=== PATIENT | male | born 1990 | race Caucasian/White ===

== ENCOUNTER 2016-10-16 19:17 | Emergency (ER) | payer OTHER ==
[2016-10-16 19:24] VITALS: BP 133/98; PULSE 104; RESP 18; TEMP 99.5
--- NOTE | 2016-10-16 20:21 | ED ---
General Adult HPI - General Chief complaint: Extremity Injury, Lower Stated complaint: Leg Pain Time Seen by Provider: 10/16/16 19:42 Source: patient, RN notes reviewed Mode of arrival: wheelchair Limitations: no limitations - History of Present Illness Initial comments: This is a 26-year-old male who presents with right leg swelling 1 day. Patient states he gave plasma 2 days ago and after this has noticed some swelling to the right lower extremity. Patient states the swelling was worse yesterday and has improved some today. Patient states he also dropped a curtain memo onto his right ankle today. Patient also rolled his right ankle today as well. Patient states he "dislocated" his right ankle. Patient states he has had a scab to the medial aspect of the right ankle that he admits to picking at. Patient states he has noticed a bruise and more swelling to this area today as well. Patient states the right lower extremity feels tingly but he denies any numbness or weakness. Patient states his past medical history significant for hypertension. Patient has been able to ambulate but this is painful. Patient denies any recent fever, chills, shortness breath, chest pain, abdominal pain, nausea/vomiting/diarrhea, back pain, hematuria, headache, or visual changes, or any other complaints. - Related Data Home Medications Medication Instructions Recorded Confirmed No Known Home Medications [No 10/16/16 10/16/16 Known Home Medications] Allergies Allergy/AdvReac Type Severity Reaction Status Date / Time No Known Allergies Allergy Verified 10/16/16 20:04 Review of Systems ROS Statement: Those systems with pertinent positive or pertinent negative responses have been documented in the HPI. ROS Other: All systems not noted in ROS Statement are negative. Past Medical History Past Medical History: Hypertension History of Any Multi-Drug Resistant Organisms: None Reported Past Surgical History: Orthopedic Surgery Additional Past Surgical History / Comment(s): Lasik surgery; Left ankle surgery Past Psychological History: No Psychological Hx Reported Smoking Status: Current every day smoker Past Alcohol Use History: None Reported Past Drug Use History: None Reported General Exam - General Exam Comments Initial Comments: General: The patient is awake and alert, in no distress, and does not appear acutely ill. Neck: The neck is supple, there is no tenderness or JVD. Cardiovascular: There is a regular rate and rhythm. No murmur, rub or gallop is appreciated. Respiratory: Lungs are clear to auscultation, respirations are non-labored, breath sounds are equal. No wheezes, stridor, rales, or rhonchi. Musculoskeletal: There is tenderness to palpation over the lateral and medial malleoli of the right ankle. There is also tenderness to palpation over the lateral aspect of the right foot. There is nonpitting edema to the right lower extremity extending midcalf. No calf tenderness. There is mild erythema to the lateral aspect of the right ankle, no ecchymosis. Limited range of motion of the right lower extremity due to pain and swelling., Strength 5/5, Sensation intact. Posterior tibial and dorsalis pedis pulses present via doptone. Capillary refill is normal at less than 2 seconds. Left lower extremity is without swelling, erythema, calf tenderness or warmth. Neurological: A&O x 3. CN II-XII intact, There are no obvious motor or sensory deficits. Coordination appears grossly intact. Speech is normal. Skin: There is mild erythema to the lateral aspect of the right ankle but no ecchymosis. There is an approximately 1 cm eschar to the medial malleolus of the right ankle. Skin is warm and dry and no rashes are noted. Psychiatric: Normal mood and affect. Limitations: no limitations Course Vital Signs 10/16/16 19:21 Temperature 99.5 F Pulse Rate 104 H Respiratory 18 Rate Blood Pressure 133/98 O2 Sat by Pulse 98 Oximetry Medical Decision Making - Medical Decision Making This is a 26-year-old male with right lower extremity swelling that started yesterday. Patient has a history of rolling his ankle and dropping a curtain memo on it today. On physical exam there is tenderness to palpation over the lateral and medial malleoli of the right ankle. There is also tenderness to palpation over the lateral aspect of the right foot. There is nonpitting edema to the right lower extremity extending midcalf. No calf tenderness. There is mild erythema to the lateral aspect of the right ankle, no ecchymosis. Limited range of motion of the right lower extremity due to pain and swelling., Strength 5/5, Sensation intact. Posterior tibial and dorsalis pedis pulses present via doptone. Capillary refill is normal at less than 2 seconds. There is an approximately 1 cm eschar to the medial malleolus of the right lower extremity. Left lower extremity is without calf tenderness, swelling, warmth or erythema. Patient was given a dose of ibuprofen in the EC today for pain. X-rays of the right ankle and right foot were done and reviewed showing: X-ray of right foot: Negative for fracture or malalignment. X-ray of right ankle: Negative for fracture or malalignment. Reports read by Dr. Michelle Post. Doppler ultrasound of the right lower extremity was done and reviewed showing: Negative for DVT, right lower extremity. Report her by Dr. Carlos. Discussed results with patient. I gave patient a prescription for an air cast and crutches. Patient was given an Bill wrap in the EC today. Discussed rest, ice, elevate and use Bill bandage and Aircast for support. Discussed use of crutches for ambulation until pain improves. I discussed close follow-up with primary care physician and patient was given a referral for primary care physician today. I discussed return parameters. I discussed that this is most likely an ankle sprain and if it does not improve that he may need further evaluation from orthopedics but that he should follow-up with his primary care physician first. I discussed [id number] Tylenol and/or Motrin as needed for any pain. Patient was receptive to this plan patient will be discharged home. Patient's girlfriend was also present in the room during exam. I discussed this case with attending physician Dr. Rees who agrees the plan as stated above. Disposition Clinical Impression: Ankle sprain Disposition: HOME SELF-CARE Condition: Good Instructions: Ankle Sprain (ED) Additional Instructions: Please rest, ice, elevate, and use Bill wrap and Aircast for support. Please stay nonweightbearing to the right lower extremity and use crutches until pain improves. Please use [id number] Motrin and/or Tylenol for pain. Please follow-up with PCP in the next 1-2 days or please return to the EC for any worsening symptoms or for any further concerns. Referrals: Bal De La Garza MD [Primary Care Provider] - 1-2 days Time of Disposition: 22:11
--- NOTE | 2016-10-16 21:05 | XR ---
EXAMINATION TYPE: XR ankle complete RT DATE OF EXAM: 10/16/2016 8:33 PM COMPARISON: NONE HISTORY: Pain after trauma TECHNIQUE: 3 views FINDINGS: There is soft tissue swelling, particularly laterally. However, the mortise is intact and t he bones and joints are otherwise unremarkable. IMPRESSION: Negative for fracture or malalignment.
--- NOTE | 2016-10-16 21:06 | XR ---
EXAMINATION TYPE: XR foot complete RT DATE OF EXAM: 10/16/2016 8:33 PM COMPARISON: NONE HISTORY: Pain after injury TECHNIQUE: 3 views FINDINGS: The bones and joints and soft tissues are unremarkable IMPRESSION: Negative for fracture or malalignment
[2016-10-16] MEDS ORDERED: IBUPROFEN 400 MG TAB PO STA (21:40)
--- NOTE | 2016-10-16 21:58 | US ---
EXAMINATION TYPE: US VENOUS DOPPLER DUPLEX LE RIGHT DATE OF EXAM: 10/16/2016 9:26 PM COMPARISON: None CLINICAL HISTORY: 26 year male with foot injury today and swelling, no h/o dvt. SIDE PERFORMED: RIGHT VESSELS IMAGED: External Iliac Vein (EIV) Common Femoral Vein Deep Femoral Vein Greater Saphenous Vein * Femoral Vein Popliteal Vein Small Saphenous Vein * Proximal Calf Veins (* superficial vessels) IMPRESSION: NEGATIVE FOR DVT, RIGHT LOWER EXTREMITY.
== END 2016-10-16 22:21 | disposition home or self-care (01) ==
LOC: EC 19:17
DX: S93.401A Sprain of unspecified ligament of right ankle, initial encounter (principal); X50.1XXA Overexertion from prolonged static or awkward postures, initial encounter; W22.8XXA Striking against or struck by other objects, initial encounter; F17.200 Nicotine dependence, unspecified, uncomplicated
CPT/HCPCS: 99284

== ENCOUNTER 2017-10-25 22:39 | Emergency (ER) | payer OTHER ==
[2017-10-25 22:46] VITALS: PULSE 101; RESP 18; TEMP 98.8
--- NOTE | 2017-10-25 23:31 | ED ---
General Adult HPI - General Chief complaint: Dental/Oral Stated complaint: Dental Pain Time Seen by Provider: 10/25/17 23:08 Source: patient, RN notes reviewed Mode of arrival: ambulatory Limitations: no limitations - History of Present Illness Initial comments: Patient 27-year-old male who presents emergency room today with multiple bites. Patient admits to cough congestion over the last few months. He does admit that at times she seems some blood. Patient also admits that his main reason for coming here tonight was that he's having increased pain left lower side. He does admit to pain around tooth #17. He states it broke approximately one week ago he sees them as potatoes. He states that his mother advised him to try to follow down the tooth because it was rubbing into the inside of his tongue causing ulceration. He states that he used a "bic market president" to try to ship away at the tooth. Patient does admit that he's having increased pain to the gumline as well as some drainage and discharge from the area. Patient try to follow-up with a dentist as well but does not have an appointment 30 of October. Patient denies any other symptoms or complaints. Patient denies any recent fever, chills, shortness of breath, chest pain, back pain, abdominal pain , nausea or vomiting, numbness or tingling, dysuria or hematuria, constipation or diarrhea, headaches or visual changes, or any other complaints. - Related Data Previous Rx's Medication Instructions Recorded Atenolol [Tenormin] 25 mg PO DAILY #30 tab 10/26/17 Benzonatate [Tessalon Perles] 100 mg PO TID PRN #20 capsule 10/26/17 Ibuprofen [Motrin] 600 mg PO Q6HR PRN #30 day 10/26/17 Penicillin V Potassium [Pen Vee K] 500 mg PO QID #40 tablet 10/26/17 Allergies Allergy/AdvReac Type Severity Reaction Status Date / Time No Known Allergies Allergy Verified 10/25/17 23:01 Review of Systems ROS Statement: Those systems with pertinent positive or pertinent negative responses have been documented in the HPI. ROS Other: All systems not noted in ROS Statement are negative. Past Medical History Past Medical History: Hypertension History of Any Multi-Drug Resistant Organisms: None Reported Past Surgical History: Orthopedic Surgery Additional Past Surgical History / Comment(s): Lasik surgery; Left ankle surgery Past Psychological History: No Psychological Hx Reported Smoking Status: Current every day smoker Past Alcohol Use History: None Reported Past Drug Use History: Marijuana General Exam - General Exam Comments Initial Comments: General: The patient is awake and alert, in no distress, and does not appear acutely ill. Eye: Pupils are equal, round and reactive to light, extra-ocular movements are intact. No nystagmus. There is normal conjunctiva bilaterally. No signs of icterus. Ears, nose, mouth and throat: There are moist mucous membranes and no oral lesions. Patient does have fractured tooth of tooth #17. Also has poor dental hygiene with multiple breakdown of the enamel at the gumline of tooth #20,19 and 18. Patient does have tenderness locally to the gumline 17 over the tooth itself. There is some ulceration to the lateral aspect left side of the tongue. There is also some breakdown of the skin of the gumline on the left side in this area. Uvula midline. Patient tolerating secretions. Neck: The neck is supple, there is no tenderness or JVD. Cardiovascular: There is a regular rate and rhythm. No murmur, rub or gallop is appreciated. Respiratory: Lungs are clear to auscultation, respirations are non-labored, breath sounds are equal. No wheezes, stridor, rales, or rhonchi. Musculoskeletal: Normal ROM, no tenderness. Strength 5/5. Sensation intact. Pulses equal bilaterally 2+. Neurological: A&O x 3. CN II-XII intact, There are no obvious motor or sensory deficits. Coordination appears grossly intact. Speech is normal. Skin: Skin is warm and dry and no rashes or lesions are noted. Psychiatric: Cooperative, appropriate mood & affect, normal judgment. Limitations: no limitations Course Vital Signs 10/25/17 10/25/17 22:41 23:57 Temperature 98.8 F Pulse Rate 101 H Respiratory 18 Rate Blood Pressure 189/99 168/105 O2 Sat by Pulse 99 Oximetry Medical Decision Making - Medical Decision Making Patient reexamined at this time shows no signs of distress. His case was discussed in detail with attending physician Dr. Castaneda. Patient's chest x-rays negative for any acute abnormalities. He doesn't that he's had cough congestion over the last several months at times is seeing blood. He states that he coughs very hard at times. Patient also here for dental pain his main complaint. Will be started on antibiotics given Tylenol codeine starter pack tonight for his pain. Will be given cough medication for symptoms as well. Patient states he was supposed be on atenolol for his blood pressure presents to the family doctor recently. He is strongly symptoms advised that he be on his medications follow-up the family doctor along with dentist over the next 2 days. Advised to return for any other concerns. Disposition Clinical Impression: Pain, dental, HTN (hypertension), Cough Disposition: HOME SELF-CARE Condition: Good Instructions: Toothache (ED) Additional Instructions: Please use medication as discussed. Please follow-up with family doctor in the next 2 days of symptoms have not improved. Please return to emergency room if the symptoms increase or worsen or for any other concerns. Please follow-up with dentist and use antibiotic and pain medication as discussed. [facility] [address] [address] [phone]) (existing clients only) For new clients: [phone] [facility] Pay $50 for x-rays and the rest discovered [phone] Prescriptions: Atenolol [Tenormin] 25 mg PO DAILY #30 tab Benzonatate [Tessalon Perles] 100 mg PO TID PRN #20 capsule PRN Reason: Cough Ibuprofen [Motrin] 600 mg PO Q6HR PRN #30 day PRN Reason: Pain Penicillin V Potassium [Pen Vee K] 500 mg PO QID #40 tablet Referrals: Bee Haynes MD [Primary Care Provider] - 1-2 days Time of Disposition: 00:08
--- NOTE | 2017-10-25 23:37 | XR ---
EXAMINATION TYPE: XR chest 2V DATE OF EXAM: 10/25/2017 COMPARISON: 11/25/2015 HISTORY: Asthma. Cough. TECHNIQUE: Frontal and lateral views of the chest are obtained. FINDINGS: Heart and mediastinum are normal. Lungs are clear. Diaphragm is normal. Bony thorax appear s normal. IMPRESSION: Normal chest. No change.
[2017-10-25 23:58] VITALS: BP 168/105
[2017-10-26] MEDS ORDERED: PENICILLIN VK 500MG STARTER 4 TAB BTL PO STA (00:07)
[2017-10-26] MEDS ORDERED: ACET/COD 300 MG/30 MG STARTER PACK 6 TAB BTL PO STA (00:07)
== END 2017-10-26 00:19 | disposition home or self-care (01) ==
LOC: EC 22:39
DX: K08.89 Other specified disorders of teeth and supporting structures (principal); I10 Essential (primary) hypertension; R05 Cough; F17.200 Nicotine dependence, unspecified, uncomplicated
CPT/HCPCS: 71046; 99283

== ENCOUNTER 2018-07-31 22:20 | Observation (INO) | payer OTHER ==
[2018-07-31 22:40] LABS: Glucose,Whole Blood 408 mg/dL (75-99)
[2018-07-31] MEDS ORDERED: SODIUM CHLORIDE 0.9% 1,000 ML IV STA (23:00)
[2018-07-31] MEDS ORDERED: ONDANSETRON 4 MG/2 ML VIAL IVP STA (23:00)
--- NOTE | 2018-07-31 23:04 | ED ---
General Adult HPI - General Chief complaint: Nausea/Vomiting/Diarrhea Stated complaint: Lightheaded Time Seen by Provider: 07/31/18 22:25 Source: patient, RN notes reviewed Mode of arrival: ambulatory Limitations: no limitations - History of Present Illness Initial comments: This is a 28-year-old male presents emergency Department stating that he has been urinating quite a bit more lately. Patient states he had to give a urine today for drugs in the called him and told him that he should be checked out for diabetes. Patient denies any history of diabetes. Patient states she's also been very nauseated and vomiting on and off since . Patient states he has had some abdominal cramping but no specific abdominal pain. Patient denies any diarrhea. Patient denies any recent fever chills or cough. Patient denies any chest pain palpitations difficulty breathing shortness of breath. Patient denies lightheadedness dizziness or near syncopal episode. - Related Data Home Medications Medication Instructions Recorded Confirmed No Known Home Medications 07/31/18 07/31/18 Allergies Allergy/AdvReac Type Severity Reaction Status Date / Time No Known Allergies Allergy Verified 07/31/18 22:59 Review of Systems ROS Statement: Those systems with pertinent positive or pertinent negative responses have been documented in the HPI. ROS Other: All systems not noted in ROS Statement are negative. Past Medical History Past Medical History: Asthma, Hypertension History of Any Multi-Drug Resistant Organisms: None Reported Past Surgical History: Orthopedic Surgery Additional Past Surgical History / Comment(s): Lasik surgery; Left ankle surgery Past Psychological History: No Psychological Hx Reported Smoking Status: Current every day smoker Past Alcohol Use History: None Reported Past Drug Use History: None Reported General Exam - General Exam Comments Initial Comments: GENERAL: Patient is well-developed and well-nourished. Patient is nontoxic and well- hydrated and is in mild distress. ENT: Neck is soft and supple. No significant lymphadenopathy is noted. Oropharynx is clear. Moist mucous membranes. Neck has full range of motion without eliciting any pain. EYES: The sclera were anicteric and conjunctiva were pink and moist. Extraocular movements were intact and pupils were equal round and reactive to light. Eyelids were unremarkable. PULMONARY: Unlabored respirations. Good breath sounds bilaterally. No audible rales rhonchi or wheezing was noted. CARDIOVASCULAR: There is a regular rate and rhythm without any murmurs gallops or rubs. ABDOMEN: Soft and nontender with normal bowel sounds. No palpable organomegaly was noted. There is no palpable pulsatile mass. SKIN: Skin is clear with no lesions or rashes and otherwise unremarkable. NEUROLOGIC: Patient is alert and oriented x3. Cranial nerves II through XII are grossly intact. Motor and sensory are also intact. Normal speech, volume and content. Symmetrical smile. MUSCULOSKELETAL: Normal extremities with adequate strength and full range of motion. LYMPHATICS: No significant lymphadenopathy is noted PSYCHIATRIC: Normal psychiatric evaluation. Limitations: no limitations Course Vital Signs 07/31/18 07/31/18 07/31/18 22:23 23:21 23:56 Temperature 98.4 F Pulse Rate 104 H 93 88 Respiratory 20 20 18 Rate Blood Pressure 161/117 168/111 145/95 O2 Sat by Pulse 97 97 96 Oximetry 08/01/18 00:06 Temperature Pulse Rate 87 Respiratory 18 Rate Blood Pressure 151/91 O2 Sat by Pulse 96 Oximetry Medical Decision Making - Lab Data Result diagrams: 07/31/18 22:58 Lab Results 07/31/18 07/31/18 07/31/18 Range/Units 22:28 22:58 22:58 WBC 13.2 H (3.8-10.6) k/uL RBC 5.50 (4.30-5.90) m/uL Hgb 14.7 (13.0-17.5) gm/dL Hct 44.5 (39.0-53.0) % MCV 80.9 (80.0-100.0) fL MCH 26.8 (25.0-35.0) pg MCHC 33.1 (31.0-37.0) g/dL RDW 12.8 (11.5-15.5) % Plt Count 204 (150-450) k/uL Neutrophils % 69 % Lymphocytes % 22 % Monocytes % 5 % Eosinophils % 2 % Basophils % 0 % Neutrophils # 9.1 H (1.3-7.7) k/uL Lymphocytes # 2.9 (1.0-4.8) k/uL Monocytes # 0.6 (0-1.0) k/uL Eosinophils # 0.3 (0-0.7) k/uL Basophils # 0.0 (0-0.2) k/uL POC Glucose (mg/dL) 408 H (75-99) mg/dL POC Glu Marine Biologist ID Lizz Nichole Urine Color Urine Appearance (Clear) Urine pH (5.0-8.0) Ur Specific [place] (1.001-1.035) Urine Protein (Negative) Urine Glucose (UA) (Negative) Urine Ketones (Negative) Urine Blood (Negative) Urine Nitrite (Negative) Urine Bilirubin (Negative) Urine Urobilinogen (<2.0) mg/dL Ur Leukocyte Esterase (Negative) Acetone, Qual Negative (Negative) 07/31/18 Range/Units 22:58 WBC (3.8-10.6) k/uL RBC (4.30-5.90) m/uL Hgb (13.0-17.5) gm/dL Hct (39.0-53.0) % MCV (80.0-100.0) fL MCH (25.0-35.0) pg MCHC (31.0-37.0) g/dL RDW (11.5-15.5) % Plt Count (150-450) k/uL Neutrophils % % Lymphocytes % % Monocytes % % Eosinophils % % Basophils % % Neutrophils # (1.3-7.7) k/uL Lymphocytes # (1.0-4.8) k/uL Monocytes # (0-1.0) k/uL Eosinophils # (0-0.7) k/uL Basophils # (0-0.2) k/uL POC Glucose (mg/dL) (75-99) mg/dL POC Glu Marine Biologist ID Urine Color Light Yellow Urine Appearance Clear (Clear) Urine pH 5.0 (5.0-8.0) Ur Specific [place] 1.037 H (1.001-1.035) Urine Protein Trace H (Negative) Urine Glucose (UA) 4+ H (Negative) Urine Ketones Negative (Negative) Urine Blood Negative (Negative) Urine Nitrite Negative (Negative) Urine Bilirubin Negative (Negative) Urine Urobilinogen <2.0 (<2.0) mg/dL Ur Leukocyte Esterase Negative (Negative) Acetone, Qual (Negative) Disposition Clinical Impression: Diabetes mellitus, new onset Disposition: ADMITTED IP TO THIS [facility] Is patient prescribed a controlled substance at d/c from ED?: No Referrals: None,Stated [Primary Care Provider] - 1-2 days Time of Disposition: 00:33
[2018-07-31] MEDS ORDERED: hydrALAZINE HCL 20 MG/ML 1 ML VIAL IVP STA (23:44)
[2018-08-01 00:10] LABS: Basophils % (A) 0 %; Eosinophils # (A) 0.3 k/uL (0-0.7); Eosinophils % (A) 2 %; HCT 44.5 % (39.0-53.0); HGB 14.7 gm/dL (13.0-17.5); Lymphocytes # (A) 2.9 k/uL (1.0-4.8); Lymphocytes % (A) 22 %; MCH 26.8 pg (25.0-35.0); MCHC 33.1 g/dL (31.0-37.0); MCV 80.9 fL (80.0-100.0); Mean Platelet Volume 9.7; Monocytes # (A) 0.6 k/uL (0-1.0); Monocytes % (A) 5 %; Neutrophils # (A) 9.1 k/uL (1.3-7.7); Neutrophils % (A) 69 %; Platelet Count 204 k/uL (150-450); RDW 12.8 % (11.5-15.5); WBC 13.2 k/uL (3.8-10.6)
[2018-08-01 00:11] LABS: Appearance,Urine Clear (Clear); Bilirubin,Urine Negative (Negative); Blood,Urine Negative (Negative); Color,Urine Light Yellow; Glucose,Urine (UA) 4+ (Negative); Ketones,Urine Negative (Negative); Leukocyte Esterase,Urine Negative (Negative); Nitrite,Urine Negative (Negative); Protein,Urine Trace (Negative); Specific Gravity,Urine 1.037 (1.001-1.035); Urobilinogen,Urine <2.0 mg/dL (<2.0)
[2018-08-01 00:32] LABS: ALT 92 U/L (21-72); AST 49 U/L (17-59); Albumin 4.5 g/dL (3.5-5.0); Alkaline Phosphatase 213 U/L (38-126); Amylase 36 U/L (30-110); Anion Gap 13 mmol/L; Blood Urea Nitrogen 15 mg/dL (9-20); Calcium 9.6 mg/dL (8.4-10.2); Carbon Dioxide 28 mmol/L (22-30); Chloride 93 mmol/L (98-107); Glucose 465 mg/dL (74-99); Lipase 190 U/L (23-300); Potassium 4.6 mmol/L (3.5-5.1); Sodium 134 mmol/L (137-145); Total Bilirubin 0.4 mg/dL (0.2-1.3); Total Protein 8.1 g/dL (6.3-8.2)
[2018-08-01] MEDS ORDERED: SODIUM CHLORIDE 0.9% 1,000 ML IV ONE (00:33)
[2018-08-01] MEDS ORDERED: SODIUM CHLORIDE 0.9% 2,000 ML IV ONE (01:02)
[2018-08-01] MEDS ORDERED: INSULIN ASPART 100 UNIT/ML 1 ML 10 ML VIAL SQ ONE (01:02)
[2018-08-01 01:43] LABS: Glucose,Whole Blood 393 mg/dL (75-99)
[2018-08-01 04:19] LABS: Glucose,Whole Blood 382 mg/dL (75-99)
[2018-08-01 07:09] LABS: Glucose,Whole Blood 329 mg/dL (75-99)
[2018-08-01] MEDS: INSULIN ASPART 100 UNIT/ML 1 ML 10 ML VIAL SQ SCH ×5 (08:19→21:21)
[2018-08-01 11:25] LABS: Glucose,Whole Blood 364 mg/dL (75-99)
[2018-08-01 11:27] LABS: Hemoglobin A1C 11.5 % (4.0-6.0)
[2018-08-01 16:25] LABS: Glucose,Whole Blood 322 mg/dL (75-99)
[2018-08-01] MEDS: PANTOPRAZOLE 40 MG TABLET PO SCH (18:26)
[2018-08-01] MEDS: HEPARIN SODIUM,PORCINE 5,000 UNIT/ML 1 ML VIAL SQ SCH (18:26)
[2018-08-01] MEDS: SODIUM CHLORIDE 0.9% 1,000 ML IV SCH (18:27)
[2018-08-01 20:13] LABS: Glucose,Whole Blood 238 mg/dL (75-99)
[2018-08-01] MEDS ORDERED: INSULIN DETEMIR 100 UNIT/ML 10 ML VIAL SQ SCH (21:00)
[2018-08-01 21:50] LABS: Glucose,Whole Blood 286 mg/dL (75-99)
--- NOTE | 2018-08-02 00:17 | P.HPIM ---
History of Present Illness H&P Date: 08/01/18 Chief Complaint: Frequent urination Patient is a 28-year-old male with a known history of asthma and morbid obesity came to ER with complaints of excessive drinking of water and frequent urination. Patient states he had to give a urine today for drugs in the called him and told him that he should be checked out for diabetes. Patient denies any history of diabetes. Patient states she's also been very nauseated and vomiting on and off since . Patient states he has had some abdominal cramping but no specific abdominal pain. Patient denies any diarrhea. Patient denies any recent fever chills or cough. Patient denies any chest pain palpitations difficulty breathing shortness of breath. Patient denies lightheadedness dizziness or near syncopal episode. Denied any cough or sputum production. Patient denied any fever or chills. Patient says that he does have some right upper tooth pain and is supposed to follow with dental clinic. Blood sugar was 408 on admission His B A1c 11.4 Review of Systems Constitutional: Patient denies any fever or chills . No generalized weakness or weight loss. Abdomen: Patient denied nausea vomiting and diarrhea and abdominal pain. Cardiovascular: Patient denies any chest pain or short of breath no palpitations. Respiratory: patient denied any cough is from production. No shortness of breath Neurologic: Patient denied any numbness or tingling headache. Musculoskeletal: Patient denies any complaints of joint swelling or deformity. Skin: Negative Psychiatric: Negative Endocrine: No heat or cold intolerance. No recent weight gain. Genitourinary: No dysuria or hematuria. Frequent urination All other 14 point ROS negative except the above Past Medical History Past Medical History: Asthma, Hypertension History of Any Multi-Drug Resistant Organisms: None Reported Past Surgical History: Orthopedic Surgery Additional Past Surgical History / Comment(s): Lasik surgery; Left ankle surgery Past Anesthesia/Blood Transfusion Reactions: No Reported Reaction Past Psychological History: No Psychological Hx Reported Smoking Status: Current every day smoker Past Alcohol Use History: None Reported Past Drug Use History: None Reported Medications and Allergies Home Medications Medication Instructions Recorded Confirmed Type No Known Home Medications 07/31/18 07/31/18 History Allergies Allergy/AdvReac Type Severity Reaction Status Date / Time No Known Allergies Allergy Verified 07/31/18 22:59 Physical Exam Vitals: Vital Signs Temp Pulse Pulse Resp BP BP Pulse Ox 08/01/18 07:30 16 08/01/18 07:10 97.6 F 89 16 134/86 96 08/01/18 03:30 98.2 F 79 16 168/75 95 08/01/18 02:23 98.2 F 98 18 132/73 96 08/01/18 00:57 98.3 F 86 18 150/95 97 08/01/18 00:06 87 18 151/91 96 07/31/18 23:56 88 18 145/95 96 07/31/18 23:21 93 20 168/111 97 07/31/18 22:23 98.4 F 104 H 20 161/117 97 Intake and Output 07/31/18 08/01/18 08/01/18 22:59 06:59 14:59 Intake Total 472 Balance 472 Intake: Oral 472 Other: # Voids 1 Weight 179.623 kg PHYSICAL EXAMINATION: Patient is lying in the bed comfortably, no acute distress, awake alert and oriented. Morbidly obese. HEENT: Normocephalic. Neck is supple. Pupils reactive. Nostrils clear. Oral cavity is moist. Ears reveal no drainage. Neck reveals no JVD, carotid bruits, or thyromegaly. CHEST EXAMINATION: Trachea is central. Symmetrical expansion. Bibasilar diminished air entry. Lung gallegos clear to auscultation and percussion. CARDIAC: Normal S1, S2 with no gallops. No murmurs ABDOMEN: Soft. Bowel sounds normal. No organomegaly. No abdominal bruits. Extremities: reveal no edema. No clubbing or cyanosis Neurologically awake, alert, oriented x3 with well-coordinated movements. No focal deficits noted Skin: No rash or skin lesions. Psychiatric: Coperative. Nonsuicidal Musculoskeletal: No joint swelling or deformity. Normal range of motion. Results CBC & Chem 7: 07/31/18 22:58 07/31/18 22:58 Labs: Abnormal Lab Results - Last 24 Hours (Table) 07/31/18 07/31/18 07/31/18 Range/Units 22:28 22:58 22:58 WBC 13.2 H (3.8-10.6) k/uL Neutrophils # 9.1 H (1.3-7.7) k/uL Sodium 134 L (137-145) mmol/L Chloride 93 L (98-107) mmol/L Glucose 465 H (74-99) mg/dL POC Glucose (mg/dL) 408 H (75-99) mg/dL Hemoglobin A1c (4.0-6.0) % ALT 92 H (21-72) U/L Alkaline Phosphatase 213 H (38-126) U/L Ur Specific Jacob (1.001-1.035) Urine Protein (Negative) Urine Glucose (UA) (Negative) 07/31/18 07/31/18 08/01/18 Range/Units 22:58 22:58 01:30 WBC (3.8-10.6) k/uL Neutrophils # (1.3-7.7) k/uL Sodium (137-145) mmol/L Chloride (98-107) mmol/L Glucose (74-99) mg/dL POC Glucose (mg/dL) 393 H (75-99) mg/dL Hemoglobin A1c 11.5 H (4.0-6.0) % ALT (21-72) U/L Alkaline Phosphatase (38-126) U/L Ur Specific Jacob 1.037 H (1.001-1.035) Urine Protein Trace H (Negative) Urine Glucose (UA) 4+ H (Negative) 08/01/18 08/01/18 08/01/18 Range/Units 04:06 06:55 11:13 WBC (3.8-10.6) k/uL Neutrophils # (1.3-7.7) k/uL Sodium (137-145) mmol/L Chloride (98-107) mmol/L Glucose (74-99) mg/dL POC Glucose (mg/dL) 382 H 329 H 364 H (75-99) mg/dL Hemoglobin A1c (4.0-6.0) % ALT (21-72) U/L Alkaline Phosphatase (38-126) U/L Ur Specific Jacob (1.001-1.035) Urine Protein (Negative) Urine Glucose (UA) (Negative) Thrombosis Risk Factor Assmnt - DVT/VTE Prophylaxis DVT/VTE Prophylaxis: Pharmacologic Prophylaxis ordered - Choose All That Apply Any of the Below Risk Factors Present?: Yes Each Factor Represents 1 point: Obesity (BMI >25) Other Risk Factors: No Other congenital or acquired thrombophilia - If yes, enter type in comment: No Thrombosis Risk Factor Assessment Total Risk Factor Score: 1 Thrombosis Risk Factor Assessment Level: Low Risk Assessment and Plan Assessment: Hyperglycemia with new onset diabetes likely type II. Acetone is negative. No DKA. Possible right upper molar tooth infection Asthma stable Nicotine addiction Morbid obesity BMI 49.5 DVT prophylaxis Plan: Patient will be continued on IV fluids. Will start on Levemir 21 units daily at bedtime along with 7 units of NovoLog with meals 3 times a day before meals. Will start on antibiotics in the form of ceftriaxone. Continue the insulin sliding scale. Diabetic education. Recommended to follow with associate merchandise planner as an outpatient. Continue to adjust insulin dose and further recommendations based on the clinical course. Anticipate discharge tomorrow. Time with Patient: Greater than 30
[2018-08-02] MEDS: HEPARIN SODIUM,PORCINE 5,000 UNIT/ML 1 ML VIAL SQ SCH ×4 (00:24→23:25)
[2018-08-02] MEDS: NICOTINE 21MG/24HR PATCH TRANSDERM SCH ×2 (03:42→10:36)
[2018-08-02] MEDS: SODIUM CHLORIDE 0.9% 1,000 ML IV SCH ×3 (03:47→18:36)
[2018-08-02 07:05] LABS: Glucose,Whole Blood 342 mg/dL (75-99)
[2018-08-02 08:18] LABS: Basophils % (A) 0 %; Eosinophils # (A) 0.3 k/uL (0-0.7); Eosinophils % (A) 4 %; HCT 41.2 % (39.0-53.0); HGB 13.4 gm/dL (13.0-17.5); Lymphocytes # (A) 2.3 k/uL (1.0-4.8); Lymphocytes % (A) 25 %; MCH 26.7 pg (25.0-35.0); MCHC 32.7 g/dL (31.0-37.0); MCV 81.7 fL (80.0-100.0); Mean Platelet Volume 9.4; Monocytes # (A) 0.4 k/uL (0-1.0); Monocytes % (A) 5 %; Neutrophils # (A) 5.8 k/uL (1.3-7.7); Neutrophils % (A) 65 %; Platelet Count 174 k/uL (150-450); RBC 5.04 m/uL (4.30-5.90); RDW 13.2 % (11.5-15.5)
[2018-08-02] MEDS: PANTOPRAZOLE 40 MG TABLET PO SCH (08:20)
[2018-08-02] MEDS: INSULIN ASPART 100 UNIT/ML 1 ML 10 ML VIAL SQ SCH ×8 (08:20→21:43)
[2018-08-02 08:38] LABS: ALT 84 U/L (21-72); AST 58 U/L (17-59); Albumin 3.4 g/dL (3.5-5.0); Alkaline Phosphatase 156 U/L (38-126); Anion Gap 9 mmol/L; Blood Urea Nitrogen 12 mg/dL (9-20); Calcium 8.5 mg/dL (8.4-10.2); Carbon Dioxide 22 mmol/L (22-30); Chloride 104 mmol/L (98-107); Glucose 369 mg/dL (74-99); Potassium 4.6 mmol/L (3.5-5.1); Sodium 135 mmol/L (137-145); Total Bilirubin 0.2 mg/dL (0.2-1.3); Total Protein 6.5 g/dL (6.3-8.2)
[2018-08-02 11:42] LABS: Glucose,Whole Blood 447 mg/dL (75-99)
[2018-08-02 13:32] LABS: Glucose,Whole Blood 244 mg/dL (75-99)
[2018-08-02 14:26] VITALS: BMI 49.5
[2018-08-02 17:21] LABS: Glucose,Whole Blood 299 mg/dL (75-99)
[2018-08-02 20:03] LABS: Glucose,Whole Blood 312 mg/dL (75-99)
[2018-08-02] MEDS ORDERED: INSULIN DETEMIR 100 UNIT/ML 10 ML VIAL SQ SCH (21:00)
[2018-08-02] MEDS ORDERED: INSULIN DETEMIR 100 UNIT/ML 10 ML VIAL SQ ONE (22:15)
--- NOTE | 2018-08-02 22:27 | P.PN ---
Subjective Patient is a 28-year-old male with a known history of asthma and morbid obesity came to ER with complaints of excessive drinking of water and frequent urination. Patient states he had to give a urine today for drugs in the called him and told him that he should be checked out for diabetes. Patient denies any history of diabetes. Patient states she's also been very nauseated and vomiting on and off since . Patient states he has had some abdominal cramping but no specific abdominal pain. Patient denies any diarrhea. Patient denies any recent fever chills or cough. Patient denies any chest pain palpitations difficulty breathing shortness of breath. Patient denies lightheadedness dizziness or near syncopal episode. Denied any cough or sputum production. Patient denied any fever or chills. Patient says that he does have some right upper tooth pain and is supposed to follow with dental clinic. Blood sugar was 408 on admission His B A1c 11.4 08/02/18 pt stated for the last 5 days prior to admission he was drinking a lot of water and peeing a lot, and a frind advised him to come to hospital, pt is new diabetes. he was started on levimir 21 U which increased today to 35 U and novolog 7 U increased to 12 TIDAC as his sugar was still unctrolled today in the range of 244-447. pt riggs not have symptoms however he has several dental caries and his antibiotic is switched to Augmentin. pt is counseled to f/u with dentist as outpt and he agrees . risks and benefits and alternative are explained for him. elevated liver enz. we will trend his liver enz and if don't improve then recommend work up . vitals stable and pt is afebrile. c/w nicotine patch and pt is counseled to quit smoking and loose weight . outreach educator was in the room when i was stepping in. i provided education for the pt , including the needs to f/u with pcp soon and check his sugar 4 times a day and how to deal with the hypoglycemia, and the s/s of hypoglycemia. glucomoter is provided by the hospital as per DM educator as it is more free, with all its accessory. c/w iv fluid at 100 ml/hour he has [employer] insurance and as appointment was been tried to be made, it is found he is a pt of Dr. García however the pt did not know that , pt was informed. was paged and response is pendign. staff tried to make appointment with the permit specialist clinic as outpt however it was closed on Sunday today. Objective - Vital Signs Vital signs: Vital Signs Temp 98.4 F 08/02/18 19:48 Pulse 74 08/02/18 19:48 Resp 18 08/02/18 19:48 BP 154/94 08/02/18 19:48 Pulse Ox 97 08/02/18 19:48 Intake & Output 08/02/18 08/02/18 08/03/18 06:59 18:59 06:59 Intake Total 1600 2136 Balance 1600 2136 Weight 179.623 kg Intake: Intake, IV Titration 1600 700 Amount Sodium Chloride 0.9% 1, 1600 700 000 ml @ 100 mls/hr IV . Q10H [facility] Rx#:[id number] Oral 1436 - Exam PHYSICAL EXAMINATION: Patient is lying in the bed comfortably, no acute distress, awake alert and oriented. Morbidly obese. HEENT: Normocephalic. Neck is supple. Pupils reactive. Nostrils clear. Oral cavity is moist. Ears reveal no drainage. Neck reveals no JVD, carotid bruits, or thyromegaly. CHEST EXAMINATION: Trachea is central. Symmetrical expansion. Bibasilar diminished air entry. Lung gallegos clear to auscultation and percussion. CARDIAC: Normal S1, S2 with no gallops. No murmurs ABDOMEN: Soft. Bowel sounds normal. No organomegaly. No abdominal bruits. Extremities: reveal no edema. No clubbing or cyanosis Neurologically awake, alert, oriented x3 with well-coordinated movements. No focal deficits noted Skin: No rash or skin lesions. Psychiatric: Coperative. Nonsuicidal Musculoskeletal: No joint swelling or deformity. Normal range of motion. - Labs CBC & Chem 7: 08/02/18 07:48 08/02/18 07:48 Labs: Abnormal Lab Results - Last 24 Hours (Table) 08/02/18 08/02/18 08/02/18 Range/Units 06:53 07:48 11:31 Sodium 135 L (137-145) mmol/L Creatinine 0.57 L (0.66-1.25) mg/dL Glucose 369 H (74-99) mg/dL POC Glucose (mg/dL) 342 H 447 H (75-99) mg/dL ALT 84 H (21-72) U/L Alkaline Phosphatase 156 H (38-126) U/L Albumin 3.4 L (3.5-5.0) g/dL 08/02/18 08/02/18 08/02/18 Range/Units 13:20 17:09 19:51 Sodium (137-145) mmol/L Creatinine (0.66-1.25) mg/dL Glucose (74-99) mg/dL POC Glucose (mg/dL) 244 H 299 H 312 H (75-99) mg/dL ALT (21-72) U/L Alkaline Phosphatase (38-126) U/L Albumin (3.5-5.0) g/dL Assessment and Plan Plan: Hyperglycemia with new onset diabetes, unknown type . Acetone is negative. No DKA. Possible right upper molar tooth infection Asthma stable Nicotine addiction Morbid obesity BMI 49.5 DVT prophylaxis Plan: Patient will be continued on IV fluids. Will start on Levemir daily at bedtime along with NovoLog with meals 3 times a day before meals and titrate dose . Will start on antibiotics augmentin and dc ceftriaxone . Continue the insulin sliding scale. Diabetic education. Recommended to follow with permit specialist as an outpatient. Continue to adjust insulin dose and further recommendations based on the clinical course.
[2018-08-02] MEDS ORDERED: ACETAMINOPHEN TAB 325 MG TAB PO PRN (23:19)
[2018-08-02 23:47] LABS: Glucose,Whole Blood 279 mg/dL (75-99)
[2018-08-03 06:59] LABS: Glucose,Whole Blood 219 mg/dL (75-99)
[2018-08-03] MEDS: PANTOPRAZOLE 40 MG TABLET PO SCH (07:58)
[2018-08-03] MEDS: INSULIN ASPART 100 UNIT/ML 1 ML 10 ML VIAL SQ SCH ×7 (07:59→22:33)
[2018-08-03] MEDS: SODIUM CHLORIDE 0.9% 1,000 ML IV SCH ×2 (07:59→16:46)
[2018-08-03] MEDS: HEPARIN SODIUM,PORCINE 5,000 UNIT/ML 1 ML VIAL SQ SCH ×2 (08:00→16:15)
[2018-08-03 08:58] LABS: Glucose,Whole Blood 296 mg/dL (75-99)
[2018-08-03] MEDS: AMOXIC-POT CLAV 500-125 MG 1 EACH TAB PO SCH ×2 (09:44→22:28)
[2018-08-03] MEDS: NICOTINE 21MG/24HR PATCH TRANSDERM SCH (09:44)
[2018-08-03 12:01] LABS: Glucose,Whole Blood 210 mg/dL (75-99)
[2018-08-03] MEDS ORDERED: INSULIN DETEMIR 100 UNIT/ML 10 ML VIAL SQ ONE (12:09)
[2018-08-03 12:44] LABS: Albumin 3.6 g/dL (3.5-5.0); Bilirubin, Delta 0.2 mg/dL (0.0-0.2); Bilirubin,Unconjugated 0.1 mg/dL (0.0-1.1); Total Bilirubin 0.3 mg/dL (0.2-1.3); Total Protein 6.7 g/dL (6.3-8.2)
[2018-08-03 16:49] LABS: Glucose,Whole Blood 277 mg/dL (75-99)
--- NOTE | 2018-08-03 17:30 | P.PN ---
Subjective Patient is a 28-year-old male with a known history of asthma and morbid obesity came to ER with complaints of excessive drinking of water and frequent urination. Patient states he had to give a urine today for drugs in the called him and told him that he should be checked out for diabetes. Patient denies any history of diabetes. Patient states she's also been very nauseated and vomiting on and off since . Patient states he has had some abdominal cramping but no specific abdominal pain. Patient denies any diarrhea. Patient denies any recent fever chills or cough. Patient denies any chest pain palpitations difficulty breathing shortness of breath. Patient denies lightheadedness dizziness or near syncopal episode. Denied any cough or sputum production. Patient denied any fever or chills. Patient says that he does have some right upper tooth pain and is supposed to follow with dental clinic. Blood sugar was 408 on admission His B A1c 11.4 08/02/18 pt stated for the last 5 days prior to admission he was drinking a lot of water and peeing a lot, and a frind advised him to come to hospital, pt is new diabetes. he was started on levimir 21 U which increased today to 35 U and novolog 7 U increased to 12 TIDAC as his sugar was still unctrolled today in the range of 244-447. pt riggs not have symptoms however he has several dental caries and his antibiotic is switched to Augmentin. pt is counseled to f/u with dentist as outpt and he agrees . risks and benefits and alternative are explained for him. elevated liver enz. we will trend his liver enz and if don't improve then recommend work up . vitals stable and pt is afebrile. c/w nicotine patch and pt is counseled to quit smoking and loose weight . art educator was in the room when i was stepping in. i provided education for the pt , including the needs to f/u with pcp soon and check his sugar 4 times a day and how to deal with the hypoglycemia, and the s/s of hypoglycemia. glucomoter is provided by the hospital as per DM educator as it is more free, with all its accessory. c/w iv fluid at 100 ml/hour he has [employer] insurance and as appointment was been tried to be made, it is found he is a pt of Dr. García however the pt did not know that , pt was informed. was paged and response is pendign. staff tried to make appointment with the production mechanic [facility] clinic as outpt however it was closed on Sunday today. 08/03/[address] García in the morning and he accepted the patient, however later on he rejected the patient and transferred him back to our service. Patient is on both long-acting and short-acting insulin. He has a new onset diabetes. He is currently on Levemir 35 units at bedtime and 12 units of NovoLog with meals plus sliding scale. 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 However rest of hepatitis panel its ascending down to this and could not be done over the weekend. An appointment is made with Dr. Hu upon patient request on this coming in 2 days. And I updated him with this liver enzyme abnormalities his consent to check the rest of hepatitis panel plus other workup as indicated. However patient he didn't get approval for his insulin from his insurance company. Prescription is provided for Basaglar ( glargine ) insulin and Admelog ( lispro) insulin which are deformed staff been approved by his insurance however approve is hasn't back yet. manager business banking on the case Objective - Vital Signs Vital signs: Vital Signs Temp 97.6 F 08/03/18 15:00 Pulse 80 08/03/18 15:00 Resp 18 08/03/18 15:00 BP 165/103 08/03/18 15:00 Pulse Ox 100 08/03/18 15:00 Intake & Output 08/02/18 08/03/18 08/03/18 18:59 06:59 18:59 Intake Total 2136 1850 500 Balance 2136 1850 500 Weight 179.623 kg Intake: Intake, IV Titration 700 1600 Amount Sodium Chloride 0.9% 1, 700 1600 000 ml @ 100 mls/hr IV . Q10H [facility] Rx#:[id number] Oral 1436 250 500 Other: Voiding Method Toilet # Voids 2 - Exam PHYSICAL EXAMINATION: Patient is lying in the bed comfortably, no acute distress, awake alert and oriented. Morbidly obese. HEENT: Normocephalic. Neck is supple. Pupils reactive. Nostrils clear. Oral cavity is moist. Ears reveal no drainage. Neck reveals no JVD, carotid bruits, or thyromegaly. CHEST EXAMINATION: Trachea is central. Symmetrical expansion. Bibasilar diminished air entry. Lung gallegos clear to auscultation and percussion. CARDIAC: Normal S1, S2 with no gallops. No murmurs ABDOMEN: Soft. Bowel sounds normal. No organomegaly. No abdominal bruits. Extremities: reveal no edema. No clubbing or cyanosis Neurologically awake, alert, oriented x3 with well-coordinated movements. No focal deficits noted Skin: No rash or skin lesions. Psychiatric: Coperative. Nonsuicidal Musculoskeletal: No joint swelling or deformity. Normal range of motion. - Labs CBC & Chem 7: 08/02/18 07:48 08/02/18 07:48 Labs: Abnormal Lab Results - Last 24 Hours (Table) 08/02/18 08/02/18 08/02/18 Range/Units 17:09 19:51 23:35 POC Glucose (mg/dL) 299 H 312 H 279 H (75-99) mg/dL AST (17-59) U/L ALT (21-72) U/L 08/03/18 08/03/18 08/03/18 Range/Units 06:58 08:57 11:35 POC Glucose (mg/dL) 219 H 296 H (75-99) mg/dL AST 86 H (17-59) U/L ALT 103 H (21-72) U/L 08/03/18 08/03/18 Range/Units 11:59 16:47 POC Glucose (mg/dL) 210 H 277 H (75-99) mg/dL AST (17-59) U/L ALT (21-72) U/L Assessment and Plan Plan: Hyperglycemia with new onset diabetes, unknown type . Acetone is negative. No DKA. Elevated liver enzymes, with hepatitis A is negative Possible right upper molar tooth infection Asthma stable Nicotine addiction Morbid obesity BMI 49.5 DVT prophylaxis Plan: Patient will be continued on IV fluids. Will start on Levemir daily at bedtime along with NovoLog with meals 3 times a day before meals and titrate dose . Will start on antibiotics augmentin and dc ceftriaxone . Continue the insulin sliding scale. Diabetic education. Recommended to follow with production mechanic tin cans as an outpatient. Patient is pending approval for his insulin forms. An appointment is made for him with Dr. Hu in 2 days. He has been Dr. Hu before as a walk-in clinic and he has mother and low works and Dr. Martin office. He agreed to the appointments made for him. I spoke with Dr. Martin about his further workup for his liver enzymes and follow-up of his diabetes mellitus management. Continue to adjust insulin dose and further recommendations based on the clinical course.
[2018-08-03 20:38] LABS: Glucose,Whole Blood 236 mg/dL (75-99)
[2018-08-03] MEDS ORDERED: INSULIN DETEMIR 100 UNIT/ML 10 ML VIAL SQ SCH (21:00)
[2018-08-03 23:01] LABS: Glucose,Whole Blood 289 mg/dL (75-99)
[2018-08-04] MEDS ORDERED: hydrALAZINE HCL 20 MG/ML 1 ML VIAL IM STA (00:22)
[2018-08-04 00:56] VITALS: RESP 16
[2018-08-04] MEDS ORDERED: hydrALAZINE HCL 20 MG/ML 1 ML VIAL IVP STA (01:03)
[2018-08-04] MEDS: HEPARIN SODIUM,PORCINE 5,000 UNIT/ML 1 ML VIAL SQ SCH ×2 (01:25→07:34)
[2018-08-04] MEDS: SODIUM CHLORIDE 0.9% 1,000 ML IV SCH ×2 (03:43→13:24)
[2018-08-04 07:28] VITALS: BP 157/118; PULSE 79; TEMP 97.7
[2018-08-04 07:30] LABS: Glucose,Whole Blood 211 mg/dL (75-99)
[2018-08-04] MEDS: NICOTINE 21MG/24HR PATCH TRANSDERM SCH (08:17)
[2018-08-04] MEDS: AMOXIC-POT CLAV 500-125 MG 1 EACH TAB PO SCH (08:18)
[2018-08-04] MEDS: PANTOPRAZOLE 40 MG TABLET PO SCH (08:18)
[2018-08-04] MEDS: INSULIN ASPART 100 UNIT/ML 1 ML 10 ML VIAL SQ SCH ×4 (08:18→13:24)
[2018-08-04 11:37] LABS: Glucose,Whole Blood 215 mg/dL (75-99)
[2018-08-04] MEDS ORDERED: LISINOPRIL 5 MG TAB PO SCH (11:45)
--- NOTE | 2018-08-04 12:47 | P.DS ---
Providers Date of admission: 08/01/18 00:33 Attending physician: Darian Rodriguez MD Primary care physician: Stated None Hospital Course: 28-year-old male admitted for highly elevated blood sugars found to be diabetic new-onset diabetic with hemoglobin A1c of 11.4. Patient will be discharged today with 30 units of Lantus along with the metformin twice a day May need either glipizide is generally a which can be started as an outpatient. Patient has follow Dr. Martin tomorrow and the patient will follow with endocrinology as an outpatient patient also has dental caries patient is being discharged on Augmentin and patient will follow with the dentist as an outpatient. Patient's blood pressure is elevated probably essential hypertension will be started on lisinopril 5 mg. Patient last to check his blood pressure and blood sugars twice a day. She is morbidly obese data counseling and diuretic counseling was provided PHYSICAL EXAMINATION: GENERAL: The patient is alert and oriented x3, not in any acute distress. Morbidly obese HEENT: Pupils are round and equally reacting to light. EOMI. No scleral icterus. No conjunctival pallor. Normocephalic, atraumatic. No pharyngeal erythema. No thyromegaly. CARDIOVASCULAR: S1 and S2 present. No murmurs, rubs, or gallops. PULMONARY: Chest is clear to auscultation, no wheezing or crackles. ABDOMEN: Soft, nontender, nondistended, normoactive bowel sounds. No palpable organomegaly. MUSCULOSKELETAL: No joint swelling or deformity. EXTREMITIES: No cyanosis, clubbing, or pedal edema. NEUROLOGICAL: Gross neurological examination did not reveal any focal deficits. SKIN: No rashes. For the chronic medical problems and hospitalization course please refer to dictation from Dr. Rodriguez from yesterday Plan - Discharge Summary New Discharge Prescriptions: New Insulin Glargine [Lantus] 35 unit SQ DAILY #1 vial Lisinopril [Zestril] 5 mg PO DAILY #30 tab metFORMIN HCL [Glucophage] 1,000 mg PO BID #60 tab Discharge Medication List Insulin Glargine [Lantus] 35 unit SQ DAILY #1 vial 08/04/18 [Rx] Lisinopril [Zestril] 5 mg PO DAILY #30 tab 08/04/18 [Rx] metFORMIN HCL [Glucophage] 1,000 mg PO BID #60 tab 08/04/18 [Rx] Follow up Appointment(s)/Referral(s): Renee Martin MD [REFERRING] - 08/05/18 3:10 pm Francis Paulino MD [REFERRING] - 1 Week (endocrinologsit ) None,Stated [Primary Care Provider] - 1-2 days Activity/Diet/Wound Care/Special Instructions: Roast Master contacted [facility] at [phone]. The patient will receive an assignment of benefits letter in the mail in 2-4 business days. Please sign, date, and return. A nurse will call at that point and do an assessment. The patient will send the prescription to them at that point. CM to send pt with free meter and supplies for 10 days. Patient instructed to purchase meter at [facility] if he runs out before mail order meter comes.
== END 2018-08-04 14:56 | disposition home or self-care (01) ==
LOC: EC 22:20 → 4SSUR 08-01 00:33
PROVIDERS: ADMIT Internal Medicine; ATTEND Internal Medicine
DX: E11.65 Type 2 diabetes mellitus with hyperglycemia (principal); I10 Essential (primary) hypertension; K02.9 Dental caries, unspecified; R94.5 Abnormal results of liver function studies; J45.909 Unspecified asthma, uncomplicated; F17.200 Nicotine dependence, unspecified, uncomplicated; E66.01 Morbid (severe) obesity due to excess calories; Z68.42 Body mass index [BMI] 45.0-49.9, adult
CPT/HCPCS: 96361 ×5; 96365; 96366; 96372 ×2; 96376; 96375; 99284; 36415 ×2; 86709; 80053 ×2; 80076; 82150; 82009; 83690; 85025 ×2; 81003; 83036; G0378 ×4; S4990 ×3; J0360 ×2; J1644 ×2; J2405; J0696 ×2

== ENCOUNTER 2018-12-01 00:48 | Emergency (ER) | payer OTHER ==
[2018-12-01 00:54] VITALS: TEMP 98.5
[2018-12-01] MEDS ORDERED: SODIUM CHLORIDE 0.9% 1,000 ML IV STA (01:36)
--- NOTE | 2018-12-01 01:44 | ED ---
Weakness HPI - General Source: patient, RN/MD, RN notes reviewed, old records reviewed Mode of arrival: ambulatory Limitations: no limitations <Paige Larson - Last Filed: 12/01/18 04:01> <Maria Del Rosario Nicholas - Last Filed: 12/01/18 04:34> - General Chief complaint: Weakness Stated complaint: numbness Time Seen by Provider: 12/01/18 01:04 - History of Present Illness Initial comments: Patient is a 28-year-old male presents emergency department today with complaints of weakness over the left side his body and complains of left-sided facial numbness. He reports the symptoms started a 2 hours ago while he was at work. He reports that he walked outside and felt like he was unable to speak at that time. He states that the symptoms later diminished after a 5 minutes. He states that he has no chest pain shortness of breath. He does complain of a minor headache at this time. He reports that he continues to feel like the left side of his body is weaker than his right.Patient states that he is a type II diabetic management insulin, Patient has a history of hypertension and asthma. (Paige Larson) - Related Data Previous Rx's Medication Instructions Recorded Amoxic-Pot Clav 500-125 mg 1 each PO BID #14 tab 08/04/18 [Augmentin 500-125 mg] Insulin Glargine [Lantus] 35 unit SQ DAILY #1 vial 08/04/18 Lisinopril [Zestril] 5 mg PO DAILY #30 tab 08/04/18 metFORMIN HCL [Glucophage] 1,000 mg PO BID #60 tab 08/04/18 Allergies Allergy/AdvReac Type Severity Reaction Status Date / Time No Known Allergies Allergy Verified 12/01/18 00:54 Review of Systems ROS Other: All systems not noted in ROS Statement are negative. <Paige Larson - Last Filed: 12/01/18 04:01> ROS Other: All systems not noted in ROS Statement are negative. <Maria Del Rosario Nicholas - Last Filed: 12/01/18 04:34> ROS Statement: Those systems with pertinent positive or pertinent negative responses have been documented in the HPI. Past Medical History Past Medical History: Asthma, Diabetes Mellitus, Hypertension History of Any Multi-Drug Resistant Organisms: None Reported Past Surgical History: Orthopedic Surgery Additional Past Surgical History / Comment(s): Lasik surgery; Left ankle surgery Past Anesthesia/Blood Transfusion Reactions: No Reported Reaction Past Psychological History: No Psychological Hx Reported Smoking Status: Current every day smoker Past Alcohol Use History: None Reported Past Drug Use History: None Reported <Paige Larson - Last Filed: 12/01/18 04:01> General Exam Limitations: no limitations General appearance: alert, in no apparent distress Head exam: Present: atraumatic, normocephalic, normal inspection Eye exam: Present: normal appearance, PERRL, EOMI, other (Left eye strabismus noted). Absent: scleral icterus, conjunctival injection, periorbital swelling ENT exam: Present: normal exam, normal oropharynx, mucous membranes moist, TM's normal bilaterally, other (left sided facial paresthesias, no signs of facial weakness. No droop. ) Neck exam: Present: normal inspection, full ROM. Absent: tenderness, meningismus, lymphadenopathy Respiratory exam: Present: normal lung sounds bilaterally. Absent: respiratory distress, wheezes, rales, rhonchi, stridor Cardiovascular Exam: Present: regular rate, normal rhythm, normal heart sounds. Absent: systolic murmur, diastolic murmur, rubs, gallop, clicks GI/Abdominal exam: Present: soft, normal bowel sounds. Absent: distended, tenderness, guarding, rebound, rigid Extremities exam: Present: normal inspection, full ROM, normal capillary refill. Absent: tenderness, pedal edema, joint swelling, calf tenderness Back exam: Present: normal inspection Neurological exam: Present: alert, oriented X3, CN II-XII intact, normal gait Expanded Patient oriented to: Present: person, place, time Speech: Present: fluid speech Cranial nerves: EOM's Intact: Normal, Facial Sensation: Abnormal Left, Facial Palsy with Forehead Movement: Normal Cerebellar function: Finger to Nose: Normal Upper motor neuron: Pronator Drift: Normal Sensory exam: Upper Extremity Light Touch: Normal, Lower Extremity Light Touch: Normal Motor strength exam: RUE: 5, LUE: 5, RLE: 5, LLE: 5 Eye Response: (4) open spontaneously Motor Response: (6) obeys commands Verbal Response: (5) oriented Anibal Total: 15 Psychiatric exam: Present: normal affect, normal mood Skin exam: Present: warm, dry, intact, normal color. Absent: rash <Paige Larson - Last Filed: 12/01/18 04:01> <Maria Del Rosario Nicholas - Last Filed: 12/01/18 04:34> - General Exam Comments Initial Comments: 28-year-old male. Patient is morbidly obese. Patient is alert and oriented 3. (Paige Larson) Vital Signs 12/01/18 12/01/18 12/01/18 00:50 02:07 03:17 Temperature 98.5 F Pulse Rate 121 H 90 87 Respiratory 24 16 18 Rate Blood Pressure 171/84 155/122 183/113 O2 Sat by Pulse 99 99 97 Oximetry Medical Decision Making - Lab Data Result diagrams: 12/01/18 02:04 12/01/18 02:04 - Radiology Data Radiology results: report reviewed <Paige Larson - Last Filed: 12/01/18 04:01> - Lab Data Result diagrams: 12/01/18 02:04 12/01/18 02:04 <Maria Del Rosario Nicholas - Last Filed: 12/01/18 04:34> - Medical Decision Making 28-year-old male presents emergency room today with left-sided facial numbness and tingling. He reports he had an episode of worsening left-sided facial numbness and tingling. It is left-sided his body was weaker and unable to speak. He also complains of blurred vision. He does have chronic poor vision from his left eye. At this time Patient has an NIH field 1 for left-sided facial paresthesias. EKG lab work was unremarkable. CT of his brain showed no acute abnormalities. Patient is morbidly obese smoker and has a history of diabetes and hypertension. Patient does have multiple risk factors for TIAs although he is a young age. I offered the Patient further evaluation with transfer to [facility] for neuro consult. Patient family and Patient refused EMS transfer. They stated they want to take him by private vehicle. Patient had her to take an aspirin prior to arrival here. I discussed with Patient that he should go directly to [facility] for evaluation. Dr. Tomlinson accept the transfer. (Paige Larson) I was available for consultation in the emergency department. The history and physical exam were done by the midlevel provider. I was consulted for this patient's care. I reviewed the case with the midlevel provider and based on their presentation of the patient, I agree with the assessment, medical decision making and plan of care as documented. (Maria Del Rosario Nicholas) - Lab Data Lab Results 12/01/18 12/01/18 12/01/18 Range/Units 02:04 02:04 02:04 WBC 12.0 H (3.8-10.6) k/uL RBC 5.29 (4.30-5.90) m/uL Hgb 14.0 (13.0-17.5) gm/dL Hct 41.6 (39.0-53.0) % MCV 78.6 L (80.0-100.0) fL MCH 26.4 (25.0-35.0) pg MCHC 33.6 (31.0-37.0) g/dL RDW 13.4 (11.5-15.5) % Plt Count 245 (150-450) k/uL Neutrophils % 68 % Lymphocytes % 21 % Monocytes % 6 % Eosinophils % 3 % Basophils % 0 % Neutrophils # 8.2 H (1.3-7.7) k/uL Lymphocytes # 2.6 (1.0-4.8) k/uL Monocytes # 0.8 (0-1.0) k/uL Eosinophils # 0.3 (0-0.7) k/uL Basophils # 0.0 (0-0.2) k/uL PT (9.0-12.0) sec INR (<1.2) APTT (22.0-30.0) sec Sodium 139 (137-145) mmol/L Potassium 3.8 (3.5-5.1) mmol/L Chloride 100 (98-107) mmol/L Carbon Dioxide 29 (22-30) mmol/L Anion Gap 10 mmol/L BUN 14 (9-20) mg/dL Creatinine 0.81 (0.66-1.25) mg/dL Est GFR (CKD-EPI)AfAm >90 (>60 ml/min/1.73 sqM) Est GFR (CKD-EPI)NonAf >90 (>60 ml/min/1.73 sqM) Glucose 157 H (74-99) mg/dL Plasma Lactic Acid Vin (0.7-2.0) mmol/L Calcium 9.4 (8.4-10.2) mg/dL Phosphorus 4.4 (2.5-4.5) mg/dL Magnesium 1.8 (1.6-2.3) mg/dL Total Bilirubin 0.5 (0.2-1.3) mg/dL AST 72 H (17-59) U/L ALT 142 H (21-72) U/L Alkaline Phosphatase 124 (38-126) U/L Total Creatine Kinase 351 H (55-170) U/L CK-MB (CK-2) 3.7 H (0.0-2.4) ng/mL CK-MB (CK-2) Rel Index 1.1 Troponin I <0.012 (0.000-0.034) ng/mL Total Protein 7.5 (6.3-8.2) g/dL Albumin 4.3 (3.5-5.0) g/dL 12/01/18 12/01/18 Range/Units 02:04 02:04 WBC (3.8-10.6) k/uL RBC (4.30-5.90) m/uL Hgb (13.0-17.5) gm/dL Hct (39.0-53.0) % MCV (80.0-100.0) fL MCH (25.0-35.0) pg MCHC (31.0-37.0) g/dL RDW (11.5-15.5) % Plt Count (150-450) k/uL Neutrophils % % Lymphocytes % % Monocytes % % Eosinophils % % Basophils % % Neutrophils # (1.3-7.7) k/uL Lymphocytes # (1.0-4.8) k/uL Monocytes # (0-1.0) k/uL Eosinophils # (0-0.7) k/uL Basophils # (0-0.2) k/uL PT 10.1 (9.0-12.0) sec INR 0.9 (<1.2) APTT 23.4 (22.0-30.0) sec Sodium (137-145) mmol/L Potassium (3.5-5.1) mmol/L Chloride (98-107) mmol/L Carbon Dioxide (22-30) mmol/L Anion Gap mmol/L BUN (9-20) mg/dL Creatinine (0.66-1.25) mg/dL Est GFR (CKD-EPI)AfAm (>60 ml/min/1.73 sqM) Est GFR (CKD-EPI)NonAf (>60 ml/min/1.73 sqM) Glucose (74-99) mg/dL Plasma Lactic Acid Vin 1.5 (0.7-2.0) mmol/L Calcium (8.4-10.2) mg/dL Phosphorus (2.5-4.5) mg/dL Magnesium (1.6-2.3) mg/dL Total Bilirubin (0.2-1.3) mg/dL AST (17-59) U/L ALT (21-72) U/L Alkaline Phosphatase (38-126) U/L Total Creatine Kinase (55-170) U/L CK-MB (CK-2) (0.0-2.4) ng/mL CK-MB (CK-2) Rel Index Troponin I (0.000-0.034) ng/mL Total Protein (6.3-8.2) g/dL Albumin (3.5-5.0) g/dL 12/01/18 02:50 EKG performed at 151 shows sinus rhythm possible anterior infarct age undetermined. Abnormal EKG noted. Ventricular rate of 95 bpm. OR interval is 162 ms. QRS ration 98 ms. QT QTc is 386 ms/[address] elevation or T-wave inversion. (Paige Larson) - Radiology Data CT of the brain is negative for any acute intracranial abnormality. Negative chest x-ray (Paige Larson) Disposition Is patient prescribed a controlled substance at d/c from ED?: No Time of Disposition: 04:04 - Out of Hospital Transfer - Req. Specs Out of Hospital Transfer - Requested Specifics: Other Emergency Center ([facility]) <Paige Larson - Last Filed: 12/01/18 04:01> <Maria Del Rosario Nicholas - Last Filed: 12/01/18 04:34> Clinical Impression: TIA (transient ischemic attack) Disposition: DC/TRNS INTERMEDIATE CARE FAC Condition: Good Referrals: Renee Martin MD [Primary Care Provider] - 1-2 days
[2018-12-01 02:16] LABS: Basophils % (A) 0 %; Eosinophils # (A) 0.3 k/uL (0-0.7); Eosinophils % (A) 3 %; HCT 41.6 % (39.0-53.0); Lymphocytes # (A) 2.6 k/uL (1.0-4.8); Lymphocytes % (A) 21 %; MCH 26.4 pg (25.0-35.0); MCHC 33.6 g/dL (31.0-37.0); MCV 78.6 fL (80.0-100.0); Mean Platelet Volume 8.5; Monocytes # (A) 0.8 k/uL (0-1.0); Monocytes % (A) 6 %; Neutrophils # (A) 8.2 k/uL (1.3-7.7); Neutrophils % (A) 68 %; Platelet Count 245 k/uL (150-450); RBC 5.29 m/uL (4.30-5.90); RDW 13.4 % (11.5-15.5)
[2018-12-01 02:27] LABS: INR 0.9 (<1.2); Partial Thromboplastin Time 23.4 sec (22.0-30.0); Prothrombin Time 10.1 sec (9.0-12.0)
--- NOTE | 2018-12-01 02:27 | XR ---
EXAM: XR Chest, 2 Views CLINICAL HISTORY: Weakness TECHNIQUE: Frontal and lateral views of the chest. COMPARISON: 10/25/2017 FINDINGS: Lungs: Unremarkable. No consolidation. Pleural space: Unremarkable. No pneumothorax. Heart: Unremarkable. No cardiomegaly. Mediastinum: Unremarkable. Bones/joints: No acute osseous abnormality. IMPRESSION: No acute cardiopulmonary process.
[2018-12-01 02:28] LABS: ALT 142 U/L (21-72); AST 72 U/L (17-59); Albumin 4.3 g/dL (3.5-5.0); Alkaline Phosphatase 124 U/L (38-126); Anion Gap 10 mmol/L; Blood Urea Nitrogen 14 mg/dL (9-20); Calcium 9.4 mg/dL (8.4-10.2); Carbon Dioxide 29 mmol/L (22-30); Chloride 100 mmol/L (98-107); Glucose 157 mg/dL (74-99); Magnesium 1.8 mg/dL (1.6-2.3); Phosphorus 4.4 mg/dL (2.5-4.5); Potassium 3.8 mmol/L (3.5-5.1); Sodium 139 mmol/L (137-145); Total Bilirubin 0.5 mg/dL (0.2-1.3); Total Protein 7.5 g/dL (6.3-8.2)
[2018-12-01 02:33] LABS: Creatine Kinase 351 U/L (55-170)
--- NOTE | 2018-12-01 02:41 | CT ---
EXAM: CT Head Without Intravenous Contrast CLINICAL HISTORY: weakness TECHNIQUE: Axial computed tomography images of the head/brain without intravenous contrast. CTDI is 0.085, 0.085, 4.91 mGy and DLP is 1070.4 mGy-cm. This CT exam was performed using one or more of the following dose reduction techniques: automated exposure control, adjustment of the mA and/or kV according to patient size, and/or use of iterative reconstruction technique. COMPARISON: No relevant prior studies available. FINDINGS: Brain: Unremarkable. No acute hemorrhage, large hypodensity, or significant mass effect. Ventricles: Unremarkable. No ventriculomegaly. Bones/joints: Unremarkable. No acute fracture. Soft tissues: Unremarkable. Sinuses: Unremarkable. Mastoid air cells: Unremarkable. IMPRESSION: No acute intracranial abnormality.
[2018-12-01 02:46] LABS: Creatine Kinase MB 3.7 ng/mL (0.0-2.4); Troponin I <0.012 ng/mL (0.000-0.034)
[2018-12-01 03:18] VITALS: BP 183/113; PULSE 87; RESP 18
[2018-12-01] MEDS ORDERED: cloNIDine HCL 0.1 MG TAB PO STA (03:44)
== END 2018-12-01 04:20 ==
LOC: EC 00:48
DX: G45.9 Transient cerebral ischemic attack, unspecified (principal); R29.701 NIHSS score 1; E11.9 Type 2 diabetes mellitus without complications; I10 Essential (primary) hypertension; E66.01 Morbid (severe) obesity due to excess calories; Z68.42 Body mass index [BMI] 45.0-49.9, adult; F17.200 Nicotine dependence, unspecified, uncomplicated
CPT/HCPCS: 36415; 70450; 71046; 80053; 82550; 82553; 83605; 83735; 84100; 84484; 85025; 85610; 85730; 93005; 96360; 96361; 99285

== ENCOUNTER 2020-04-08 20:41 | Emergency (ER) | payer OTHER ==
[2020-04-08 20:50] VITALS: RESP 18
[2020-04-08] MEDS ORDERED: KETOROLAC 30 MG/ML 1 ML VIAL IM STA (21:49)
[2020-04-08] MEDS ORDERED: cloNIDine HCL 0.2 MG TAB PO STA (21:52)
[2020-04-08 23:11] VITALS: BP 148/107; PULSE 79; TEMP 98
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
== END 2020-04-08 23:29 | disposition home or self-care (01) ==
LOC: EC 20:41
DX: L25.8 Unspecified contact dermatitis due to other agents (principal); L25.3 Unspecified contact dermatitis due to other chemical products; F17.200 Nicotine dependence, unspecified, uncomplicated; Z86.73 Personal history of transient ischemic attack (TIA), and cerebral infarction without residual deficits; Y08.89XA Assault by other specified means, initial encounter
CPT/HCPCS: 99283; 96372; J1885

== ENCOUNTER 2020-06-12 03:10 | Observation (INO) | payer OTHER ==
[2020-06-12] MEDS ORDERED: SODIUM CHLORIDE 0.9% 500 ML 500 ML IV STA (03:22)
[2020-06-12] MEDS ORDERED: SODIUM CHLORIDE 0.9% 1,000 ML IV STA ×2 (03:22)
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
[2020-06-12 03:28] LABS: Glucose,Whole Blood >600 mg/dL (75-99)
--- NOTE | 2020-06-12 03:55 | CT ---
EXAMINATION TYPE: CT brain wo con DATE OF EXAM: 06/12/2020 COMPARISON: 12/01/2018 HISTORY: AMS CT DLP: 1099.40 mGycm Automated exposure control for dose reduction was used. Ventricles and sulci appear normal. There is no mass effect nor midline shift. There is no sign of in tracranial hemorrhage. The calvarium is intact. There is no evidence of cerebral edema. Skull base is intact. IMPRESSION: Negative CT scan of the brain. No change compared to old exam.
[2020-06-12 04:10] LABS: Basophils # (A) 0.1 k/uL (0-0.2); Basophils % (A) 1 %; Eosinophils # (A) 0.3 k/uL (0-0.7); Eosinophils % (A) 2 %; HCT 46.9 % (39.0-53.0); HGB 15.1 gm/dL (13.0-17.5); Lymphocytes # (A) 3.4 k/uL (1.0-4.8); Lymphocytes % (A) 28 %; MCH 25.7 pg (25.0-35.0); MCHC 32.3 g/dL (31.0-37.0); MCV 79.6 fL (80.0-100.0); Mean Platelet Volume 9.6; Monocytes # (A) 0.7 k/uL (0-1.0); Monocytes % (A) 6 %; Neutrophils # (A) 7.5 k/uL (1.3-7.7); Neutrophils % (A) 61 %; Platelet Count 272 k/uL (150-450); RBC 5.89 m/uL (4.30-5.90); WBC 12.3 k/uL (3.8-10.6)
[2020-06-12 04:11] LABS: ALT 29 U/L (4-49); AST 30 U/L (17-59); African American GFR (CKD) >90 (>60 ml/min/1.73 sqM); Albumin 4.6 g/dL (3.5-5.0); Alcohol <10 mg/dL; Alkaline Phosphatase 179 U/L (38-126); Anion Gap 14 mmol/L; Blood Urea Nitrogen 8 mg/dL (9-20); Calcium 9.3 mg/dL (8.4-10.2); Carbon Dioxide 23 mmol/L (22-30); Chloride 89 mmol/L (98-107); Creatine Kinase 201 U/L (55-170); Magnesium 1.8 mg/dL (1.6-2.3); Non-African American GFR(CKD) >90 (>60 ml/min/1.73 sqM); Phosphorus 3.4 mg/dL (2.5-4.5); Potassium 3.9 mmol/L (3.5-5.1); Sodium 126 mmol/L (137-145); Total Bilirubin 1.1 mg/dL (0.2-1.3); Total Protein 7.4 g/dL (6.3-8.2)
[2020-06-12 04:15] LABS: Appearance,Urine Clear (Clear); Bilirubin,Urine Negative (Negative); Blood,Urine Negative (Negative); Color,Urine Colorless; Glucose,Urine (UA) 4+ (Negative); Ketones,Urine 1+ (Negative); Leukocyte Esterase,Urine Negative (Negative); Nitrite,Urine Negative (Negative); Protein,Urine Negative (Negative); Specific Gravity,Urine 1.036 (1.001-1.035); Urobilinogen,Urine <2.0 mg/dL (<2.0)
[2020-06-12 04:20] LABS: Glucose 659 mg/dL (74-99)
[2020-06-12 04:32] LABS: INR 0.9 (<1.2); Partial Thromboplastin Time 20.5 sec (22.0-30.0); Prothrombin Time 9.5 sec (9.0-12.0)
[2020-06-12] MEDS ORDERED: INSULIN REGULAR 100 UNIT/ML VIAL IV ONE (04:36)
[2020-06-12] MEDS ORDERED: INSULIN REGULAR 100 UNIT/ML VIAL SQ ONE (04:36)
[2020-06-12] MEDS ORDERED: MORPHINE SULFATE 4 MG/ML SYRINGE IVP STA (04:44)
[2020-06-12] MEDS ORDERED: AMPICILLIN-SULBACTAM 3 GM in SODIUM CHLORIDE 0.9% 100 ML IVPB STA (04:44)
[2020-06-12] MEDS ORDERED: MORPHINE SULFATE 4 MG/ML SYRINGE IVP PRN (04:44)
[2020-06-12 06:59] LABS: Glucose,Whole Blood 457 mg/dL (75-99)
[2020-06-12 07:37] LABS: Glucose,Whole Blood 429 mg/dL (75-99)
[2020-06-12 08:14] LABS: VBG PH 7.53 (7.31-7.41)
[2020-06-12 09:12] VITALS: RESP 18
[2020-06-12 09:31] LABS: Glucose,Whole Blood 345 mg/dL (75-99)
[2020-06-12] MEDS: INSULIN ASPART (NovoLOG) 100 UNIT/ML VIAL SQ SCH ×3 (09:51→16:37)
[2020-06-12 11:59] LABS: Glucose,Whole Blood 323 mg/dL (75-99)
[2020-06-12 14:08] VITALS: BMI 32.5
[2020-06-12] MEDS ORDERED: ASPIRIN 81 MG PO SCH (15:00)
[2020-06-12] MEDS ORDERED: FAMOTIDINE 20 MG/2 ML VIAL IV SCH (15:01)
[2020-06-12] MEDS ORDERED: HEPARIN SODIUM,PORCINE 5,000 UNIT/ML 1 ML VIAL SQ SCH ×2 (15:01→21:00)
[2020-06-12 15:06] VITALS: BP 162/86
--- NOTE | 2020-06-12 15:10 | P.HPIM ---
History of Present Illness This consider this note has combined H and P discharge summary Diagnoses Slurred speech and left-sided numbness and pain especially in his left lower extremity, resolved now as per patient. suspicious for TIA Insulin-dependent diabetes, uncontrolled with hyperglycemia Very poor vision in the left eye for about 3 weeks as per patient, he sees only shadow was. Associated with left-sided headache Non-compliance and adherence to therapy Nicotine dependence Obesity with BMI of 32 Previous history of CVA/TIA, with residual slurred speech as per patient History of present illness This is a pleasant 30 years old male with past medical history of hypertension, diabetes mellitus on insulin, CVA/TIA, asthma. Also his cigarette smoker. He is supposed to follow up with his PCP Dr. Hu but he stopped follow-up because he has a family member who works here and he was not taking his medication since then, he told me supposed to be on insulin 25 units daily +15 units of NovoLog with meals, also I supposed to be aspirin but he was nonadherent to therapy. He was diagnosed with diabetes on 07/31/18, and he was started on insulin but he struggled because of insurance problems, he visited the emergency room on 12/01/2018 for left sided weakness and numbness. Patient states he came yesterday because he has pain in his left side of the neck and head with more slurred speech and he thought he had a stroke, he said he had numbness in his left leg which is resolved now, is a speech is also resolved, but still somewhat slurred which he states this is his baseline. He says that his numbness and slurred speech comes and go but he could not tell me exactly how frequent. NIH scale was checked and it was 0 now However patient denies weakness in his lower upper extremity, he states that sometimes his legs gave up Also patient complains that his left eye is almost gone, he can see only shadow and this is been going on for 3 weeks. Patient looks somewhat drowsy, however he is awake and oriented to the surrounding, we have to ask him several times so he can answer questions Patient states that he has 2 TIAs in 11/2018 and 05/2017 with some residual effect like lag in the speech. He has chronic cough with clear phlegm 4 months however he denies chest pain or dyspnea. No abdominal pain. No diarrhea. No urinary problem. He smokes about 1 pack per day, patient is counseled and he agrees to quit but he declined nicotine patch, he denies alcohol and he admits to using marijuana Vitas looks stable, blood pressure is elevated at 169/112.. CBC showing WBCs of 12.3 K, INR 0.9. Venous blood gas showing pH of 7.5 which is slightly elevated with low pCO2 of 31 and normal bicarb 26. On admission his sugar was 659, sodium 126, creatinine normal 0.6, liver enzymes AST and ALT are not not elevated, troponin is negative less than 0.0 112. UA showing glucosuria and ketonuria. Serum alcohol less than 10 and acetone is positive Patient received 1.5 L of normal saline, also he received several IV morphine injection and insulin sliding scale, for which he got 8 units this morning and then patient was started on Levemir [address] of the brain: No acute changes by radiologist. EKG showing normal sinus rhythm at [address]-T changes Review of systems CONSTITUTIONAL: No fever, no malaise, no fatigue. HEENT: No recent visual problems or hearing problems. Denied any sore throat. CARDIOVASCULAR: No orthopnea, PND, no palpitations, no syncope. PULMONARY: No shortness of breath, no cough, no hemoptysis. GASTROINTESTINAL: No diarrhea, no nausea, no vomiting, no abdominal pain. Normoactive bowel sounds. NEUROLOGICAL: No headaches, no weakness HEMATOLOGICAL: Denies any bleeding or petechiae. GENITOURINARY: Denies any burning micturition, frequency, or urgency. MUSCULOSKELETAL/RHEUMATOLOGICAL: Denies any joint pain, swelling, or any muscle pain. ENDOCRINE: Denies any polyuria or polydipsia. Physical exam -GENERAL: The patient is alert and oriented x3, not in any acute distress. Obese. Patient looks drowsy HEENT: Pupils are round and equally reacting to light. EOMI. No scleral icterus. No conjunctival pallor. Normocephalic, atraumatic. No pharyngeal erythema. No thyromegaly. CARDIOVASCULAR: S1 and S2 present. No murmurs, rubs, or gallops. PULMONARY: Chest is clear to auscultation, no wheezing or crackles. ABDOMEN: Soft, nontender, nondistended, normoactive bowel sounds. No palpable organomegaly. MUSCULOSKELETAL: No joint swelling or deformity. EXTREMITIES: No cyanosis, clubbing, or pedal edema. NEUROLOGICAL: Gross neurological examination did not reveal any focal deficits. SKIN: No rashes. no petechiae. Plan This is a pleasant 30 years old male who presents with uncontrolled diabetes, and possible TIA. we will allow for permissive hypertension for possible stroke. I called to emergency room and confirmed to me we don't have an neurologist coverage over the weekend to this hospital start patient on the Levemir insulin 10 units daily and insulin sliding scale, We need to transfer the patient to a tertiary care center for higher level of care for the neurologist evaluation. I talked to the patient and he agreeable for transfer Labs and medication were reviewed.. Continue same treatment. Continue with symptomatic treatment. Resume home medication. Monitor lytes and vitals. DVT and GI prophylaxis. Further recommendations of the clinical course of the patient DVT prophylaxis: Subcutaneous heparin GI Prophylaxis: Pepcid Prognosis is guarded Past Medical History Past Medical History: Asthma, CVA/TIA, Diabetes Mellitus, Hypertension History of Any Multi-Drug Resistant Organisms: None Reported Past Surgical History: Orthopedic Surgery Additional Past Surgical History / Comment(s): Lasik surgery; Left ankle surgery Past Anesthesia/Blood Transfusion Reactions: No Reported Reaction Past Psychological History: Bipolar Smoking Status: Current every day smoker Past Alcohol Use History: None Reported Past Drug Use History: Marijuana Medications and Allergies Home Medications Medication Instructions Recorded Confirmed Type No Known Home Medications 04/08/20 06/12/20 History Allergies Allergy/AdvReac Type Severity Reaction Status Date / Time No Known Allergies Allergy Verified 06/12/20 07:05 Physical Exam Vitals: Vital Signs Temp Pulse Pulse Resp BP BP Pulse Ox 06/12/20 09:00 85 18 06/12/20 07:55 98.3 F 85 18 169/112 95 06/12/20 07:36 97.4 F L 82 16 135/102 100 06/12/20 06:12 80 18 143/119 96 06/12/20 04:08 94 18 154/108 97 06/12/20 03:15 98.1 F 111 H 18 143/99 99 Intake and Output 06/11/20 06/12/20 06/12/20 22:59 06:59 14:59 Other: Voiding Method Toilet # Voids 2 Weight 117.934 kg 117.934 kg Results CBC & Chem 7: 06/12/20 03:40 06/12/20 03:40 Labs: Abnormal Lab Results - Last 24 Hours (Table) 06/12/20 06/12/20 06/12/20 Range/Units 03:27 03:40 03:40 WBC 12.3 H (3.8-10.6) k/uL MCV 79.6 L (80.0-100.0) fL APTT 20.5 L (22.0-30.0) sec VBG pH (7.31-7.41) VBG pCO2 (37-51) mmHg Sodium (137-145) mmol/L Chloride (98-107) mmol/L BUN (9-20) mg/dL Creatinine (0.66-1.25) mg/dL Glucose (74-99) mg/dL POC Glucose (mg/dL) >600 H (75-99) mg/dL Alkaline Phosphatase (38-126) U/L Creatine Kinase (55-170) U/L Ur Specific [place] (1.001-1.035) Urine Glucose (UA) (Negative) Urine Ketones (Negative) 06/12/20 06/12/20 06/12/20 Range/Units 03:40 03:40 06:47 WBC (3.8-10.6) k/uL MCV (80.0-100.0) fL APTT (22.0-30.0) sec VBG pH (7.31-7.41) VBG pCO2 (37-51) mmHg Sodium 126 L (137-145) mmol/L Chloride 89 L (98-107) mmol/L BUN 8 L (9-20) mg/dL Creatinine 0.60 L (0.66-1.25) mg/dL Glucose 659 H* (74-99) mg/dL POC Glucose (mg/dL) 457 H (75-99) mg/dL Alkaline Phosphatase 179 H (38-126) U/L Creatine Kinase 201 H (55-170) U/L Ur Specific [place] 1.036 H (1.001-1.035) Urine Glucose (UA) 4+ H (Negative) Urine Ketones 1+ H (Negative) 06/12/20 06/12/20 06/12/20 Range/Units 07:00 07:34 09:30 WBC (3.8-10.6) k/uL MCV (80.0-100.0) fL APTT (22.0-30.0) sec VBG pH 7.53 H (7.31-7.41) VBG pCO2 31 L (37-51) mmHg Sodium (137-145) mmol/L Chloride (98-107) mmol/L BUN (9-20) mg/dL Creatinine (0.66-1.25) mg/dL Glucose (74-99) mg/dL POC Glucose (mg/dL) 429 H 345 H (75-99) mg/dL Alkaline Phosphatase (38-126) U/L Creatine Kinase (55-170) U/L Ur Specific [place] (1.001-1.035) Urine Glucose (UA) (Negative) Urine Ketones (Negative) 06/12/20 Range/Units 11:59 WBC (3.8-10.6) k/uL MCV (80.0-100.0) fL APTT (22.0-30.0) sec VBG pH (7.31-7.41) VBG pCO2 (37-51) mmHg Sodium (137-145) mmol/L Chloride (98-107) mmol/L BUN (9-20) mg/dL Creatinine (0.66-1.25) mg/dL Glucose (74-99) mg/dL POC Glucose (mg/dL) 323 H (75-99) mg/dL Alkaline Phosphatase (38-126) U/L Creatine Kinase (55-170) U/L Ur Specific [place] (1.001-1.035) Urine Glucose (UA) (Negative) Urine Ketones (Negative) Thrombosis Risk Factor Assmnt - Choose All That Apply Other Risk Factors: No
[2020-06-12 15:19] VITALS: PULSE 89; TEMP 98
[2020-06-12 16:30] LABS: Glucose,Whole Blood 320 mg/dL (75-99)
[2020-06-13] MEDS ORDERED: INSULIN DETEMIR (LEVEMIR) 100 UNIT/ML SYR SQ SCH (07:00)
== END 2020-06-12 17:56 | disposition other institution (70) ==
LOC: EC 03:10 → 1SOBS 04:38
PROVIDERS: ADMIT Hospitalist; ATTEND Hospitalist
DX: R47.81 Slurred speech (principal); R20.0 Anesthesia of skin; M79.605 Pain in left leg; H53.9 Unspecified visual disturbance; R51 Headache; K08.89 Other specified disorders of teeth and supporting structures; E86.0 Dehydration; E11.65 Type 2 diabetes mellitus with hyperglycemia; Z91.14 Patient's other noncompliance with medication regimen; F17.210 Nicotine dependence, cigarettes, uncomplicated; E66.9 Obesity, unspecified; I69.328 Other speech and language deficits following cerebral infarction; J45.909 Unspecified asthma, uncomplicated; I10 Essential (primary) hypertension; F31.9 Bipolar disorder, unspecified; R05 Cough; Z71.6 Tobacco abuse counseling; Z98.890 Other specified postprocedural states; Z68.32 Body mass index [BMI] 32.0-32.9, adult; Z79.4 Long term (current) use of insulin
CPT/HCPCS: 96361 ×2; 96374; 99285; 36415; 93005; 80053; 82550; 82803; 82009; 83735; 84100; 84484; 85025; 85610; 85730; 81003; 70450; G0378; G0480; J2270; J0295; 80320

== ENCOUNTER 2020-09-13 16:49 | Inpatient (IN) | payer OTHER ==
[2020-09-13] MEDS ORDERED: AMOXIC-POT CLAV 875MG STARTER PACK 2 TAB BTL PO STA (17:35)
[2020-09-13] MEDS ORDERED: ERYTHROMYCIN 5 MG/GM OPHTH OINT 1 GM TUBE LEFT EYE STA (17:35)
[2020-09-13 17:39] LABS: Glucose,Whole Blood 584 mg/dL (75-99)
[2020-09-13] MEDS ORDERED: SODIUM CHLORIDE 0.9% 2,000 ML IV STA (17:46)
--- NOTE | 2020-09-13 17:49 | ED ---
General Adult HPI - General Chief complaint: Eye Problems Stated complaint: [place] [facility], Oral Abscess Time Seen by Provider: 09/13/20 17:21 Source: patient, RN notes reviewed Mode of arrival: ambulatory Limitations: no limitations - History of Present Illness Initial comments: 30-year-old male resents to the emergency room for a chief complaint of left eye redness. Patient states he has had redness of his left eye since yesterday. Patient states that his had pink eye last week. Patient states his eye is somewhat painful. Denies pain specifically with movement of the eye. Patient also complaining of dental abscess on the right side. Patient states he has not had antibiotics for this but has had continued pain for weeks. Patient is also complaining that his sugars are probably high. Patient reports he is a type II diabetic and has not taken his insulin for at least 2 days. He has not been checking his sugars lately.Patient has no other complaints at this time including shortness of breath, chest pain, abdominal pain, nausea or vomiting, headache, or visual changes. - Related Data Home Medications Medication Instructions Recorded Confirmed No Known Home Medications 04/08/20 09/13/20 Allergies Allergy/AdvReac Type Severity Reaction Status Date / Time No Known Allergies Allergy Verified 09/13/20 19:00 Review of Systems ROS Statement: Those systems with pertinent positive or pertinent negative responses have been documented in the HPI. ROS Other: All systems not noted in ROS Statement are negative. Past Medical History Past Medical History: Asthma, CVA/TIA, Diabetes Mellitus, Hypertension History of Any Multi-Drug Resistant Organisms: None Reported Past Surgical History: Orthopedic Surgery Additional Past Surgical History / Comment(s): Lasik surgery; Left ankle surgery Past Anesthesia/Blood Transfusion Reactions: No Reported Reaction Past Psychological History: Bipolar Smoking Status: Current every day smoker Past Alcohol Use History: None Reported Past Drug Use History: Marijuana General Exam Limitations: no limitations General appearance: alert, in no apparent distress Head exam: Present: atraumatic, normocephalic, normal inspection Eye exam: Present: normal appearance, PERRL, EOMI (No pain with range of motion ), conjunctival injection, periorbital swelling (Minimal lefterythema and edema of the upper eyelid sparing the lower eyelid and below the eye.). Absent: scleral icterus ENT exam: Present: normal exam, mucous membranes moist, normal external ear exam. Absent: normal oropharynx (Patient does have or dentition with a missing tooth noted to the right upper canine. There is no drainable abscess.) Neck exam: Present: normal inspection, full ROM. Absent: tenderness, meningismus, lymphadenopathy Respiratory exam: Present: normal lung sounds bilaterally. Absent: respiratory distress, wheezes, rales, rhonchi, stridor Cardiovascular Exam: Present: regular rate, normal rhythm, normal heart sounds. Absent: systolic murmur, diastolic murmur, rubs, gallop, clicks GI/Abdominal exam: Present: soft, normal bowel sounds. Absent: distended, tenderness, guarding, rebound, rigid Neurological exam: Present: alert Course Vital Signs 09/13/20 09/13/20 17:07 18:47 Temperature 98.1 F Pulse Rate 97 88 Respiratory 18 18 Rate Blood Pressure 146/104 149/94 O2 Sat by Pulse 98 99 Oximetry Medical Decision Making - Medical Decision Making 30-year-old male presents to the emergency room for a chief complaint of left eye pain. Patient reports that his had pink eye. States he has had redness in his eye with some pain in his eyelid. Denies any pain with movement of the eye. Patient does have an erythematous conjunctiva with erythema and minimal edema to the eyelid. This is not inferior to the eye. EOMI. not consistent with orbital cellulitis. He was also started on erythromycin ointment. Patient also complaining of dental pain. He has poor dentition however there is no drainable abscess. This will be treated with Augmentin. Point of care glucose was obtained because patient is reporting he does not take his insulin. His glucose was found to be 678. Hyponatremia of 129 corrected to 143. Patient does have hyperkalemia of 5.9. Acetone negative. Serum osmolality less than 120. Patient will be admitted and started on insulin drip. - Lab Data Result diagrams: 09/13/20 17:50 09/13/20 17:50 Lab Results 09/13/20 09/13/20 09/13/20 Range/Units 17:36 17:50 17:50 WBC 5.3 (3.8-10.6) k/uL RBC 5.77 (4.30-5.90) m/uL Hgb 15.2 (13.0-17.5) gm/dL Hct 48.8 (39.0-53.0) % MCV 84.7 (80.0-100.0) fL MCH 26.3 (25.0-35.0) pg MCHC 31.1 (31.0-37.0) g/dL RDW 12.6 (11.5-15.5) % Plt Count 217 (150-450) k/uL MPV 9.3 Neutrophils % 62 % Lymphocytes % 29 % Monocytes % 5 % Eosinophils % 2 % Basophils % 0 % Neutrophils # 3.3 (1.3-7.7) k/uL Lymphocytes # 1.5 (1.0-4.8) k/uL Monocytes # 0.3 (0-1.0) k/uL Eosinophils # 0.1 (0-0.7) k/uL Basophils # 0.0 (0-0.2) k/uL Sodium 129 L (137-145) mmol/L Potassium 5.9 H (3.5-5.1) mmol/L Chloride 97 L (98-107) mmol/L Carbon Dioxide 22 (22-30) mmol/L Anion Gap 10 mmol/L BUN 9 (9-20) mg/dL Creatinine 0.55 L (0.66-1.25) mg/dL Est GFR (CKD-EPI)AfAm >90 (>60 ml/min/1.73 sqM) Est GFR (CKD-EPI)NonAf >90 (>60 ml/min/1.73 sqM) Glucose 678 H* (74-99) mg/dL POC Glucose (mg/dL) 584 H (75-99) mg/dL POC Glu [employer] ID Angely Butler Osmolality 307 H (280-301) mosm/kg Calcium 9.2 (8.4-10.2) mg/dL Magnesium 1.7 (1.6-2.3) mg/dL Total Bilirubin 0.4 (0.2-1.3) mg/dL AST 33 (17-59) U/L ALT 38 (4-49) U/L Alkaline Phosphatase 171 H (38-126) U/L Total Protein 7.2 (6.3-8.2) g/dL Albumin 4.2 (3.5-5.0) g/dL Acetone, Qual Negative (Negative) 09/13/20 Range/Units 19:22 WBC (3.8-10.6) k/uL RBC (4.30-5.90) m/uL Hgb (13.0-17.5) gm/dL Hct (39.0-53.0) % MCV (80.0-100.0) fL MCH (25.0-35.0) pg MCHC (31.0-37.0) g/dL RDW (11.5-15.5) % Plt Count (150-450) k/uL MPV Neutrophils % % Lymphocytes % % Monocytes % % Eosinophils % % Basophils % % Neutrophils # (1.3-7.7) k/uL Lymphocytes # (1.0-4.8) k/uL Monocytes # (0-1.0) k/uL Eosinophils # (0-0.7) k/uL Basophils # (0-0.2) k/uL Sodium (137-145) mmol/L Potassium (3.5-5.1) mmol/L Chloride (98-107) mmol/L Carbon Dioxide (22-30) mmol/L Anion Gap mmol/L BUN (9-20) mg/dL Creatinine (0.66-1.25) mg/dL Est GFR (CKD-EPI)AfAm (>60 ml/min/1.73 sqM) Est GFR (CKD-EPI)NonAf (>60 ml/min/1.73 sqM) Glucose (74-99) mg/dL POC Glucose (mg/dL) 591 H (75-99) mg/dL POC Glu [employer] ID Angely Butler Osmolality (280-301) mosm/kg Calcium (8.4-10.2) mg/dL Magnesium (1.6-2.3) mg/dL Total Bilirubin (0.2-1.3) mg/dL AST (17-59) U/L ALT (4-49) U/L Alkaline Phosphatase (38-126) U/L Total Protein (6.3-8.2) g/dL Albumin (3.5-5.0) g/dL Acetone, Qual (Negative) Disposition Clinical Impression: Hyperglycemia, Conjunctivitis, Hyperkalemia Disposition: ADMITTED IP TO THIS [facility] Is patient prescribed a controlled substance at d/c from ED?: No Referrals: None,Stated [Primary Care Provider] - 1-2 days Time of Disposition: 19:47
[2020-09-13 18:03] LABS: Basophils % (A) 0 %; Eosinophils # (A) 0.1 k/uL (0-0.7); Eosinophils % (A) 2 %; HCT 48.8 % (39.0-53.0); HGB 15.2 gm/dL (13.0-17.5); Lymphocytes # (A) 1.5 k/uL (1.0-4.8); Lymphocytes % (A) 29 %; MCH 26.3 pg (25.0-35.0); MCHC 31.1 g/dL (31.0-37.0); MCV 84.7 fL (80.0-100.0); Mean Platelet Volume 9.3; Monocytes # (A) 0.3 k/uL (0-1.0); Monocytes % (A) 5 %; Neutrophils # (A) 3.3 k/uL (1.3-7.7); Neutrophils % (A) 62 %; Platelet Count 217 k/uL (150-450); RBC 5.77 m/uL (4.30-5.90); RDW 12.6 % (11.5-15.5); WBC 5.3 k/uL (3.8-10.6)
[2020-09-13 18:12] LABS: ALT 38 U/L (4-49); AST 33 U/L (17-59); African American GFR (CKD) >90 (>60 ml/min/1.73 sqM); Albumin 4.2 g/dL (3.5-5.0); Alkaline Phosphatase 171 U/L (38-126); Anion Gap 10 mmol/L; Blood Urea Nitrogen 9 mg/dL (9-20); Calcium 9.2 mg/dL (8.4-10.2); Carbon Dioxide 22 mmol/L (22-30); Chloride 97 mmol/L (98-107); Magnesium 1.7 mg/dL (1.6-2.3); Non-African American GFR(CKD) >90 (>60 ml/min/1.73 sqM); Potassium 5.9 mmol/L (3.5-5.1); Sodium 129 mmol/L (137-145); Total Bilirubin 0.4 mg/dL (0.2-1.3); Total Protein 7.2 g/dL (6.3-8.2)
[2020-09-13] MEDS ORDERED: ACETAMINOPHEN TAB 325 MG TAB PO STA (18:50)
[2020-09-13 18:57] LABS: Glucose 678 mg/dL (74-99)
[2020-09-13 19:23] LABS: Glucose,Whole Blood 591 mg/dL (75-99)
[2020-09-13] MEDS ORDERED: INSULIN REGULAR BOLUS (FROM DRIP BAG) IV STA (19:34)
[2020-09-13] MEDS ORDERED: INSULIN REGULAR 100 UNIT in SODIUM CHLORIDE 0.9% 100 ML IV SCH (19:45)
[2020-09-13] MEDS ORDERED: D5-0.45% NACL WITH KCL 20MEQ/L 1,000 ML IV SCH (19:45)
[2020-09-13] MEDS: INSULIN REGULAR 100 UNIT in SODIUM CHLORIDE 0.9% 100 ML IV SCH ×2 (20:08→21:51)
[2020-09-13 20:44] LABS: Glucose,Whole Blood 175 mg/dL (75-99)
[2020-09-13 20:57] LABS: Glucose,Whole Blood 207 mg/dL (75-99)
[2020-09-13 21:32] LABS: Glucose,Whole Blood 194 mg/dL (75-99)
[2020-09-13] MEDS: ERYTHROMYCIN 5 MG/GM OPHTH OINT 1 GM TUBE LEFT EYE SCH (22:02)
[2020-09-13 22:29] LABS: Appearance,Urine Clear (Clear); Bilirubin,Urine Negative (Negative); Blood,Urine Negative (Negative); Color,Urine Colorless; Glucose,Urine (UA) 4+ (Negative); Ketones,Urine Negative (Negative); Leukocyte Esterase,Urine Negative (Negative); Nitrite,Urine Negative (Negative); Protein,Urine Negative (Negative); Specific Gravity,Urine 1.028 (1.001-1.035); Urobilinogen,Urine <2.0 mg/dL (<2.0)
[2020-09-13 23:06] LABS: Glucose,Whole Blood 268 mg/dL (75-99)
[2020-09-13] MEDS: SODIUM CHLORIDE 0.9% 1,000 ML IV SCH (23:18)
[2020-09-13] MEDS: D5-0.45% NACL WITH KCL 20MEQ/L 1,000 ML IV SCH (23:18)
[2020-09-14 00:48] LABS: African American GFR (CKD) >90 (>60 ml/min/1.73 sqM); Anion Gap 4 mmol/L; Blood Urea Nitrogen 13 mg/dL (9-20); Carbon Dioxide 26 mmol/L (22-30); Chloride 101 mmol/L (98-107); Glucose 319 mg/dL (74-99); Non-African American GFR(CKD) >90 (>60 ml/min/1.73 sqM); Phosphorus 3.7 mg/dL (2.5-4.5); Potassium 4.2 mmol/L (3.5-5.1); Sodium 131 mmol/L (137-145)
[2020-09-14] MEDS: INSULIN DETEMIR (LEVEMIR) 100 UNIT/ML SYR SQ SCH ×2 (00:50→20:39)
[2020-09-14] MEDS: SODIUM CHLORIDE 0.9% 1,000 ML IV SCH ×2 (00:51→18:18)
[2020-09-14] MEDS: ERYTHROMYCIN 5 MG/GM OPHTH OINT 1 GM TUBE LEFT EYE SCH ×4 (02:26→20:24)
[2020-09-14] MEDS: D5-0.45% NACL WITH KCL 20MEQ/L 1,000 ML IV SCH (04:47)
[2020-09-14] MEDS ORDERED: AMOXIC-POT CLAV 875-125MG 1 EACH TAB PO SCH (08:00)
[2020-09-14 08:05] LABS: Glucose,Whole Blood 234 mg/dL (75-99)
--- NOTE | 2020-09-14 08:11 | P.HPIM ---
History of Present Illness This is a pleasant 30 years old male with past medical history of insulin- dependent diabetes mellitus, history of known of non-adherence to therapy, obesity, nicotine dependence, previous history of CVA/TIA with residual slurred speech and blurry left eye from previous stroke as per patient, who was recently discharged from this hospital on 06/12/2024 slurred speech and left-sided numbness and pain especially in the left lower extremity was suspicious for TIA at that time he was transferred to [facility] This time he presents because of left eye pain and swelling and redness for about 3 days with some purulent red-colored discharge as per patient associated with pain about 9/10 in severity. Associated with blurry vision, patient states that his vision is already blurry at baseline however was getting worse when this happened to his left eye. Also patient states that he has a dental abscess/fascial abscess in the left upper gingival area. The area looks with dental caries and at the base there is gingival ulcer in the right canine and premolar tooth Patient states that he is diabetic and he states Lantus 45 units at bedtime and 15 units with meals with NovoLog. He smokes about 1 pack per day, he denies alcohol or illicit drugs Vitals are stable, blood pressure slightly on the high side at 156/99, sodium 131, glucose 319, corrected sodium for hyperglycemia with the 133-134. Her sugars were running around 200. Urine analysis is not suspicious of infection. CBC is unremarkable. Liver enzymes not elevated. On admission and BMP history there was significantly elevated at 678 with any gap of 10. Acetone was negative. On admission was started on Augmentin, or thrombi seen on treatment, 2 L of normal saline is given and continued on 75 mL/h. And started on insulin drip, also started his Levemir 45 units at bedtime . Review of Systems CONSTITUTIONAL: No fever, no malaise, no fatigue. HEENT: No recent visual problems or hearing problems. Denied any sore throat. CARDIOVASCULAR: No orthopnea, PND, no palpitations, no syncope. PULMONARY: No shortness of breath, no cough, no hemoptysis. GASTROINTESTINAL: No diarrhea, no nausea, no vomiting, no abdominal pain. Normoactive bowel sounds. NEUROLOGICAL: No headaches, no weakness, no numbness. HEMATOLOGICAL: Denies any bleeding or petechiae. GENITOURINARY: Denies any burning micturition, frequency, or urgency. MUSCULOSKELETAL/RHEUMATOLOGICAL: Denies any joint pain, swelling, or any muscle pain. ENDOCRINE: Denies any polyuria or polydipsia. Past Medical History Past Medical History: Asthma, CVA/TIA, Diabetes Mellitus, Hypertension History of Any Multi-Drug Resistant Organisms: None Reported Past Surgical History: Orthopedic Surgery Additional Past Surgical History / Comment(s): Lasik surgery; Left ankle surgery Past Anesthesia/Blood Transfusion Reactions: No Reported Reaction Past Psychological History: Bipolar Smoking Status: Current every day smoker Past Alcohol Use History: None Reported Past Drug Use History: Marijuana Medications and Allergies Home Medications Medication Instructions Recorded Confirmed Type No Known Home Medications 04/08/20 09/13/20 History Allergies Allergy/AdvReac Type Severity Reaction Status Date / Time No Known Allergies Allergy Verified 09/13/20 19:00 Physical Exam Vitals: Vital Signs Temp Pulse Resp BP Pulse Ox 09/14/20 05:39 98.4 F 69 18 156/99 100 09/14/20 00:31 98 F 64 18 165/97 99 09/13/20 20:12 88 18 146/100 100 09/13/20 18:47 88 18 149/94 99 09/13/20 17:07 98.1 F 97 18 146/104 98 Intake and Output 09/13/20 09/14/20 09/14/20 22:59 06:59 14:59 Other: Weight 117.027 kg GENERAL: The patient is alert and oriented x3, not in any acute distress. Well developed, well nourished. -HEENT: Pupils are round and equally reacting to light. EOMI. No scleral icterus. No conjunctival pallor. Normocephalic, atraumatic. No pharyngeal erythema. No thyromegaly. Left eye is started with swelling conjunctiva and eyelid. Upper gingival ulcer on the base of the right upper canine and premolar teeth CARDIOVASCULAR: S1 and S2 present. No murmurs, rubs, or gallops. PULMONARY: Chest is clear to auscultation, no wheezing or crackles. ABDOMEN: Soft, nontender, nondistended, normoactive bowel sounds. No palpable organomegaly. MUSCULOSKELETAL: No joint swelling or deformity. EXTREMITIES: No cyanosis, clubbing, or pedal edema. NEUROLOGICAL: Gross neurological examination did not reveal any focal deficits. SKIN: No rashes. No petechiae Results CBC & Chem 7: 09/13/20 17:50 09/14/20 00:19 Labs: Abnormal Lab Results - Last 24 Hours (Table) 09/13/20 09/13/20 09/13/20 Range/Units 17:36 17:50 19:22 Sodium 129 L (137-145) mmol/L Potassium 5.9 H (3.5-5.1) mmol/L Chloride 97 L (98-107) mmol/L Creatinine 0.55 L (0.66-1.25) mg/dL Glucose 678 H* (74-99) mg/dL POC Glucose (mg/dL) 584 H 591 H (75-99) mg/dL Osmolality 307 H (280-301) mosm/kg Alkaline Phosphatase 171 H (38-126) U/L Urine Glucose (UA) (Negative) 09/13/20 09/13/20 09/13/20 Range/Units 20:41 20:46 21:30 Sodium (137-145) mmol/L Potassium (3.5-5.1) mmol/L Chloride (98-107) mmol/L Creatinine (0.66-1.25) mg/dL Glucose (74-99) mg/dL POC Glucose (mg/dL) 175 H 207 H 194 H (75-99) mg/dL Osmolality (280-301) mosm/kg Alkaline Phosphatase (38-126) U/L Urine Glucose (UA) (Negative) 09/13/20 09/13/20 09/14/20 Range/Units 21:50 23:04 00:19 Sodium 131 L (137-145) mmol/L Potassium (3.5-5.1) mmol/L Chloride (98-107) mmol/L Creatinine 0.47 L (0.66-1.25) mg/dL Glucose 319 H (74-99) mg/dL POC Glucose (mg/dL) 268 H (75-99) mg/dL Osmolality (280-301) mosm/kg Alkaline Phosphatase (38-126) U/L Urine Glucose (UA) 4+ H (Negative) Assessment and Plan Assessment: Left are preseptal cellulitis with redness swolling I and eyelids and conjunctival erythema and swelling. Right upper gingival ulcer with yellow base and dental caries History of poor vision in the left are as per patient for more than 2 months, from previous stroke as per patient Insulin-dependent diabetes, uncontrolled with hyperglycemia Hypertension, uncontrolled Non-compliance and adherence to therapy Nicotine dependence Obesity with BMI of 32 Previous history of CVA/TIA, with residual slurred speech as per patient Plan: This is a pleasant 30 years old male who presents because of possible left preseptal cellulitis of the left eye with some worsening blurry vision. Change antibiotics to Unasyn. Consult infectious disease and ophthalmology services. Check hemoglobin A1c. Continue with hydration. Continue with insulin Labs and medication were reviewed.. Continue same treatment. Continue with symptomatic treatment. Resume home medication. Monitor lytes and vitals. DVT and GI prophylaxis. Further recommendations depends on the clinical course of the patient DVT prophylaxis: Subcutaneous heparin GI Prophylaxis: Pepcid Prognosis is guarded
[2020-09-14] MEDS: FAMOTIDINE 20 MG/2 ML VIAL IV SCH ×2 (09:38→20:24)
[2020-09-14] MEDS: NICOTINE 21MG/24HR PATCH TRANSDERM SCH (09:38)
[2020-09-14] MEDS: INSULIN ASPART (NovoLOG) 100 UNIT/ML VIAL SQ SCH ×6 (09:38→20:25)
[2020-09-14] MEDS: HYDROcodone/APAP 5-325MG 1 EACH TAB PO PRN ×2 (09:40→17:49)
[2020-09-14] MEDS: INSULIN REGULAR 100 UNIT in SODIUM CHLORIDE 0.9% 100 ML IV SCH ×3 (09:59→20:13)
[2020-09-14 10:16] LABS: Basophils % (A) 1 %; Eosinophils # (A) 0.1 k/uL (0-0.7); Eosinophils % (A) 2 %; HCT 42.8 % (39.0-53.0); HGB 14.3 gm/dL (13.0-17.5); Lymphocytes # (A) 2.1 k/uL (1.0-4.8); Lymphocytes % (A) 38 %; MCH 27.2 pg (25.0-35.0); MCHC 33.4 g/dL (31.0-37.0); MCV 81.5 fL (80.0-100.0); Mean Platelet Volume 9.1; Monocytes # (A) 0.3 k/uL (0-1.0); Monocytes % (A) 5 %; Neutrophils # (A) 2.9 k/uL (1.3-7.7); Neutrophils % (A) 52 %; Platelet Count 181 k/uL (150-450); RBC 5.26 m/uL (4.30-5.90); RDW 12.4 % (11.5-15.5); WBC 5.6 k/uL (3.8-10.6)
[2020-09-14 10:19] LABS: ALT 33 U/L (4-49); AST 27 U/L (17-59); African American GFR (CKD) >90 (>60 ml/min/1.73 sqM); Albumin 3.4 g/dL (3.5-5.0); Alkaline Phosphatase 111 U/L (38-126); Anion Gap 5 mmol/L; Blood Urea Nitrogen 9 mg/dL (9-20); Calcium 8.5 mg/dL (8.4-10.2); Carbon Dioxide 27 mmol/L (22-30); Chloride 103 mmol/L (98-107); Glucose 238 mg/dL (74-99); Non-African American GFR(CKD) >90 (>60 ml/min/1.73 sqM); Potassium 3.9 mmol/L (3.5-5.1); Sodium 135 mmol/L (137-145); Total Bilirubin 0.3 mg/dL (0.2-1.3); Total Protein 6.2 g/dL (6.3-8.2)
[2020-09-14 13:58] LABS: Glucose,Whole Blood 153 mg/dL (75-99)
[2020-09-14 16:40] LABS: Hemoglobin A1C 17.3 % (4.0-6.0)
[2020-09-14 17:33] LABS: Glucose,Whole Blood 83 mg/dL (75-99)
[2020-09-14] MEDS: AMPICILLIN-SULBACTAM 3 GM in SODIUM CHLORIDE 0.9% 100 ML IVPB SCH ×2 (17:46→22:36)
[2020-09-14 20:10] LABS: Glucose,Whole Blood 218 mg/dL (75-99)
[2020-09-14] MEDS: HEPARIN SODIUM,PORCINE 5,000 UNIT/ML 1 ML VIAL SQ SCH (20:24)
[2020-09-14] MEDS ORDERED: HYDROmorphone 0.5 MG/0.5 ML SYRINGE IVP PRN (21:55)
[2020-09-14] MEDS: HYDROcodone/APAP 10-325MG 1 EACH TAB PO PRN (22:35)
--- NOTE | 2020-09-15 02:44 | CONS ---
CONSULTATION OPHTHALMOLOGY CONSULT: CHIEF COMPLAINT: Swelling left eye. HISTORY OF PRESENT ILLNESS: Mr. Perdue is a 30-year-old male who presents with swelling of the left eye that began 2 days prior. The patient noted erythema and swelling as well as difficulty opening the eye that began gradually and has been consistent. The symptoms have slowly worsened over the last 48 hours. The patient reports close contact with somebody who had conjunctivitis. The patient denies vision loss. However, his vision at baseline is poor in his left eye. He denies flashes, floaters, or double vision. REVIEW OF SYSTEMS: No fever, no fatigue, no sore throat, no palpitations, no shortness of breath, no diarrhea, no headaches, no bleeding or easy bruising. PAST MEDICAL HISTORY: 1. Type 1 diabetes mellitus. 2. Asthma. 3. History of CVA/TIA. 4. Hypertension. 5. Bipolar disorder. MEDICATIONS: Patient denies consistently using home medications. ALLERGIES: No known drug allergies. SOCIAL HISTORY: He reports marijuana use and is a current every day smoker. SURGICAL HISTORY: No ocular surgical history. OPHTHALMIC EXAM: Visual acuity is 20/40 in the right eye and count fingers at 5 feet in the left eye. Pupils are equal and reactive to light accommodation with no afferent pupillary defect. Extraocular movements are full in both eyes with no defects. Confrontation visual field is within normal limits in both eyes. Intra-ocular pressure is within normal limits in both eyes. There is erythema and edema of the upper and lower lid in the left eye. The right eye lids and lashes are within normal limits. The left conjunctiva is injected and has significant chemosis. The cornea, anterior chamber, and lens are within normal limits in both eyes. Retinal exam is limited due to this setting and the patient's symptoms. ASSESSMENT AND PLAN: 1. Preseptal cellulitis, left eye. The patient does not exhibit any signs of orbital cellulitis (no diplopia, no pupillary defect, no restriction in extraocular movement). The patient has his baseline vision intact. However, he does report a history of vascular events that caused vision loss in his left eye. The patient has insulin-dependent diabetes that has not been well controlled and his current blood sugar in the ER is approximately 600. He understands that this is very detrimental for his overall vision and future vision especially being monocular at this time. I recommend IV Bactrim and erythromycin ointment to be used q.6 hours. The patient also needs q.6 hour pupil checks and q.6 hour extraocular movement checks by the nursing staff. If the pupils worsen or become abnormal, or if the extraocular movement is at all limited or if there is any other concerns for postseptal spread of the infection, then a CT scan should be ordered. Follow up as an outpatient after discharge within 1 week. 2. Type 1 diabetes with ocular manifestations, both eyes. The patient requires followup as an outpatient to further evaluate his retinal status and potentially treat any retinopathy as an outpatient. Thank you for allowing me to participate in this patient's care. MMODL / IJN: [id number] /
[2020-09-15] MEDS: ERYTHROMYCIN 5 MG/GM OPHTH OINT 1 GM TUBE LEFT EYE SCH ×5 (04:27→23:45)
[2020-09-15] MEDS: SODIUM CHLORIDE 0.9% 1,000 ML IV SCH ×2 (04:28→17:08)
[2020-09-15 07:01] LABS: Glucose,Whole Blood 218 mg/dL (75-99)
[2020-09-15] MEDS: AMPICILLIN-SULBACTAM 3 GM in SODIUM CHLORIDE 0.9% 100 ML IVPB SCH ×3 (07:34→23:45)
[2020-09-15] MEDS: INSULIN ASPART (NovoLOG) 100 UNIT/ML VIAL SQ SCH ×7 (07:34→20:11)
[2020-09-15] MEDS: NICOTINE 21MG/24HR PATCH TRANSDERM SCH (07:34)
[2020-09-15] MEDS: HEPARIN SODIUM,PORCINE 5,000 UNIT/ML 1 ML VIAL SQ SCH ×2 (07:35→20:11)
[2020-09-15] MEDS: FAMOTIDINE 20 MG/2 ML VIAL IV SCH (07:35)
[2020-09-15] MEDS: HYDROcodone/APAP 10-325MG 1 EACH TAB PO PRN ×3 (07:37→20:14)
[2020-09-15 11:07] LABS: Glucose,Whole Blood 62 mg/dL (75-99)
[2020-09-15 11:52] LABS: Glucose,Whole Blood 179 mg/dL (75-99)
--- NOTE | 2020-09-15 15:27 | CT ---
EXAMINATION TYPE: CT facial bones w con DATE OF EXAM: 09/15/2020 COMPARISON: CT brain 06/12/2020 HISTORY: 30-year-old male Left sided orbital swelling/cellulitis and dental pain/abscess TECHNIQUE: Contiguous axial scanning of the facial bones including the orbits and mandible performed with IV Contrast, patient injected with 100 mL of Isovue 300. Coronal reconstructions performed. CT DLP: 554.1 mGycm Automated exposure control for dose reduction was used. FINDINGS: There is new moderate to severe mucosal thickening throughout the right maxillary sinus and mild with in the left maxillary sinus. Mild mucosal thickening anterior ethmoid air cells. Sphenoid and frontal sinuses are clear. No air-fluid levels are seen. Rightward nasal septal deviation. There is a large dental caries involving the left mandibular second molar with associated 6 mm periap ical lucency and some confluent adjacent premandibular fluid measuring up to 4 mm thick, axial image 25. No well-defined abscess. The cavity involving the third left maxillary molar is also quite large, coronal image 36. There is s ome associated overlying soft tissue thickening here as well, coronal image 38. Additional dental carries are present throughout. There is preseptal soft tissue thickening on the left, asymmetric to the contralateral side extending to the left premaxillary region. The globes are symmetric. No retrobulbar soft tissue abnormality is seen. Moderate bilateral palatine and lingual tonsillar hypertrophy. Visualized intracranial structures show no gross abnormality. IMPRESSION: 1. LARGE DENTAL CARIES INVOLVING THE LEFT MANDIBULAR SECOND MOLAR WITH AN ASSOCIATED 6 MM PERIAPICAL LUCENCY/ABSCESS. ADJACENT SOFT TISSUE INFECTION MAY BE PRESENT GIVEN SOME CONFLUENT PREMANDIBULAR FLU ID MEASURING 4 MM THICK AT THIS LEVEL. NO SOFT TISSUE ABSCESS FORMATION AT THIS TIME. 2. THE DENTAL CARIES INVOLVING THE THIRD LEFT MAXILLARY MOLAR IS ALSO QUITE LARGE AND THERE IS SOME A DJACENT SOFT TISSUE THICKENING HERE WELL THAT COULD REPRESENT ADJACENT CELLULITIS. 3. ADDITIONAL PRESEPTAL CELLULITIS ON THE LEFT. NO POSTSEPTAL INVOLVEMENT. 4. NEW MODERATE TO SEVERE CHRONIC RIGHT MAXILLARY SINUSITIS COMPARED TO 06/12/2020
[2020-09-15 15:36] VITALS: BMI 32.2
[2020-09-15 16:31] LABS: Glucose,Whole Blood 222 mg/dL (75-99)
--- NOTE | 2020-09-15 19:34 | CONS ---
CONSULTATION DATE OF CONSULTATION: 09/15/2020. REASON FOR CONSULTATION: Left preseptal cellulitis. HISTORY OF PRESENT ILLNESS: The patient is 30 -year-old male with a past medical history significant for diabetes mellitus and dental abscess, presenting to the ER with chief complaints of left eye pain and swelling, redness that started the day before presentation to the hospital. Apparently, the patient did have pinkeye the week before. The patient complaining of pain, swelling, redness. Left eye is currently shut because of swelling and redness. The patient's pain is more of a dull aching to throbbing 4-5 out of 10 and no radiation. The patient denies having any pain on movement of the eyeball. The patient denies high-grade fever or chills. With these symptoms, the patient was evaluated by the ER physician. On arrival to the ER, the patient was afebrile. The patient did have a normal white count with no left shift. Kidney function has been normal. Urine was negative. The patient was started on Unasyn. He did have some cultures obtained from the left eye. Infectious disease was consulted for further management of antibiotic therapy. REVIEW OF SYSTEMS: Positive points have been mentioned in HPI. Rest of systems are negative. PAST MEDICAL HISTORY: Past medical history of asthma, UTI and diabetes mellitus, hypertension, dental abscess. PAST SURGICAL HISTORY: Past surgical history includes LASIK surgery, left ankle surgery. SOCIAL HISTORY: Current everyday smoker. Did admit to marijuana use. No drinking. FAMILY HISTORY: No pertinent findings noticed. ALLERGIES: No known drug allergies. MEDICATIONS: Include the patient is currently on [place], Unasyn, Pepcid, heparin, Dilaudid, NovoLog, Levemir, nicotine patch and IV fluid. PHYSICAL EXAMINATION: Blood pressure is 145/91 with a pulse of 87, temperature 98.1. He is 100% on room air. General description is a middle-aged male up in the in no distress. HEENT: Shows left periorbital swelling, minimal redness, was able to open the eye a little bit compared to yesterday. No purulent drainage was noticed. Examination oral cavity did have multiple dental abscess. NECK: Trachea central. No thyromegaly. LUNGS unlabored breathing, decreased intensity of breath sounds. No wheeze. HEART: S1, S2. Regular rate and rhythm. ABDOMEN: Soft. No tenderness. No guarding. No no rigidity. EXTREMITIES: No edema of the feet. Skin examination: No rash or mass palpable. NEUROLOGICAL: Patient is awake, alert, oriented times three. Mood and affect normal. LABS: Hemoglobin is 14.1, white count of 5.6. BUN of 9, creatinine 0.49. 104. Liver enzymes normal. Cultures currently pending. DIAGNOSTIC IMPRESSION AND PLAN: Patient with left preseptal cellulitis in this patient, more likely related to his dental abscess and will need to cover for the oral armando plus gram-positive skin armando. Clinically doubt MRSA infection. PLAN: 1. Unasyn dose will be up to 3 grams q.6 hours. 2. We will obtain a CT of the orbital area with extension to the mandible to rule out any septal cellulitis or dental abscess. 3. We will follow on his clinical condition and culture to further adjust medication if needed. Thank you for this consultation. Will follow this patient with you. MMODL / IJN: [id number] /
[2020-09-15 19:58] LABS: Glucose,Whole Blood 241 mg/dL (75-99)
--- NOTE | 2020-09-15 19:59 | P.PN ---
Subjective This is a pleasant 30 years old male with past medical history of insulin- dependent diabetes mellitus, history of known of non-adherence to therapy, obesity, nicotine dependence, previous history of CVA/TIA with residual slurred speech and blurry left eye from previous stroke as per patient, who was recently discharged from this hospital on 06/12/2024 slurred speech and left-sided numbness and pain especially in the left lower extremity was suspicious for TIA at that time he was transferred to [facility] This time he presents because of left eye pain and swelling and redness for about 3 days with some purulent red-colored discharge as per patient associated with pain about 9/10 in severity. Associated with blurry vision, patient states that his vision is already blurry at baseline however was getting worse when this happened to his left eye. Also patient states that he has a dental abscess/fascial abscess in the left upper gingival area. The area looks with dental caries and at the base there is gingival ulcer in the right canine and premolar tooth Patient states that he is diabetic and he states Lantus 45 units at bedtime and 15 units with meals with NovoLog. He smokes about 1 pack per day, he denies alcohol or illicit drugs Vitals are stable, blood pressure slightly on the high side at 156/99, sodium 131, glucose 319, corrected sodium for hyperglycemia with the 133-134. Her sugars were running around 200. Urine analysis is not suspicious of infection. CBC is unremarkable. Liver enzymes not elevated. On admission and BMP history there was significantly elevated at 678 with any gap of 10. Acetone was negative. On admission was started on Augmentin, or thrombi seen on treatment, 2 L of normal saline is given and continued on 75 mL/h. And started on insulin drip, also started his Levemir 45 units at bedtime . 09/15/2020 this morning patient and redness and swelling in his left eye is improving however complains from significant pain and pain medication is provided Patient has been evaluated by offshore wind turbine technician was introduced preseptal cellulitis rather than orbital cellulitis as there is no diplopia. Extraocular eye movements are papillary defects, however the offshore wind turbine technician recommends to keep monitoring for these findings and signs and they found then CAT scan of the area is warranted to rule out post septal cellulitis Also recommend that the patient follow up with ophthalmology as an outpatient to assess for his diabetic retinopathy ENT was consulted for possible peridontal abscess. CT of the face showing: No air-fluid level seen but there is large dental caries involving the left mandibular second molar with associated 6 mm periapical lucency suspicious for an abscess and adjacent 3 mandibular fluid measuring up to 4 mm thick. No well- defined abscess cavity involving the third left maxillary molar is also large Hemoglobin A1c is 17.3%. pro-calcitonin is negative Review of Systems CONSTITUTIONAL: No fever, no malaise, no fatigue. HEENT: No recent visual problems or hearing problems. Denied any sore throat. CARDIOVASCULAR: No orthopnea, PND, no palpitations, no syncope. PULMONARY: No shortness of breath, no cough, no hemoptysis. GASTROINTESTINAL: No diarrhea, no nausea, no vomiting, no abdominal pain. Normoactive bowel sounds. NEUROLOGICAL: No headaches, no weakness, no numbness. Active Medications Generic Name Dose Route Start Last Admin Trade Name Freq PRN Reason Stop Dose Admin Hydrocodone Bitart/Acetaminophen 1 each 09/14/20 08:05 09/14/20 17:49 Hydrocodone/Apap 5-325mg 1 Each Tab PO 1 each Q6HR PRN Administration Pain Hydrocodone Bitart/Acetaminophen 1 each 09/14/20 21:49 09/15/20 14:43 Hydrocodone/Apap 10-325mg 1 Each Tab PO 1 each Q6H PRN Administration Pain Erythromycin 1 applic 09/13/20 20:00 09/15/20 17:09 Erythromycin 5 Mg/Gm Ophth Oint 1 Gm Tube LEFT EYE 1 applic Q6H KING Administration Famotidine 20 mg 09/15/20 21:00 Famotidine 20 Mg Tab PO Q12HR KING Heparin Sodium (Porcine) 5,000 unit 09/14/20 21:00 09/15/20 07:35 Heparin Sodium,Porcine 5,000 Unit/Ml 1 Ml Vial SQ 5,000 unit Q12HR KING Administration Hydromorphone HCl 0.5 mg 09/14/20 21:55 Hydromorphone 0.5 Mg/0.5 Ml Syringe IVP Q4HR PRN Pain Sodium Chloride 1,000 mls @ 75 mls/hr 09/13/20 19:45 09/15/20 17:08 Saline 0.9% IV 75 mls/hr .[id number] KING Administration Ampicillin Sodium/Sulbactam 100 mls @ 200 mls/hr 09/15/20 18:00 09/15/20 17:08 Sodium 3 gm/ Sodium Chloride IVPB 200 mls/hr Q6HR KING Administration Insulin Aspart 0 unit 09/14/20 07:30 09/15/20 17:08 Insulin Aspart (Novolog) 100 Unit/Ml Vial SQ 4 unit ACHS KING Administration Protocol Insulin Aspart 15 unit 09/14/20 12:30 09/15/20 17:13 Insulin Aspart (Novolog) 100 Unit/Ml Vial SQ Not Given AC-TID [facility] Insulin Detemir 55 unit 09/15/20 21:00 Insulin Detemir (Levemir) 100 Unit/Ml Syr SQ HS [facility] Nicotine 1 patch 09/14/20 09:00 09/15/20 07:34 Nicotine 21mg/24hr Patch TRANSDERM 1 patch DAILY KING Administration Objective - Vital Signs Vital signs: Vital Signs Temp 98.6 F 09/15/20 14:00 Pulse 80 09/15/20 14:00 Resp 18 09/15/20 14:00 BP 164/96 09/15/20 14:00 Pulse Ox 100 09/15/20 14:00 Intake & Output 09/14/20 09/15/20 09/15/20 18:59 06:59 18:59 Intake Total 900 Balance 900 Weight 117.027 kg 117.027 kg Intake: Intake, IV Titration 900 Amount Sodium Chloride 0.9% 1, 900 000 ml @ 75 mls/hr IV . [id number] [facility] Rx#:[id number] Other: Voiding Method Toilet # Voids 2 - Labs CBC & Chem 7: 09/14/20 09:29 09/14/20 09:29 Labs: Abnormal Lab Results - Last 24 Hours (Table) 09/14/20 09/15/20 09/15/20 Range/Units 20:08 07:00 11:05 POC Glucose (mg/dL) 218 H 218 H 62 L (75-99) mg/dL 09/15/20 09/15/20 Range/Units 11:49 16:29 POC Glucose (mg/dL) 179 H 222 H (75-99) mg/dL Microbiology - Last 24 Hours (Table) 09/14/20 19:50 Gram Stain - Preliminary Eye - Left Wound Culture - Preliminary 09/14/20 19:50 Anaerobic Culture - Preliminary Eye - Left Assessment and Plan Assessment: Left eye preseptal cellulitis Large dental caries involving the left mandibular second molar (With associated 6 mm periapical lucency suspicious for an abscess) and the third maxillary third molar. Right upper gingival ulcer with yellow base and dental caries History of poor vision in the left are as per patient for more than 2 months, from previous stroke as per patient Insulin-dependent diabetes, uncontrolled with hyperglycemia. Hemoglobin A1c is 17.3% Hypertension, uncontrolled Non-compliance and adherence to therapy Nicotine dependence Obesity with BMI of 32 Previous history of CVA/TIA, with residual slurred speech as per patient periodontal Plan: This is a pleasant 30 years old male who presents because of possible left preseptal cellulitis of the left eye with some worsening blurry vision. Change antibiotics to Unasyn. Continue with infectious disease and ophthalmology services consults and ENT consult. Continue with hydration. Continue with insulin Labs and medication were reviewed.. Continue same treatment. Continue with symptomatic treatment. Resume home medication. Monitor lytes and vitals. DVT and GI prophylaxis. Further recommendations depends on the clinical course of the patient DVT prophylaxis: Subcutaneous heparin GI Prophylaxis: Pepcid Prognosis is guarded
[2020-09-15] MEDS: FAMOTIDINE 20 MG TAB PO SCH (20:11)
[2020-09-15] MEDS: INSULIN DETEMIR (LEVEMIR) 100 UNIT/ML SYR SQ SCH (21:59)
[2020-09-16] MEDS: HYDROcodone/APAP 10-325MG 1 EACH TAB PO PRN ×3 (04:47→17:16)
[2020-09-16] MEDS: AMPICILLIN-SULBACTAM 3 GM in SODIUM CHLORIDE 0.9% 100 ML IVPB SCH ×4 (05:10→22:44)
[2020-09-16] MEDS: SODIUM CHLORIDE 0.9% 1,000 ML IV SCH ×2 (06:56→20:38)
[2020-09-16 07:21] LABS: Glucose,Whole Blood 229 mg/dL (75-99)
[2020-09-16] MEDS: INSULIN ASPART (NovoLOG) 100 UNIT/ML VIAL SQ SCH ×7 (07:59→20:40)
[2020-09-16] MEDS: NICOTINE 21MG/24HR PATCH TRANSDERM SCH (08:00)
[2020-09-16] MEDS: ERYTHROMYCIN 5 MG/GM OPHTH OINT 1 GM TUBE LEFT EYE SCH ×3 (08:00→20:39)
[2020-09-16] MEDS: FAMOTIDINE 20 MG TAB PO SCH ×2 (08:00→20:39)
[2020-09-16] MEDS: HEPARIN SODIUM,PORCINE 5,000 UNIT/ML 1 ML VIAL SQ SCH ×2 (08:00→20:40)
[2020-09-16 10:28] LABS: Glucose,Whole Blood 43 mg/dL (75-99)
[2020-09-16 10:34] LABS: Glucose,Whole Blood 81 mg/dL (75-99)
[2020-09-16 11:37] LABS: Glucose,Whole Blood 155 mg/dL (75-99)
[2020-09-16 16:32] LABS: Glucose,Whole Blood 315 mg/dL (75-99)
[2020-09-16 20:31] LABS: Glucose,Whole Blood 115 mg/dL (75-99)
[2020-09-16] MEDS: INSULIN DETEMIR (LEVEMIR) 100 UNIT/ML SYR SQ SCH (20:40)
[2020-09-16] MEDS: HYDROcodone/APAP 5-325MG 1 EACH TAB PO PRN (22:44)
--- NOTE | 2020-09-16 23:25 | PN ---
PROGRESS NOTE DATE OF SERVICE: 09/16/2020 REASON FOR FOLLOWUP: Left preseptal cellulitis and bilateral dental abscess. INTERVAL HISTORY: The patient is currently afebrile. The patient's left periorbital swelling and redness has improved. He is able to open his eyes. He is complaining of pain in his mouth and teeth. No chest pain or cough. No abdominal pain or diarrhea. PHYSICAL EXAMINATION: Blood pressure 149/88, pulse of 78, temperature 98.5. He is 99% on room air. General description is a young male lying in bed in no distress. HEENT EXAMINATION: Left periorbital swelling and redness has improved. LUNGS: Unlabored breathing. Clear to auscultation anteriorly. HEART: S1, S2. Regular rate and rhythm. ABDOMEN: Soft. No tenderness. LABS: No new labs have been obtained today. Culture so far pending. DIAGNOSTIC IMPRESSION AND PLAN: Patient with left preseptal cellulitis in this patient with bilateral dental abscess. The patient will benefit from an oral surgery evaluation for drainage of this abscess. Will discuss with the admitting physician and continue supportive care. MMODL / IJN: [id number] /
--- NOTE | 2020-09-16 23:58 | P.PN ---
Subjective This is a pleasant 30 years old male with past medical history of insulin- dependent diabetes mellitus, history of known of non-adherence to therapy, obesity, nicotine dependence, previous history of CVA/TIA with residual slurred speech and blurry left eye from previous stroke as per patient, who was recently discharged from this hospital on 06/12/2024 slurred speech and left-sided numbness and pain especially in the left lower extremity was suspicious for TIA at that time he was transferred to [facility] This time he presents because of left eye pain and swelling and redness for about 3 days with some purulent red-colored discharge as per patient associated with pain about 9/10 in severity. Associated with blurry vision, patient states that his vision is already blurry at baseline however was getting worse when this happened to his left eye. Also patient states that he has a dental abscess/fascial abscess in the left upper gingival area. The area looks with dental caries and at the base there is gingival ulcer in the right canine and premolar tooth Patient states that he is diabetic and he states Lantus 45 units at bedtime and 15 units with meals with NovoLog. He smokes about 1 pack per day, he denies alcohol or illicit drugs Vitals are stable, blood pressure slightly on the high side at 156/99, sodium 131, glucose 319, corrected sodium for hyperglycemia with the 133-134. Her sugars were running around 200. Urine analysis is not suspicious of infection. CBC is unremarkable. Liver enzymes not elevated. On admission and BMP history there was significantly elevated at 678 with any gap of 10. Acetone was negative. On admission was started on Augmentin, or thrombi seen on treatment, 2 L of normal saline is given and continued on 75 mL/h. And started on insulin drip, also started his Levemir 45 units at bedtime . 09/15/2020 this morning patient and redness and swelling in his left eye is improving however complains from significant pain and pain medication is provided Patient has been evaluated by tree deadener was introduced preseptal cellulitis rather than orbital cellulitis as there is no diplopia. Extraocular eye movements are papillary defects, however the tree deadener recommends to keep monitoring for these findings and signs and they found then CAT scan of the area is warranted to rule out post septal cellulitis Also recommend that the patient follow up with ophthalmology as an outpatient to assess for his diabetic retinopathy ENT was consulted for possible peridontal abscess. CT of the face showing: No air-fluid level seen but there is large dental caries involving the left mandibular second molar with associated 6 mm periapical lucency suspicious for an abscess and adjacent 3 mandibular fluid measuring up to 4 mm thick. No well- defined abscess cavity involving the third left maxillary molar is also large Hemoglobin A1c is 17.3%. pro-calcitonin is negative 09/16/2020 Patient's with left swelling I is still complaining of from pain in the area. No diplopia or double vision, no strabismus and pupils are reactive, it looks to me that I infection is improving Patient still complains from his mild dental caries. There was a consult for Dr. Sweeney from ENT to see the patient, for unknown reason the consult was canceled today. We are going to reconsult him in the morning. In the meantime provide some topical antiseptic to the mouth. Patient still complaining of from some pain and tenderness in his right cheek. Infectious disease input is appreciated. Objective - Vital Signs Vital signs: Vital Signs Temp 97.8 F 09/16/20 08:00 Pulse 60 09/16/20 08:00 Resp 18 09/16/20 08:00 BP 152/91 09/16/20 08:00 Pulse Ox 97 09/16/20 08:00 Intake & Output 09/15/20 09/16/20 09/16/20 18:59 06:59 18:59 Weight 117.027 kg Other: Voiding Method Toilet Toilet Toilet # Voids 1 2 - Exam GENERAL: The patient is alert and oriented x3, not in any acute distress. Well developed, well nourished. -HEENT: Pupils are round and equally reacting to light. EOMI. No scleral icterus. No conjunctival pallor. Normocephalic, atraumatic. No pharyngeal erythema. No thyromegaly. Left eye is less swollen and draped. Pupils are reactive to light. No restricted movement. No double vision. Bad dental caries on both molar teeth especially the maxillary with surrounding gingival ulcers and yellow dry base CARDIOVASCULAR: S1 and S2 present. No murmurs, rubs, or gallops. PULMONARY: Chest is clear to auscultation, no wheezing or crackles. ABDOMEN: Soft, nontender, nondistended, normoactive bowel sounds. No palpable organomegaly. MUSCULOSKELETAL: No joint swelling or deformity. EXTREMITIES: No cyanosis, clubbing, or pedal edema. NEUROLOGICAL: Gross neurological examination did not reveal any focal deficits. SKIN: No rashes. No petechiae - Labs CBC & Chem 7: 09/14/20 09:29 09/14/20 09:29 Labs: Abnormal Lab Results - Last 24 Hours (Table) 09/15/20 09/15/20 09/16/20 Range/Units 16:29 19:56 07:19 POC Glucose (mg/dL) 222 H 241 H 229 H (75-99) mg/dL 09/16/20 09/16/20 Range/Units 10:18 11:35 POC Glucose (mg/dL) 43 L 155 H (75-99) mg/dL Microbiology - Last 24 Hours (Table) 09/14/20 19:50 Gram Stain - Preliminary Eye - Left Wound Culture - Preliminary Assessment and Plan Assessment: Left eye preseptal cellulitis Large dental caries involving the left mandibular second molar (With associated 6 mm periapical lucency suspicious for an abscess) and the third maxillary third molar. Right upper gingival ulcer with yellow base and dental caries History of poor vision in the left are as per patient for more than 2 months, from previous stroke as per patient Insulin-dependent diabetes, uncontrolled with hyperglycemia. Hemoglobin A1c is 17.3% Hypertension, uncontrolled Non-compliance and adherence to therapy Nicotine dependence Obesity with BMI of 32 Previous history of CVA/TIA, with residual slurred speech as per patient periodontal Plan: This is a pleasant 30 years old male who presents because of possible left preseptal cellulitis of the left eye . Continue with antibiotics to Unasyn. Continue with infectious disease and ophthalmology services consults and ENT consult. Continue with hydration. Continue with insulin and/or the dose to 45 at bedtime and increase NovoLog to 17 units with meals Labs and medication were reviewed.. Continue same treatment. Continue with symptomatic treatment. Resume home medication. Monitor lytes and vitals. DVT and GI prophylaxis. Further recommendations depends on the clinical course of the patient DVT prophylaxis: Subcutaneous heparin GI Prophylaxis: Pepcid Prognosis is guarded
[2020-09-17 02:03] LABS: Glucose,Whole Blood 278 mg/dL (75-99)
[2020-09-17] MEDS: ERYTHROMYCIN 5 MG/GM OPHTH OINT 1 GM TUBE LEFT EYE SCH ×4 (05:07→21:56)
[2020-09-17] MEDS: AMPICILLIN-SULBACTAM 3 GM in SODIUM CHLORIDE 0.9% 100 ML IVPB SCH ×3 (05:07→18:20)
[2020-09-17] MEDS: HYDROcodone/APAP 5-325MG 1 EACH TAB PO PRN ×3 (05:16→18:19)
[2020-09-17 07:04] LABS: Glucose,Whole Blood 248 mg/dL (75-99)
[2020-09-17] MEDS: NICOTINE 21MG/24HR PATCH TRANSDERM SCH (07:18)
[2020-09-17] MEDS: INSULIN ASPART (NovoLOG) 100 UNIT/ML VIAL SQ SCH ×7 (07:18→21:56)
[2020-09-17] MEDS: HEPARIN SODIUM,PORCINE 5,000 UNIT/ML 1 ML VIAL SQ SCH ×2 (07:19→21:56)
[2020-09-17] MEDS: SODIUM CHLORIDE 0.9% 1,000 ML IV SCH (07:19)
[2020-09-17] MEDS: FAMOTIDINE 20 MG TAB PO SCH ×2 (07:19→21:56)
[2020-09-17] MEDS: CHLORHEXIDINE GLUCONATE 15 ML CUP MUCOUS MEM SCH ×2 (07:19→21:56)
[2020-09-17 10:42] LABS: Glucose,Whole Blood 57 mg/dL (75-99)
[2020-09-17] MEDS ORDERED: DEXTROSE 50% SYRINGE 50 ML IVP ONE (10:45)
[2020-09-17] MEDS ORDERED: DEXTROSE 50% SYRINGE 50 ML IVP STA (10:48)
[2020-09-17 10:59] LABS: Glucose,Whole Blood 202 mg/dL (75-99)
[2020-09-17] MEDS: DEXTROSE 5%-0.9% NACL 1,000 ML IV SCH (11:14)
[2020-09-17 12:04] LABS: Glucose,Whole Blood 148 mg/dL (75-99)
[2020-09-17 16:20] LABS: Glucose,Whole Blood 191 mg/dL (75-99)
--- NOTE | 2020-09-17 17:20 | P.CON ---
Consult Note - . Consult date: 09/17/20 Assessment/Plan:: History of present illness. 30-year-old male in bed consulted today for evaluation of dental abscess. The patient reports pain of his upper right teeth with history of swelling on that side. Pain level today is approximately 1 or 2 out of 10. With no pain if he doesn't touch the tooth. Patient has had multiple episodes of swelling and pain in his mouth in the past. Patient reports not having any dental care.. The patient has had swelling of his left eye in the past. But today his no swelling on his right side at this time. She has a history of insulin-dependent diabetes. And a history of possible stroke on the eye. At this time he reports his vision of the right eye is good. Past medical history on chart reviewed. Medications and chart reviewed. NO KNOWN DRUG ALLERGIES. Panoramic x-ray reconstruction reviewed noted multiple dental decay's with thickening of the sinus membrane on the right sinus. Limited physical exam. Mucous membranes are moist. opening well within normal limits no airway embarrassment or trouble swallowing. Multiple dental decay patient points to tooth #3 as source of his pain. This tooth has significant decay gingival recession but no obvious swelling at this time. There is some erythema on the buccal aspect which could be related to a previous abscess. Patient reports there was some discharge over the past few days in that area. No discharge today. Assessment Multiple areas of dental decay with a resolving abscess of tooth #3. Multiple other grossly decayed teeth in the area that will require extraction in the future. Plan Patient's responding well to IV Unasyn recommend continue therapy and changed to outpatient Augmentin for 1 week post discharge. Patient can see me in the office next Sunday or for evaluation to have all his remaining teeth removed or just this 1 abscessed tooth. Patient understood the plan and agreed to proceed.
[2020-09-17 21:09] LABS: Glucose,Whole Blood 267 mg/dL (75-99)
[2020-09-17] MEDS: INSULIN DETEMIR (LEVEMIR) 100 UNIT/ML SYR SQ SCH (21:56)
--- NOTE | 2020-09-17 22:32 | PN ---
PROGRESS NOTE DATE OF SERVICE: 09/17/2020. REASON FOR FOLLOW UP: Left preseptal cellulitis and dental abscess. INTERVAL HISTORY: Patient is currently afebrile. The patient left periorbital pain and swelling has improved. He is able to open his eye. The patient pain to the teeth area has decreased. Denies any chest pain. No shortness of breath or cough. No abdominal pain or diarrhea. PHYSICAL EXAMINATION: Blood pressure 143/80 with a pulse of 69, temperature 97.9. He is 95% on room air. General description is a middle-aged male lying in bed in no distress. HEENT examination: Left periorbital pain and swelling and redness has improved. Lungs unlabored breathing clear to auscultation anteriorly. Heart S1, S2. Regular rate and rhythm. ABDOMEN: Soft, no tenderness. LABS: No new labs have been obtained today. DIAGNOSTIC IMPRESSION AND PLAN: Patient with left preseptal cellulitis along with the dental abscess, clinically responded Unasyn. Dental surgery has seen the patient and wants outpatient followup and follow up of his teeth. Patient to continue with Unasyn while inpatient with discharge antibiotic in the form of Augmentin 875 mg b.i.d. for at least 10 days until the patient evaluated by the oral surgeon and continue supportive care. MMODL / IJN: [id number] /
[2020-09-18] MEDS: AMPICILLIN-SULBACTAM 3 GM in SODIUM CHLORIDE 0.9% 100 ML IVPB SCH ×5 (00:26→23:15)
[2020-09-18] MEDS: SODIUM CHLORIDE 0.9% 1,000 ML IV SCH ×2 (00:26→08:46)
[2020-09-18] MEDS: HYDROcodone/APAP 5-325MG 1 EACH TAB PO PRN ×4 (00:27→21:52)
[2020-09-18] MEDS: ERYTHROMYCIN 5 MG/GM OPHTH OINT 1 GM TUBE LEFT EYE SCH (02:18)
[2020-09-18 02:35] LABS: Glucose,Whole Blood 291 mg/dL (75-99)
[2020-09-18] MEDS: DEXTROSE 5%-0.9% NACL 1,000 ML IV SCH ×2 (05:44→13:20)
[2020-09-18 06:28] LABS: Basophils % (A) 1 %; Eosinophils # (A) 0.1 k/uL (0-0.7); Eosinophils % (A) 2 %; HCT 42.8 % (39.0-53.0); HGB 14.1 gm/dL (13.0-17.5); Lymphocytes # (A) 2.4 k/uL (1.0-4.8); Lymphocytes % (A) 35 %; MCH 26.8 pg (25.0-35.0); MCHC 32.9 g/dL (31.0-37.0); MCV 81.6 fL (80.0-100.0); Mean Platelet Volume 8.4; Monocytes # (A) 0.4 k/uL (0-1.0); Monocytes % (A) 6 %; Neutrophils # (A) 3.7 k/uL (1.3-7.7); Neutrophils % (A) 54 %; Platelet Count 243 k/uL (150-450); RBC 5.25 m/uL (4.30-5.90); RDW 12.6 % (11.5-15.5); WBC 6.8 k/uL (3.8-10.6)
[2020-09-18 06:49] LABS: Glucose,Whole Blood 244 mg/dL (75-99)
[2020-09-18] MEDS: INSULIN ASPART (NovoLOG) 100 UNIT/ML VIAL SQ SCH ×7 (08:16→20:30)
[2020-09-18] MEDS: NICOTINE 21MG/24HR PATCH TRANSDERM SCH (08:41)
[2020-09-18] MEDS: FAMOTIDINE 20 MG TAB PO SCH ×2 (08:41→20:30)
[2020-09-18] MEDS: HEPARIN SODIUM,PORCINE 5,000 UNIT/ML 1 ML VIAL SQ SCH ×2 (08:46→20:30)
[2020-09-18] MEDS: CHLORHEXIDINE GLUCONATE 15 ML CUP MUCOUS MEM SCH ×2 (08:46→20:30)
[2020-09-18] MEDS: ERYTHROMYCIN 5 MG/GM OPHTH OINT 3.5 GM TUBE LEFT EYE SCH ×3 (08:46→20:30)
[2020-09-18 10:12] LABS: African American GFR (CKD) 147.8 (60.0-200.0); BUN/Creat Ratio 21.43 Ratio (12.00-20.00); C Reactive Protein <0.4 mg/dL (0.0-0.8); Calcium 8.9 mg/dL (8.7-10.3); Carbon Dioxide 25.9 mmol/L (21.6-31.8); Chloride 102 mmol/L (96-109); Glucose 294 mg/dL (70-110); Non-African American GFR(CKD) 127.5 (60.0-200.0); Potassium 4.3 mmol/L (3.5-5.5); Sodium 135 mmol/L (135-145)
--- NOTE | 2020-09-18 10:25 | P.PN ---
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 Associated with blurry vision, patient states that his vision is already blurry at baseline however was getting worse when this happened to his left eye. Also patient states that he has a dental abscess/fascial abscess in the left upper gingival area. The area looks with dental caries and at the base there is gingival ulcer in the right canine and premolar tooth Patient states that he is diabetic and he states Lantus 45 units at bedtime and 15 units with meals with NovoLog. He smokes about 1 pack per day, he denies alcohol or illicit drugs Vitals are stable, blood pressure slightly on the high side at 156/99, sodium 131, glucose 319, corrected sodium for hyperglycemia with the 133-134. Her sugars were running around 200. Urine analysis is not suspicious of infection. CBC is unremarkable. Liver enzymes not elevated. On admission and BMP history there was significantly elevated at 678 with any gap of 10. Acetone was negative. On admission was started on Augmentin, or thrombi seen on treatment, 2 L of normal saline is given and continued on 75 mL/h. And started on insulin drip, also started his Levemir 45 units at bedtime . 09/15/2020 this morning patient and redness and swelling in his left eye is improving however complains from significant pain and pain medication is provided Patient has been evaluated by [employer]ist [employer] was introduced preseptal cellulitis rather than orbital cellulitis as there is no diplopia. Extraocular eye movements are papillary defects, however the [employer]ist [employer] recommends to keep monitoring for these findings and signs and they found then CAT scan of the area is warranted to rule out post septal cellulitis Also recommend that the patient follow up with ophthalmology as an outpatient to assess for his diabetic retinopathy ENT was consulted for possible peridontal abscess. CT of the face showing: No air-fluid level seen but there is large dental caries involving the left mandibular second molar with associated 6 mm periapical lucency suspicious for an abscess and adjacent 3 mandibular fluid measuring up to 4 mm thick. No well- defined abscess cavity involving the third left maxillary molar is also large Hemoglobin A1c is 17.3%. pro-calcitonin is negative 09/16/2020 Patient's with left swelling I is still complaining of from pain in the area. No diplopia or double vision, no strabismus and pupils are reactive, it looks to me that I infection is improving Patient still complains from his mild dental caries. There was a consult for Dr. Sweeney from ENT to see the patient, for unknown reason the consult was canceled today. We are going to reconsult him in the morning. In the meantime provide some topical antiseptic to the mouth. Patient still complaining of from some pain and tenderness in his right cheek. Infectious disease input is appreciated. 09/17/2020 Patient admitted left preseptal cellulitis of the eye, patient is on Unasyn and significantly improving. Infectious disease on the case. Ophthalmology team evaluated the patient and recommended close outpatient follow-up. Patient with no diplopia, no strabismus and pupils are equal and reactive to light. The pain and swelling and redness are significantly coming down. Patient also with that dental caries and possible periodontal abscesses Dr. pedersen from oral surgery is consulted and is going to evaluate the patient today. Patient was hypoglycemic so his sugar was lowered to 45 units Levemir at bedtime (home dose) And increase NovoLog from 15 up to 17 units with meals. Objective - Vital Signs Vital signs: Vital Signs Temp 98.0 F 09/18/20 07:00 Pulse 70 09/18/20 07:00 Resp 16 09/18/20 07:00 BP 139/81 09/18/20 07:00 Pulse Ox 98 09/18/20 07:00 Intake & Output 09/17/20 09/18/20 09/18/20 18:59 06:59 18:59 Other: Voiding Method Toilet # Voids 2 4 - Exam GENERAL: The patient is alert and oriented x3, not in any acute distress. Well developed, well nourished. -HEENT: Pupils are round and equally reacting to light. EOMI. No scleral icterus. No conjunctival pallor. Normocephalic, atraumatic. No pharyngeal erythema. No thyromegaly. Left eye is less swollen and draped. Pupils are reactive to light. No restricted movement. No double vision. Bad dental caries on both molar teeth especially the maxillary with surrounding gingival ulcers and yellow dry base CARDIOVASCULAR: S1 and S2 present. No murmurs, rubs, or gallops. PULMONARY: Chest is clear to auscultation, no wheezing or crackles. ABDOMEN: Soft, nontender, nondistended, normoactive bowel sounds. No palpable organomegaly. MUSCULOSKELETAL: No joint swelling or deformity. EXTREMITIES: No cyanosis, clubbing, or pedal edema. NEUROLOGICAL: Gross neurological examination did not reveal any focal deficits. SKIN: No rashes. No petechiae - Labs CBC & Chem 7: 09/18/20 06:00 09/14/20 09:29 Labs: Abnormal Lab Results - Last 24 Hours (Table) 09/17/20 09/17/20 09/17/20 Range/Units 10:41 10:58 12:03 POC Glucose (mg/dL) 57 L 202 H 148 H (75-99) mg/dL 09/17/20 09/17/20 09/18/20 Range/Units 16:19 21:07 02:31 POC Glucose (mg/dL) 191 H 267 H 291 H (75-99) mg/dL 09/18/20 Range/Units 06:48 POC Glucose (mg/dL) 244 H (75-99) mg/dL Assessment and Plan Assessment: Left eye preseptal cellulitis Large dental caries involving the left mandibular second molar (With associated 6 mm periapical lucency suspicious for an abscess) and the third maxillary third molar. Right upper gingival ulcer with yellow base and dental caries History of poor vision in the left are as per patient for more than 2 months, from previous stroke as per patient Insulin-dependent diabetes, uncontrolled with hyperglycemia. Hemoglobin A1c is 17.3% Hypertension, uncontrolled Non-compliance and adherence to therapy Nicotine dependence Obesity with BMI of 32 Previous history of CVA/TIA, with residual slurred speech as per patient periodontal Plan: This is a pleasant 30 years old male who presents because of possible left preseptal cellulitis of the left eye . Continue with antibiotics to Unasyn. Continue with infectious disease and ophthalmology services recommendations. Following recommendation by maxillofacial surgery with Dr. Pedersen. Continue with hydration. Continue with insulin and/or the dose to 45 at bedtime and increase NovoLog to 17 units with meals. Monitor blood pressure Labs and medication were reviewed.. Continue same treatment. Continue with symptomatic treatment. Resume home medication. Monitor lytes and vitals. DVT and GI prophylaxis. Further recommendations depends on the clinical course of the patient DVT prophylaxis: Subcutaneous heparin GI Prophylaxis: Pepcid Prognosis is guarded
--- NOTE | 2020-09-18 10:38 | P.PN ---
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 Associated with blurry vision, patient states that his vision is already blurry at baseline however was getting worse when this happened to his left eye. Also patient states that he has a dental abscess/fascial abscess in the left upper gingival area. The area looks with dental caries and at the base there is gingival ulcer in the right canine and premolar tooth Patient states that he is diabetic and he states Lantus 45 units at bedtime and 15 units with meals with NovoLog. He smokes about 1 pack per day, he denies alcohol or illicit drugs Vitals are stable, blood pressure slightly on the high side at 156/99, sodium 131, glucose 319, corrected sodium for hyperglycemia with the 133-134. Her sugars were running around 200. Urine analysis is not suspicious of infection. CBC is unremarkable. Liver enzymes not elevated. On admission and BMP history there was significantly elevated at 678 with any gap of 10. Acetone was negative. On admission was started on Augmentin, or thrombi seen on treatment, 2 L of normal saline is given and continued on 75 mL/h. And started on insulin drip, also started his Levemir 45 units at bedtime . 09/15/2020 this morning patient and redness and swelling in his left eye is improving however complains from significant pain and pain medication is provided Patient has been evaluated by director of database marketing was introduced preseptal cellulitis rather than orbital cellulitis as there is no diplopia. Extraocular eye movements are papillary defects, however the director of database marketing recommends to keep monitoring for these findings and signs and they found then CAT scan of the area is warranted to rule out post septal cellulitis Also recommend that the patient follow up with ophthalmology as an outpatient to assess for his diabetic retinopathy ENT was consulted for possible peridontal abscess. CT of the face showing: No air-fluid level seen but there is large dental caries involving the left mandibular second molar with associated 6 mm periapical lucency suspicious for an abscess and adjacent 3 mandibular fluid measuring up to 4 mm thick. No well- defined abscess cavity involving the third left maxillary molar is also large Hemoglobin A1c is 17.3%. pro-calcitonin is negative 09/16/2020 Patient's with left swelling I is still complaining of from pain in the area. No diplopia or double vision, no strabismus and pupils are reactive, it looks to me that I infection is improving Patient still complains from his mild dental caries. There was a consult for Dr. Sweeney from ENT to see the patient, for unknown reason the consult was canceled today. We are going to reconsult him in the morning. In the meantime provide some topical antiseptic to the mouth. Patient still complaining of from some pain and tenderness in his right cheek. Infectious disease input is appreciated. 09/17/2020 Patient admitted left preseptal cellulitis of the eye, patient is on Unasyn and significantly improving. Infectious disease on the case. Ophthalmology team evaluated the patient and recommended close outpatient follow-up. Patient with no diplopia, no strabismus and pupils are equal and reactive to light. The pain and swelling and redness are significantly coming down. Patient also with that dental caries and possible periodontal abscesses Dr. pedersen from oral surgery is consulted and is going to evaluate the patient today. Patient was hypoglycemic so his sugar was lowered to 45 units Levemir at bedtime (home dose) And increase NovoLog from 15 up to 17 units with meals. Objective - Vital Signs Vital signs: Vital Signs Temp 97.9 F 09/17/20 15:00 Pulse 69 09/17/20 15:00 Resp 16 09/17/20 15:00 BP 143/88 09/17/20 15:00 Pulse Ox 95 09/17/20 15:00 Intake & Output 09/16/20 09/17/20 09/17/20 18:59 06:59 18:59 Intake Total 2350 Balance 2350 Intake: Intake, IV Titration 850 Amount Ampicillin-Sulbactam 3 gm 200 In Sodium Chloride 0.9% 100 ml @ 200 mls/hr IVPB Q6HR [facility] Rx#:[id number] Sodium Chloride 0.9% 1, 650 000 ml @ 75 mls/hr IV . [id number] [facility] Rx#:[id number] Oral 1500 Other: Voiding Method Toilet Toilet Toilet - Exam GENERAL: The patient is alert and oriented x3, not in any acute distress. Well developed, well nourished. -HEENT: Pupils are round and equally reacting to light. EOMI. No scleral icterus. No conjunctival pallor. Normocephalic, atraumatic. No pharyngeal erythema. No thyromegaly. Left eye is less swollen and draped. Pupils are reactive to light. No restricted movement. No double vision. Bad dental caries on both molar teeth especially the maxillary with surrounding gingival ulcers and yellow dry base CARDIOVASCULAR: S1 and S2 present. No murmurs, rubs, or gallops. PULMONARY: Chest is clear to auscultation, no wheezing or crackles. ABDOMEN: Soft, nontender, nondistended, normoactive bowel sounds. No palpable organomegaly. MUSCULOSKELETAL: No joint swelling or deformity. EXTREMITIES: No cyanosis, clubbing, or pedal edema. NEUROLOGICAL: Gross neurological examination did not reveal any focal deficits. SKIN: No rashes. No petechiae - Labs CBC & Chem 7: 09/18/20 06:00 09/18/20 06:00 Labs: Abnormal Lab Results - Last 24 Hours (Table) 09/16/20 09/16/20 09/17/20 Range/Units 16:31 20:30 02:02 POC Glucose (mg/dL) 315 H 115 H 278 H (75-99) mg/dL 09/17/20 09/17/20 09/17/20 Range/Units 07:02 10:41 10:58 POC Glucose (mg/dL) 248 H 57 L 202 H (75-99) mg/dL 09/17/20 09/17/20 Range/Units 12:03 16:19 POC Glucose (mg/dL) 148 H 191 H (75-99) mg/dL Microbiology - Last 24 Hours (Table) 09/14/20 19:50 Anaerobic Culture - Preliminary Eye - Left 09/14/20 19:50 Gram Stain - Final Eye - Left Wound Culture - Final Assessment and Plan Assessment: Left eye preseptal cellulitis Large dental caries involving the left mandibular second molar (With associated 6 mm periapical lucency suspicious for an abscess) and the third maxillary third molar. Right upper gingival ulcer with yellow base and dental caries History of poor vision in the left are as per patient for more than 2 months, from previous stroke as per patient Insulin-dependent diabetes, uncontrolled with hyperglycemia. Hemoglobin A1c is 17.3% Hypertension, uncontrolled Non-compliance and adherence to therapy Nicotine dependence Obesity with BMI of 32 Previous history of CVA/TIA, with residual slurred speech as per patient periodontal Plan: This is a pleasant 30 years old male who presents because of possible left preseptal cellulitis of the left eye . Continue with antibiotics to Unasyn. Continue with infectious disease and ophthalmology services recommendations. Following recommendation by maxillofacial surgery with Dr. Pedersen. Continue with hydration. Continue with insulin and/or the dose to 45 at bedtime and increase NovoLog to 17 units with meals. Monitor blood pressure Labs and medication were reviewed.. Continue same treatment. Continue with symptomatic treatment. Resume home medication. Monitor lytes and vitals. DVT and GI prophylaxis. Further recommendations depends on the clinical course of the patient DVT prophylaxis: Subcutaneous heparin GI Prophylaxis: Pepcid Prognosis is guarded
[2020-09-18 12:06] LABS: Glucose,Whole Blood 97 mg/dL (75-99)
[2020-09-18] MEDS: amLODIPine 5 MG TAB PO SCH (13:20)
[2020-09-18 16:41] LABS: Glucose,Whole Blood 234 mg/dL (75-99)
[2020-09-18 20:16] LABS: Glucose,Whole Blood 178 mg/dL (75-99)
[2020-09-18] MEDS: INSULIN DETEMIR (LEVEMIR) 100 UNIT/ML SYR SQ SCH (20:30)
--- NOTE | 2020-09-18 22:11 | PN ---
PROGRESS NOTE DATE OF SERVICE: 09/18/2020 REASON FOR FOLLOWUP: Left periorbital cellulitis and dental abscess. INTERVAL HISTORY: Patient was seen on rounds this afternoon. The patient has been afebrile. Overall left periorbital swelling and redness has resolved. He was able to open his eye. The dental pain has improved. No chest pain, shortness of breath or cough. No abdominal pain. No diarrhea. PHYSICAL EXAMINATION: Blood pressure 134/89 with pulse of 87, temperature 98.3. He is 100% on room air. General description is a middle-aged male up in the room in no distress. HEENT examination: Left periorbital swelling and redness has resolved. LUNGS: Unlabored breathing, clear to auscultation anteriorly. HEART: S1, S2. Regular rate and rhythm. ABDOMEN: Soft, no tenderness. LAB DATA: Hemoglobin is 14, white count 6.8. BUN of 15, creatinine 0.7. DIAGNOSTIC IMPRESSION AND PLAN: Patient with periorbital cellulitis in this patient who did have poor dentition and multiple dental abscesses. Did well on Unasyn to finish therapy with oral Augmentin times 10 days and follow up with dental surgeon in the outpatient setting. Continue supportive care. MMODL / IJN: [id number] /
--- NOTE | 2020-09-19 00:27 | P.PN ---
Subjective Progress Note Date: 09/18/20 Principal diagnosis: Dental abscess Mr. Perdue is a 30-year-old female with insulin-dependent diabetes mellitus, previous history of CVA/TIA with residual slurred speech speech and blurry vision in the left eye coming in with a chief complaint of left eye pain swelling redness and left upper gingival pain. Patient is being followed by ENT and ophthalmology. Patient was seen and examined on the general medical floors today. He is sitting comfortably appears to be in no acute distress. He still complains of pain in his left thigh, stating that his swelling and redness are coming down. He still has pain in his upper jaw. On reviewing the vitals patient is afebrile, heart rate 75, respiratory rate 18, blood pressure 160 x 80 saturating at 98 on room air. Patient's labs white count of 6.8 hemoglobin 14.4 platelets 243. Sodium 135, BUN 15, creatinine 0.7. Active Medications Hydrocodone Bitart/Acetaminophen (Hydrocodone/Apap 5-325mg 1 Each Tab) 1 each PO Q6HR PRN PRN Reason: Pain Last Admin: 09/18/20 21:52 Dose: 1 each Documented by: Hydrocodone Bitart/Acetaminophen (Hydrocodone/Apap 10-325mg 1 Each Tab) 1 each PO Q6H PRN PRN Reason: Pain Last Admin: 09/16/20 17:16 Dose: 1 each Documented by: Amlodipine Besylate (Amlodipine 5 Mg Tab) 5 mg PO DAILY [facility] Last Admin: 09/18/20 13:20 Dose: Not Given Documented by: Chlorhexidine Gluconate (Chlorhexidine Gluconate 15 Ml Cup) 15 ml MUCOUS MEM BID [place] Last Admin: 09/18/20 20:30 Dose: 15 ml Documented by: Erythromycin (Erythromycin 5 Mg/Gm Ophth Oint 3.5 Gm Tube) 1 applic LEFT EYE Q6H [place] Last Admin: 09/18/20 20:30 Dose: 1 applic Documented by: Famotidine (Famotidine 20 Mg Tab) 20 mg PO Q12HR [facility] Last Admin: 09/18/20 20:30 Dose: 20 mg Documented by: Heparin Sodium (Porcine) (Heparin Sodium,Porcine 5,000 Unit/Ml 1 Ml Vial) 5,000 unit SQ Q12HR [facility] Last Admin: 09/18/20 20:30 Dose: 5,000 unit Documented by: Hydromorphone HCl (Hydromorphone 0.5 Mg/0.5 Ml Syringe) 0.5 mg IVP Q4HR PRN PRN Reason: Pain Sodium Chloride (Saline 0.9%) 1,000 mls @ 75 mls/hr IV .[id number] [facility] Last Admin: 09/18/20 08:46 Dose: Not Given Documented by: Ampicillin Sodium/Sulbactam (Sodium 3 gm/ Sodium Chloride) 100 mls @ 200 mls/hr IVPB Q6HR [facility] Last Admin: 09/18/20 23:15 Dose: 200 mls/hr Documented by: Dextrose/Sodium Chloride (Dextrose 5%-Ns Iv Soln) 1,000 mls @ 75 mls/hr IV .[id number] [facility] Last Admin: 09/18/20 13:20 Dose: Not Given Documented by: Insulin Aspart (Insulin Aspart (Novolog) 100 Unit/Ml Vial) 0 unit SQ ACHS [facility]; Protocol Last Admin: 09/18/20 20:30 Dose: 100 unit Documented by: Insulin Aspart (Insulin Aspart (Novolog) 100 Unit/Ml Vial) 17 unit SQ AC-TID [facility] Last Admin: 09/18/20 16:56 Dose: 17 unit Documented by: Insulin Detemir (Insulin Detemir (Levemir) 100 Unit/Ml Syr) 45 unit SQ HS [facility] Last Admin: 09/18/20 20:30 Dose: 45 unit Documented by: Nicotine (Nicotine 21mg/24hr Patch) 1 patch TRANSDERM DAILY [facility] Last Admin: 09/18/20 08:41 Dose: 1 patch Documented by: Objective - Vital Signs Vital signs: Vital Signs Temp 98.3 F 09/18/20 20:15 Pulse 75 09/18/20 20:15 Resp 18 09/18/20 20:15 BP 160/80 09/18/20 20:15 Pulse Ox 98 09/18/20 20:15 Intake & Output 09/18/20 09/18/20 09/19/20 06:59 18:59 06:59 Other: # Voids 4 - Exam GENERAL: The patient is alert and oriented x3, not in any acute distress. Well developed, well nourished. -HEENT: Left eye is less swollen and draped. Pupils are reactive to light. No restricted movement. No double vision. Bad dental caries on both molar teeth especially the maxillary with surrounding gingival ulcers and yellow dry base CARDIOVASCULAR: S1 and S2 present. No murmurs, rubs, or gallops. PULMONARY: Chest is clear to auscultation, no wheezing or crackles. ABDOMEN: Soft, nontender, nondistended, normoactive bowel sounds. No palpable organomegaly. MUSCULOSKELETAL: No joint swelling or deformity. EXTREMITIES: No cyanosis, clubbing, or pedal edema. NEUROLOGICAL: Gross neurological examination did not reveal any focal deficits. SKIN: No rashes. No petechiae - Labs CBC & Chem 7: 09/18/20 06:00 09/18/20 06:00 Labs: Abnormal Lab Results - Last 24 Hours (Table) 09/18/20 09/18/20 09/18/20 Range/Units 02:31 06:00 06:48 BUN/Creatinine Ratio 21.43 H (12.00-20.00) Ratio Glucose 294 H (70-110) mg/dL POC Glucose (mg/dL) 291 H 244 H (75-99) mg/dL 09/18/20 09/18/20 Range/Units 16:40 20:14 BUN/Creatinine Ratio (12.00-20.00) Ratio Glucose (70-110) mg/dL POC Glucose (mg/dL) 234 H 178 H (75-99) mg/dL Microbiology - Last 24 Hours (Table) 09/14/20 19:50 Anaerobic Culture - Final Eye - Left Assessment and Plan Assessment: ASSESSMENT Left eye preseptal cellulitis Large dental caries involving the left mandibular second molar (With associated 6 mm periapical lucency suspicious for an abscess) and the third maxillary third molar. Right upper gingival ulcer with yellow base and dental caries History of poor vision in the left are as per patient for more than 2 months, from previous stroke as per patient Insulin-dependent diabetes, uncontrolled with hyperglycemia. Hemoglobin A1c is 17.3% Hypertension, uncontrolled Non-compliance and adherence to therapy Nicotine dependence Obesity with BMI of 32 Previous history of CVA/TIA, with residual slurred speech as per patient PLAN: Patient has been evaluated by ophthalmology and recommended ophthalmic antibiotic eyedrops which are being continued. Patient was seen by OMFS and they recommended Augmentin at the time of discharge and to follow-up as outpatient. Continue with the rest of his medication regimen. Anticipate discharge in the next 24 to 48 hours.
[2020-09-19 02:38] LABS: Glucose,Whole Blood 241 mg/dL (75-99)
[2020-09-19] MEDS: SODIUM CHLORIDE 0.9% 1,000 ML IV SCH ×2 (02:42→12:08)
[2020-09-19] MEDS: ERYTHROMYCIN 5 MG/GM OPHTH OINT 3.5 GM TUBE LEFT EYE SCH ×3 (02:42→12:09)
[2020-09-19] MEDS: AMPICILLIN-SULBACTAM 3 GM in SODIUM CHLORIDE 0.9% 100 ML IVPB SCH ×2 (05:09→12:09)
[2020-09-19] MEDS: DEXTROSE 5%-0.9% NACL 1,000 ML IV SCH ×2 (05:09→18:05)
[2020-09-19 06:49] LABS: Glucose,Whole Blood 212 mg/dL (75-99)
[2020-09-19] MEDS: INSULIN ASPART (NovoLOG) 100 UNIT/ML VIAL SQ SCH ×6 (07:44→18:06)
[2020-09-19] MEDS: NICOTINE 21MG/24HR PATCH TRANSDERM SCH (07:46)
[2020-09-19] MEDS: amLODIPine 5 MG TAB PO SCH (07:46)
[2020-09-19] MEDS: CHLORHEXIDINE GLUCONATE 15 ML CUP MUCOUS MEM SCH (07:46)
[2020-09-19] MEDS: FAMOTIDINE 20 MG TAB PO SCH (07:47)
[2020-09-19] MEDS: HEPARIN SODIUM,PORCINE 5,000 UNIT/ML 1 ML VIAL SQ SCH (07:47)
[2020-09-19] MEDS: HYDROcodone/APAP 5-325MG 1 EACH TAB PO PRN (07:57)
[2020-09-19 11:21] LABS: Glucose,Whole Blood 104 mg/dL (75-99)
[2020-09-19 16:32] VITALS: BP 141/84; PULSE 77; RESP 18; TEMP 98.2
--- NOTE | 2020-09-19 16:58 | P.DS ---
Providers Date of admission: 09/14/20 09:59 Expected date of discharge: 09/19/20 Attending physician: Angelina Perales Consults: 09/14/20 08:08 Consult Physician Urgent Consulting Provider: Felicitas Morales Consult Reason/Comments: Blurry eye with preseptal cellulitis Do you want consulting provider notified?: Yes Consult Physician Urgent Consulting Provider: Karsten Escoto Consult Reason/Comments: preseptal cellulitis and dental abscess Do you want consulting provider notified?: Yes 09/17/20 09:37 Consult Physician Urgent Consulting Provider: Zak Gutierrez Consult Reason/Comments: dental abscess Do you want consulting provider notified?: Yes Primary care physician: Stated None Hospital Course: Mr. Perdue is a 30-year-old female with insulin-dependent diabetes mellitus, previous history of CVA/TIA with residual slurred speech speech and blurry vision in the left eye coming in with a chief complaint of left eye pain swelling redness and left upper gingival pain. Hospital course - patient had a CAT scan of his face was obtained showing large dental caries involving left mandibular second molar with an associated 6 mm periapical abscess. And there was moderate to severe chronic right maxillary sinusitis. So ENT, ophthalmology, OMFS surgery have been consulted. Patient was evaluated by them. Ophthalmology suggested topical antibiotic eyedrops as it is preorbital cellulitis. OMFS advised to continue on IV antibiotics and by mouth Augmentin at the time of discharge and to follow-up as outpatient. Dr. Escoto for infectious disease was on board as well. Patient showed significant improvement in his eye symptoms and then developed pain, so he is being discharged home in a stable condition after being cleared by [facility]. Vital Signs - 8 hr 09/19/20 14:00 Temperature 98.2 F Pulse Rate [ 77 Pulse Oximetery ] Respiratory 18 Rate Blood Pressure 141/84 [Right Arm] O2 Sat by Pulse 97 Oximetry GENERAL: The patient is alert and oriented x3, not in any acute distress. Well developed, well nourished. -HEENT: Left eye is less swollen & less red compared to yesterday Pupils are reactive to light. No restricted movement. No double vision. Bad dental caries on both molar teeth especially the maxillary with surrounding gingival ulcers and yellow dry base CARDIOVASCULAR: S1 and S2 present. No murmurs, rubs, or gallops. PULMONARY: Chest is clear to auscultation, no wheezing or crackles. ABDOMEN: Soft, nontender, nondistended, normoactive bowel sounds. No palpable organomegaly. MUSCULOSKELETAL: No joint swelling or deformity. EXTREMITIES: No cyanosis, clubbing, or pedal edema. NEUROLOGICAL: Gross neurological examination did not reveal any focal deficits. SKIN: No rashes. No petechiae DISCHARGE DIAGNOSIS Left eye preseptal cellulitis Large dental caries involving the left mandibular second molar (With associated 6 mm periapical lucency suspicious for an abscess) and the third maxillary third molar. Right upper gingival ulcer with yellow base and dental caries History of poor vision in the left are as per patient for more than 2 months, f rom previous stroke as per patient Insulin-dependent diabetes, uncontrolled with hyperglycemia. Hemoglobin A1c is 17.3% Hypertension, uncontrolled Non-compliance and adherence to therapy Nicotine dependence Obesity with BMI of 32 Previous history of CVA/TIA, with residual slurred speech as per patient. Follow-up : She and is advised to complete his oral antibiotic and ophthalmic antibiotic drops. His medications were sent to his pharmacy. He is advised to follow up with ENT, OMFS, ophthalmology in one week's time. Also discussed at length regarding the importance of being compliant with his diabetic medications and diet. More than 35 minutes spent towards the discharge of the patient. Patient Condition at Discharge: Fair Plan - Discharge Summary Discharge Rx Participant: No New Discharge Prescriptions: New Insulin Aspart 15 units SQ TID-W/MEALS #2 vial Insulin Detemir (Levemir) [Levemir] 45 unit SQ HS #2 syr amLODIPine [Norvasc] 5 mg PO DAILY 30 Days #30 tab Famotidine [Pepcid] 20 mg PO Q12HR 7 Days #14 tab Erythromycin Ophth Oint [Romycin Ophth Oint] 1 applic LEFT EYE Q6H 7 Days #1 applic Amoxicillin/Potassium Clav [Augmentin 875-125 Tablet] 1 tab PO Q12HR 7 Days #14 tab Discharge Medication List Amoxicillin/Potassium Clav [Augmentin 875-125 Tablet] 1 tab PO Q12HR 7 Days #14 tab 09/19/20 [Rx] Erythromycin Ophth Oint [Romycin Ophth Oint] 1 applic LEFT EYE Q6H 7 Days #1 applic 09/19/20 [Rx] Famotidine [Pepcid] 20 mg PO Q12HR 7 Days #14 tab 09/19/20 [Rx] Insulin Aspart 15 units SQ TID-W/MEALS #2 vial 09/19/20 [Rx] Insulin Detemir (Levemir) [Levemir] 45 unit SQ HS #2 syr 09/19/20 [Rx] amLODIPine [Norvasc] 5 mg PO DAILY 30 Days #30 tab 09/19/20 [Rx] Follow up Appointment(s)/Referral(s): Zak Gutierrez DDS [STAFF PHYSICIAN] - 1 Week Felicitas Morales MD [STAFF PHYSICIAN] - 1 Week None,Stated [Primary Care Provider] - 1-2 days Patient Instructions/Handouts: Dental Abscess (ED), Orbital Cellulitis (DC) Discharge Disposition: HOME SELF-CARE
--- NOTE | 2020-09-19 17:57 | PN ---
PROGRESS NOTE DATE OF SERVICE: 09/19/2020 REASON FOR FOLLOWUP: Left preseptal cellulitis and dental abscess. INTERVAL HISTORY: The patient is currently afebrile. The patient is feeling better. Breathing comfortably. Patient denies having any chest pain. No shortness of breath or cough. The left eye swelling and redness has improved. He is able to open his eye. Still complaining of pain in his teeth area. No abdominal pain, no diarrhea. PHYSICAL EXAMINATION: Blood pressure 146/89, pulse of 67, temperature 97.8. He is 98% on room air. General description is a middle-aged male up in the room in no distress. HEENT examination left periorbital swelling that has improved. Lungs unlabored breathing, clear to auscultation. HEART: S1, S2. Regular rate and rhythm. Cultures from the left eye have been negative. DIAGNOSTIC IMPRESSION AND PLAN: Patient with left preseptal cellulitis. This patient also has bilateral dental abscess. Patient had improvement on Unasyn. Patient will receive oral Augmentin for 10 days and follow up with the oral surgeon for removal of those teeth and continue supportive care. MMODL / IJN: [id number] /
== END 2020-09-19 17:30 | disposition home or self-care (01) | DRG 603 ==
LOC: EC 16:49 → 1SOBS 19:46 → OBSVTOIN 09-14 09:59 → 4SSUR 09-14 19:02
PROVIDERS: ADMIT Hospitalist; ATTEND Hospitalist
DX: L03.213 Periorbital cellulitis (principal); E87.1 Hypo-osmolality and hyponatremia; E10.319 Type 1 diabetes mellitus with unspecified diabetic retinopathy without macular edema; E10.65 Type 1 diabetes mellitus with hyperglycemia; F31.9 Bipolar disorder, unspecified; H10.9 Unspecified conjunctivitis; K02.9 Dental caries, unspecified; K06.8 Other specified disorders of gingiva and edentulous alveolar ridge; I69.398 Other sequelae of cerebral infarction; I69.328 Other speech and language deficits following cerebral infarction; E66.9 Obesity, unspecified; H54.7 Unspecified visual loss; E87.5 Hyperkalemia; K04.7 Periapical abscess without sinus; I10 Essential (primary) hypertension; J45.909 Unspecified asthma, uncomplicated; F17.210 Nicotine dependence, cigarettes, uncomplicated; J32.0 Chronic maxillary sinusitis; R47.81 Slurred speech; Z68.32 Body mass index [BMI] 32.0-32.9, adult; Z71.3 Dietary counseling and surveillance; Z87.440 Personal history of urinary (tract) infections; Z91.19 Patient's noncompliance with other medical treatment and regimen; Z98.890 Other specified postprocedural states
CPT/HCPCS: 36415; 70487; 80048; 80051; 80053; 81003; 82009; 82565; 82947; 83036; 83735; 83930; 84100; 84145; 84520; 85025; 86140; 87070; 87075; 87205; 93005; 96360; 99284

== ENCOUNTER 2020-09-25 17:32 | Emergency (ER) | payer OTHER ==
[2020-09-25 17:40] VITALS: BP 136/78; PULSE 91; RESP 18; TEMP 97.9
--- NOTE | 2020-09-25 18:26 | ED ---
Recheck HPI - General Chief Complaint: Recheck/Abnormal Lab/Rx Stated Complaint: Revisit - Abcess Time Seen by Provider: 09/25/20 17:41 Source: patient Mode of arrival: ambulatory Limitations: no limitations - History of Present Illness Initial Comments: Patient is a 30-year-old male presenting to emergency Department wanting a recheck of his cellulitis. Patient was discharged from the hospital 6 days ago after stating a few days for right eye cellulitis as well as a dental abscess. He was on an IV antibiotics. He was consulted with ophthalmology and infectious disease. He was discharged on Augmentin as well as an antibiotic eye drop. Patient states he is still taking his medications. He was afraid that things are getting worse. Patient has also been taking his insulin as prescribed, his sugars have been good. Patient denies having fever, chills, nausea, vomiting. He denies any diarrhea or chest pain. He denies any shortness of breath or cough. Patient is highly concerned that his just tested positive for: Master 2 days ago and is wanting a Covid test. Patient states he feels like he is getting a stuffy nose but no other symptoms. He has not yet followed up with his dentist or infectious disease. Patient states he is having insurance issues. Patient has no further complaints at this time. Upon arrival to the ER, his vital signs are stable. - Related Data Previous Rx's Medication Instructions Recorded Amoxicillin/Potassium Clav 1 tab PO Q12HR 7 Days #14 tab 09/19/20 [Augmentin 875-125 Tablet] Erythromycin Ophth Oint [Romycin 1 applic LEFT EYE Q6H 7 Days #1 09/19/20 Ophth Oint] applic Famotidine [Pepcid] 20 mg PO Q12HR 7 Days #14 tab 09/19/20 Insulin Aspart 15 units SQ TID-W/MEALS #2 vial 09/19/20 Insulin Detemir (Levemir) [Levemir] 45 unit SQ HS #2 syr 09/19/20 amLODIPine [Norvasc] 5 mg PO DAILY 30 Days #30 tab 09/19/20 Allergies Allergy/AdvReac Type Severity Reaction Status Date / Time No Known Allergies Allergy Verified 09/13/20 19:00 Review of Systems ROS Statement: Those systems with pertinent positive or pertinent negative responses have been documented in the HPI. ROS Other: All systems not noted in ROS Statement are negative. Past Medical History Past Medical History: Asthma, CVA/TIA, Diabetes Mellitus, Hypertension History of Any Multi-Drug Resistant Organisms: None Reported Past Surgical History: Orthopedic Surgery Additional Past Surgical History / Comment(s): Lasik surgery; Left ankle surgery Past Anesthesia/Blood Transfusion Reactions: No Reported Reaction Past Psychological History: Bipolar Smoking Status: Current every day smoker Past Alcohol Use History: None Reported Past Drug Use History: Marijuana General Exam - General Exam Comments Initial Comments: GENERAL: Patient is well-developed and well-nourished. Patient is nontoxic and in no acute distress. HEAD: Atraumatic, normocephalic. EYES: Pupils equal round and reactive to light, extraocular movements intact, sclera anicteric, patient has very mild redness to his left eye, no signs of active infection. Eyelids were unremarkable. ENT: TMs normal, nares patent, oropharynx clear without exudates. Moist mucous membranes. Patient has many dental caries on the right upper teeth, there is a mild ulcer present, no erythema of the gumline, no visible abscess seen. NECK: Normal range of motion, supple without lymphadenopathy or JVD. LUNGS: Unlabored respirations. Breath sounds clear to auscultation bilaterally and equal. No wheezes rales or rhonchi. HEART: Regular rate and rhythm without murmurs, rubs or gallops. ABDOMEN: Soft, nontender, normoactive bowel sounds. No guarding, no rebound. No masses appreciated. : Deferred MUSCULOSKELETAL: Normal extremities with adequate strength and normal range of motion, no pitting or edema. No clubbing or cyanosis. NEUROLOGICAL: Patient is alert and oriented x 3. Motor and sensory are also intact. Cranial nerves II through XII grossly intact. Symmetrical smile. Normal speech, normal gait. PSYCH: Normal mood, normal affect. SKIN: Warm, Dry, normal turgor, no rashes or lesions noted. Limitations: no limitations Course Vital Signs 09/25/20 17:34 Temperature 97.9 F Pulse Rate 91 Respiratory 18 Rate Blood Pressure 136/78 O2 Sat by Pulse 100 Oximetry Medical Decision Making - Medical Decision Making Patient is a 30-year-old male here requesting a Covid swab secondary to recent exposure. His vital signs are stable. Patient was also concerned that his facial cellulitis and dental abscess were worsening. On exam, there is no signs of an active infection, he is afebrile. There is no redness around his left eye, no evidence of a dental abscess at this time. He does have many dental caries and I did urge him to follow up with his dentist. Patient needs to also follow up with his PCP. Patient states he has been checking his sugars and they are stable. I did recommend checking his basic labs were patient declined stating he does not want to be "poked." I will swaw the patient for Covid, this is pending. He is stable for discharge at this time. He is in agreement with this plan of care. He will continue with his already prescribed antibiotics. He will follow up with his doctors. Return parameters were discussed with the patient and he verbalized understanding. Case discussed with Dr. Robledo. Disposition Clinical Impression: Exposure to COVID-19 virus Disposition: HOME SELF-CARE Condition: Stable Instructions (If sedation given, give patient instructions): Normal Exam (ED) Additional Instructions: Please return to the Emergency Department if symptoms worsen or any other concerns. Continue with your already prescribed antibiotics. It's important to follow up with your doctors. Your Covid test is pending, may take 3-5 days. Is patient prescribed a controlled substance at d/c from ED?: No Referrals: None,Stated [Primary Care Provider] - 1-2 days
== END 2020-09-25 18:43 | disposition home or self-care (01) ==
LOC: EC 17:32
DX: K02.9 Dental caries, unspecified (principal); Z20.828 Contact with and (suspected) exposure to other viral communicable diseases; F17.200 Nicotine dependence, unspecified, uncomplicated; Z86.73 Personal history of transient ischemic attack (TIA), and cerebral infarction without residual deficits
CPT/HCPCS: 99283; U0003

== ENCOUNTER 2020-11-23 16:22 | Emergency (ER) | payer OTHER ==
[2020-11-23 16:47] VITALS: RESP 18; TEMP 99.3
[2020-11-23 17:51] LABS: Basophils # (A) 0.1 k/uL (0-0.2); Basophils % (A) 1 %; Eosinophils # (A) 0.2 k/uL (0-0.7); Eosinophils % (A) 1 %; HCT 44.6 % (39.0-53.0); HGB 14.6 gm/dL (13.0-17.5); Lymphocytes # (A) 2.9 k/uL (1.0-4.8); Lymphocytes % (A) 26 %; MCH 26.3 pg (25.0-35.0); MCHC 32.7 g/dL (31.0-37.0); MCV 80.3 fL (80.0-100.0); Mean Platelet Volume 8.1; Monocytes # (A) 0.6 k/uL (0-1.0); Monocytes % (A) 5 %; Neutrophils # (A) 7.4 k/uL (1.3-7.7); Neutrophils % (A) 66 %; Platelet Count 250 k/uL (150-450); RBC 5.55 m/uL (4.30-5.90); RDW 12.9 % (11.5-15.5); WBC 11.3 k/uL (3.8-10.6)
[2020-11-23 17:55] LABS: Appearance,Urine Clear (Clear); Bilirubin,Urine Negative (Negative); Blood,Urine Negative (Negative); Color,Urine Yellow; Glucose,Urine (UA) Negative (Negative); Ketones,Urine Negative (Negative); Leukocyte Esterase,Urine Negative (Negative); Nitrite,Urine Negative (Negative); PH, Urine 7.5 (5.0-8.0); Protein,Urine Negative (Negative); Specific Gravity,Urine 1.017 (1.001-1.035); Urobilinogen,Urine <2.0 mg/dL (<2.0)
[2020-11-23 18:00] LABS: ALT 19 U/L (4-49); AST 18 U/L (17-59); African American GFR (CKD) >90 (>60 ml/min/1.73 sqM); Albumin 4.5 g/dL (3.5-5.0); Alkaline Phosphatase 81 U/L (38-126); Anion Gap 11 mmol/L; Blood Urea Nitrogen 12 mg/dL (9-20); Calcium 9.5 mg/dL (8.4-10.2); Carbon Dioxide 27 mmol/L (22-30); Chloride 100 mmol/L (98-107); Glucose 162 mg/dL (74-99); Non-African American GFR(CKD) >90 (>60 ml/min/1.73 sqM); Potassium 4.3 mmol/L (3.5-5.1); Sodium 138 mmol/L (137-145); Total Bilirubin 0.4 mg/dL (0.2-1.3); Total Protein 7.3 g/dL (6.3-8.2)
[2020-11-23 18:03] LABS: INR 0.9 (<1.2); Partial Thromboplastin Time 23.1 sec (22.0-30.0); Prothrombin Time 9.9 sec (9.0-12.0)
[2020-11-23] MEDS ORDERED: LABETALOL 5 MG/ML VIAL MDV IVP STA (18:10)
[2020-11-23] MEDS ORDERED: SODIUM CHLORIDE 0.9% 500 ML 500 ML IV STA (18:10)
--- NOTE | 2020-11-23 18:19 | ED ---
General Adult HPI - General Chief complaint: Neuro Symptoms/Deficit Stated complaint: trouble speaking Time Seen by Provider: 11/23/20 16:57 Source: patient Mode of arrival: ambulatory Limitations: no limitations - History of Present Illness Initial comments: Patient is a 30-year-old male with history of TIAs, diabetes, hypertension, presenting to the emergency department from [facility] with complaints of trouble speaking for the past 5 days. Patient states he has also been having issues with his blood pressure at the [facility]. He has been taking his medications as prescribed. They did switch him to metformin instead of insulin. Patient denies having any headache at this time, no blurry vision. He states he feels like he cannot processes thoughts as quick as he wants to speak to them. Patient denies any weakness of his extremities, he denies any fever or chills. He states yesterday he did have some left-sided rib pain but no chest pain or shortness of breath today. He denies any nausea or vomiting. Patient does take Plavix. He did take his regular medications this morning. Patient has no further complaints at this time. Upon arrival to the ER, his blood pressure is 166/104, rest of vitals are normal. - Related Data Previous Rx's Medication Instructions Recorded Amoxicillin/Potassium Clav 1 tab PO Q12HR 7 Days #14 tab 09/19/20 [Augmentin 875-125 Tablet] Erythromycin Ophth Oint [Romycin 1 applic LEFT EYE Q6H 7 Days #1 09/19/20 Ophth Oint] applic Famotidine [Pepcid] 20 mg PO Q12HR 7 Days #14 tab 09/19/20 Insulin Aspart 15 units SQ TID-W/MEALS #2 vial 09/19/20 Insulin Detemir (Levemir) [Levemir] 45 unit SQ HS #2 syr 09/19/20 amLODIPine [Norvasc] 5 mg PO DAILY 30 Days #30 tab 09/19/20 Allergies Allergy/AdvReac Type Severity Reaction Status Date / Time No Known Allergies Allergy Verified 11/23/20 16:47 Review of Systems ROS Statement: Those systems with pertinent positive or pertinent negative responses have been documented in the HPI. ROS Other: All systems not noted in ROS Statement are negative. Past Medical History Past Medical History: Asthma, CVA/TIA, Diabetes Mellitus, Hypertension History of Any Multi-Drug Resistant Organisms: None Reported Past Surgical History: Orthopedic Surgery Additional Past Surgical History / Comment(s): Lasik surgery; Left ankle surgery Past Anesthesia/Blood Transfusion Reactions: No Reported Reaction Past Psychological History: Bipolar Smoking Status: Current every day smoker Past Alcohol Use History: None Reported Past Drug Use History: Marijuana General Exam - General Exam Comments Initial Comments: GENERAL: Patient is well-developed and well-nourished. Patient is nontoxic and in no acute distress. HEAD: Atraumatic, normocephalic. EYES: Pupils equal round and reactive to light, extraocular movements intact, sclera anicteric, conjunctiva are normal. Eyelids were unremarkable. ENT: TMs normal, nares patent, oropharynx clear without exudates. Moist mucous membranes. NECK: Normal range of motion, supple without lymphadenopathy or JVD. LUNGS: Unlabored respirations. Breath sounds clear to auscultation bilaterally and equal. No wheezes rales or rhonchi. HEART: Regular rate and rhythm without murmurs, rubs or gallops. ABDOMEN: Soft, nontender, normoactive bowel sounds. No guarding, no rebound. No masses appreciated. : Deferred MUSCULOSKELETAL: Normal extremities with adequate strength and normal range of motion, no pitting or edema. No clubbing or cyanosis. NEUROLOGICAL: Patient is alert and oriented x 3. Motor and sensory are also intact. PSYCH: Normal mood, normal affect. SKIN: Warm, Dry, normal turgor, no rashes or lesions noted. Limitations: no limitations Neurological exam: Present: alert, oriented X3, CN II-XII intact, normal gait Expanded Patient oriented to: Present: person, place, time Speech: Present: fluid speech Cranial nerves: EOM's Intact: Normal, Gag Reflex: Normal, Tongue Deviation: Normal, Nystagmus: Normal, Facial Sensation: Abnormal Left (Patient states decreased sensation on the left side of the face when compared to the right) Cerebellar function: Finger to Nose: Normal, Heel to [place]: Normal Upper motor neuron: Pronator Drift: Normal Sensory exam: Upper Extremity Light Touch: Normal, Lower Extremity Light Touch: Normal Motor strength exam: RUE: 5, LUE: 5, RLE: 5, LLE: 5 Eye Response: (4) open spontaneously Motor Response: (6) obeys commands Verbal Response: (5) oriented [place] Total: 15 Course Vital Signs 11/23/20 11/23/20 11/23/20 16:43 17:02 17:07 Temperature 99.3 F Pulse Rate 82 76 Respiratory 18 16 Rate Blood Pressure 166/104 154/100 O2 Sat by Pulse 98 99 99 Oximetry 11/23/20 11/23/20 11/23/20 17:30 18:00 18:35 Temperature Pulse Rate 77 75 73 Respiratory 18 18 Rate Blood Pressure 160/101 154/103 143/81 O2 Sat by Pulse 98 99 Oximetry 11/23/20 19:00 Temperature Pulse Rate 73 Respiratory 18 Rate Blood Pressure 134/87 O2 Sat by Pulse 99 Oximetry EKG Findings - EKG Comments: EKG Findings:: Normal sinus rhythm, cannot rule out anterior infarct, age undetermined, no signs of an acute process at this time. Similar to previous EKG on 09/14/2020. Ventricular rate 72, KS interval 158, QT 402. Medical Decision Making - Medical Decision Making Patient is a 30-year-old male with history of TIA, diabetes, hypertension, presenting from the [facility] with complaints of difficulty speaking that is been intermittent for the last 5 days. Patient has been taking his medications including Plavix. She is slightly hypertensive upon arrival, rest of vitals are normal. His exam is unremarkable, no acute neuro deficits. Patient seems to be speaking normal to me. Patient's labs are stable, glucose is slightly up at 162, troponin is normal, urine and urine tox screen are all normal. Patient had a normal chest x-ray today, computed tomography scan of the brain also shows no acute process. Patient was reexamined, continues to have no neuro deficits. He has been interacting without difficulty with the police inspector that accompanied him. He did receive some fluids, his blood pressure has also been normal, 140s over 80s, 130s over 80s. Patient is able to be discharged back to the [facility]. He can follow up with neurology when he is able to after he gets released from [facility]. He can continue with his regular medications. Return parameters were discussed with the patient and officer and they verbalized understanding. Case discussed with Dr. Astudillo. - Lab Data Result diagrams: 11/23/20 17:41 11/23/20 17:41 Lab Results 11/23/20 11/23/20 11/23/20 Range/Units 17:41 17:41 17:41 WBC 11.3 H (3.8-10.6) k/uL RBC 5.55 (4.30-5.90) m/uL Hgb 14.6 (13.0-17.5) gm/dL Hct 44.6 (39.0-53.0) % MCV 80.3 (80.0-100.0) fL MCH 26.3 (25.0-35.0) pg MCHC 32.7 (31.0-37.0) g/dL RDW 12.9 (11.5-15.5) % Plt Count 250 (150-450) k/uL MPV 8.1 Neutrophils % 66 % Lymphocytes % 26 % Monocytes % 5 % Eosinophils % 1 % Basophils % 1 % Neutrophils # 7.4 (1.3-7.7) k/uL Lymphocytes # 2.9 (1.0-4.8) k/uL Monocytes # 0.6 (0-1.0) k/uL Eosinophils # 0.2 (0-0.7) k/uL Basophils # 0.1 (0-0.2) k/uL PT 9.9 (9.0-12.0) sec INR 0.9 (<1.2) APTT 23.1 (22.0-30.0) sec Sodium 138 (137-145) mmol/L Potassium 4.3 (3.5-5.1) mmol/L Chloride 100 (98-107) mmol/L Carbon Dioxide 27 (22-30) mmol/L Anion Gap 11 mmol/L BUN 12 (9-20) mg/dL Creatinine 0.59 L (0.66-1.25) mg/dL Est GFR (CKD-EPI)AfAm >90 (>60 ml/min/1.73 sqM) Est GFR (CKD-EPI)NonAf >90 (>60 ml/min/1.73 sqM) Glucose 162 H (74-99) mg/dL Calcium 9.5 (8.4-10.2) mg/dL Total Bilirubin 0.4 (0.2-1.3) mg/dL AST 18 (17-59) U/L ALT 19 (4-49) U/L Alkaline Phosphatase 81 (38-126) U/L Troponin I (0.000-0.034) ng/mL Total Protein 7.3 (6.3-8.2) g/dL Albumin 4.5 (3.5-5.0) g/dL Urine Color Urine Appearance (Clear) Urine pH (5.0-8.0) Ur Specific [place] (1.001-1.035) Urine Protein (Negative) Urine Glucose (UA) (Negative) Urine Ketones (Negative) Urine Blood (Negative) Urine Nitrite (Negative) Urine Bilirubin (Negative) Urine Urobilinogen (<2.0) mg/dL Ur Leukocyte Esterase (Negative) Urine Opiates Screen (NotDetected) Ur Oxycodone Screen (NotDetected) Urine Methadone Screen (NotDetected) Ur Propoxyphene Screen (NotDetected) Ur Barbiturates Screen (NotDetected) U Tricyclic Antidepress (NotDetected) Ur Phencyclidine Scrn (NotDetected) Ur Amphetamines Screen (NotDetected) U Methamphetamines Scrn (NotDetected) U Benzodiazepines Scrn (NotDetected) Urine Cocaine Screen (NotDetected) U Marijuana (THC) Screen (NotDetected) 11/23/20 11/23/20 Range/Units 17:41 17:41 WBC (3.8-10.6) k/uL RBC (4.30-5.90) m/uL Hgb (13.0-17.5) gm/dL Hct (39.0-53.0) % MCV (80.0-100.0) fL MCH (25.0-35.0) pg MCHC (31.0-37.0) g/dL RDW (11.5-15.5) % Plt Count (150-450) k/uL MPV Neutrophils % % Lymphocytes % % Monocytes % % Eosinophils % % Basophils % % Neutrophils # (1.3-7.7) k/uL Lymphocytes # (1.0-4.8) k/uL Monocytes # (0-1.0) k/uL Eosinophils # (0-0.7) k/uL Basophils # (0-0.2) k/uL PT (9.0-12.0) sec INR (<1.2) APTT (22.0-30.0) sec Sodium (137-145) mmol/L Potassium (3.5-5.1) mmol/L Chloride (98-107) mmol/L Carbon Dioxide (22-30) mmol/L Anion Gap mmol/L BUN (9-20) mg/dL Creatinine (0.66-1.25) mg/dL Est GFR (CKD-EPI)AfAm (>60 ml/min/1.73 sqM) Est GFR (CKD-EPI)NonAf (>60 ml/min/1.73 sqM) Glucose (74-99) mg/dL Calcium (8.4-10.2) mg/dL Total Bilirubin (0.2-1.3) mg/dL AST (17-59) U/L ALT (4-49) U/L Alkaline Phosphatase (38-126) U/L Troponin I <0.012 (0.000-0.034) ng/mL Total Protein (6.3-8.2) g/dL Albumin (3.5-5.0) g/dL Urine Color Yellow Urine Appearance Clear (Clear) Urine pH 7.5 (5.0-8.0) Ur Specific [place] 1.017 (1.001-1.035) Urine Protein Negative (Negative) Urine Glucose (UA) Negative (Negative) Urine Ketones Negative (Negative) Urine Blood Negative (Negative) Urine Nitrite Negative (Negative) Urine Bilirubin Negative (Negative) Urine Urobilinogen <2.0 (<2.0) mg/dL Ur Leukocyte Esterase Negative (Negative) Urine Opiates Screen Not Detected (NotDetected) Ur Oxycodone Screen Not Detected (NotDetected) Urine Methadone Screen Not Detected (NotDetected) Ur Propoxyphene Screen Not Detected (NotDetected) Ur Barbiturates Screen Not Detected (NotDetected) U Tricyclic Antidepress Not Detected (NotDetected) Ur Phencyclidine Scrn Not Detected (NotDetected) Ur Amphetamines Screen Not Detected (NotDetected) U Methamphetamines Scrn Not Detected (NotDetected) U Benzodiazepines Scrn Not Detected (NotDetected) Urine Cocaine Screen Not Detected (NotDetected) U Marijuana (THC) Screen Not Detected (NotDetected) Disposition Clinical Impression: Hypertension, Speech abnormality Disposition: HOME SELF-CARE Condition: Stable Instructions (If sedation given, give patient instructions): Normal Exam (ED) Additional Instructions: Please return to the Emergency Department if symptoms worsen or any other concerns. Continue with already prescribed medications. If blood pressure continues to run high, consider increasing lisinopril. Follow up with neurologist after release from [facility]. Is patient prescribed a controlled substance at d/c from ED?: No Referrals: None,Stated [Primary Care Provider] - 1-2 days
[2020-11-23 18:23] LABS: Amphetamine Screen,Urine Not Detected (NotDetected); Barbiturate Screen,Urine Not Detected (NotDetected); Benzodiazepines Screen,Urine Not Detected (NotDetected); Cocaine Screen,Urine Not Detected (NotDetected); Methadone Screen, Urine Not Detected (NotDetected); Opiate Screen,Urine Not Detected (NotDetected); Oxycodone Screen, Urine Not Detected (NotDetected); Phencyclidine Screen,Urine Not Detected (NotDetected); Tricyclic Antidepressant,Urine Not Detected (NotDetected); Urn Cannabinoid Scrn Not Detected (NotDetected)
--- NOTE | 2020-11-23 18:37 | CT ---
EXAMINATION TYPE: CT brain wo con DATE OF EXAM: 11/23/2020 COMPARISON: 06/12/2020. HISTORY: weakness, ams. hx of cva. CT DLP: 1166.4 mGycm. Automated Exposure Control for Dose Reduction was Utilized. TECHNIQUE: CT scan of the head is performed without contrast. FINDINGS: There is no acute intracranial hemorrhage, mass effect, or midline shift identified. The ventricles and sulci are within normal limits in size. The globes are intact. The visualized sinuse s demonstrate moderate right and mild left maxillary sinus mucosal thickening. IMPRESSION: No acute intracranial hemorrhage, mass effect, or midline shift is seen.
--- NOTE | 2020-11-23 18:45 | XR ---
EXAMINATION TYPE: XR chest 2V DATE OF EXAM: 11/23/2020 COMPARISON: NONE HISTORY: Altered mental status. TECHNIQUE: Frontal and lateral views of the chest are obtained. FINDINGS: There is no focal air space opacity, pleural effusion, or pneumothorax seen. The cardiac silhouette size is within normal limits. The osseous structures are intact. IMPRESSION: No acute cardiopulmonary process.
[2020-11-23 20:22] VITALS: BP 136/83; PULSE 74
== END 2020-11-23 20:29 | disposition home or self-care (01) ==
LOC: EC 16:22
DX: I10 Essential (primary) hypertension (principal); R47.89 Other speech disturbances; F17.200 Nicotine dependence, unspecified, uncomplicated; Z79.02 Long term (current) use of antithrombotics/antiplatelets; Z86.73 Personal history of transient ischemic attack (TIA), and cerebral infarction without residual deficits
CPT/HCPCS: 36415; 70450; 71046; 80053; 80306; 81003; 84484; 85025; 85610; 85730; 93005; 96360; 96361; 99285

== ENCOUNTER 2020-11-25 21:33 | Emergency (ER) | payer OTHER ==
[2020-11-25] MEDS ORDERED: ASPIRIN 81 MG PO STA (22:01)
--- NOTE | 2020-11-25 22:03 | ED ---
General Adult HPI - General Chief complaint: Chest Pain Stated complaint: Poss stroke Time Seen by Provider: 11/25/20 21:48 Source: police Mode of arrival: wheelchair Limitations: no limitations - History of Present Illness Initial comments: Dictation was produced using bizsol dictation software. please excuse any grammatical, word or spelling errors. This patient was cared for during a federal and state declared state of emergency secondary to Covid 19 Chief Complaint: 30-year-old male past medical history of CVA, asthma, diabetes, hypertension presents to the emergency department for chest pain History of Present Illness: 30-year-old male who has multiple comorbidities. He has extensive history of transient ischemic attacks. She had emergency department for chest pain. Patient states the pain is to his left anterior d[address]s st. He states that it is associated with diaphoresis. He states he is an active pain right now. Patient was evaluated in the emergency department 2 days ago for TIA type symptoms. He was discharged with instructions to follow-up with The ROS documented in this emergency department record has been reviewed and confirmed by me. Those systems with pertinent positive or negative responses have been documented in the HPI. All other systems are other negative and/or noncontributory. PHYSICAL EXAM: General Impression: Alert and oriented x3, not in acute distress HEENT: Normocephalic atraumatic, extra-ocular movements intact, pupils equal and reactive to light bilaterally, mucous membranes moist. Cardiovascular: Heart regular rate and rhythm Chest: Able to complete full sentences, no retractions, no tachypnea Abdomen: abdomen soft, non-tender, non-distended, no organomegaly Musculoskeletal: Pulses present and equal in all extremities, no peripheral edema Motor: no focal deficits noted Neurological: CN II-XII grossly intact, no focal motor or sensory deficits noted Skin: Intact with no visualized rashes Psych: Normal affect and mood ED course: 30-year-old male presents to the emergency department for atypical chest pain with typical features. Patient states that he has symptoms concerning for ACS however he is well-appearing. He reports that he has severe chest pain however is well-appearing and in no acute distress. Signs upon arrival are within acceptable limits. EKG is unremarkable. Seems to be unchanged from EKG from 2 days ago. He did have a troponin performed 2 days ago which was normal.Chart review was performed. Patient did have chest pain that day with a normal troponin. Chest x-ray is nonacute.Labs unremarkable. Patient given aspirin. Patient will be discharged told to follow up with primary care physician for outpatient management of chest pain. EKG interpretation: Ventricular rate 75, normal sinus rhythm,. 164, QRS 100, QTC 471. No HI prolongation, no QTC prolongation, no ST or T-wave changes noted. EKG compared to 11/23/2020 showing no changes. Overall, this EKG is unremarkable - Related Data Home Medications Medication Instructions Recorded Confirmed Aspirin 81 mg PO DAILY 11/25/20 11/25/20 Atorvastatin [Lipitor] 40 mg PO HS 11/25/20 11/25/20 Famotidine [Pepcid] 20 mg PO BID 11/25/20 11/25/20 Insulin Aspart See Protocol SQ ACHS 11/25/20 11/25/20 Losartan Potassium [Cozaar] 25 mg PO DAILY 11/25/20 11/25/20 Losartan [Cozaar] 25 mg PO HS PRN 11/25/20 11/25/20 metFORMIN HCL [Glucophage] 1,000 mg PO BID 11/25/20 11/25/20 Previous Rx's Medication Instructions Recorded Insulin Detemir (Levemir) [Levemir] 45 unit SQ HS #2 syr 09/19/20 Allergies Allergy/AdvReac Type Severity Reaction Status Date / Time No Known Allergies Allergy Verified 11/25/20 22:18 Review of Systems ROS Statement: Those systems with pertinent positive or pertinent negative responses have been documented in the HPI. ROS Other: All systems not noted in ROS Statement are negative. Past Medical History Past Medical History: Asthma, CVA/TIA, Diabetes Mellitus, Hypertension History of Any Multi-Drug Resistant Organisms: None Reported Past Surgical History: Orthopedic Surgery Additional Past Surgical History / Comment(s): Lasik surgery; Left ankle surgery Past Anesthesia/Blood Transfusion Reactions: No Reported Reaction Past Psychological History: Bipolar Smoking Status: Current every day smoker Past Alcohol Use History: None Reported Past Drug Use History: Marijuana General Exam Limitations: no limitations Course Vital Signs 11/25/20 11/25/20 21:36 23:08 Temperature 98.0 F 97.9 F Pulse Rate 78 64 Respiratory 18 20 Rate Blood Pressure 143/90 144/92 O2 Sat by Pulse 98 99 Oximetry Medical Decision Making - Lab Data Result diagrams: 11/25/20 21:48 11/25/20 21:48 Lab Results 11/25/20 11/25/20 11/25/20 Range/Units 21:48 21:48 21:48 WBC 12.3 H (3.8-10.6) k/uL RBC 5.31 (4.30-5.90) m/uL Hgb 14.3 (13.0-17.5) gm/dL Hct 42.4 (39.0-53.0) % MCV 79.7 L (80.0-100.0) fL MCH 27.0 (25.0-35.0) pg MCHC 33.8 (31.0-37.0) g/dL RDW 12.6 (11.5-15.5) % Plt Count 251 (150-450) k/uL MPV 8.2 Neutrophils % 58 % Lymphocytes % 32 % Monocytes % 6 % Eosinophils % 1 % Basophils % 1 % Neutrophils # 7.2 (1.3-7.7) k/uL Lymphocytes # 3.9 (1.0-4.8) k/uL Monocytes # 0.7 (0-1.0) k/uL Eosinophils # 0.2 (0-0.7) k/uL Basophils # 0.1 (0-0.2) k/uL PT 9.6 (9.0-12.0) sec INR 0.9 (<1.2) APTT 23.2 (22.0-30.0) sec Sodium 138 (137-145) mmol/L Potassium 3.8 (3.5-5.1) mmol/L Chloride 99 (98-107) mmol/L Carbon Dioxide 28 (22-30) mmol/L Anion Gap 11 mmol/L BUN 8 L (9-20) mg/dL Creatinine 0.64 L (0.66-1.25) mg/dL Est GFR (CKD-EPI)AfAm >90 (>60 ml/min/1.73 sqM) Est GFR (CKD-EPI)NonAf >90 (>60 ml/min/1.73 sqM) Glucose 175 H (74-99) mg/dL Calcium 9.4 (8.4-10.2) mg/dL Magnesium 1.6 (1.6-2.3) mg/dL Total Bilirubin 0.4 (0.2-1.3) mg/dL AST 19 (17-59) U/L ALT 18 (4-49) U/L Alkaline Phosphatase 101 (38-126) U/L Troponin I (0.000-0.034) ng/mL Total Protein 7.2 (6.3-8.2) g/dL Albumin 4.3 (3.5-5.0) g/dL 11/25/20 Range/Units 21:48 WBC (3.8-10.6) k/uL RBC (4.30-5.90) m/uL Hgb (13.0-17.5) gm/dL Hct (39.0-53.0) % MCV (80.0-100.0) fL MCH (25.0-35.0) pg MCHC (31.0-37.0) g/dL RDW (11.5-15.5) % Plt Count (150-450) k/uL MPV Neutrophils % % Lymphocytes % % Monocytes % % Eosinophils % % Basophils % % Neutrophils # (1.3-7.7) k/uL Lymphocytes # (1.0-4.8) k/uL Monocytes # (0-1.0) k/uL Eosinophils # (0-0.7) k/uL Basophils # (0-0.2) k/uL PT (9.0-12.0) sec INR (<1.2) APTT (22.0-30.0) sec Sodium (137-145) mmol/L Potassium (3.5-5.1) mmol/L Chloride (98-107) mmol/L Carbon Dioxide (22-30) mmol/L Anion Gap mmol/L BUN (9-20) mg/dL Creatinine (0.66-1.25) mg/dL Est GFR (CKD-EPI)AfAm (>60 ml/min/1.73 sqM) Est GFR (CKD-EPI)NonAf (>60 ml/min/1.73 sqM) Glucose (74-99) mg/dL Calcium (8.4-10.2) mg/dL Magnesium (1.6-2.3) mg/dL Total Bilirubin (0.2-1.3) mg/dL AST (17-59) U/L ALT (4-49) U/L Alkaline Phosphatase (38-126) U/L Troponin I <0.012 (0.000-0.034) ng/mL Total Protein (6.3-8.2) g/dL Albumin (3.5-5.0) g/dL Disposition Clinical Impression: Chest pain Disposition: HOME SELF-CARE Condition: Good Instructions (If sedation given, give patient instructions): Chest Pain (ED) Additional Instructions: Follow-up with primary care physician for outpatient management of chest pain. Is patient prescribed a controlled substance at d/c from ED?: No Referrals: None,Stated [Primary Care Provider] - 1-2 days Time of Disposition: 22:51
[2020-11-25 22:26] LABS: Basophils # (A) 0.1 k/uL (0-0.2); Basophils % (A) 1 %; Eosinophils # (A) 0.2 k/uL (0-0.7); Eosinophils % (A) 1 %; HCT 42.4 % (39.0-53.0); HGB 14.3 gm/dL (13.0-17.5); Lymphocytes # (A) 3.9 k/uL (1.0-4.8); Lymphocytes % (A) 32 %; MCHC 33.8 g/dL (31.0-37.0); MCV 79.7 fL (80.0-100.0); Mean Platelet Volume 8.2; Monocytes # (A) 0.7 k/uL (0-1.0); Monocytes % (A) 6 %; Neutrophils # (A) 7.2 k/uL (1.3-7.7); Neutrophils % (A) 58 %; Platelet Count 251 k/uL (150-450); RBC 5.31 m/uL (4.30-5.90); RDW 12.6 % (11.5-15.5); WBC 12.3 k/uL (3.8-10.6)
[2020-11-25 22:30] LABS: INR 0.9 (<1.2); Partial Thromboplastin Time 23.2 sec (22.0-30.0); Prothrombin Time 9.6 sec (9.0-12.0)
--- NOTE | 2020-11-25 22:31 | XR ---
EXAMINATION TYPE: XR chest 1V portable DATE OF EXAM: 11/25/2020 COMPARISON: 11/23/2020 HISTORY: Chest pain TECHNIQUE: Single view FINDINGS: Heart and mediastinum are normal. Lungs are clear. Diaphragm is normal. Bony thorax appears normal. There are chest leads. IMPRESSION: Normal chest. No change.
[2020-11-25 22:35] LABS: ALT 18 U/L (4-49); AST 19 U/L (17-59); African American GFR (CKD) >90 (>60 ml/min/1.73 sqM); Albumin 4.3 g/dL (3.5-5.0); Alkaline Phosphatase 101 U/L (38-126); Anion Gap 11 mmol/L; Blood Urea Nitrogen 8 mg/dL (9-20); Calcium 9.4 mg/dL (8.4-10.2); Carbon Dioxide 28 mmol/L (22-30); Chloride 99 mmol/L (98-107); Glucose 175 mg/dL (74-99); Magnesium 1.6 mg/dL (1.6-2.3); Non-African American GFR(CKD) >90 (>60 ml/min/1.73 sqM); Sodium 138 mmol/L (137-145); Total Bilirubin 0.4 mg/dL (0.2-1.3); Total Protein 7.2 g/dL (6.3-8.2)
[2020-11-25 23:14] LABS: Potassium 3.8 mmol/L (3.5-5.1)
[2020-11-25 23:18] VITALS: BP 144/92; PULSE 64; RESP 20; TEMP 97.9
== END 2020-11-25 23:08 | disposition home or self-care (01) ==
LOC: EC 21:33
DX: R07.89 Other chest pain (principal); E11.9 Type 2 diabetes mellitus without complications; I10 Essential (primary) hypertension; F17.200 Nicotine dependence, unspecified, uncomplicated; Z79.899 Other long term (current) drug therapy; Z79.4 Long term (current) use of insulin
CPT/HCPCS: 36415; 71045; 80053; 83735; 84484; 85025; 85610; 85730; 93005; 99285

== ENCOUNTER 2021-07-21 15:28 | Emergency (ER) | payer BC, OTHER ==
[2021-07-21 15:37] VITALS: TEMP 98
[2021-07-21 15:38] LABS: Glucose,Whole Blood 518 mg/dL (75-99)
[2021-07-21] MEDS: SODIUM CHLORIDE 0.9% 1,000 ML IV SCH ×2 (16:19→18:53)
[2021-07-21 16:24] LABS: Basophils % (A) 0 %; Eosinophils % (A) 0 %; HCT 52.8 % (39.0-53.0); Lymphocytes # (A) 1.7 k/uL (1.0-4.8); Lymphocytes % (A) 15 %; MCH 26.8 pg (25.0-35.0); MCHC 32.2 g/dL (31.0-37.0); MCV 83.2 fL (80.0-100.0); Mean Platelet Volume 9.8; Monocytes # (A) 0.4 k/uL (0-1.0); Monocytes % (A) 4 %; Neutrophils # (A) 8.7 k/uL (1.3-7.7); Neutrophils % (A) 79 %; Platelet Count 238 k/uL (150-450); RBC 6.34 m/uL (4.30-5.90)
[2021-07-21 16:29] LABS: VBG PH 7.3 (7.31-7.41)
[2021-07-21 16:31] LABS: Appearance,Urine Clear (Clear); Bilirubin,Urine Negative (Negative); Blood,Urine Negative (Negative); Color,Urine Colorless; Glucose,Urine (UA) 4+ (Negative); Ketones,Urine Trace (Negative); Leukocyte Esterase,Urine Negative (Negative); Nitrite,Urine Negative (Negative); PH, Urine 5.5 (5.0-8.0); Protein,Urine Negative (Negative); Specific Gravity,Urine 1.035 (1.001-1.035); Urobilinogen,Urine <2.0 mg/dL (<2.0)
[2021-07-21 16:34] LABS: ALT 53 U/L (4-49); AST 37 U/L (17-59); African American GFR (CKD) >90 (>60 ml/min/1.73 sqM); Albumin 4.9 g/dL (3.5-5.0); Alkaline Phosphatase 261 U/L (38-126); Anion Gap 15 mmol/L; Blood Urea Nitrogen 12 mg/dL (9-20); Calcium 9.8 mg/dL (8.4-10.2); Carbon Dioxide 26 mmol/L (22-30); Chloride 93 mmol/L (98-107); Non-African American GFR(CKD) >90 (>60 ml/min/1.73 sqM); Potassium 3.8 mmol/L (3.5-5.1); Sodium 134 mmol/L (137-145); Total Bilirubin 0.5 mg/dL (0.2-1.3); Total Protein 8.4 g/dL (6.3-8.2)
[2021-07-21 16:42] LABS: Glucose 536 mg/dL (74-99)
[2021-07-21 16:45] LABS: INR 0.9 (<1.2); Prothrombin Time 9.4 sec (9.0-12.0)
[2021-07-21] MEDS ORDERED: INSULIN REGULAR 100 UNIT/ML VIAL (IM/SQ) SQ ONE ×2 (16:51→18:44)
--- NOTE | 2021-07-21 17:03 | ED ---
Recheck HPI - General Chief Complaint: Recheck/Abnormal Lab/Rx Stated Complaint: High Blood Sugar Time Seen by Provider: 07/21/21 15:39 Source: patient Mode of arrival: ambulatory Limitations: no limitations - History of Present Illness Initial Comments: Tam is a 31-year-old male presents the ER today with multiple complaints. Patient is a noncompliant type 2 insulin-dependent diabetic who reports he's been noncompliant with his insulin. Patient states that about a month ago he began using IV methamphetamine. She states that since that time he's been feeling sick he's been having difficulty controlling his sugars. He also notes that he developed a swelling in his left antecubital fossa which she believes may be an infection. Patient also notes that he kicked something with his left foot his toenail subsequent he fell off he had some purulent drainage from the areas is concerned that infected as well. Given his history of noncompliant diabetic status he is concerned that he could get an infection would cause him lose his foot which is what prompted him to come to the ER today. Patient reports he stopped using meth 4 days ago. He hasn't been eating or drinking well he does not feel well. - Related Data Home Medications Medication Instructions Recorded Confirmed Insulin Aspart [NovoLOG] 25 units SQ AC-TID 07/21/21 07/21/21 Insulin Detemir (Levemir) [Levemir] 40 unit SQ HS 07/21/21 07/21/21 Previous Rx's Medication Instructions Recorded Cephalexin [Keflex] 500 mg PO Q6HR 7 Days #28 cap 07/21/21 Allergies Allergy/AdvReac Type Severity Reaction Status Date / Time No Known Allergies Allergy Verified 07/21/21 20:00 Review of Systems ROS Statement: Those systems with pertinent positive or pertinent negative responses have been documented in the HPI. ROS Other: All systems not noted in ROS Statement are negative. Past Medical History Past Medical History: Asthma, CVA/TIA, Diabetes Mellitus, Hypertension History of Any Multi-Drug Resistant Organisms: None Reported Past Surgical History: Orthopedic Surgery Additional Past Surgical History / Comment(s): Lasik surgery; Left ankle surgery Past Anesthesia/Blood Transfusion Reactions: No Reported Reaction Past Psychological History: Bipolar Smoking Status: Current every day smoker Past Alcohol Use History: None Reported Past Drug Use History: Marijuana, Methamphetamine General Exam - General Exam Comments Initial Comments: Physical Exam GENERAL: Chronically ill-appearing 31-year-old male, appears much older than stated age HENT: Normocephalic, Atraumatic. EYES: PERRL, EOMI PULMONARY: Unlabored respirations CARDIOVASCULAR: Tachycardic ABDOMEN: Obese, Soft and nontender with normal bowel sounds. SKIN: Firm purple lesion in left antecubital fossa concerning for abscess versus pseudoaneurysm Erythema of left great toe toenail missing : Deferred NEUROLOGIC: Patient is alert and oriented x3. Moving all extremities spontaneously MUSCULOSKELETAL: Normal extremities with adequate strength and full range of motion. No lower extremity swelling or edema. No calf tenderness. PSYCHIATRIC: Normal psychiatric evaluation. Limitations: no limitations Course Vital Signs 07/21/21 07/21/21 07/21/21 15:31 18:31 21:14 Temperature 98.0 F Pulse Rate 114 H 93 96 Respiratory 19 16 16 Rate Blood Pressure 175/111 186/121 162/121 O2 Sat by Pulse 100 100 100 Oximetry Medical Decision Making - Medical Decision Making The patient was seen and evaluated, history is obtained from the patient. Patient with IV meth use, reports she's not feeling well is concern for exposure to infectious disease in addition he is concerned about infection in his left antecubital fossa and left great toe. Patient's glucoses have been elevated he's not been compliant with medications. Labs were ordered, patient is hyperglycemic but not in DKA. IV fluids and insulin were ordered. Patient s tated that he absolutely cannot take IV insulin that it causes him to . Treated with subcutaneous insulin 10 units initially with a repeat dose of 7 units. Patient states he would've given himself 25 units for this level of glucose. Patient's glucoses trending down. Doesn't have any profound leukocytosis or signs of infection. HIV was negative. Patient comfortable with plan for discharge home he'll manage his diabetes at home. Patient will be discharged home on oral antibiotics for treatment of infection left antecubital fossa and left great toe. - Lab Data Result diagrams: 07/21/21 16:02 07/21/21 16:02 Lab Results 07/21/21 07/21/21 07/21/21 Range/Units 15:35 16:02 16:02 WBC 11.0 H (3.8-10.6) k/uL RBC 6.34 H (4.30-5.90) m/uL Hgb 17.0 (13.0-17.5) gm/dL Hct 52.8 (39.0-53.0) % MCV 83.2 (80.0-100.0) fL MCH 26.8 (25.0-35.0) pg MCHC 32.2 (31.0-37.0) g/dL RDW 12.0 (11.5-15.5) % Plt Count 238 (150-450) k/uL MPV 9.8 Neutrophils % 79 % Lymphocytes % 15 % Monocytes % 4 % Eosinophils % 0 % Basophils % 0 % Neutrophils # 8.7 H (1.3-7.7) k/uL Lymphocytes # 1.7 (1.0-4.8) k/uL Monocytes # 0.4 (0-1.0) k/uL Eosinophils # 0.0 (0-0.7) k/uL Basophils # 0.0 (0-0.2) k/uL PT 9.4 (9.0-12.0) sec INR 0.9 (<1.2) APTT 21.0 L (22.0-30.0) sec VBG pH (7.31-7.41) VBG pCO2 (37-51) mmHg VBG HCO3 (24-28) mmol/L Sodium (137-145) mmol/L Potassium (3.5-5.1) mmol/L Chloride (98-107) mmol/L Carbon Dioxide (22-30) mmol/L Anion Gap mmol/L BUN (9-20) mg/dL Creatinine (0.66-1.25) mg/dL Est GFR (CKD-EPI)AfAm (>60 ml/min/1.73 sqM) Est GFR (CKD-EPI)NonAf (>60 ml/min/1.73 sqM) Glucose (74-99) mg/dL POC Glucose (mg/dL) 518 H (75-99) mg/dL POC Glu [employer] Helper ID Zaheer Schmidt Plasma Lactic Acid Vin (0.7-2.0) mmol/L Calcium (8.4-10.2) mg/dL Total Bilirubin (0.2-1.3) mg/dL AST (17-59) U/L ALT (4-49) U/L Alkaline Phosphatase (38-126) U/L Total Protein (6.3-8.2) g/dL Albumin (3.5-5.0) g/dL Urine Color Urine Appearance (Clear) Urine pH (5.0-8.0) Ur Specific [place] (1.001-1.035) Urine Protein (Negative) Urine Glucose (UA) (Negative) Urine Ketones (Negative) Urine Blood (Negative) Urine Nitrite (Negative) Urine Bilirubin (Negative) Urine Urobilinogen (<2.0) mg/dL Ur Leukocyte Esterase (Negative) Acetone, Qual (Negative) HIV 1&2 Antibody Rapid (Nonreactive) 07/21/21 07/21/21 07/21/21 Range/Units 16:02 16:02 16:02 WBC (3.8-10.6) k/uL RBC (4.30-5.90) m/uL Hgb (13.0-17.5) gm/dL Hct (39.0-53.0) % MCV (80.0-100.0) fL MCH (25.0-35.0) pg MCHC (31.0-37.0) g/dL RDW (11.5-15.5) % Plt Count (150-450) k/uL MPV Neutrophils % % Lymphocytes % % Monocytes % % Eosinophils % % Basophils % % Neutrophils # (1.3-7.7) k/uL Lymphocytes # (1.0-4.8) k/uL Monocytes # (0-1.0) k/uL Eosinophils # (0-0.7) k/uL Basophils # (0-0.2) k/uL PT (9.0-12.0) sec INR (<1.2) APTT (22.0-30.0) sec VBG pH (7.31-7.41) VBG pCO2 (37-51) mmHg VBG HCO3 (24-28) mmol/L Sodium 134 L (137-145) mmol/L Potassium 3.8 (3.5-5.1) mmol/L Chloride 93 L (98-107) mmol/L Carbon Dioxide 26 (22-30) mmol/L Anion Gap 15 mmol/L BUN 12 (9-20) mg/dL Creatinine 0.54 L (0.66-1.25) mg/dL Est GFR (CKD-EPI)AfAm >90 (>60 ml/min/1.73 sqM) Est GFR (CKD-EPI)NonAf >90 (>60 ml/min/1.73 sqM) Glucose 536 H* (74-99) mg/dL POC Glucose (mg/dL) (75-99) mg/dL POC Glu [place] Helper ID Plasma Lactic Acid Vin 2.0 (0.7-2.0) mmol/L Calcium 9.8 (8.4-10.2) mg/dL Total Bilirubin 0.5 (0.2-1.3) mg/dL AST 37 (17-59) U/L ALT 53 H (4-49) U/L Alkaline Phosphatase 261 H (38-126) U/L Total Protein 8.4 H (6.3-8.2) g/dL Albumin 4.9 (3.5-5.0) g/dL Urine Color Colorless Urine Appearance Clear (Clear) Urine pH 5.5 (5.0-8.0) Ur Specific [place] 1.035 (1.001-1.035) Urine Protein Negative (Negative) Urine Glucose (UA) 4+ H (Negative) Urine Ketones Trace H (Negative) Urine Blood Negative (Negative) Urine Nitrite Negative (Negative) Urine Bilirubin Negative (Negative) Urine Urobilinogen <2.0 (<2.0) mg/dL Ur Leukocyte Esterase Negative (Negative) Acetone, Qual Negative (Negative) HIV 1&2 Antibody Rapid (Nonreactive) 07/21/21 07/21/21 07/21/21 Range/Units 16:02 16:23 18:29 WBC (3.8-10.6) k/uL RBC (4.30-5.90) m/uL Hgb (13.0-17.5) gm/dL Hct (39.0-53.0) % MCV (80.0-100.0) fL MCH (25.0-35.0) pg MCHC (31.0-37.0) g/dL RDW (11.5-15.5) % Plt Count (150-450) k/uL MPV Neutrophils % % Lymphocytes % % Monocytes % % Eosinophils % % Basophils % % Neutrophils # (1.3-7.7) k/uL Lymphocytes # (1.0-4.8) k/uL Monocytes # (0-1.0) k/uL Eosinophils # (0-0.7) k/uL Basophils # (0-0.2) k/uL PT (9.0-12.0) sec INR (<1.2) APTT (22.0-30.0) sec VBG pH 7.30 L (7.31-7.41) VBG pCO2 56 H (37-51) mmHg VBG HCO3 27 (24-28) mmol/L Sodium (137-145) mmol/L Potassium (3.5-5.1) mmol/L Chloride (98-107) mmol/L Carbon Dioxide (22-30) mmol/L Anion Gap mmol/L BUN (9-20) mg/dL Creatinine (0.66-1.25) mg/dL Est GFR (CKD-EPI)AfAm (>60 ml/min/1.73 sqM) Est GFR (CKD-EPI)NonAf (>60 ml/min/1.73 sqM) Glucose (74-99) mg/dL POC Glucose (mg/dL) 362 H (75-99) mg/dL POC Glu [employer] Helper ID Belval, Lizz Plasma Lactic Acid Vin (0.7-2.0) mmol/L Calcium (8.4-10.2) mg/dL Total Bilirubin (0.2-1.3) mg/dL AST (17-59) U/L ALT (4-49) U/L Alkaline Phosphatase (38-126) U/L Total Protein (6.3-8.2) g/dL Albumin (3.5-5.0) g/dL Urine Color Urine Appearance (Clear) Urine pH (5.0-8.0) Ur Specific [place] (1.001-1.035) Urine Protein (Negative) Urine Glucose (UA) (Negative) Urine Ketones (Negative) Urine Blood (Negative) Urine Nitrite (Negative) Urine Bilirubin (Negative) Urine Urobilinogen (<2.0) mg/dL Ur Leukocyte Esterase (Negative) Acetone, Qual (Negative) HIV 1&2 Antibody Rapid Nonreactive (Nonreactive) 07/21/21 Range/Units 19:46 WBC (3.8-10.6) k/uL RBC (4.30-5.90) m/uL Hgb (13.0-17.5) gm/dL Hct (39.0-53.0) % MCV (80.0-100.0) fL MCH (25.0-35.0) pg MCHC (31.0-37.0) g/dL RDW (11.5-15.5) % Plt Count (150-450) k/uL MPV Neutrophils % % Lymphocytes % % Monocytes % % Eosinophils % % Basophils % % Neutrophils # (1.3-7.7) k/uL Lymphocytes # (1.0-4.8) k/uL Monocytes # (0-1.0) k/uL Eosinophils # (0-0.7) k/uL Basophils # (0-0.2) k/uL PT (9.0-12.0) sec INR (<1.2) APTT (22.0-30.0) sec VBG pH (7.31-7.41) VBG pCO2 (37-51) mmHg VBG HCO3 (24-28) mmol/L Sodium (137-145) mmol/L Potassium (3.5-5.1) mmol/L Chloride (98-107) mmol/L Carbon Dioxide (22-30) mmol/L Anion Gap mmol/L BUN (9-20) mg/dL Creatinine (0.66-1.25) mg/dL Est GFR (CKD-EPI)AfAm (>60 ml/min/1.73 sqM) Est GFR (CKD-EPI)NonAf (>60 ml/min/1.73 sqM) Glucose (74-99) mg/dL POC Glucose (mg/dL) 297 H (75-99) mg/dL POC Glu Mill[employer] Helper ID Belval, Lizz Plasma Lactic Acid Vin (0.7-2.0) mmol/L Calcium (8.4-10.2) mg/dL Total Bilirubin (0.2-1.3) mg/dL AST (17-59) U/L ALT (4-49) U/L Alkaline Phosphatase (38-126) U/L Total Protein (6.3-8.2) g/dL Albumin (3.5-5.0) g/dL Urine Color Urine Appearance (Clear) Urine pH (5.0-8.0) Ur Specific [place] (1.001-1.035) Urine Protein (Negative) Urine Glucose (UA) (Negative) Urine Ketones (Negative) Urine Blood (Negative) Urine Nitrite (Negative) Urine Bilirubin (Negative) Urine Urobilinogen (<2.0) mg/dL Ur Leukocyte Esterase (Negative) Acetone, Qual (Negative) HIV 1&2 Antibody Rapid (Nonreactive) - EKG Data -: EKG Interpreted by Me EKG Comments: EKG was obtained due to tachycardia, EKG was obtained at 1554, rate is 108 rhythm is sinus tachycardia normal axis, normal intervals and no acute ST elevations or depressions no evidence of ischemia or infarction Disposition Clinical Impression: Hyperglycemia due to type 2 diabetes mellitus, Cellulitis Disposition: HOME SELF-CARE Condition: Stable Additional Instructions: Stop using IV drugs Take diabetic medications and use Insulin as prescribed Stay hydrated Prescriptions: Cephalexin [Keflex] 500 mg PO Q6HR 7 Days #28 cap Is patient prescribed a controlled substance at d/c from ED?: No Referrals: None,Stated [Primary Care Provider] - 1-2 days
[2021-07-21] MEDS: SODIUM CHLORIDE 0.9% 500 ML 500 ML IV SCH ×2 (18:00→18:59)
[2021-07-21 18:31] VITALS: RESP 16
[2021-07-21 18:31] LABS: Glucose,Whole Blood 362 mg/dL (75-99)
[2021-07-21 19:48] LABS: Glucose,Whole Blood 297 mg/dL (75-99)
--- NOTE | 2021-07-21 20:15 | US ---
EXAMINATION TYPE: US extremity nonvasc mass LT DATE OF EXAM: 07/21/2021 COMPARISON: NONE CLINICAL HISTORY: left AC abscess/pseudoaneurysm from injecting meth. palpable, redness left antecubi kolby fossa. history of meth injection within area FINDINGS: Sonographic evaluation of the area of concern left antecubital fossa demonstrates soft tissue edema . No evidence of pseudoaneurysm. There is a 3 mm subcutaneous fluid collection. IMPRESSION: Soft tissue edema, 3 mm subcutaneous fluid collection. No sonographic evidence for pseud oaneurysm.
[2021-07-21] MEDS ORDERED: CEPHALEXIN 500MG STARTER PACK 4 CAP BTL PO STA (20:41)
[2021-07-21 21:15] VITALS: BP 162/121; PULSE 96
== END 2021-07-21 21:23 | disposition home or self-care (01) ==
LOC: EC 15:28
DX: E11.65 Type 2 diabetes mellitus with hyperglycemia (principal); L03.114 Cellulitis of left upper limb; I10 Essential (primary) hypertension; J45.909 Unspecified asthma, uncomplicated; F31.9 Bipolar disorder, unspecified; F12.90 Cannabis use, unspecified, uncomplicated; F15.90 Other stimulant use, unspecified, uncomplicated; F17.200 Nicotine dependence, unspecified, uncomplicated; Z86.73 Personal history of transient ischemic attack (TIA), and cerebral infarction without residual deficits; Z79.4 Long term (current) use of insulin; Z91.14 Patient's other noncompliance with medication regimen; Z91.19 Patient's noncompliance with other medical treatment and regimen
CPT/HCPCS: 36415; 80053; 81003; 82009; 82803; 83605; 85025; 85610; 85730; 86701; 87040; 93005; 96360; 96361; 99285

== ENCOUNTER 2021-07-28 12:37 | Emergency (ER) | payer OTHER ==
[2021-07-28 13:42] VITALS: TEMP 98
[2021-07-28] MEDS ORDERED: SODIUM CHLORIDE 0.9% 1,000 ML IV STA (14:54)
--- NOTE | 2021-07-28 14:56 | ED ---
General Adult HPI - General Chief complaint: Recheck/Abnormal Lab/Rx Stated complaint: revisit - hyperglycemia Time Seen by Provider: 07/28/21 14:27 Source: patient Mode of arrival: ambulatory Limitations: no limitations - History of Present Illness Initial comments: 31-year-old male with a complicated past medical history including IV drug abuse, methamphetamine use, diabetes mellitus, hypertension, TIA presents to the emergency room for a chief complaint of medical clearance. Patient tried to check into [facility] today and they would not except as a patient as he did not have any of his medications. Patient states that he was told to come back to the hospital to get lab results from his previous visit as well as get all his medications refilled. Patient states he has not taken his medications in months. Patient has no other complaints at this time including shortness of breath, chest pain, abdominal pain, nausea or vomiting, headache, or visual changes. - Related Data Home Medications Medication Instructions Recorded Confirmed Insulin Aspart [NovoLOG] 15 units SQ AC-TID 07/21/21 07/28/21 Insulin Detemir (Levemir) [Levemir] 45 unit SQ HS 07/21/21 07/28/21 Previous Rx's Medication Instructions Recorded Clindamycin [Cleocin] 300 mg PO Q8H 7 Days #42 cap 07/28/21 amLODIPine [Norvasc] 5 mg PO DAILY #30 tab 07/28/21 Allergies Allergy/AdvReac Type Severity Reaction Status Date / Time No Known Allergies Allergy Verified 07/28/21 15:21 Review of Systems ROS Statement: Those systems with pertinent positive or pertinent negative responses have been documented in the HPI. ROS Other: All systems not noted in ROS Statement are negative. Past Medical History Past Medical History: Asthma, CVA/TIA, Diabetes Mellitus, Hypertension History of Any Multi-Drug Resistant Organisms: None Reported Past Surgical History: Orthopedic Surgery Additional Past Surgical History / Comment(s): Lasik surgery; Left ankle surgery Past Anesthesia/Blood Transfusion Reactions: No Reported Reaction Past Psychological History: Bipolar Smoking Status: Current every day smoker Past Alcohol Use History: None Reported Past Drug Use History: IV Drug Use, Marijuana, Methamphetamine General Exam Limitations: no limitations General appearance: alert, in no apparent distress Head exam: Present: atraumatic Eye exam: Present: normal appearance, PERRL, EOMI ENT exam: Present: normal exam, mucous membranes moist Neck exam: Present: normal inspection, full ROM. Absent: tenderness Respiratory exam: Present: normal lung sounds bilaterally. Absent: respiratory distress, wheezes Cardiovascular Exam: Present: regular rate, normal rhythm, normal heart sounds GI/Abdominal exam: Present: soft, normal bowel sounds. Absent: distended, tenderness Course Vital Signs 07/28/21 07/28/21 07/28/21 13:40 17:13 18:13 Temperature 98 F Pulse Rate 118 H 105 H Respiratory 18 16 Rate Blood Pressure 166/111 152/113 162/92 O2 Sat by Pulse 99 99 Oximetry - Reevaluation(s) Reevaluation #1: 07/28/21 16:41 Med rec specialists did attempt to get patient's medication records. Patient has not had insulin since 2019. He has not seen cardiology since 2018. He has not had his other medications for over 6 months since November Medical Decision Making - Medical Decision Making Vitals are stable patient initially tachycardic however this did improve throughout his stay. He is also hypertensive and this was treated with hypertension medications. CBC unremarkable however CMP does show hyperglycemia with a glucose of 475. No evidence of DKA with an anion gap of 11 and no ketones in the urine. Patient was given insulin which did improve his glucose is now trending downwards. Patient was given hydralazine. Patient wanted a refill of all his prescriptions however he has not had refilled since 2017. He does state he has insulin at home. At this time we will start him on Norvasc as we are not sure of his previous medications and the med history specialist were unable to find them given the duration of time since they have been prescribed. I did stress the importance of following up with the primary care provider tomorrow. Stressed the importance of stopping IV drug use. Patient will need to return here for any worsening symptoms. - Lab Data Result diagrams: 07/28/21 15:38 07/28/21 15:38 Lab Results 07/28/21 07/28/21 07/28/21 Range/Units 15:38 15:38 16:32 WBC 14.6 H (3.8-10.6) k/uL RBC 6.03 H (4.30-5.90) m/uL Hgb 16.4 (13.0-17.5) gm/dL Hct 47.5 (39.0-53.0) % MCV 78.9 L (80.0-100.0) fL MCH 27.2 (25.0-35.0) pg MCHC 34.4 (31.0-37.0) g/dL RDW 12.8 (11.5-15.5) % Plt Count 294 (150-450) k/uL MPV 9.4 Neutrophils % 69 % Lymphocytes % 23 % Monocytes % 5 % Eosinophils % 1 % Basophils % 1 % Neutrophils # 10.1 H (1.3-7.7) k/uL Lymphocytes # 3.3 (1.0-4.8) k/uL Monocytes # 0.7 (0-1.0) k/uL Eosinophils # 0.2 (0-0.7) k/uL Basophils # 0.1 (0-0.2) k/uL Sodium 130 L (137-145) mmol/L Potassium 4.3 (3.5-5.1) mmol/L Chloride 95 L (98-107) mmol/L Carbon Dioxide 24 (22-30) mmol/L Anion Gap 11 mmol/L BUN 10 (9-20) mg/dL Creatinine 0.52 L (0.66-1.25) mg/dL Est GFR (CKD-EPI)AfAm >90 (>60 ml/min/1.73 sqM) Est GFR (CKD-EPI)NonAf >90 (>60 ml/min/1.73 sqM) Glucose 475 H (74-99) mg/dL POC Glucose (mg/dL) (75-99) mg/dL POC Glu Slip Mixer ID Calcium 9.7 (8.4-10.2) mg/dL Total Bilirubin 0.6 (0.2-1.3) mg/dL AST 42 (17-59) U/L ALT 52 H (4-49) U/L Alkaline Phosphatase 180 H (38-126) U/L Total Protein 7.5 (6.3-8.2) g/dL Albumin 4.3 (3.5-5.0) g/dL Urine Color Light Yellow Urine Appearance Clear (Clear) Urine pH 5.5 (5.0-8.0) Ur Specific [place] 1.042 H (1.001-1.035) Urine Protein Negative (Negative) Urine Glucose (UA) 4+ H (Negative) Urine Ketones Negative (Negative) Urine Blood Negative (Negative) Urine Nitrite Negative (Negative) Urine Bilirubin Negative (Negative) Urine Urobilinogen <2.0 (<2.0) mg/dL Ur Leukocyte Esterase Negative (Negative) Acetone, Qual Negative (Negative) 07/28/21 Range/Units 17:08 WBC (3.8-10.6) k/uL RBC (4.30-5.90) m/uL Hgb (13.0-17.5) gm/dL Hct (39.0-53.0) % MCV (80.0-100.0) fL MCH (25.0-35.0) pg MCHC (31.0-37.0) g/dL RDW (11.5-15.5) % Plt Count (150-450) k/uL MPV Neutrophils % % Lymphocytes % % Monocytes % % Eosinophils % % Basophils % % Neutrophils # (1.3-7.7) k/uL Lymphocytes # (1.0-4.8) k/uL Monocytes # (0-1.0) k/uL Eosinophils # (0-0.7) k/uL Basophils # (0-0.2) k/uL Sodium (137-145) mmol/L Potassium (3.5-5.1) mmol/L Chloride (98-107) mmol/L Carbon Dioxide (22-30) mmol/L Anion Gap mmol/L BUN (9-20) mg/dL Creatinine (0.66-1.25) mg/dL Est GFR (CKD-EPI)AfAm (>60 ml/min/1.73 sqM) Est GFR (CKD-EPI)NonAf (>60 ml/min/1.73 sqM) Glucose (74-99) mg/dL POC Glucose (mg/dL) 372 H (75-99) mg/dL POC Glu Slip Mixer ID Doug Vargas Calcium (8.4-10.2) mg/dL Total Bilirubin (0.2-1.3) mg/dL AST (17-59) U/L ALT (4-49) U/L Alkaline Phosphatase (38-126) U/L Total Protein (6.3-8.2) g/dL Albumin (3.5-5.0) g/dL Urine Color Urine Appearance (Clear) Urine pH (5.0-8.0) Ur Specific [place] (1.001-1.035) Urine Protein (Negative) Urine Glucose (UA) (Negative) Urine Ketones (Negative) Urine Blood (Negative) Urine Nitrite (Negative) Urine Bilirubin (Negative) Urine Urobilinogen (<2.0) mg/dL Ur Leukocyte Esterase (Negative) Acetone, Qual (Negative) Disposition Clinical Impression: Hypertension, Hyperglycemia Disposition: HOME SELF-CARE Condition: Fair Prescriptions: Clindamycin [Cleocin] 300 mg PO Q8H 7 Days #42 cap amLODIPine [Norvasc] 5 mg PO DAILY #30 tab Is patient prescribed a controlled substance at d/c from ED?: No Referrals: Renee Martin MD [Primary Care Provider] - 1-2 days Time of Disposition: 18:05
[2021-07-28 15:46] LABS: Basophils # (A) 0.1 k/uL (0-0.2); Basophils % (A) 1 %; Eosinophils # (A) 0.2 k/uL (0-0.7); Eosinophils % (A) 1 %; HCT 47.5 % (39.0-53.0); HGB 16.4 gm/dL (13.0-17.5); Lymphocytes # (A) 3.3 k/uL (1.0-4.8); Lymphocytes % (A) 23 %; MCH 27.2 pg (25.0-35.0); MCHC 34.4 g/dL (31.0-37.0); MCV 78.9 fL (80.0-100.0); Mean Platelet Volume 9.4; Monocytes # (A) 0.7 k/uL (0-1.0); Monocytes % (A) 5 %; Neutrophils # (A) 10.1 k/uL (1.3-7.7); Neutrophils % (A) 69 %; Platelet Count 294 k/uL (150-450); RBC 6.03 m/uL (4.30-5.90); RDW 12.8 % (11.5-15.5); WBC 14.6 k/uL (3.8-10.6)
[2021-07-28 16:08] LABS: ALT 52 U/L (4-49); AST 42 U/L (17-59); African American GFR (CKD) >90 (>60 ml/min/1.73 sqM); Albumin 4.3 g/dL (3.5-5.0); Alkaline Phosphatase 180 U/L (38-126); Anion Gap 11 mmol/L; Blood Urea Nitrogen 10 mg/dL (9-20); Calcium 9.7 mg/dL (8.4-10.2); Carbon Dioxide 24 mmol/L (22-30); Chloride 95 mmol/L (98-107); Glucose 475 mg/dL (74-99); Non-African American GFR(CKD) >90 (>60 ml/min/1.73 sqM); Potassium 4.3 mmol/L (3.5-5.1); Sodium 130 mmol/L (137-145); Total Bilirubin 0.6 mg/dL (0.2-1.3); Total Protein 7.5 g/dL (6.3-8.2)
[2021-07-28] MEDS ORDERED: INSULIN ASPART (NovoLOG) 100 UNIT/ML VIAL SQ STA (16:18)
[2021-07-28 16:42] LABS: Appearance,Urine Clear (Clear); Bilirubin,Urine Negative (Negative); Blood,Urine Negative (Negative); Color,Urine Light Yellow; Glucose,Urine (UA) 4+ (Negative); Ketones,Urine Negative (Negative); Leukocyte Esterase,Urine Negative (Negative); Nitrite,Urine Negative (Negative); PH, Urine 5.5 (5.0-8.0); Protein,Urine Negative (Negative); Specific Gravity,Urine 1.042 (1.001-1.035); Urobilinogen,Urine <2.0 mg/dL (<2.0)
[2021-07-28 17:10] LABS: Glucose,Whole Blood 372 mg/dL (75-99)
[2021-07-28 17:14] VITALS: PULSE 105; RESP 16
[2021-07-28] MEDS ORDERED: hydrALAZINE HCL 20 MG/ML 1 ML VIAL IVP STA (17:37)
[2021-07-28 18:14] VITALS: BP 162/92
== END 2021-07-28 18:33 | disposition home or self-care (01) ==
LOC: EC 12:37
DX: E11.65 Type 2 diabetes mellitus with hyperglycemia (principal); I10 Essential (primary) hypertension; J45.909 Unspecified asthma, uncomplicated; F31.9 Bipolar disorder, unspecified; F12.90 Cannabis use, unspecified, uncomplicated; F15.90 Other stimulant use, unspecified, uncomplicated; F17.200 Nicotine dependence, unspecified, uncomplicated; Z86.73 Personal history of transient ischemic attack (TIA), and cerebral infarction without residual deficits; Z79.4 Long term (current) use of insulin; Z79.899 Other long term (current) drug therapy
CPT/HCPCS: 36415; 80053; 82009; 85025; 81003; 99285; 96374; 96361; J0360

== ENCOUNTER 2021-09-08 18:40 | Emergency (ER) | payer OTHER ==
[2021-09-08 18:47] VITALS: TEMP 98
[2021-09-08] MEDS ORDERED: LORazepam 2 MG/ML INJ IM STA (18:58)
--- NOTE | 2021-09-08 21:38 | ED ---
General Adult HPI - General Chief complaint: Anxiety Stated complaint: Altered LOC Time Seen by Provider: 09/08/21 18:54 Source: patient Mode of arrival: EMS Limitations: no limitations - History of Present Illness Initial comments: Tam is a 31-year-old male with extensive past medical history is brought to the ER today for acute agitation. Patient reportedly ate to marijuana cookies and smoked meth earlier in the evening. Significant other felt that he was altered and should come to the ER. Upon arrival patient is tearful but answers shows with one word. He denies acute complaints admits to smoking meth. - Related Data Home Medications Medication Instructions Recorded Confirmed Insulin Aspart [NovoLOG] 15 units SQ AC-TID 07/21/21 07/28/21 Insulin Detemir (Levemir) [Levemir] 45 unit SQ HS 07/21/21 07/28/21 Previous Rx's Medication Instructions Recorded Clindamycin [Cleocin] 300 mg PO Q8H 7 Days #42 cap 07/28/21 amLODIPine [Norvasc] 5 mg PO DAILY #30 tab 07/28/21 Allergies Allergy/AdvReac Type Severity Reaction Status Date / Time No Known Allergies Allergy Verified 08/19/21 14:03 Review of Systems ROS Statement: Those systems with pertinent positive or pertinent negative responses have been documented in the HPI. ROS Other: All systems not noted in ROS Statement are negative. Past Medical History Past Medical History: Asthma, CVA/TIA, Diabetes Mellitus, Hypertension History of Any Multi-Drug Resistant Organisms: None Reported Past Surgical History: Orthopedic Surgery Additional Past Surgical History / Comment(s): Lasik surgery; Left ankle surgery Past Anesthesia/Blood Transfusion Reactions: No Reported Reaction Past Psychological History: Bipolar Smoking Status: Current every day smoker Past Alcohol Use History: None Reported Past Drug Use History: IV Drug Use, Marijuana, Methamphetamine General Exam - General Exam Comments Initial Comments: Physical Exam GENERAL: Morbidly obese, crying HENT: Normocephalic, Atraumatic. EYES: PERRL, EOMI PULMONARY: Unlabored respirations. No audible rales rhonchi or wheezing was noted. CARDIOVASCULAR: Tachycardia ABDOMEN: Soft and nontender with normal bowel sounds. SKIN: Skin is clear with no lesions or rashes and otherwise unremarkable. : Deferred NEUROLOGIC: Patient is alert and oriented x3. Moving all extremities spontaneously MUSCULOSKELETAL: Normal extremities with adequate strength and full range of motion. No lower extremity swelling or edema. No calf tenderness. PSYCHIATRIC: Normal psychiatric evaluation. Limitations: no limitations Course Vital Signs 09/08/21 09/08/21 09/08/21 18:41 21:39 21:51 Temperature 98.0 F Pulse Rate 121 H 89 74 Respiratory 23 18 14 Rate Blood Pressure 185/132 132/76 O2 Sat by Pulse 100 97 97 Oximetry Medical Decision Making - Medical Decision Making She was seen and evaluated, patient is acutely agitated after smoking methamphetamine, Ativan was ordered. Patient was calm her after Ativan resting comfortably for 3 hours in the ER, repeat vital signs have improved significantly hypertension and tachycardia have resolved I advised patient needs to avoid methamphetamine as this is because hypertension tachycardia and increased risk of recurrent stroke patient's significant other bedside comfortable plan for discharge home at this time. Disposition Clinical Impression: Methamphetamine abuse, Hyperventilation Disposition: HOME SELF-CARE Additional Instructions: Stop using meth, it causes your blood sugar, heart rate and blood pressure to go up and could cause another stroke Is patient prescribed a controlled substance at d/c from ED?: No Referrals: None,Stated [Primary Care Provider] - 1-2 days
[2021-09-08 21:51] VITALS: BP 132/76; PULSE 74; RESP 14
== END 2021-09-08 22:06 | disposition home or self-care (01) ==
LOC: EC 18:40
DX: F15.10 Other stimulant abuse, uncomplicated (principal); R06.4 Hyperventilation; E11.9 Type 2 diabetes mellitus without complications; I10 Essential (primary) hypertension; J45.909 Unspecified asthma, uncomplicated; F17.200 Nicotine dependence, unspecified, uncomplicated; F12.90 Cannabis use, unspecified, uncomplicated; E66.01 Morbid (severe) obesity due to excess calories; Z68.37 Body mass index [BMI] 37.0-37.9, adult; Z79.4 Long term (current) use of insulin; Z79.899 Other long term (current) drug therapy
CPT/HCPCS: 99285; 96372; J2060

== ENCOUNTER 2021-10-01 16:52 | Emergency (ER) | payer OTHER ==
[2021-10-01 17:05] VITALS: TEMP 97.8
[2021-10-01] MEDS ORDERED: cefTRIAXone IN SWFI 1,000 MG/10 ML SYRINGE IVP STA ×2 (19:57→22:13)
--- NOTE | 2021-10-01 20:40 | XR ---
EXAMINATION TYPE: XR wrist complete RT DATE OF EXAM: 10/01/2021 COMPARISON: None HISTORY: Wrist pain TECHNIQUE: 4 views FINDINGS: I see no fracture nor dislocation. Joint spaces are normal. There is soft tissue swelling o n the dorsum of the wrist on the lateral view. Carpal bones are intact. Metacarpals are intact. IMPRESSION: Soft tissue swelling. No fracture.
--- NOTE | 2021-10-01 20:41 | XR ---
EXAMINATION TYPE: XR elbow complete RT DATE OF EXAM: 10/01/2021 COMPARISON: NONE HISTORY: Swelling TECHNIQUE: 3 views FINDINGS: There is soft tissue swelling on the lateral aspect of the elbow. I see no fracture nor dis location. Joint spaces are normal. There is no sign of an elbow joint effusion. IMPRESSION: Soft tissue swelling. No elbow joint abnormality.
[2021-10-01 21:24] LABS: Basophils # (A) 0.1 k/uL (0-0.2); Basophils % (A) 0 %; Eosinophils # (A) 0.2 k/uL (0-0.7); Eosinophils % (A) 1 %; HCT 47.5 % (39.0-53.0); HGB 15.6 gm/dL (13.0-17.5); Lymphocytes # (A) 2.8 k/uL (1.0-4.8); Lymphocytes % (A) 16 %; MCH 26.5 pg (25.0-35.0); MCHC 32.9 g/dL (31.0-37.0); MCV 80.5 fL (80.0-100.0); Monocytes # (A) 0.9 k/uL (0-1.0); Monocytes % (A) 5 %; Neutrophils # (A) 13.7 k/uL (1.3-7.7); Neutrophils % (A) 77 %; Platelet Count 306 k/uL (150-450); RDW 11.8 % (11.5-15.5); WBC 17.7 k/uL (3.8-10.6)
[2021-10-01 21:36] LABS: ALT 31 U/L (4-49); AST 24 U/L (17-59); African American GFR (CKD) >90 (>60 ml/min/1.73 sqM); Albumin 4.2 g/dL (3.5-5.0); Alkaline Phosphatase 211 U/L (38-126); Anion Gap 14 mmol/L; Blood Urea Nitrogen 10 mg/dL (9-20); Calcium 9.4 mg/dL (8.4-10.2); Carbon Dioxide 23 mmol/L (22-30); Chloride 90 mmol/L (98-107); Glucose 476 mg/dL (74-99); Non-African American GFR(CKD) >90 (>60 ml/min/1.73 sqM); Potassium 4.6 mmol/L (3.5-5.1); Sodium 127 mmol/L (137-145); Total Bilirubin 0.5 mg/dL (0.2-1.3); Total Protein 7.7 g/dL (6.3-8.2)
[2021-10-01] MEDS ORDERED: INSULIN REGULAR 100 UNIT/ML VIAL (IM/SQ) SQ STA (21:46)
[2021-10-01 21:49] LABS: INR 0.9 (<1.2)
[2021-10-01 21:50] LABS: Partial Thromboplastin Time 22.9 sec (22.0-30.0); Prothrombin Time 9.8 sec (9.0-12.0)
[2021-10-01] MEDS ORDERED: INSULIN ASPART (NovoLOG) 100 UNIT/ML VIAL SQ STA (21:54)
[2021-10-01 21:59] LABS: Appearance,Urine Clear (Clear); Bilirubin,Urine Negative (Negative); Blood,Urine Negative (Negative); Color,Urine Light Yellow; Glucose,Urine (UA) 4+ (Negative); Leukocyte Esterase,Urine Negative (Negative); Nitrite,Urine Negative (Negative); PH, Urine 5.5 (5.0-8.0); Protein,Urine Negative (Negative); Urobilinogen,Urine <2.0 mg/dL (<2.0)
[2021-10-01 22:12] LABS: Ketones,Urine 2+ (Negative)
[2021-10-01] MEDS ORDERED: SODIUM CHLORIDE 0.9% 1,000 ML IV STA ×2 (22:13→22:20)
[2021-10-01] MEDS ORDERED: SODIUM CHLORIDE 0.9% 500 ML 500 ML IV STA (22:13)
[2021-10-01] MEDS ORDERED: SULFAMETH-TMP DS STARTER PACK 2 TAB BTL PO STA (22:20)
[2021-10-01] MEDS ORDERED: CEPHALEXIN 500MG STARTER PACK 4 CAP BTL PO STA (22:20)
--- NOTE | 2021-10-01 22:28 | ED ---
General Adult HPI - General Chief complaint: Skin/Abscess/Foreign Body Stated complaint: RT arm pain Time Seen by Provider: 10/01/21 19:40 Source: patient Mode of arrival: ambulatory - History of Present Illness Initial comments: 31-year-old male with a past medical history of asthma, CVA, diabetes mellitus, hypertension, IV drug abuse presents to the emergency room for a chief complaint of right elbow abscess. Patient states he last used a few days ago and developed an abscess. Patient states it is draining and painful. Patient denies fevers. Patient denies any difficulty bending the elbow.Patient has no other complaints at this time including shortness of breath, chest pain, abdominal pain, nausea or vomiting, headache, or visual changes. - Related Data Home Medications Medication Instructions Recorded Confirmed Insulin Detemir (Levemir) [Levemir] 45 unit SQ HS 07/21/21 10/01/21 INSULIN LISPRO (HumaLOG) [humaLOG] 25 units SQ AC-TID 10/01/21 10/01/21 Previous Rx's Medication Instructions Recorded amLODIPine [Norvasc] 5 mg PO DAILY #30 tab 07/28/21 Cephalexin [Keflex] 500 mg PO Q6HR 10 Days #40 cap 10/01/21 Sulfamethox-Tmp 800-160Mg [Bactrim 1 tab PO Q12HR #20 tab 10/01/21 DS 800-160 mg] Allergies Allergy/AdvReac Type Severity Reaction Status Date / Time No Known Allergies Allergy Verified 10/01/21 22:04 Review of Systems ROS Statement: Those systems with pertinent positive or pertinent negative responses have been documented in the HPI. ROS Other: All systems not noted in ROS Statement are negative. Past Medical History Past Medical History: Asthma, CVA/TIA, Diabetes Mellitus, Hypertension History of Any Multi-Drug Resistant Organisms: None Reported Past Surgical History: Orthopedic Surgery Additional Past Surgical History / Comment(s): Lasik surgery; Left ankle surgery Past Anesthesia/Blood Transfusion Reactions: No Reported Reaction Past Psychological History: Bipolar Smoking Status: Current every day smoker Past Alcohol Use History: None Reported Past Drug Use History: IV Drug Use, Marijuana, Methamphetamine General Exam General appearance: alert, in no apparent distress Head exam: Present: atraumatic Eye exam: Present: normal appearance, PERRL, EOMI. Absent: scleral icterus, conjunctival injection ENT exam: Present: normal exam, mucous membranes moist Neck exam: Present: normal inspection, full ROM. Absent: tenderness Respiratory exam: Present: normal lung sounds bilaterally. Absent: respiratory distress, wheezes Cardiovascular Exam: Present: regular rate, normal rhythm, normal heart sounds Extremities exam: Present: full ROM (full ROM of the right elbow.), tenderness (tenderness to abscess site.), normal capillary refill (cap refill < 2 seconds, radial pulse 2+), other (4 cm x 3 cm abscess noted to the right proximal forearm, actively draining. mild erythema, no streaking or spreading redness.) Course Vital Signs 10/01/21 17:00 Temperature 97.8 F Pulse Rate 109 H Respiratory 18 Rate Blood Pressure 172/95 O2 Sat by Pulse 98 Oximetry Procedures - Incision & Drainage Consent Obtained: verbal consent Indication: abscess Site: upper extremity Size (cm): 3 Anesthetic Used: lidocaine 1%, with epi Amount (mLs): 1 I&D Cleaning Method: Chloroprep Sterile Field Used?: Yes Scalpel Used: #11 I&D Drainage Obtained: Pus Patient Tolerated Procedure: well, no complications Medical Decision Making - Medical Decision Making vitals are stable. Patient does have an abscess noted to the right proximal forearm. This was incised and drained. Purulent material expelled. Patient has a white count of 17 suspected to be secondary to abscess. CMP does real reveal hyperglycemia as well as pseudohyponatremia. Patient was given 2 L of fluid. He does have 2+ ketones in his urine however this is likely secondary to dehydration. Anion gap is normal and acetone is negative. Soft tissue swelling noted in the elbow on x-ray. Patient has a nodule in the wrist ever no erythema or fluctuance. Patient was given IV Rocephin, fluids, and IV antibiotics. At this time we will try patient on oral antibiotics. If symptoms are worsening he will need to return here to the emergency room for admission for IV antibiotics. - Lab Data Result diagrams: 10/01/21 21:10/01/21 21: Lab Results 10/01/21 10/01/21 10/01/21 Range/Units 21: 21: 21: WBC 17.7 H (3.8-10.6) k/uL RBC 5.90 (4.30-5.90) m/uL Hgb 15.6 (13.0-17.5) gm/dL Hct 47.5 (39.0-53.0) % MCV 80.5 (80.0-100.0) fL MCH 26.5 (25.0-35.0) pg MCHC 32.9 (31.0-37.0) g/dL RDW 11.8 (11.5-15.5) % Plt Count 306 (150-450) k/uL MPV 9.0 Neutrophils % 77 % Lymphocytes % 16 % Monocytes % 5 % Eosinophils % 1 % Basophils % 0 % Neutrophils # 13.7 H (1.3-7.7) k/uL Lymphocytes # 2.8 (1.0-4.8) k/uL Monocytes # 0.9 (0-1.0) k/uL Eosinophils # 0.2 (0-0.7) k/uL Basophils # 0.1 (0-0.2) k/uL PT 9.8 (9.0-12.0) sec INR 0.9 (<1.2) APTT 22.9 (22.0-30.0) sec Sodium 127 L (137-145) mmol/L Potassium 4.6 (3.5-5.1) mmol/L Chloride 90 L (98-107) mmol/L Carbon Dioxide 23 (22-30) mmol/L Anion Gap 14 mmol/L BUN 10 (9-20) mg/dL Creatinine 0.54 L (0.66-1.25) mg/dL Est GFR (CKD-EPI)AfAm >90 (>60 ml/min/1.73 sqM) Est GFR (CKD-EPI)NonAf >90 (>60 ml/min/1.73 sqM) Glucose 476 H (74-99) mg/dL Plasma Lactic Acid Vin (0.7-2.0) mmol/L Calcium 9.4 (8.4-10.2) mg/dL Total Bilirubin 0.5 (0.2-1.3) mg/dL AST 24 (17-59) U/L ALT 31 (4-49) U/L Alkaline Phosphatase 211 H (38-126) U/L Total Protein 7.7 (6.3-8.2) g/dL Albumin 4.2 (3.5-5.0) g/dL Urine Color Urine Appearance (Clear) Urine pH (5.0-8.0) Ur Specific [place] (1.001-1.035) Urine Protein (Negative) Urine Glucose (UA) (Negative) Urine Ketones (Negative) Urine Blood (Negative) Urine Nitrite (Negative) Urine Bilirubin (Negative) Urine Urobilinogen (<2.0) mg/dL Ur Leukocyte Esterase (Negative) Acetone, Qual Negative (Negative) 10/01/21 10/01/21 Range/Units 21:02 21:43 WBC (3.8-10.6) k/uL RBC (4.30-5.90) m/uL Hgb (13.0-17.5) gm/dL Hct (39.0-53.0) % MCV (80.0-100.0) fL MCH (25.0-35.0) pg MCHC (31.0-37.0) g/dL RDW (11.5-15.5) % Plt Count (150-450) k/uL MPV Neutrophils % % Lymphocytes % % Monocytes % % Eosinophils % % Basophils % % Neutrophils # (1.3-7.7) k/uL Lymphocytes # (1.0-4.8) k/uL Monocytes # (0-1.0) k/uL Eosinophils # (0-0.7) k/uL Basophils # (0-0.2) k/uL PT (9.0-12.0) sec INR (<1.2) APTT (22.0-30.0) sec Sodium (137-145) mmol/L Potassium (3.5-5.1) mmol/L Chloride (98-107) mmol/L Carbon Dioxide (22-30) mmol/L Anion Gap mmol/L BUN (9-20) mg/dL Creatinine (0.66-1.25) mg/dL Est GFR (CKD-EPI)AfAm (>60 ml/min/1.73 sqM) Est GFR (CKD-EPI)NonAf (>60 ml/min/1.73 sqM) Glucose (74-99) mg/dL Plasma Lactic Acid Vin 1.4 (0.7-2.0) mmol/L Calcium (8.4-10.2) mg/dL Total Bilirubin (0.2-1.3) mg/dL AST (17-59) U/L ALT (4-49) U/L Alkaline Phosphatase (38-126) U/L Total Protein (6.3-8.2) g/dL Albumin (3.5-5.0) g/dL Urine Color Light Yellow Urine Appearance Clear (Clear) Urine pH 5.5 (5.0-8.0) Ur Specific [place] 1.040 H (1.001-1.035) Urine Protein Negative (Negative) Urine Glucose (UA) 4+ H (Negative) Urine Ketones 2+ H (Negative) Urine Blood Negative (Negative) Urine Nitrite Negative (Negative) Urine Bilirubin Negative (Negative) Urine Urobilinogen <2.0 (<2.0) mg/dL Ur Leukocyte Esterase Negative (Negative) Acetone, Qual (Negative) Disposition Clinical Impression: Abscess, Hyperglycemia, IV drug abuse Disposition: HOME SELF-CARE Condition: Good Instructions (If sedation given, give patient instructions): Abscess (ED) Additional Instructions: Take antibiotics as directed. Take your insulin as directed as well. If symptoms are worsening, urinating high fevers or redness is spreading return immediately to the emergency room. Otherwise continue antibiotics and follow up with primary care. Prescriptions: Sulfamethox-Tmp 800-160Mg [Bactrim DS 800-160 mg] 1 tab PO Q12HR #20 tab Cephalexin [Keflex] 500 mg PO Q6HR 10 Days #40 cap Is patient prescribed a controlled substance at d/c from ED?: No Referrals: Renee Martin MD [Primary Care Provider] - 1-2 days Time of Disposition: 22:42
[2021-10-02 00:01] LABS: Glucose,Whole Blood 408 mg/dL (75-99)
[2021-10-02] MEDS ORDERED: INSULIN REGULAR 100 UNIT/ML VIAL (IV) IV STA (00:25)
[2021-10-02 01:17] LABS: Glucose,Whole Blood 233 mg/dL (75-99)
[2021-10-02 01:50] VITALS: BP 159/87; PULSE 97; RESP 19
== END 2021-10-02 01:50 | disposition home or self-care (01) ==
LOC: EC 16:52
DX: L02.413 Cutaneous abscess of right upper limb (principal); E11.65 Type 2 diabetes mellitus with hyperglycemia; F19.10 Other psychoactive substance abuse, uncomplicated; J45.909 Unspecified asthma, uncomplicated; I10 Essential (primary) hypertension; F31.9 Bipolar disorder, unspecified; F17.200 Nicotine dependence, unspecified, uncomplicated; F12.90 Cannabis use, unspecified, uncomplicated; Z79.4 Long term (current) use of insulin
CPT/HCPCS: 99283; 96374; 96361 ×2; 10060; 36415 ×2; 80053; 82009; 83605; 85025; 85610; 85730; 81003; 87040; 73080; 73110; J0696

== ENCOUNTER 2021-11-06 12:39 | Emergency (ER) | payer OTHER ==
[2021-11-06 12:45] VITALS: RESP 18
--- NOTE | 2021-11-06 13:05 | ED ---
General Adult HPI - General Chief complaint: Recheck/Abnormal Lab/Rx Stated complaint: Hypertension Time Seen by Provider: 11/06/21 12:45 Source: patient, EMS Mode of arrival: EMS Limitations: no limitations - History of Present Illness Initial comments: Tam is a 31-year-old male with an extensive past medical history of polysubstance abuse. Patient reports he used 1 g of methamphetamine this morning. Patient then went to [facility] for check in, and check and he was found to be hypertensive and hyperglycemic he was given clonidine and transferred here for further evaluation. Upon evaluation patient has absolutely no complaints, he does not have his insulin with him and states he needs about 35 units for a sugar in the 500s. He has no chest pain, shortness breath, palpitations he has no headache or focal neurologic deficits. He doesn't want any testing he wants to go back to [place]. - Related Data Home Medications Medication Instructions Recorded Confirmed Insulin Detemir (Levemir) [Levemir] 45 unit SQ HS 07/21/21 10/01/21 INSULIN LISPRO (HumaLOG) [humaLOG] 25 units SQ AC-TID 10/01/21 10/01/21 Previous Rx's Medication Instructions Recorded amLODIPine [Norvasc] 5 mg PO DAILY #30 tab 07/28/21 Cephalexin [Keflex] 500 mg PO Q6HR 10 Days #40 cap 10/01/21 Sulfamethox-Tmp 800-160Mg [Bactrim 1 tab PO Q12HR #20 tab 10/01/21 DS 800-160 mg] Allergies Allergy/AdvReac Type Severity Reaction Status Date / Time No Known Allergies Allergy Verified 11/06/21 12:45 Review of Systems ROS Statement: Those systems with pertinent positive or pertinent negative responses have been documented in the HPI. ROS Other: All systems not noted in ROS Statement are negative. Past Medical History Past Medical History: Asthma, CVA/TIA, Diabetes Mellitus, Hypertension History of Any Multi-Drug Resistant Organisms: None Reported Past Surgical History: Orthopedic Surgery Additional Past Surgical History / Comment(s): Lasik surgery; Left ankle surgery Past Anesthesia/Blood Transfusion Reactions: No Reported Reaction Past Psychological History: Bipolar Smoking Status: Current every day smoker Past Alcohol Use History: None Reported Past Drug Use History: IV Drug Use, Marijuana, Methamphetamine General Exam - General Exam Comments Initial Comments: Physical Exam GENERAL: Patient is well-developed and well-nourished. Patient is nontoxic and well-hydrated and is in no distress. HENT: Normocephalic, Atraumatic. EYES: PERRL, EOMI PULMONARY: Unlabored respirations. CARDIOVASCULAR: RRR ABDOMEN: Non-distended SKIN: Skin is clear with no lesions or rashes and otherwise unremarkable. : Deferred NEUROLOGIC: Patient is alert and oriented x3. Moving all extremities spontaneously Normal gait MUSCULOSKELETAL: Normal extremities with adequate strength and full range of motion. PSYCHIATRIC: Normal psychiatric evaluation. 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 He did agree to take insulin as he didn't have any here with him. Patient was given insulin observed for a short period of time his sugar remains elevated but he feels comfortable managing with this himself. - Lab Data Lab Results 11/06/21 11/06/21 Range/Units 13:11 14:10 POC Glucose (mg/dL) 554 H 541 H (75-99) mg/dL POC Glu Prosthodontist/Educator Doug Golden [place] Disposition Clinical Impression: Hyperglycemia, Methamphetamine abuse Disposition: HOME SELF-CARE Condition: Stable Additional Instructions: Return to [place] Is patient prescribed a controlled substance at d/c from ED?: No Referrals: Renee Martin MD [Primary Care Provider] - 1-2 days
[2021-11-06] MEDS ORDERED: INSULIN REGULAR 100 UNIT/ML VIAL (IM/SQ) SQ ONE (13:06)
[2021-11-06 13:13] LABS: Glucose,Whole Blood 554 mg/dL (75-99)
[2021-11-06 14:12] LABS: Glucose,Whole Blood 541 mg/dL (75-99)
[2021-11-06 14:34] VITALS: BP 145/101; PULSE 99; TEMP 98.7
== END 2021-11-06 14:34 | disposition home or self-care (01) ==
LOC: EC 12:39
DX: E11.65 Type 2 diabetes mellitus with hyperglycemia (principal); F15.10 Other stimulant abuse, uncomplicated; J45.909 Unspecified asthma, uncomplicated; Z86.73 Personal history of transient ischemic attack (TIA), and cerebral infarction without residual deficits; I10 Essential (primary) hypertension; F31.9 Bipolar disorder, unspecified; F17.200 Nicotine dependence, unspecified, uncomplicated; F12.90 Cannabis use, unspecified, uncomplicated
CPT/HCPCS: 36415; 96372; 99285

== ENCOUNTER 2021-12-04 02:33 | Emergency (ER) | payer OTHER ==
[2021-12-04 02:42] VITALS: RESP 18; TEMP 97.2
[2021-12-04 03:49] VITALS: PULSE 88
[2021-12-04 04:14] LABS: Glucose,Whole Blood 310 mg/dL (75-99)
[2021-12-04] MEDS ORDERED: INSULIN ASPART (NovoLOG) 100 UNIT/ML VIAL SQ ONE (04:14)
--- NOTE | 2021-12-04 05:10 | ED ---
Psych HPI - General Chief Complaint: Psychiatric Symptoms Stated Complaint: Mental Health Source: patient Mode of arrival: ambulatory - History of Present Illness Initial Comments: [id number] presents to the emergency department with suicidal ideations. He was brought in by police for psychiatric evaluation. Patient provides the history that he got stuck outside in the cold waiting for a friend to come home from work. He was freezing and therefore he flagged down police. They realize that he had multiple warrants out for his arrest and attempted to take him to [facility]. When this happens the patient started making complaints that he was suicidal. Stated that he would take a bunch of meth overdose. Also reports that he would walk in front of a car. Because of this they did bring him into the emergency department for psychiatric evaluation. Patient reports to the nursing staff that he said this only because he did not want to go to [facility]. Reports to me that he wants remained hospitalized until Sunday and then he will go to [facility]. States that he will do whatever he needs to do to make it so that he is not safe to be incarcerated. - Related Data Home Medications Medication Instructions Recorded Confirmed Insulin Detemir (Levemir) [Levemir] 45 unit SQ HS 07/21/21 10/01/21 INSULIN LISPRO (HumaLOG) [humaLOG] 25 units SQ AC-TID 10/01/21 10/01/21 Previous Rx's Medication Instructions Recorded amLODIPine [Norvasc] 5 mg PO DAILY #30 tab 07/28/21 Cephalexin [Keflex] 500 mg PO Q6HR 10 Days #40 cap 10/01/21 Sulfamethox-Tmp 800-160Mg [Bactrim 1 tab PO Q12HR #20 tab 10/01/21 DS 800-160 mg] Allergies Allergy/AdvReac Type Severity Reaction Status Date / Time No Known Allergies Allergy Verified 12/04/21 06:32 Review of Systems ROS Statement: Those systems with pertinent positive or pertinent negative responses have been documented in the HPI. ROS Other: All systems not noted in ROS Statement are negative. Past Medical History Past Medical History: Asthma, CVA/TIA, Diabetes Mellitus, Hypertension History of Any Multi-Drug Resistant Organisms: None Reported Past Surgical History: Orthopedic Surgery Additional Past Surgical History / Comment(s): Lasik surgery; Left ankle surgery Past Anesthesia/Blood Transfusion Reactions: No Reported Reaction Past Psychological History: Bipolar Smoking Status: Current every day smoker Past Alcohol Use History: None Reported Past Drug Use History: IV Drug Use, Marijuana, Methamphetamine General Exam Limitations: no limitations Course Vital Signs 12/04/21 12/04/21 12/04/21 02:38 03:48 05:26 Temperature 97.2 F L Pulse Rate 87 88 88 Respiratory 18 18 18 Rate Blood Pressure 176/116 162/120 163/112 O2 Sat by Pulse 97 97 97 Oximetry Medical Decision Making - Medical Decision Making Upon arrival patient is placed into room 12. History and physical exam was performed. Because the patients statements, I did have EPS evaluate the patient. He politely tells them that he only said when he said because he did not want to go to [facility]. EPS nurse does speak with the psychiatrist. They feel that he was stable for discharge to [facility]. I did complete an Accu-Chek and the patient's glucose was 310. He was given his 25 mg of NovoLog. Patient cleared for return to [facility] - Lab Data Lab Results 12/04/21 12/04/21 Range/Units 04:11 04:37 POC Glucose (mg/dL) 310 H (75-99) mg/dL POC Glu Wash Box Operator ALEXI Armin De [place] Urine Opiates Screen Not Detected (NotDetected) Ur Oxycodone Screen Not Detected (NotDetected) Urine Methadone Screen Not Detected (NotDetected) Ur Propoxyphene Screen Not Detected (NotDetected) Ur Barbiturates Screen Not Detected (NotDetected) U Tricyclic Antidepress Not Detected (NotDetected) Ur Phencyclidine Scrn Not Detected (NotDetected) Ur Amphetamines Screen Detected H (NotDetected) U Methamphetamines Scrn Detected H (NotDetected) U Benzodiazepines Scrn Not Detected (NotDetected) Urine Cocaine Screen Not Detected (NotDetected) U Marijuana (THC) Screen Detected H (NotDetected) Disposition Clinical Impression: Hyperglycemia Disposition: HOME SELF-CARE Condition: Stable Instructions (If sedation given, give patient instructions): Diabetic Hyperglycemia (ED) Is patient prescribed a controlled substance at d/c from ED?: No Referrals: Renee Martin MD [Primary Care Provider] - 1-2 days Time of Disposition: 05:09
[2021-12-04 05:12] LABS: Amphetamine Screen,Urine Detected (NotDetected); Barbiturate Screen,Urine Not Detected (NotDetected); Benzodiazepines Screen,Urine Not Detected (NotDetected); Cocaine Screen,Urine Not Detected (NotDetected); Methadone Screen, Urine Not Detected (NotDetected); Opiate Screen,Urine Not Detected (NotDetected); Oxycodone Screen, Urine Not Detected (NotDetected); Phencyclidine Screen,Urine Not Detected (NotDetected); Tricyclic Antidepressant,Urine Not Detected (NotDetected); Urn Cannabinoid Scrn Detected (NotDetected)
[2021-12-04 05:28] VITALS: BP 163/112
== END 2021-12-04 05:29 | disposition home or self-care (01) ==
LOC: EC 02:33
DX: E11.65 Type 2 diabetes mellitus with hyperglycemia (principal); I10 Essential (primary) hypertension; J45.909 Unspecified asthma, uncomplicated; F31.9 Bipolar disorder, unspecified; F17.200 Nicotine dependence, unspecified, uncomplicated; F12.90 Cannabis use, unspecified, uncomplicated; F15.90 Other stimulant use, unspecified, uncomplicated; Z79.4 Long term (current) use of insulin; Z79.899 Other long term (current) drug therapy
CPT/HCPCS: 36415; 80306; 82075; 99284

== ENCOUNTER 2021-12-04 06:28 | Emergency (ER) | payer OTHER ==
[2021-12-04 06:37] VITALS: RESP 18; TEMP 98.2
--- NOTE | 2021-12-04 06:45 | ED ---
Medical Clearance HPI - General Chief complaint: Medical Clearance Stated complaint: Penitentiary Clearance Time Seen by Provider: 12/04/21 06:29 Source: patient, police, RN notes reviewed Mode of arrival: ambulatory Limitations: no limitations - History of Present Illness Initial comments: This is a 31-year-old male presents emergency apartment with police for senior care clearance. Patient was sent over here by senior care nurse for clearance. Patient was artery in the emergency department prior for clearance secondary psychiatric issues. Patient sent over here for cardiac clearance because of his history though patient denies any chest pain shortness of breath headache dizziness. Patient does admit that he uses methamphetamines last night. Patient states he still feels like symptoms. Patient has nausea and diarrhea constipation patient does have a history of diabetes. Home medications: Home Medications Medication Instructions Recorded Confirmed Insulin Detemir (Levemir) [Levemir] 45 unit SQ HS 07/21/21 10/01/21 INSULIN LISPRO (HumaLOG) [humaLOG] 25 units SQ AC-TID 10/01/21 10/01/21 Previous Rx's Medication Instructions Recorded amLODIPine [Norvasc] 5 mg PO DAILY #30 tab 07/28/21 Cephalexin [Keflex] 500 mg PO Q6HR 10 Days #40 cap 10/01/21 Sulfamethox-Tmp 800-160Mg [Bactrim 1 tab PO Q12HR #20 tab 10/01/21 DS 800-160 mg] Allergies/Adverse reactions: Allergies Allergy/AdvReac Type Severity Reaction Status Date / Time No Known Allergies Allergy Verified 12/04/21 06:32 Review of Systems ROS Statement: Those systems with pertinent positive or pertinent negative responses have been documented in the HPI. ROS Other: All systems not noted in ROS Statement are negative. Past Medical History Past Medical History: Asthma, CVA/TIA, Diabetes Mellitus, Hypertension History of Any Multi-Drug Resistant Organisms: None Reported Past Surgical History: Orthopedic Surgery Additional Past Surgical History / Comment(s): Lasik surgery; Left ankle surgery Past Anesthesia/Blood Transfusion Reactions: No Reported Reaction Past Psychological History: Bipolar Smoking Status: Current every day smoker Past Alcohol Use History: None Reported Past Drug Use History: IV Drug Use, Marijuana, Methamphetamine General Exam Limitations: no limitations General appearance: alert, in no apparent distress Head exam: Present: atraumatic, normocephalic, normal inspection Eye exam: Present: normal appearance, PERRL, EOMI. Absent: scleral icterus, conjunctival injection, periorbital swelling ENT exam: Present: normal exam, normal oropharynx, mucous membranes moist Neck exam: Present: normal inspection, full ROM. Absent: tenderness, meningismus, lymphadenopathy Respiratory exam: Present: normal lung sounds bilaterally. Absent: respiratory distress, wheezes, rales, rhonchi, stridor Cardiovascular Exam: Present: normal rhythm, tachycardia, normal heart sounds. Absent: systolic murmur, diastolic murmur, rubs, gallop, clicks GI/Abdominal exam: Present: soft, normal bowel sounds. Absent: distended, tenderness, guarding, rebound, rigid Neurological exam: Present: alert, oriented X3 Skin exam: Present: warm, dry, intact, normal color. Absent: rash Course Vital Signs 12/04/21 12/04/21 06:32 07:11 Temperature 98.2 F Pulse Rate 131 H 119 H Respiratory 18 18 Rate Blood Pressure 166/114 138/89 O2 Sat by Pulse 98 97 Oximetry Medical Decision Making - Medical Decision Making Patient's blood pressure and heart rate did improve. Patient has known history of hypertension diabetes. Patient EKG does not reveal any acute changes. Patient does have mild tachycardia related to his methamphetamine use. Patient was discharged to senior care. Disposition Clinical Impression: Medical clearance for incarceration Disposition: HOME SELF-CARE Condition: Stable Instructions (If sedation given, give patient instructions): Medical Clearance for Substance Abuse Treatment (ED) Additional Instructions: Please return to the Emergency Department if symptoms worsen or any other concerns. Is patient prescribed a controlled substance at d/c from ED?: No Referrals: Renee Martin MD [Primary Care Provider] - 1-2 days Time of Disposition: 08:05
[2021-12-04] MEDS ORDERED: LABETALOL 5 MG/ML VIAL MDV IVP STA (06:49)
[2021-12-04 07:19] VITALS: BP 138/89; PULSE 119
== END 2021-12-04 07:28 | disposition home or self-care (01) ==
LOC: EC 06:28
DX: E11.9 Type 2 diabetes mellitus without complications; I10 Essential (primary) hypertension; J45.909 Unspecified asthma, uncomplicated; F31.9 Bipolar disorder, unspecified; F17.200 Nicotine dependence, unspecified, uncomplicated; F12.90 Cannabis use, unspecified, uncomplicated; F15.90 Other stimulant use, unspecified, uncomplicated; Z79.4 Long term (current) use of insulin; Z79.899 Other long term (current) drug therapy
CPT/HCPCS: 93005; 99283

== ENCOUNTER 2022-01-03 10:15 | Observation (INO) | payer OTHER ==
[2022-01-03] MEDS ORDERED: ASPIRIN 81 MG PO STA (11:15)
[2022-01-03] MEDS ORDERED: NITROGLYCERIN OINT 1 INCH/GM PACKET TOPICAL STA (11:15)
[2022-01-03 11:22] LABS: Basophils % (A) 0 %; Eosinophils # (A) 0.3 k/uL (0-0.7); Eosinophils % (A) 3 %; HGB 14.1 gm/dL (13.0-17.5); Lymphocytes # (A) 2.1 k/uL (1.0-4.8); Lymphocytes % (A) 20 %; MCHC 32.8 g/dL (31.0-37.0); MCV 82.3 fL (80.0-100.0); Mean Platelet Volume 8.3; Monocytes # (A) 0.4 k/uL (0-1.0); Monocytes % (A) 4 %; Neutrophils # (A) 7.6 k/uL (1.3-7.7); Neutrophils % (A) 72 %; Platelet Count 264 k/uL (150-450); RBC 5.23 m/uL (4.30-5.90); RDW 13.1 % (11.5-15.5); WBC 10.6 k/uL (3.8-10.6)
[2022-01-03 11:36] LABS: ALT 19 U/L (4-49); AST 22 U/L (17-59); African American GFR (CKD) >90 (>60 ml/min/1.73 sqM); Albumin 3.8 g/dL (3.5-5.0); Alkaline Phosphatase 79 U/L (38-126); Anion Gap 6 mmol/L; Blood Urea Nitrogen 9 mg/dL (9-20); Calcium 8.7 mg/dL (8.4-10.2); Carbon Dioxide 24 mmol/L (22-30); Chloride 107 mmol/L (98-107); Glucose 151 mg/dL (74-99); INR 0.9 (<1.2); Magnesium 1.9 mg/dL (1.6-2.3); Non-African American GFR(CKD) >90 (>60 ml/min/1.73 sqM); Partial Thromboplastin Time 22.9 sec (22.0-30.0); Potassium 4.7 mmol/L (3.5-5.1); Sodium 137 mmol/L (137-145); Total Bilirubin 0.4 mg/dL (0.2-1.3); Total Protein 6.9 g/dL (6.3-8.2)
--- NOTE | 2022-01-03 11:42 | ED ---
General Adult HPI - General Chief complaint: Chest Pain Stated complaint: chest pain Time Seen by Provider: 01/03/22 10:20 Source: patient, EMS, RN notes reviewed, old records reviewed Mode of arrival: EMS Limitations: no limitations - History of Present Illness Initial comments: This is a 31-year-old male who presents emergency Department stating his past medical history significant for heart attack and multiple TIAs. Patient comes in today stating he started experiencing chest pain she describes as pressure about 3:00 morning. Patient states it did not radiate anywhere but he did feel somewhat short of breath. Patient states he did come and go and lasts about 10- 15 minutes at a time. Patient denies any diaphoretic episodes. Patient denies any nausea. Patient states he also does methamphetamine. Patient has a past medical history significant for diabetes and high blood pressure has a strong family history for heart disease. Patient denies any recent fever chills or cough per patient denies any swelling to the legs or calf tenderness. - Related Data Home Medications Medication Instructions Recorded Confirmed Insulin Detemir (Levemir) [Levemir] 45 unit SQ HS 07/21/21 10/01/21 INSULIN LISPRO (HumaLOG) [humaLOG] 25 units SQ AC-TID 10/01/21 10/01/21 Previous Rx's Medication Instructions Recorded amLODIPine [Norvasc] 5 mg PO DAILY #30 tab 07/28/21 Cephalexin [Keflex] 500 mg PO Q6HR 10 Days #40 cap 10/01/21 Sulfamethox-Tmp 800-160Mg [Bactrim 1 tab PO Q12HR #20 tab 10/01/21 DS 800-160 mg] Allergies Allergy/AdvReac Type Severity Reaction Status Date / Time No Known Allergies Allergy Verified 01/03/22 10:26 Review of Systems ROS Statement: Those systems with pertinent positive or pertinent negative responses have been documented in the HPI. ROS Other: All systems not noted in ROS Statement are negative. Past Medical History Past Medical History: Asthma, CVA/TIA, Diabetes Mellitus, Hypertension History of Any Multi-Drug Resistant Organisms: None Reported Past Surgical History: Orthopedic Surgery Additional Past Surgical History / Comment(s): Lasik surgery; Left ankle surgery Past Anesthesia/Blood Transfusion Reactions: No Reported Reaction Past Psychological History: Bipolar Smoking Status: Current every day smoker Past Alcohol Use History: None Reported Past Drug Use History: IV Drug Use, Marijuana, Methamphetamine General Exam - General Exam Comments Initial Comments: GENERAL: Patient is well-developed and well-nourished. Patient is nontoxic and well- hydrated and is in mild distress. ENT: Neck is soft and supple. No significant lymphadenopathy is noted. Oropharynx is clear. Moist mucous membranes. Neck has full range of motion without eliciting any pain. EYES: The sclera were anicteric and conjunctiva were pink and moist. Extraocular movements were intact and pupils were equal round and reactive to light. Eyelids were unremarkable. PULMONARY: Unlabored respirations. Good breath sounds bilaterally. No audible rales rhonchi or wheezing was noted. CARDIOVASCULAR: There is a regular rate and rhythm without any murmurs gallops or rubs. ABDOMEN: Soft and nontender with normal bowel sounds. SKIN: Skin is clear with no lesions or rashes and otherwise unremarkable. NEUROLOGIC: Patient is alert and oriented x3. Cranial nerves II through XII are grossly intact. Motor and sensory are also intact. Normal speech, volume and content. Symmetrical smile. MUSCULOSKELETAL: Normal extremities with adequate strength and full range of motion. No lower extremity swelling or edema. No calf tenderness. LYMPHATICS: No significant lymphadenopathy is noted PSYCHIATRIC: Normal psychiatric evaluation. Limitations: no limitations Course Vital Signs 01/03/22 10:20 Temperature 98.0 F Pulse Rate 77 Respiratory 18 Rate Blood Pressure 134/94 O2 Sat by Pulse 98 Oximetry Medical Decision Making - Medical Decision Making EKG shows sinus rhythm at 76 bpm MD interval 160 QRS is 104 QT interval is 4:30 QTC is 433. Patient's EKG shows no ST segment elevation or depression. Chest x-ray shows no acute abnormality. I will back into the room to talk about the results with the patient and he was stating he still had some discomfort in his chest and he really felt uncomfortable going home. I spoke with some physicians agreed to admit the patient admitted the patient wrote admitting orders. - Lab Data Result diagrams: 01/03/22 11:13 01/03/22 11:13 Lab Results 01/03/22 01/03/22 01/03/22 Range/Units 11:13 11:13 11:13 WBC 10.6 (3.8-10.6) k/uL RBC 5.23 (4.30-5.90) m/uL Hgb 14.1 (13.0-17.5) gm/dL Hct 43.0 (39.0-53.0) % MCV 82.3 (80.0-100.0) fL MCH 27.0 (25.0-35.0) pg MCHC 32.8 (31.0-37.0) g/dL RDW 13.1 (11.5-15.5) % Plt Count 264 (150-450) k/uL MPV 8.3 Neutrophils % 72 % Lymphocytes % 20 % Monocytes % 4 % Eosinophils % 3 % Basophils % 0 % Neutrophils # 7.6 (1.3-7.7) k/uL Lymphocytes # 2.1 (1.0-4.8) k/uL Monocytes # 0.4 (0-1.0) k/uL Eosinophils # 0.3 (0-0.7) k/uL Basophils # 0.0 (0-0.2) k/uL PT 10.0 (9.0-12.0) sec INR 0.9 (<1.2) APTT 22.9 (22.0-30.0) sec Sodium 137 (137-145) mmol/L Potassium 4.7 (3.5-5.1) mmol/L Chloride 107 (98-107) mmol/L Carbon Dioxide 24 (22-30) mmol/L Anion Gap 6 mmol/L BUN 9 (9-20) mg/dL Creatinine 0.59 L (0.66-1.25) mg/dL Est GFR (CKD-EPI)AfAm >90 (>60 ml/min/1.73 sqM) Est GFR (CKD-EPI)NonAf >90 (>60 ml/min/1.73 sqM) Glucose 151 H (74-99) mg/dL Calcium 8.7 (8.4-10.2) mg/dL Magnesium 1.9 (1.6-2.3) mg/dL Total Bilirubin 0.4 (0.2-1.3) mg/dL AST 22 (17-59) U/L ALT 19 (4-49) U/L Alkaline Phosphatase 79 (38-126) U/L Troponin I (0.000-0.034) ng/mL Total Protein 6.9 (6.3-8.2) g/dL Albumin 3.8 (3.5-5.0) g/dL 03/22/22 Range/Units 11:13 WBC (3.8-10.6) k/uL RBC (4.30-5.90) m/uL Hgb (13.0-17.5) gm/dL Hct (39.0-53.0) % MCV (80.0-100.0) fL MCH (25.0-35.0) pg MCHC (31.0-37.0) g/dL RDW (11.5-15.5) % Plt Count (150-450) k/uL MPV Neutrophils % % Lymphocytes % % Monocytes % % Eosinophils % % Basophils % % Neutrophils # (1.3-7.7) k/uL Lymphocytes # (1.0-4.8) k/uL Monocytes # (0-1.0) k/uL Eosinophils # (0-0.7) k/uL Basophils # (0-0.2) k/uL PT (9.0-12.0) sec INR (<1.2) APTT (22.0-30.0) sec Sodium (137-145) mmol/L Potassium (3.5-5.1) mmol/L Chloride (98-107) mmol/L Carbon Dioxide (22-30) mmol/L Anion Gap mmol/L BUN (9-20) mg/dL Creatinine (0.66-1.25) mg/dL Est GFR (CKD-EPI)AfAm (>60 ml/min/1.73 sqM) Est GFR (CKD-EPI)NonAf (>60 ml/min/1.73 sqM) Glucose (74-99) mg/dL Calcium (8.4-10.2) mg/dL Magnesium (1.6-2.3) mg/dL Total Bilirubin (0.2-1.3) mg/dL AST (17-59) U/L ALT (4-49) U/L Alkaline Phosphatase (38-126) U/L Troponin I <0.012 (0.000-0.034) ng/mL Total Protein (6.3-8.2) g/dL Albumin (3.5-5.0) g/dL Disposition Clinical Impression: Chest pain, Methamphetamine abuse Disposition: ADMITTED IP TO THIS HOSP Referrals: None,Stated [Primary Care Provider] - 1-2 days Time of Disposition: 12:23
--- NOTE | 2022-01-03 11:52 | XR ---
EXAMINATION TYPE: XR chest 2V DATE OF EXAM: 01/03/2022 COMPARISON: Chest x-ray November 25, 2020 and older studies HISTORY: Chest pain. TECHNIQUE: Frontal and lateral views of the chest are obtained. FINDINGS: There is no suspicious focal air space opacity, pleural effusion, or pneumothorax seen. T he cardiac silhouette size is stable and within normal limits. The osseous structures are intact. IMPRESSION: No acute process.
[2022-01-03] MEDS ORDERED: NITROGLYCERIN SL TABS 0.4 MG TAB SUBLINGUAL PRN (12:58)
[2022-01-03] MEDS ORDERED: ACETAMINOPHEN TAB 325 MG TAB PO PRN (14:40)
--- NOTE | 2022-01-03 14:47 | P.HPIM ---
History of Present Illness H&P Date: 01/03/22 Chief Complaint: CC: chest pain Patient is a 31-year-old male who was recently incarcerated one week ago and with past medical history of hypertension and diabetes who presents to the ED with left-sided pressure-like chest pain. Patient states that the pain started when he was sleeping this morning. He states that exertion does not make it worse. Patient stated that when he was in correction he was sent to the ED to be evaluated for his chest pain and was discharged with no workup except an EKG. Patient states that he has been taking methamphetamine since he was discharged from correction. Patient also states that there is a lot of stress in his life where he is going through a divorce and has the potential to lose his children. Patient currently does not appear to be in any distress he was resting in bed comfortably. Review of Systems 10 ROS reviewed and are negative except as noted in HPI Past Medical History Past Medical History: Asthma, CVA/TIA, Diabetes Mellitus, Hypertension History of Any Multi-Drug Resistant Organisms: None Reported Past Surgical History: Orthopedic Surgery Additional Past Surgical History / Comment(s): Lasik surgery; Left ankle surgery Past Anesthesia/Blood Transfusion Reactions: No Reported Reaction Past Psychological History: Bipolar Smoking Status: Current every day smoker Past Alcohol Use History: None Reported Past Drug Use History: IV Drug Use, Marijuana, Methamphetamine Medications and Allergies Home Medications Medication Instructions Recorded Confirmed Type Insulin Detemir (Levemir) [Levemir] 40 unit SQ HS 07/21/21 01/03/22 History INSULIN LISPRO (HumaLOG) [humaLOG] See Protocol SQ ACHS 10/01/21 01/03/22 History Acetaminophen Tab [Tylenol] 650 mg PO Q4H PRN 01/03/22 01/03/22 History Calcium/Magnesium/Zinc/Vitamin D 1 tab PO TID PRN 01/03/22 01/03/22 History Chlorpheniramine Maleate 4 mg PO Q4H PRN 01/03/22 01/03/22 History [Chlor-Trimeton] Ibuprofen [Motrin Ib] 600 mg PO Q6H PRN 01/03/22 01/03/22 History Lisinopril [Prinivil] 10 mg PO DAILY 01/03/22 01/03/22 History Loperamide [Imodium] 4 mg PO QID PRN 01/03/22 01/03/22 History Mag Hydrox/Aluminum Hyd/Simeth 30 ml PO Q4H PRN 01/03/22 01/03/22 History [Mylanta Maximum Strength Liq] Multivitamins, Thera [Multivitamin 1 tab PO DAILY 01/03/22 01/03/22 History (formulary)] Thiamine [Vitamin B-1] 100 mg PO DAILY 01/03/22 01/03/22 History cloNIDine HCL [Catapres] 0.1 - 0.3 mg PO Q4H PRN 01/03/22 01/03/22 History guaiFENesin [guaiFENesin Oral 200 mg PO Q4H PRN 01/03/22 01/03/22 History Solution] ondansetron HCL [Zofran] 8 mg PO Q6H PRN 01/03/22 01/03/22 History Allergies Allergy/AdvReac Type Severity Reaction Status Date / Time No Known Allergies Allergy Verified 01/03/22 13:18 Physical Exam Osteopathic Statement: *. No significant issues noted on an osteopathic structural exam other than those noted in the History and Physical/Consult. Vitals: Vital Signs Temp Pulse Resp BP Pulse Ox 01/03/22 10:20 98.0 F 77 18 134/94 98 Intake and Output 01/02/22 01/03/22 01/03/22 22:59 06:59 14:59 Other: Weight 123.377 kg General: [Alert and oriented, well nourished, no acute distress]. Eye: [PERRL, EOMI, normal conjunctiva]. HENT: [Normocephalic, clear tympanic membranes, normal hearing, moist oral mucosa, no scleral icterus, no sinus tenderness]. Neck: [Supple, non-tender, no carotid bruits, no JVD, no lymphadenopathy]. Lungs: [Clear to auscultation and percussion, non-labored respiration]. Heart: [Normal rate, regular rhythm, no murmur, gallop or edema]. Abdomen: [Soft, non-tender, non-distended, normal bowel sounds, no masses]. Musculoskeletal: [Normal range of motion and strength, no tenderness or swelling]. Skin: [Skin is warm, dry and pink, no rashes or lesions]. Neurologic: [Awake, alert, and oriented X3, CN II-XII intact]. Psychiatric: [Cooperative, appropriate mood and affect]. Results CBC & Chem 7: 01/03/22 11:13 01/03/22 11:13 Labs: Abnormal Lab Results - Last 24 Hours (Table) 01/03/22 Range/Units 11:13 Creatinine 0.59 L (0.66-1.25) mg/dL Glucose 151 H (74-99) mg/dL Assessment and Plan Assessment: Atypical chest pain We'll check troponins 3 to rule out ACS Cardiology consult placed by ED physician EKG negative for any ST changes Resume aspirin and nitro ointment Hypertension -Resume lisinopril Diabetes mellitus -Resume Levemir at night and sliding scale insulin Methamphetamine abuse -Patient counseled on drug abuse CODE STATUS:full code DVT prophylaxis: low VTE score so encourage ambulation Discussed with: Patient, ER, rn Anticipated length of stay < than [address]: home
[2022-01-03] MEDS: INSULIN ASPART (NovoLOG) 100 UNIT/ML VIAL SQ SCH ×2 (20:09→21:10)
[2022-01-03] MEDS: NITROGLYCERIN OINT 1 INCH/GM PACKET TOPICAL SCH (20:09)
[2022-01-03 20:37] LABS: Glucose,Whole Blood 239 mg/dL (75-99)
[2022-01-03] MEDS ORDERED: INSULIN DETEMIR (LEVEMIR) 100 UNIT/ML SYR SQ SCH (21:00)
[2022-01-04] MEDS: NITROGLYCERIN OINT 1 INCH/GM PACKET TOPICAL SCH ×2 (01:06→05:40)
[2022-01-04 04:20] VITALS: RESP 17
[2022-01-04 07:52] LABS: Glucose,Whole Blood 176 mg/dL (75-99)
--- NOTE | 2022-01-04 08:04 | P.CRDCN ---
History of Present Illness History of present illness: 31-year-old gentleman comes to Hospital complaining of chest pain. Patient apparently was in a present up until recently was discharged home and week ago woken up from sleep with chest discomfort and came to the emergency room. His chest discomfort is sharp pericardial mild intensity unrelated to exertion and not associated with diaphoresis. There are no clear-cut relieving or exacerba ting factors. He has had 3 sets of cardiac enzymes that are negative and EKG does not reveal ischemic changes. There is no prior history of coronary artery disease or congestive heart failure. Eye on advised the patient to undergo an echocardiogram and stress echo and if necessary I will perform invasive angiography. Constitutional: Denies chills. Denies fever. Eyes: Denies blurred vision. Denies pain. Ears, nose, mouth and throat: Denies headache. Denies sore throat. Cardiovascular: Significant for chest pain Denies shortness of breath. Respiratory: Denies cough. Gastrointestinal: Denies abdominal pain. Denies diarrhea. Denies nausea. Denies vomiting. Musculoskeletal: Denies myalgias. Integumentary: Denies pruritus. Denies rash. Neurological: Denies numbness. Denies weakness. Psychiatric: Denies anxiety. Denies depression. Endocrine: Denies fatigue. Denies weight change. Genitourinary: Denies burning, hematuria, frequency of urination. Hematological: No anemia or excess bleeding. General: The patient is awake and alert, in no distress, and does not appear acutely ill. Skin: Skin is warm and dry and no rashes or lesions are noted. Eye: Pupils are equal, round and reactive to light, extra-ocular movements are intact; there is normal conjunctiva bilaterally. Ears, nose, mouth and throat: There are moist mucous membranes and no oral lesions. Neck: The neck is supple, there is no tenderness or JVD. Cardiovascular: There is a regular rate and rhythm. No murmur, rub or gallop is appreciated. Respiratory: Lungs are clear to auscultation, respirations are non-labored, breath sounds are equal. Gastrointestinal: Soft, non-distended, non-tender abdomen without masses or organomegaly noted. There is no rebound or guarding present. Bowel sounds are unremarkable. Back: There is no tenderness to palpation in the midline. There is no obvious deformity. Musculoskeletal: Normal ROM, no tenderness, There is no pedal edema. There is no calf tenderness or swelling. Extremities: No edema. Vascular: Femoral pulse is normal. Posterior tibial pulses are normal .Dorsalis pedis is palpable. Neurological: CN II-XII intact. There are no obvious motor or sensory deficits. Speech is normal. Psychiatric: Cooperative, appropriate mood & affect, normal judgment. Labs: Troponins are negative. Potassium is 4.7. Creatinine is 0.59. Hemoglobin is normal. Assessment and plan: Precordial chest pain rule out CAD I will obtain a 2-D echo and stress echo and they're unremarkable he can be discharged home and follow-up with primary care physician Past Medical History Past Medical History: Asthma, CVA/TIA, Diabetes Mellitus, Hypertension History of Any Multi-Drug Resistant Organisms: None Reported Past Surgical History: Orthopedic Surgery Additional Past Surgical History / Comment(s): Lasik surgery; Left ankle surgery Past Anesthesia/Blood Transfusion Reactions: No Reported Reaction Past Psychological History: Bipolar Smoking Status: Current every day smoker Past Alcohol Use History: None Reported Past Drug Use History: IV Drug Use, Marijuana, Methamphetamine Medications and Allergies Home Medications Medication Instructions Recorded Confirmed Type Insulin Detemir (Levemir) [Levemir] 40 unit SQ HS 07/21/21 01/03/22 History INSULIN LISPRO (HumaLOG) [humaLOG] See Protocol SQ ACHS 10/01/21 01/03/22 History Acetaminophen Tab [Tylenol] 650 mg PO Q4H PRN 01/03/22 01/03/22 History Calcium/Magnesium/Zinc/Vitamin D 1 tab PO TID PRN 01/03/22 01/03/22 History Chlorpheniramine Maleate 4 mg PO Q4H PRN 01/03/22 01/03/22 History [Chlor-Trimeton] Ibuprofen [Motrin Ib] 600 mg PO Q6H PRN 01/03/22 01/03/22 History Lisinopril [Prinivil] 10 mg PO DAILY 01/03/22 01/03/22 History Loperamide [Imodium] 4 mg PO QID PRN 01/03/22 01/03/22 History Mag Hydrox/Aluminum Hyd/Simeth 30 ml PO Q4H PRN 01/03/22 01/03/22 History [Mylanta Maximum Strength Liq] Multivitamins, Thera [Multivitamin 1 tab PO DAILY 01/03/22 01/03/22 History (formulary)] Thiamine [Vitamin B-1] 100 mg PO DAILY 01/03/22 01/03/22 History cloNIDine HCL [Catapres] 0.1 - 0.3 mg PO Q4H PRN 01/03/22 01/03/22 History guaiFENesin [guaiFENesin Oral 200 mg PO Q4H PRN 01/03/22 01/03/22 History Solution] ondansetron HCL [Zofran] 8 mg PO Q6H PRN 01/03/22 01/03/22 History Allergies Allergy/AdvReac Type Severity Reaction Status Date / Time No Known Allergies Allergy Verified 01/03/22 13:18 Physical Exam Vitals: Vital Signs Temp Pulse Pulse Resp BP BP Pulse Ox 01/04/22 02:41 97.5 F L 76 17 130/80 100 01/03/22 19:20 97.9 F 76 16 126/72 97 01/03/22 18:30 98.1 F 75 18 126/82 99 01/03/22 17:00 82 18 124/81 99 01/03/22 15:00 98.0 F 78 18 126/79 98 01/03/22 13:00 81 18 130/86 99 01/03/22 10:20 98.0 F 77 18 134/94 98 Intake and Output 01/03/22 01/04/22 01/04/22 22:59 06:59 14:59 Other: # Voids 1 1 Weight 123.377 kg Results 01/03/22 11:13 01/03/22 11:13 Cardiac Enzymes 01/03/22 01/03/22 01/03/22 Range/Units 11:13 11:13 13:17 AST 22 (17-59) U/L Troponin I <0.012 <0.012 (0.000-0.034) ng/mL 01/03/22 Range/Units 16:11 AST (17-59) U/L Troponin I <0.012 (0.000-0.034) ng/mL Coagulation 01/03/22 Range/Units 11:13 PT 10.0 (9.0-12.0) sec APTT 22.9 (22.0-30.0) sec CBC 01/03/22 Range/Units 11:13 WBC 10.6 (3.8-10.6) k/uL RBC 5.23 (4.30-5.90) m/uL Hgb 14.1 (13.0-17.5) gm/dL Hct 43.0 (39.0-53.0) % Plt Count 264 (150-450) k/uL Comprehensive Metabolic Panel 01/03/22 Range/Units 11:13 Sodium 137 (137-145) mmol/L Potassium 4.7 (3.5-5.1) mmol/L Chloride 107 (98-107) mmol/L Carbon Dioxide 24 (22-30) mmol/L BUN 9 (9-20) mg/dL Creatinine 0.59 L (0.66-1.25) mg/dL Glucose 151 H (74-99) mg/dL Calcium 8.7 (8.4-10.2) mg/dL AST 22 (17-59) U/L ALT 19 (4-49) U/L Alkaline Phosphatase 79 (38-126) U/L Total Protein 6.9 (6.3-8.2) g/dL Albumin 3.8 (3.5-5.0) g/dL Current Medications Generic Name Dose Route Start Last Admin Trade Name Freq PRN Reason Stop Dose Admin Acetaminophen 650 mg 01/03/22 14:40 Acetaminophen Tab 325 Mg Tab PO Q4H PRN Fever and/ or mild Pain Aspirin 325 mg 01/04/22 09:00 Aspirin 325 Mg Tab PO DAILY [facility] Insulin Aspart 0 unit 01/03/22 17:30 01/03/22 21:10 Insulin Aspart (Novolog) 100 Unit/Ml Vial SQ 5 unit ACHS [facility] Administration Protocol Insulin Detemir 40 unit 01/03/22 21:00 01/03/22 21:11 Insulin Detemir (Levemir) 100 Unit/Ml Syr SQ 40 unit HS [facility] Administration Lisinopril 10 mg 01/04/22 09:00 Lisinopril 10 Mg Tab PO DAILY [facility] Nitroglycerin 0.4 mg 01/03/22 12:58 Nitroglycerin Sl Tabs 0.4 Mg Tab SUBLINGUAL Q5M PRN Chest Pain Nitroglycerin 1 inch 01/03/22 18:00 01/04/22 05:40 Nitroglycerin Oint 1 Inch/Gm Packet TOPICAL Not Given Q6HR [facility] Thiamine HCl 100 mg 01/04/22 09:00 Thiamine 100 Mg Tab PO DAILY [facility] Intake and Output 01/03/22 01/04/22 01/04/22 22:59 06:59 14:59 Other: # Voids 1 1 Weight 123.377 kg 01/03/22 11:13 01/03/22 11:13
[2022-01-04] MEDS ORDERED: ASPIRIN 325 MG TAB PO SCH (09:00)
[2022-01-04] MEDS ORDERED: lisinopriL 10 MG TAB PO SCH (09:00)
[2022-01-04] MEDS ORDERED: THIAMINE 100 MG TAB PO SCH (09:00)
[2022-01-04] MEDS: INSULIN ASPART (NovoLOG) 100 UNIT/ML VIAL SQ SCH ×2 (09:03→12:51)
[2022-01-04 09:40] LABS: Chol/HDL Ratio 2.84 Ratio; LDL Cholesterol,Calculated 52.6 mg/dL (0.0-131.0); VLDL Calculation 18.58 mg/dL (5.00-40.00)
[2022-01-04 10:01] VITALS: BP 118/78; PULSE 78; TEMP 98.2
[2022-01-04 10:02] VITALS: BMI 34.0
[2022-01-04 12:27] LABS: Glucose,Whole Blood 139 mg/dL (75-99)
--- NOTE | 2022-01-04 12:48 | ECHOF ---
Referral Reason:chest pain MEASUREMENTS -------- HEIGHT: 190.5 cm WEIGHT: 123.4 kg BP: 130/80 RVIDd: 3.7 cm (< 3.3) IVSd: 1.3 cm (0.6 - 1.1) LVIDd: 5.0 cm (3.9 - 5.3) LVPWd: 1.4 cm (0.6 - 1.1) IVSs: 1.3 cm LVIDs: 3.3 cm LVPWs: 2.1 cm LAESV Index (A-L): 14.90 ml/m Ao Diam: 3.4 cm (2.0 - 3.7) AV Cusp: 2.3 cm (1.5 - 2.6) LA Diam: 3.7 cm (2.7 - 3.8) MV EXCURSION: 19.892 mm (> 18.000) MV EF SLOPE: 64 mm/s (70 - 150) EPSS: 0.8 cm MV E Bogdan: 1.11 m/s MV DecT: 176 ms MV A Bogdan: 0.75 m/s MV E/A Ratio: 1.48 FINDINGS -------- Sinus rhythm. This was a technically adequate study. The left ventricular size is normal. There is mild concentric left ventricular hypertrophy. Overa ll left ventricular systolic function is normal with, an EF between 55 - 60 %. The right ventricle is mildly enlarged. Normal LA size by volume 22+/-6 ml/m2. The right atrial size is normal. Interatrial and interventricular septum intact. There is no evidence of aortic regurgitation. There is no evidence of aortic stenosis. No mitral regurgitation. Trace tricuspid regurgitation present. There is no evidence of pulmonary hypertension. Unable to estimate RVSP due to inadequate TR jet spectral doppler profile. There is no pulmonic regurgitation present. The aortic root size is normal. Normal inferior vena cava with normal inspiratory collapse consistent with estimated right atrial pre ssure of 5 mmHg. There is no pericardial effusion. CONCLUSIONS -------- 1. The left ventricular size is normal. 2. There is mild concentric left ventricular hypertrophy. 3. Overall left ventricular systolic function is normal with, an EF between 55 - 60 %. 4. The right ventricle is mildly enlarged. 5. Trace tricuspid regurgitation present. [employer]: Jocelyn Chinchilla [facility]
--- NOTE | 2022-01-04 13:20 | ECHOS ---
STRESS ECHOCARDIOGRAM INDICATIONS: Chest pain. BASELINE HEART RATE: 87 BASELINE BLOOD PRESSURE: 125/73 MAXIMUM HEART RATE: 144 MAXIMUM BLOOD PRESSURE: 175/64 85% MPHR: 162 100% MPHR: 190 METS: 9.3 MAXIMUM STAGE REACHED: 3 TOTAL EXERCISE TIME: 7:45 CLINICAL INFORMATION: Baseline EKG shows sinus rhythm, normal axis, normal intervals with poor R-wave progression. Patient exercised on Victor Hugo protocol for a total of 7 minutes and 45 seconds, achieving 76% of predicted maximal heart rate, without chest pain. He became short of breath with this level of activity and the test was stopped. Baseline echo shows normal left ventricular size, wall motion, systolic function. Post exercise there is normal hyperdynamic response of all segments of myocardium noted. CONCLUSIONS: 1. Above-average exercise tolerance. 2. Inconclusive stress test due to inability to attain target heart rate. 3. Inconclusive stress echo secondary to inability to attain target heart rate. MMODL / IJN: [id number] /
--- NOTE | 2022-01-04 14:24 | P.DS ---
Providers Date of admission: 01/03/22 13:00 Expected date of discharge: 01/04/22 Attending physician: Naveen Ruffin MD Consults: 01/03/22 12:58 Consult Physician Urgent Consulting Provider: [facility] Consult Reason/Comments: Chest pain Do you want consulting provider notified?: Yes Primary care physician: Stated None Hospital Course: Discharge Diagnosis: Atypical chest pain, acute coronary event ruled out Methamphetamine abuse Hypertension Insulin-dependent Diabetes mellitus Hospital Course: Patient is a 31-year-old male who was recently incarcerated one week ago and with past medical history of hypertension and diabetes who presents to the ED with left-sided pressure-like chest pain. Patient states that the pain started when he was sleeping this morning. He states that exertion does not make it worse, but denies anything making it better. Patient stated that when he was in intermediate he was sent to the ED to be evaluated for this similar type of chest pain and was discharged with no workup except an EKG. Patient states that he has been taking methamphetamines since he was discharged from intermediate. Patient also states that there is a lot of stress in his life and that he is going through a divorce and has the potential to lose his children. Patient underwent full evaluation in the emergency department. An EKG was completed showing normal sinus rhythm at 76 bpm with no noted T-wave or ST abnormalities. Chest x-ray negative for acute cardiopulmonary process. Troponin less than 0.012. Patient was admitted under our services with consultation to cardiology. Troponins were trended all less than 0.0123 draws. Lipid profile unremarkable with the exception of low HDL of 38.80..Echocardiogram revealing a normal EF between 55 and 60% with mild concentric left ventricular hypertrophy and a mildly enlarged right ventricle with no significant valvular abnormalities. Patient underwent stress test/stress echo which revealed an above average exercise tolerance and was inconclusive stress test and stress echo secondary to inability to attain target heart rate. Cardiology recommending patient continue current medication regimen and follow-up outpatient in their office in one week. Patient educated on the importance of cessation of all methamphetamine use and the risks associated with this continued abuse. Patient is medically stable and stable for discharge home at this time. Physical examination: Patient seen and examined at bedside. He was resting comfortably and denied having any complaints including headache, lightheadedness, dizziness, chest pain, palpitations, shortness of breath, nausea, or experiencing any numbness/dealing/weakness in his extremities. Vital signs reviewed and stable with temp 98.2F, heart rate 78, respiratory rate 17, blood pressure 118/78, and SpO2 of 97% on room air.. General: Nontoxic, no distress and appears stated age. Derm: Skin warm and dry, normal coloration for ethnicity. Head: Atraumatic, normocephalic and symmetric. Eyes: EOMs intact, no lid lag, and anicteric sclera Mouth: no lip lesions, mucus membranes moist Cardiovascular: regular rate and rhythm with normal S1S2, no murmur, positive posterior tibial pulses bilaterally, and cap refill < 2 seconds. Lungs: Respirations even, regular, and unlabored on room air. Lungs CTA bilaterally, no rhonchi, no rales, no wheezing, and no accessory muscle usage. Abdominal: soft, nontender to palpation, no guarding, no appreciable organomegaly Ext: ROM intact. No gross muscle atrophy, no edema, no contractures Neuro: Speech clear, face symmetrical and CN II-XII grossly intact with no noted focal neuro deficits Psych: Alert and oriented to person, place, time, and situation. Appropriate and pleasant affect. A total of 31 minutes of time were spent preparing this complex discharge summary. Patient Condition at Discharge: Stable Plan - Discharge Summary New Discharge Prescriptions: Continue Insulin Detemir (Levemir) [Levemir] 40 unit SQ HS cloNIDine HCL [Catapres] 0.1 - 0.3 mg PO Q4H PRN PRN Reason: bp greater than 160/100 Lisinopril [Prinivil] 10 mg PO DAILY ondansetron HCL [Zofran] 8 mg PO Q6H PRN PRN Reason: Nausea Acetaminophen Tab [Tylenol] 650 mg PO Q4H PRN PRN Reason: Fever And/ Or Pain Mag Hydrox/Aluminum Hyd/Simeth [Mylanta Maximum Strength Liq] 30 ml PO Q4H PRN PRN Reason: Indigestion Chlorpheniramine Maleate [Chlor-Trimeton] 4 mg PO Q4H PRN PRN Reason: Allergy Symptoms Calcium/Magnesium/Zinc/Vitamin D 1 tab PO TID PRN PRN Reason: Muscle Cramps INSULIN LISPRO (HumaLOG) [humaLOG] See Protocol SQ ACHS Thiamine [Vitamin B-1] 100 mg PO DAILY Multivitamins, Thera [Multivitamin (formulary)] 1 tab PO DAILY Ibuprofen [Motrin Ib] 600 mg PO Q6H PRN PRN Reason: Fever And/ Or Pain guaiFENesin [guaiFENesin Oral Solution] 200 mg PO Q4H PRN PRN Reason: Cough Loperamide [Imodium] 4 mg PO QID PRN PRN Reason: Diarrhea Discharge Medication List Insulin Detemir (Levemir) [Levemir] 40 unit SQ HS 07/21/21 [History] INSULIN LISPRO (HumaLOG) [humaLOG] See Protocol SQ ACHS 10/01/21 [History] Acetaminophen Tab [Tylenol] 650 mg PO Q4H PRN 01/03/22 [History] Calcium/Magnesium/Zinc/Vitamin D 1 tab PO TID PRN 01/03/22 [History] Chlorpheniramine Maleate [Chlor-Trimeton] 4 mg PO Q4H PRN 01/03/22 [History] Ibuprofen [Motrin Ib] 600 mg PO Q6H PRN 01/03/22 [History] Lisinopril [Prinivil] 10 mg PO DAILY 01/03/22 [History] Loperamide [Imodium] 4 mg PO QID PRN 01/03/22 [History] Mag Hydrox/Aluminum Hyd/Simeth [Mylanta Maximum Strength Liq] 30 ml PO Q4H PRN 01/03/22 [History] Multivitamins, Thera [Multivitamin (formulary)] 1 tab PO DAILY 01/03/22 [History] Thiamine [Vitamin B-1] 100 mg PO DAILY 01/03/22 [History] cloNIDine HCL [Catapres] 0.1 - 0.3 mg PO Q4H PRN 01/03/22 [History] guaiFENesin [guaiFENesin Oral Solution] 200 mg PO Q4H PRN 01/03/22 [History] ondansetron HCL [Zofran] 8 mg PO Q6H PRN 01/03/22 [History] Follow up Appointment(s)/Referral(s): Austin Kowalski MD [STAFF PHYSICIAN] - 1 Week (Message left for office to call with an appointment date and time.) Eduardo Montana MD [REFERRING] - 1-2 Days Patient Instructions/Handouts: Chest Pain (DC), Methamphetamine Abuse (DC) Activity/Diet/Wound Care/Special Instructions: Activity: As tolerated. Take breaks as needed. Diet: Heart healthy and carb consistent diet. Avoid salts, or foods with hidden salts such as canned or boxed foods and frozen dinners. Extra salt makes your heart work harder and traps the fluid in your body for longer. Special Instructions: Take all of your medications as directed and remember to keep all of your doctor's appointments and follow-up as needed. Thank you for allowing us to participate in your care, it was truly a pleasure having you for our patient!!! Someone from [facility] will call you with a follow up appointment with Dr. Kowalski Please call the office at [phone] if you do not hear back by Sunday with an appointment. Discharge Disposition: HOME SELF-CARE
== END 2022-01-04 17:16 | disposition home or self-care (01) ==
LOC: EC 10:15 → 6NMEDSUR 13:00
PROVIDERS: ADMIT Internal Medicine; ATTEND Internal Medicine
DX: R07.89 Other chest pain (principal); R07.2 Precordial pain; R06.02 Shortness of breath; F15.10 Other stimulant abuse, uncomplicated; I11.9 Hypertensive heart disease without heart failure; E11.9 Type 2 diabetes mellitus without complications; J45.909 Unspecified asthma, uncomplicated; F17.200 Nicotine dependence, unspecified, uncomplicated; F31.9 Bipolar disorder, unspecified; I25.2 Old myocardial infarction; Z86.73 Personal history of transient ischemic attack (TIA), and cerebral infarction without residual deficits; Z63.5 Disruption of family by separation and divorce; Z71.51 Drug abuse counseling and surveillance of drug abuser; Z79.4 Long term (current) use of insulin; Z79.899 Other long term (current) drug therapy; Z82.49 Family history of ischemic heart disease and other diseases of the circulatory system
CPT/HCPCS: 99285; 36415; 93005; 93306; 93351; 80061; 80053; 83735; 84484; 85025; 85610; 85730; 71046; G0378 ×2

== ENCOUNTER 2022-01-11 10:15 | Emergency (ER) | payer OTHER ==
[2022-01-11 10:19] VITALS: BP 155/92; PULSE 90; RESP 16; TEMP 98.3
[2022-01-11 10:44] LABS: Glucose,Whole Blood 79 mg/dL (75-99)
--- NOTE | 2022-01-11 11:20 | XR ---
EXAMINATION TYPE: XR chest 2V DATE OF EXAM: 01/11/2022 COMPARISON: X-ray dated 01/03/2022 HISTORY: Chest pain TECHNIQUE: Frontal and lateral views of the chest are obtained. FINDINGS: Grossly unremarkable lungs. No pleural effusion or pneumothorax. No cardiomegaly. Unremarkable bony t horacic cage. IMPRESSION: Unremarkable chest x-ray.
--- NOTE | 2022-01-11 11:26 | ED ---
Chest Pain HPI - General Chief Complaint: Chest Pain Stated Complaint: Chest Pain Time Seen by Provider: 01/11/22 10:18 Source: patient, EMS, RN notes reviewed Mode of arrival: EMS - History of Present Illness Initial Comments: 31-year-old male who was at [facility] for about one week for treatment who complained of midsternal chest pain today 10/24 severity sharp in nature points to his mid left sternal area no cough fevers chills nausea vomiting sweats other symptoms he has any history of TIA in the past as well as hypertension and diabetes. MD Complaint: chest pain - Related Data Home Medications Medication Instructions Recorded Confirmed Insulin Detemir (Levemir) [Levemir] 40 unit SQ HS 07/21/21 01/11/22 INSULIN LISPRO (HumaLOG) [humaLOG] See Protocol SQ ACHS 10/01/21 01/11/22 Acetaminophen Tab [Tylenol] 650 mg PO Q4H PRN 01/03/22 01/11/22 Calcium/Magnesium/Zinc/Vitamin D 1 tab PO TID PRN 01/03/22 01/11/22 Chlorpheniramine Maleate 4 mg PO Q4H PRN 01/03/22 01/11/22 [Chlor-Trimeton] Ibuprofen [Motrin Ib] 600 mg PO Q6H PRN 01/03/22 01/11/22 Lisinopril [Prinivil] 10 mg PO DAILY 01/03/22 01/11/22 Loperamide [Imodium] 4 mg PO QID PRN 01/03/22 01/11/22 Mag Hydrox/Aluminum Hyd/Simeth 30 ml PO Q4H PRN 01/03/22 01/11/22 [Mylanta Maximum Strength Liq] Multivitamins, Thera [Multivitamin 1 tab PO DAILY 01/03/22 01/11/22 (formulary)] Thiamine [Vitamin B-1] 100 mg PO DAILY 01/03/22 01/11/22 cloNIDine HCL [Catapres] 0.1 - 0.3 mg PO Q4H PRN 01/03/22 01/11/22 guaiFENesin [guaiFENesin Oral 200 mg PO Q4H PRN 01/03/22 01/11/22 Solution] ondansetron HCL [Zofran] 8 mg PO Q6H PRN 01/03/22 01/11/22 busPIRone HCl [Buspar] 10 mg PO TID 01/11/22 01/11/22 Allergies Allergy/AdvReac Type Severity Reaction Status Date / Time No Known Allergies Allergy Verified 01/11/22 12:13 Review of Systems ROS Statement: Those systems with pertinent positive or pertinent negative responses have been documented in the HPI. ROS Other: All systems not noted in ROS Statement are negative. EKG Findings - EKG Results: EKG: interpreted by COURTNEY, sinus rhythm (Normal sinus rhythm a 74. Interval 158 QRS duration 100 daily since QTC 400/427 nonspecific anterior configuration some artifact present) Past Medical History Past Medical History: Asthma, CVA/TIA, Diabetes Mellitus, Hypertension History of Any Multi-Drug Resistant Organisms: None Reported Past Surgical History: Orthopedic Surgery Additional Past Surgical History / Comment(s): Lasik surgery; Left ankle surgery Past Anesthesia/Blood Transfusion Reactions: No Reported Reaction Past Psychological History: Bipolar Smoking Status: Current every day smoker Past Alcohol Use History: None Reported Past Drug Use History: IV Drug Use, Marijuana, Methamphetamine General Exam - General Exam Comments Initial Comments: This is a well-developed well-nourished awake alert oriented 3 male General appearance: alert, in no apparent distress Head exam: Present: atraumatic, normocephalic, normal inspection Eye exam: Present: normal appearance, PERRL, EOMI. Absent: scleral icterus, conjunctival injection, periorbital swelling ENT exam: Present: normal exam, mucous membranes moist Neck exam: Present: normal inspection, full ROM, other. Absent: tenderness, meningismus, lymphadenopathy Respiratory exam: Present: normal lung sounds bilaterally, chest wall tenderness (No stridor JVD or bruits tennis palpation on the left costosternal margin with no step-off or crepitation). Absent: respiratory distress, wheezes, rales, rhonchi, stridor Cardiovascular Exam: Present: regular rate, normal rhythm, normal heart sounds. Absent: systolic murmur, diastolic murmur, rubs, gallop, clicks GI/Abdominal exam: Present: soft, normal bowel sounds. Absent: distended, tenderness, guarding, rebound, rigid Extremities exam: Present: normal inspection, full ROM, normal capillary refill. Absent: tenderness, pedal edema, joint swelling, calf tenderness Back exam: Present: normal inspection Neurological exam: Present: alert, oriented X3, CN II-XII intact Psychiatric exam: Present: normal affect, normal mood Skin exam: Present: warm, dry, intact, normal color. Absent: rash Course Vital Signs 01/11/22 01/11/22 10:15 10:19 Temperature 98.3 F Pulse Rate 90 Pulse Rate [ 90 Pulse Oximetery ] Respiratory 16 Rate Blood Pressure 155/92 O2 Sat by Pulse 100 Oximetry Chest Pain MDM - MDM Imaging reviewed no acute findings patient does have clinical evidence of costochondritis clinically he has reproducible tenderness over the costochondral margin on the left. Labs and x-rays are all unremarkable patient will be discharged. He has similar recommended Disposition Clinical Impression: Costochondritis, Chest wall syndrome Disposition: HOME SELF-CARE Condition: Good Instructions (If sedation given, give patient instructions): Costochondritis (ED) Additional Instructions: [id number] Advil 600-800 mg every 6 hours when necessary Is patient prescribed a controlled substance at d/c from ED?: No Referrals: None,Stated [Primary Care Provider] - 1-2 days
[2022-01-11 11:58] LABS: Basophils % (A) 0 %; Eosinophils # (A) 0.2 k/uL (0-0.7); Eosinophils % (A) 2 %; HGB 14.5 gm/dL (13.0-17.5); Lymphocytes # (A) 2.3 k/uL (1.0-4.8); Lymphocytes % (A) 22 %; MCV 81.7 fL (80.0-100.0); Monocytes # (A) 0.5 k/uL (0-1.0); Monocytes % (A) 5 %; Neutrophils # (A) 7.1 k/uL (1.3-7.7); Neutrophils % (A) 69 %; Platelet Count 254 k/uL (150-450); RBC 5.39 m/uL (4.30-5.90); RDW 13.1 % (11.5-15.5); WBC 10.3 k/uL (3.8-10.6)
[2022-01-11 11:59] LABS: ALT 29 U/L (4-49); AST 26 U/L (17-59); African American GFR (CKD) >90 (>60 ml/min/1.73 sqM); Alkaline Phosphatase 74 U/L (38-126); Anion Gap 6 mmol/L; Blood Urea Nitrogen 13 mg/dL (9-20); Calcium 8.9 mg/dL (8.4-10.2); Carbon Dioxide 29 mmol/L (22-30); Chloride 101 mmol/L (98-107); Glucose 98 mg/dL (74-99); Lipase 33 U/L (23-300); Magnesium 1.7 mg/dL (1.6-2.3); Non-African American GFR(CKD) >90 (>60 ml/min/1.73 sqM); Potassium 4.1 mmol/L (3.5-5.1); Sodium 136 mmol/L (137-145); Total Bilirubin 0.3 mg/dL (0.2-1.3); Total Protein 7.2 g/dL (6.3-8.2)
[2022-01-11 12:15] LABS: INR 0.9 (<1.2); Partial Thromboplastin Time 23.8 sec (22.0-30.0); Prothrombin Time 10.3 sec (9.0-12.0)
== END 2022-01-11 13:42 | disposition home or self-care (01) ==
LOC: EC 10:15
DX: M94.0 Chondrocostal junction syndrome [Tietze] (principal); R07.1 Chest pain on breathing; I10 Essential (primary) hypertension; E11.9 Type 2 diabetes mellitus without complications; J45.909 Unspecified asthma, uncomplicated; Z86.73 Personal history of transient ischemic attack (TIA), and cerebral infarction without residual deficits; F17.200 Nicotine dependence, unspecified, uncomplicated
CPT/HCPCS: 36415; 71046; 80053; 83690; 83735; 83880; 84484; 85025; 85379; 85610; 85730; 99285

== ENCOUNTER 2022-03-28 03:28 | Emergency (ER) | payer OTHER ==
[2022-03-28 03:35] VITALS: BP 163/110; PULSE 115; RESP 20; TEMP 98.8
[2022-03-28] MEDS ORDERED: AMOXIC-POT CLAV 875-125MG 1 EACH TAB PO STA (03:51)
[2022-03-28] MEDS ORDERED: MUPIROCIN 2% OINT 22 GM TUBE TOPICAL STA (03:51)
[2022-03-28] MEDS ORDERED: SULFAMETHOX-TMP 800-160MG 1 EACH TAB PO STA (03:51)
[2022-03-28] MEDS ORDERED: AMOXIC-POT CLAV 875MG STARTER PACK 2 TAB BTL PO STA (03:53)
[2022-03-28] MEDS ORDERED: SULFAMETH-TMP DS STARTER PACK 2 TAB BTL PO STA (03:53)
--- NOTE | 2022-03-28 03:57 | ED ---
Skin/Abscess/FB HPI - General Chief complaint: Skin/Abscess/Foreign Body Stated complaint: Abscesses on left and right arms Time Seen by Provider: 03/28/22 03:51 Source: patient, RN notes reviewed, old records reviewed Mode of arrival: ambulatory Limitations: no limitations - History of Present Illness Initial comments: This is a 31-year-old male to the ER for evaluation. Patient presents today for evaluation regards to left arm cellulitis left arm swelling left eye redness. No fevers recent drug abuse concern for developing infection of his left arm where he injected drugs. MD complaint: rash -: hour(s) Tetanus Up to Date: yes Location: LUE Severity: mild Severity scale (1-10): 3 Quality: burning Consistency: constant Improves with: none Worsens with: none Context: IVDA Associated symptoms: denies other symptoms Treatments Prior to Arrival: none - Related Data Home Medications Medication Instructions Recorded Confirmed RX: Insulin Detemir (Levemir) 40 unit SQ HS 07/21/21 01/11/22 [Levemir] RX: INSULIN LISPRO (HumaLOG) See Protocol SQ ACHS 10/01/21 01/11/22 [humaLOG] Calcium/Magnesium/Zinc/Vitamin D 1 tab PO TID PRN 01/03/22 01/11/22 RX: Acetaminophen Tab [Tylenol] 650 mg PO Q4H PRN 01/03/22 01/11/22 RX: Chlorpheniramine Maleate 4 mg PO Q4H PRN 01/03/22 01/11/22 [Chlor-Trimeton] RX: Ibuprofen [Motrin Ib] 600 mg PO Q6H PRN 01/03/22 01/11/22 RX: Lisinopril [Prinivil] 10 mg PO DAILY 01/03/22 01/11/22 RX: Loperamide [Imodium] 4 mg PO QID PRN 01/03/22 01/11/22 RX: Mag Hydrox/Aluminum Hyd/Simeth 30 ml PO Q4H PRN 01/03/22 01/11/22 [Mylanta Maximum Strength Liq] RX: Multivitamins, Thera 1 tab PO DAILY 01/03/22 01/11/22 [Multivitamin (formulary)] RX: Thiamine [Vitamin B-1] 100 mg PO DAILY 01/03/22 01/11/22 RX: cloNIDine HCL [Catapres] 0.1 - 0.3 mg PO Q4H PRN 01/03/22 01/11/22 RX: guaiFENesin [guaiFENesin Oral 200 mg PO Q4H PRN 01/03/22 01/11/22 Solution] RX: ondansetron HCL [Zofran] 8 mg PO Q6H PRN 01/03/22 01/11/22 busPIRone HCl [Buspar] 10 mg PO TID 01/11/22 01/11/22 Previous Rx's Medication Instructions Recorded RX: Amoxic-Pot Clav 875-125Mg 1 tab PO Q12HR #20 tablet 03/28/22 [Augmentin 875-125] RX: Sulfamethox-Tmp 800-160Mg 2 tab PO BID #40 tab 03/28/22 [Bactrim DS 800-160 mg] Allergies Allergy/AdvReac Type Severity Reaction Status Date / Time No Known Allergies Allergy Verified 03/28/22 03:34 Review of Systems ROS Statement: Those systems with pertinent positive or pertinent negative responses have been documented in the HPI. ROS Other: All systems not noted in ROS Statement are negative. Past Medical History Past Medical History: Asthma, CVA/TIA, Diabetes Mellitus, Hypertension History of Any Multi-Drug Resistant Organisms: None Reported Past Surgical History: Orthopedic Surgery Additional Past Surgical History / Comment(s): Lasik surgery; Left ankle surgery Past Anesthesia/Blood Transfusion Reactions: No Reported Reaction Past Psychological History: Bipolar Smoking Status: Current every day smoker Past Alcohol Use History: None Reported Past Drug Use History: IV Drug Use, Marijuana, Methamphetamine General Exam Limitations: no limitations General appearance: alert, in no apparent distress Head exam: Present: atraumatic, normocephalic, normal inspection Eye exam: Present: normal appearance, PERRL, EOMI. Absent: scleral icterus, conjunctival injection, periorbital swelling ENT exam: Present: normal exam, mucous membranes moist Neck exam: Present: normal inspection. Absent: tenderness, meningismus, lymphadenopathy Respiratory exam: Present: normal lung sounds bilaterally. Absent: respiratory distress, wheezes, rales, rhonchi, stridor Cardiovascular Exam: Present: normal rhythm, tachycardia, normal heart sounds. Absent: systolic murmur, diastolic murmur, rubs, gallop, clicks GI/Abdominal exam: Present: soft, normal bowel sounds. Absent: distended, tenderness, guarding, rebound, rigid Extremities exam: Present: normal inspection, full ROM, normal capillary refill, other (Left elbow cellulitis and tenderness). Absent: tenderness, pedal edema, joint swelling, calf tenderness Back exam: Present: normal inspection Neurological exam: Present: alert, oriented X3, CN II-XII intact Psychiatric exam: Present: normal affect, normal mood Skin exam: Present: warm, dry, intact, normal color. Absent: rash Course Vital Signs 03/28/22 03:31 Temperature 98.8 F Pulse Rate 115 H Respiratory 20 Rate Blood Pressure 163/110 O2 Sat by Pulse 100 Oximetry - Reevaluation(s) Reevaluation #1: 03/28/22 03:55 Medical record is reviewed Reevaluation #2: 03/28/22 03:55 Patient informed of results and questions answered Reevaluation #3: 03/28/22 03:55 Patient has no significant change in symptoms Medical Decision Making - Medical Decision Making 31 male to the ER for evaluation of IV injection cellulitis. Patient placed on antibiotics, will discharge home will continue to monitor blood sugars for fever and erythema spreading up on Disposition Clinical Impression: Methamphetamine abuse, Left arm cellulitis Disposition: HOME SELF-CARE Condition: Good Instructions (If sedation given, give patient instructions): Cellulitis (ED) Prescriptions: RX: Amoxic-Pot Clav 875-125Mg [Augmentin 875-125] 1 tab PO Q12HR #20 tablet RX: Sulfamethox-Tmp 800-160Mg [Bactrim DS 800-160 mg] 2 tab PO BID #40 tab Is patient prescribed a controlled substance at d/c from ED?: No Referrals: Nonstaff,Physician [Primary Care Provider] - 1-2 days Time of Disposition: 04:00
== END 2022-03-28 04:23 | disposition home or self-care (01) ==
LOC: EC 03:28
DX: F15.10 Other stimulant abuse, uncomplicated (principal); L03.114 Cellulitis of left upper limb; E11.9 Type 2 diabetes mellitus without complications; F17.200 Nicotine dependence, unspecified, uncomplicated; Z86.73 Personal history of transient ischemic attack (TIA), and cerebral infarction without residual deficits; I10 Essential (primary) hypertension; J45.909 Unspecified asthma, uncomplicated; F12.90 Cannabis use, unspecified, uncomplicated; Z79.4 Long term (current) use of insulin; Z79.899 Other long term (current) drug therapy; F31.9 Bipolar disorder, unspecified
CPT/HCPCS: 99283

== ENCOUNTER 2022-05-14 15:57 | Emergency (ER) | payer OTHER ==
[2022-05-14 16:06] VITALS: BP 158/101; PULSE 114; RESP 18; TEMP 98.2
[2022-05-14] MEDS ORDERED: MUPIROCIN 2% OINT 22 GM TUBE TOPICAL STA (16:28)
--- NOTE | 2022-05-14 16:31 | ED ---
General Adult HPI - General Chief complaint: Recheck/Abnormal Lab/Rx Stated complaint: Skin infection Source: patient, RN notes reviewed Mode of arrival: ambulatory Limitations: no limitations - History of Present Illness Initial comments: Patient is a pleasant 32-year-old male presenting to emergency department with concern for skin infection. 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 Patient does have history of infection to multiple areas. Patient had subjective fever couple of days ago. Patient has recently been outside. Patient states his blood sugar was high and low following insulin however prior to arrival was 114. Patient refuses lab work to evaluate this further. Patient requests clearance to go to rehab. - Related Data Home Medications Medication Instructions Recorded Confirmed Insulin Detemir (Levemir) [Levemir] 40 unit SQ HS 07/21/21 01/11/22 INSULIN LISPRO (HumaLOG) [humaLOG] See Protocol SQ ACHS 10/01/21 01/11/22 Acetaminophen Tab [Tylenol] 650 mg PO Q4H PRN 01/03/22 01/11/22 Calcium/Magnesium/Zinc/Vitamin D 1 tab PO TID PRN 01/03/22 01/11/22 Chlorpheniramine Maleate 4 mg PO Q4H PRN 01/03/22 01/11/22 [Chlor-Trimeton] Ibuprofen [Motrin Ib] 600 mg PO Q6H PRN 01/03/22 01/11/22 Loperamide [Imodium] 4 mg PO QID PRN 01/03/22 01/11/22 Mag Hydrox/Aluminum Hyd/Simeth 30 ml PO Q4H PRN 01/03/22 01/11/22 [Mylanta Maximum Strength Liq] Multivitamins, Thera [Multivitamin 1 tab PO DAILY 01/03/22 01/11/22 (formulary)] Thiamine [Vitamin B-1] 100 mg PO DAILY 01/03/22 01/11/22 cloNIDine HCL [Catapres] 0.1 - 0.3 mg PO Q4H PRN 01/03/22 01/11/22 guaiFENesin [guaiFENesin Oral 200 mg PO Q4H PRN 01/03/22 01/11/22 Solution] lisinopriL [Prinivil] 10 mg PO DAILY 01/03/22 01/11/22 ondansetron HCL [Zofran] 8 mg PO Q6H PRN 01/03/22 01/11/22 busPIRone HCl [Buspar] 10 mg PO TID 01/11/22 01/11/22 Previous Rx's Medication Instructions Recorded Amoxic-Pot Clav 875-125Mg 1 tab PO Q12HR #20 tablet 03/28/22 [Augmentin 875-125] Sulfamethox-Tmp 800-160Mg [Bactrim 2 tab PO BID #40 tab 03/28/22 DS 800-160 mg] Clindamycin [Cleocin] 2 tab PO TID #60 cap 05/14/22 Allergies Allergy/AdvReac Type Severity Reaction Status Date / Time No Known Allergies Allergy Verified 05/14/22 16:06 Review of Systems ROS Statement: Those systems with pertinent positive or pertinent negative responses have been documented in the HPI. ROS Other: All systems not noted in ROS Statement are negative. Constitutional: Reports: as per HPI Eyes: Denies: eye pain ENT: Denies: ear pain Respiratory: Denies: cough Cardiovascular: Denies: chest pain Endocrine: Denies: fatigue Gastrointestinal: Denies: abdominal pain Genitourinary: Denies: urgency Musculoskeletal: Denies: back pain Skin: Reports: as per HPI Neurological: Denies: weakness Past Medical History Past Medical History: Asthma, CVA/TIA, Diabetes Mellitus, Hypertension History of Any Multi-Drug Resistant Organisms: None Reported Past Surgical History: Orthopedic Surgery Additional Past Surgical History / Comment(s): Lasik surgery; Left ankle surgery Past Anesthesia/Blood Transfusion Reactions: No Reported Reaction Past Psychological History: Bipolar Smoking Status: Current every day smoker Past Alcohol Use History: None Reported Past Drug Use History: IV Drug Use, Marijuana, Methamphetamine General Exam Limitations: no limitations General appearance: alert, in no apparent distress Head exam: Present: normocephalic Eye exam: Present: normal appearance. Absent: scleral icterus Neck exam: Present: normal inspection Respiratory exam: Present: normal lung sounds bilaterally Cardiovascular Exam: Present: regular rate, normal rhythm Extremities exam: Present: normal inspection Neurological exam: Present: alert Psychiatric exam: Present: normal affect, normal mood Skin exam: Present: other (Patient does have some minimal areas of mild erythema on both arms and feet, no evidence of drainable abscess.) Course Vital Signs 05/14/22 16:00 Temperature 98.2 F Pulse Rate 114 H Respiratory 18 Rate Blood Pressure 158/101 O2 Sat by Pulse 96 Oximetry Medical Decision Making - Medical Decision Making Patient is receptive to antibiotics and discharged. Patient refuses bloodwork. Patient updated and recommendation to head to rehab and to return for worsening symptoms or fevers Disposition Clinical Impression: Cellulitis, Methamphetamine abuse Disposition: HOME SELF-CARE Condition: Stable Instructions (If sedation given, give patient instructions): Methamphetamine Abuse (ED), Cellulitis (ED), Abscess (ED) Additional Instructions: Prescription sent to pharmacy. Please follow-up with primary care physician in the next day or 2 for recheck. Please head to rehab. Return for fevers, increased rash or swelling, worsening or changing symptoms or other concerns Prescriptions: Clindamycin [Cleocin] 2 tab PO TID #60 cap Is patient prescribed a controlled substance at d/c from ED?: No Referrals: Renee Martin MD [Primary Care Provider] - 1-2 days Time of Disposition: 16:30
== END 2022-05-14 16:50 | disposition home or self-care (01) ==
LOC: EC 15:57
DX: L03.90 Cellulitis, unspecified (principal); F15.10 Other stimulant abuse, uncomplicated; E11.9 Type 2 diabetes mellitus without complications; I10 Essential (primary) hypertension; J45.909 Unspecified asthma, uncomplicated; F17.200 Nicotine dependence, unspecified, uncomplicated; Z86.73 Personal history of transient ischemic attack (TIA), and cerebral infarction without residual deficits
CPT/HCPCS: 99283

== ENCOUNTER 2022-07-27 13:26 | Emergency (ER) | payer OTHER ==
[2022-07-27 14:10] VITALS: PULSE 94
[2022-07-27] MEDS ORDERED: LIDOCAINE 1% INJ 10MG/ML (20 ML MDV) SQ ONE ×2 (15:38)
[2022-07-27] MEDS ORDERED: ACET/COD 300 MG/30 MG STARTER PACK 6 TAB BTL PO STA (15:49)
--- NOTE | 2022-07-27 15:49 | ED ---
General Adult HPI - General Chief complaint: Skin/Abscess/Foreign Body Stated complaint: Cyst Time Seen by Provider: 07/27/22 15:22 Source: patient Mode of arrival: ambulatory Limitations: no limitations - History of Present Illness Initial comments: Dictation was produced using [employer] dictation software. please excuse any grammatical, word or spelling errors. Chief Complaint: 32-year-old male presents emergency department for perirectal abscess. History of Present Illness: 32-year-old male with past medical history of diabetes and illicit drug abuse. He states she's been clean from illicit drugs for several months. Patient states that over the last 4-5 days he developed pain around his perirectal region. Patient's history of abscesses. Patient states that around his rectum. Denies any fever, chills or night sweats. Denies any dyschezia. No pelvic or abdominal pain. The ROS documented in this emergency department record has been reviewed and confirmed by me. Those systems with pertinent positive or negative responses have been documented in the HPI. All other systems are other negative and/or noncontributory. PHYSICAL EXAM: General Impression: Alert and oriented x3, not in acute distress HEENT: Normocephalic atraumatic, extra-ocular movements intact, pupils equal and reactive to light bilaterally, mucous membranes moist. Cardiovascular: Heart regular rate and rhythm Chest: Able to complete full sentences, no retractions, no tachypnea Abdomen: abdomen soft, non-tender, non-distended, no organomegaly Rectal exam: There is a fluctuant mass felt at 5 o'clock position the subcutaneous perirectal space Musculoskeletal: Pulses present and equal in all extremities, no peripheral edema Motor: no focal deficits noted Neurological: CN II-XII grossly intact, no focal motor or sensory deficits noted Skin: Intact with no visualized rashes Psych: Normal affect and mood ED course: 32-year-old male presents to the emergency department for perirectal abscess. Vital signs upon arrival are within acceptable limits. Aspiration was performed with approximately 1 mL of purulent fluid removed. Point of care bedside ultrasound showed mostly cellulitic findings without any large focus of an echoic material. Patient tolerated procedure well. Prescribed antibiotics. Cultures sent. - Related Data Home Medications Medication Instructions Recorded Confirmed Insulin Detemir (Levemir) [Levemir] 40 unit SQ HS 07/21/21 01/11/22 INSULIN LISPRO (HumaLOG) [humaLOG] See Protocol SQ ACHS 10/01/21 01/11/22 Acetaminophen Tab [Tylenol] 650 mg PO Q4H PRN 01/03/22 01/11/22 Calcium/Magnesium/Zinc/Vitamin D 1 tab PO TID PRN 01/03/22 01/11/22 Chlorpheniramine Maleate 4 mg PO Q4H PRN 01/03/22 01/11/22 [Chlor-Trimeton] Ibuprofen [Motrin Ib] 600 mg PO Q6H PRN 01/03/22 01/11/22 Loperamide [Imodium] 4 mg PO QID PRN 01/03/22 01/11/22 Mag Hydrox/Aluminum Hyd/Simeth 30 ml PO Q4H PRN 01/03/22 01/11/22 [Mylanta Maximum Strength Liq] Multivitamins, Thera [Multivitamin 1 tab PO DAILY 01/03/22 01/11/22 (formulary)] Thiamine [Vitamin B-1] 100 mg PO DAILY 01/03/22 01/11/22 cloNIDine HCL [Catapres] 0.1 - 0.3 mg PO Q4H PRN 01/03/22 01/11/22 guaiFENesin [guaiFENesin Oral 200 mg PO Q4H PRN 01/03/22 01/11/22 Solution] lisinopriL [Prinivil] 10 mg PO DAILY 01/03/22 01/11/22 ondansetron HCL [Zofran] 8 mg PO Q6H PRN 01/03/22 01/11/22 busPIRone HCl [Buspar] 10 mg PO TID 01/11/22 01/11/22 Previous Rx's Medication Instructions Recorded Amoxic-Pot Clav 875-125Mg 1 tab PO Q12HR #20 tablet 03/28/22 [Augmentin 875-125] Sulfamethox-Tmp 800-160Mg [Bactrim 2 tab PO BID #40 tab 03/28/22 DS 800-160 mg] Clindamycin [Cleocin] 2 tab PO TID #60 cap 05/14/22 Cephalexin [Keflex] 500 mg PO Q6HR 5 Days #20 cap 07/27/22 Sulfamethox-Tmp 800-160Mg [Bactrim 1 tab PO Q12HR 5 Days #10 tab 07/27/22 DS 800-160 mg] Allergies Allergy/AdvReac Type Severity Reaction Status Date / Time No Known Allergies Allergy Verified 07/27/22 14:10 Review of Systems ROS Statement: Those systems with pertinent positive or pertinent negative responses have been documented in the HPI. ROS Other: All systems not noted in ROS Statement are negative. Past Medical History Past Medical History: Asthma, CVA/TIA, Diabetes Mellitus, Hypertension History of Any Multi-Drug Resistant Organisms: None Reported Past Surgical History: Orthopedic Surgery Additional Past Surgical History / Comment(s): Lasik surgery; Left ankle surgery Past Anesthesia/Blood Transfusion Reactions: No Reported Reaction Past Psychological History: Bipolar Smoking Status: Current every day smoker Past Alcohol Use History: None Reported Past Drug Use History: IV Drug Use, Marijuana, Methamphetamine General Exam Limitations: no limitations Course Vital Signs 07/27/22 14:09 Temperature 98.3 F Pulse Rate 94 Respiratory 20 Rate Blood Pressure 164/108 O2 Sat by Pulse 98 Oximetry Procedures - Incision & Drainage Consent Obtained: verbal consent Site: other (perirectal) Anesthetic Used: lidocaine 1%, with epi I&D Cleaning Method: Alcohol Wipe Sterile Field Used?: No Needle Aspiration Performed?: Yes (1cc ) I&D Drainage Obtained: Pus, Blood Patient Tolerated Procedure: well Disposition Clinical Impression: Perirectal abscess Disposition: HOME SELF-CARE Condition: Fair Instructions (If sedation given, give patient instructions): Abscess Incision and Drainage (ED), Abscess (ED) Prescriptions: Sulfamethox-Tmp 800-160Mg [Bactrim DS 800-160 mg] 1 tab PO Q12HR 5 Days #10 tab Cephalexin [Keflex] 500 mg PO Q6HR 5 Days #20 cap Is patient prescribed a controlled substance at d/c from ED?: No Referrals: None,Stated [Primary Care Provider] - 1-2 days Time of Disposition: 15:48
[2022-07-27 16:04] VITALS: BP 160/97; RESP 18; TEMP 98.5
== END 2022-07-27 16:04 | disposition home or self-care (01) ==
LOC: EC 13:26
DX: K61.1 Rectal abscess (principal); J45.909 Unspecified asthma, uncomplicated; Z86.73 Personal history of transient ischemic attack (TIA), and cerebral infarction without residual deficits; E11.9 Type 2 diabetes mellitus without complications; I10 Essential (primary) hypertension; F31.9 Bipolar disorder, unspecified; F17.200 Nicotine dependence, unspecified, uncomplicated; F12.90 Cannabis use, unspecified, uncomplicated; Z79.4 Long term (current) use of insulin; Z79.899 Other long term (current) drug therapy; Z88.2 Allergy status to sulfonamides
CPT/HCPCS: 87070; 87205; 87075; 99283; 10060; J2001

== ENCOUNTER 2022-08-15 17:26 | Inpatient (IN) | payer OTHER ==
[2022-08-15 18:08] LABS: Glucose,Whole Blood >600 mg/dL (70-110)
[2022-08-15] MEDS ORDERED: SODIUM CHLORIDE 0.9% 1,000 ML IV ONE (18:34)
[2022-08-15] MEDS ORDERED: SODIUM CHLORIDE 0.9% 500 ML 500 ML IV ONE (18:34)
[2022-08-15] MEDS ORDERED: ONDANSETRON 4 MG/2 ML VIAL IVP STA (18:34)
[2022-08-15] MEDS ORDERED: INSULIN REGULAR BOLUS (FROM DRIP BAG) IV ONE (18:36)
[2022-08-15 19:09] LABS: AST 583 U/L (17-59); African American GFR (CKD) >90 (>60 ml/min/1.73 sqM); Albumin 4.1 g/dL (3.5-5.0); Alkaline Phosphatase 848 U/L (38-126); Anion Gap 22 mmol/L; Blood Urea Nitrogen 8 mg/dL (9-20); Calcium 8.3 mg/dL (8.4-10.2); Carbon Dioxide 13 mmol/L (22-30); Chloride 88 mmol/L (98-107); Non-African American GFR(CKD) >90 (>60 ml/min/1.73 sqM); Potassium 4.2 mmol/L (3.5-5.1); Sodium 123 mmol/L (137-145); Total Bilirubin 1.9 mg/dL (0.2-1.3); Total Protein 6.7 g/dL (6.3-8.2)
[2022-08-15 19:16] LABS: ALT 976 U/L (4-49); HCT 46.9 % (39.0-53.0); HGB 14.5 gm/dL (13.0-17.5); Hypochromasia Slight; MCH 26.3 pg (25.0-35.0); MCHC 30.9 g/dL (31.0-37.0); MCV 85.2 fL (80.0-100.0); Mean Platelet Volume 11.6; Platelet Count 142 k/uL (150-450); RDW 13.4 % (11.5-15.5); WBC 8.3 k/uL (3.8-10.6)
--- NOTE | 2022-08-15 19:18 | ED ---
General Adult HPI - General Chief complaint: Recheck/Abnormal Lab/Rx Stated complaint: diabetes Time Seen by Provider: 08/15/22 18:15 Source: patient, RN notes reviewed, old records reviewed Mode of arrival: ambulatory Limitations: no limitations - History of Present Illness Initial comments: This is a 32-year-old male presents emergency Department with a past medical history significant for diabetes per patient also states he has. Rectal abscess which she quit taking antibiotic for but he continues to have drainage. Patient states his sugars been reading high for quite a while. Patient states every day for the last week he has had elevated sugars and he has been vomiting almost anything he takes in. Patient states she's been trying to take him approximately OF WATER AT LEAST EVERY DAY. PATIENT DENIES ANY FEVER CHILLS OR COUGH. PATIENT DENIES ANY CHEST PAIN PALPITATIONS DIFFICULTY BREATHING FIRST BREATH PER PATIENT DENIES ANY ABDOMINAL PAIN PATIENT STATES HE IS NAUSEATED. PATIENT DENIES ANY DIARRHEA. PATIENT DENIES ANY RECENT TRAUMA OR INJURY. PATIENT DENIES HEADACHE PATIENT DENIES NUMBNESS WEAKNESS. - Related Data Home Medications Medication Instructions Recorded Confirmed Insulin Detemir (Levemir) [Levemir] 40 unit SQ HS 07/21/21 01/11/22 INSULIN LISPRO (HumaLOG) [humaLOG] See Protocol SQ ACHS 10/01/21 01/11/22 Acetaminophen Tab [Tylenol] 650 mg PO Q4H PRN 01/03/22 01/11/22 Calcium/Magnesium/Zinc/Vitamin D 1 tab PO TID PRN 01/03/22 01/11/22 Chlorpheniramine Maleate 4 mg PO Q4H PRN 01/03/22 01/11/22 [Chlor-Trimeton] Ibuprofen [Motrin Ib] 600 mg PO Q6H PRN 01/03/22 01/11/22 Loperamide [Imodium] 4 mg PO QID PRN 01/03/22 01/11/22 Mag Hydrox/Aluminum Hyd/Simeth 30 ml PO Q4H PRN 01/03/22 01/11/22 [Mylanta Maximum Strength Liq] Multivitamins, Thera [Multivitamin 1 tab PO DAILY 01/03/22 01/11/22 (formulary)] Thiamine [Vitamin B-1] 100 mg PO DAILY 01/03/22 01/11/22 cloNIDine HCL [Catapres] 0.1 - 0.3 mg PO Q4H PRN 01/03/22 01/11/22 guaiFENesin [guaiFENesin Oral 200 mg PO Q4H PRN 01/03/22 01/11/22 Solution] lisinopriL [Prinivil] 10 mg PO DAILY 01/03/22 01/11/22 ondansetron HCL [Zofran] 8 mg PO Q6H PRN 01/03/22 01/11/22 busPIRone HCl [Buspar] 10 mg PO TID 01/11/22 01/11/22 Previous Rx's Medication Instructions Recorded Amoxic-Pot Clav 875-125Mg 1 tab PO Q12HR #20 tablet 03/28/22 [Augmentin 875-125] Sulfamethox-Tmp 800-160Mg [Bactrim 2 tab PO BID #40 tab 03/28/22 DS 800-160 mg] Clindamycin [Cleocin] 2 tab PO TID #60 cap 05/14/22 Cephalexin [Keflex] 500 mg PO Q6HR 5 Days #20 cap 07/27/22 Sulfamethox-Tmp 800-160Mg [Bactrim 1 tab PO Q12HR 5 Days #10 tab 07/27/22 DS 800-160 mg] Allergies Allergy/AdvReac Type Severity Reaction Status Date / Time No Known Allergies Allergy Verified 08/15/22 18:06 Review of Systems ROS Statement: Those systems with pertinent positive or pertinent negative responses have been documented in the HPI. ROS Other: All systems not noted in ROS Statement are negative. Past Medical History Past Medical History: Asthma, CVA/TIA, Diabetes Mellitus, Hypertension History of Any Multi-Drug Resistant Organisms: None Reported Past Surgical History: Orthopedic Surgery Additional Past Surgical History / Comment(s): Lasik surgery; Left ankle surgery Past Anesthesia/Blood Transfusion Reactions: No Reported Reaction Past Psychological History: Bipolar Smoking Status: Current every day smoker Past Alcohol Use History: None Reported Past Drug Use History: IV Drug Use, Marijuana, Methamphetamine General Exam - General Exam Comments Initial Comments: GENERAL: Patient is well-developed and well-nourished. Patient is nontoxic and well-hydrated and is in mild distress. ENT: Neck is soft and supple. No significant lymphadenopathy is noted. Oropharynx is clear. Dry mucous membranes. Neck has full range of motion without eliciting any pain. EYES: The sclera were anicteric and conjunctiva were pink and moist. Extraocular movements were intact and pupils were equal round and reactive to light. Eyelids were unremarkable. PULMONARY: Unlabored respirations. Good breath sounds bilaterally. No audible rales rhonchi or wheezing was noted. CARDIOVASCULAR: There is a regular rate and rhythm without any murmurs gallops or rubs. ABDOMEN: Soft and nontender with normal bowel sounds. RECTAL: On rectal exam at the 12 o'clock position there is a very small one half centimeter in diameter abscess that is currently draining pus and will have cultures taken from it. SKIN: Skin is clear with no lesions or rashes and otherwise unremarkable. NEUROLOGIC: Patient is alert and oriented x3. Cranial nerves II through XII are grossly intact. Motor and sensory are also intact. Normal speech, volume and content. Symmetrical smile. MUSCULOSKELETAL: Normal extremities with adequate strength and full range of motion. No lower e xtremity swelling or edema. No calf tenderness. LYMPHATICS: No significant lymphadenopathy is noted PSYCHIATRIC: Normal psychiatric evaluation. Limitations: no limitations Course Vital Signs 08/15/22 08/15/22 18:03 19:15 Temperature 98.1 F Pulse Rate 89 87 Respiratory 20 16 Rate Blood Pressure 146/68 138/68 O2 Sat by Pulse 98 97 Oximetry Medical Decision Making - Medical Decision Making I interpreted the EKG. EKG shows sinus rhythm at 81 bpm AK interval is on a 57 QRS is 103 QT interval is 46 QTC is 443. Patient's EKG shows no ST segment e levation or depression. After I told the patient that his liver enzymes are elevated he admitted to shooting up methamphetamine. Patient's sodium was 123 CO2 was 13 sugar was 685 acetone was positive I diagnosed patient with diabetic ketoacidosis he was started on an insulin drip after he was given a bolus of insulin. Patient was also started on IV fluids he was initially given a liter and a half and then was running at 200 mL's per hour. I spoke with the [facility] agreed to admit the patient admitted the patient and wrote orders Ultrasound of the gallbladder was done. Patient had a hepatitis panel done. - Lab Data Result diagrams: 08/15/22 18:37 08/15/22 18:37 Lab Results 08/15/22 08/15/22 08/15/22 Range/Units 18:06 18:37 18:37 WBC 8.3 (3.8-10.6) k/uL RBC 5.50 (4.30-5.90) m/uL Hgb 14.5 (13.0-17.5) gm/dL Hct 46.9 (39.0-53.0) % MCV 85.2 (80.0-100.0) fL MCH 26.3 (25.0-35.0) pg MCHC 30.9 L (31.0-37.0) g/dL RDW 13.4 (11.5-15.5) % Plt Count 142 L (150-450) k/uL MPV 11.6 Neutrophils % (Manual) 73 % Lymphocytes % (Manual) 20 % Monocytes % (Manual) 6 % Eosinophils % (Manual) 1 % Neutrophils # (Manual) 6.06 (1.3-7.7) k/uL Lymphocytes # (Manual) 1.66 (1.0-4.8) k/uL Monocytes # (Manual) 0.50 (0-1.0) k/uL Eosinophils # (Manual) 0.08 (0-0.7) k/uL Nucleated RBCs 0 (0-0) /100 WBC Manual Slide Review Performed Hypochromasia Slight VBG pH (7.31-7.41) VBG pCO2 (37-51) mmHg VBG HCO3 (24-28) mmol/L Sodium 123 L (137-145) mmol/L Potassium 4.2 (3.5-5.1) mmol/L Chloride 88 L (98-107) mmol/L Carbon Dioxide 13 L (22-30) mmol/L Anion Gap 22 mmol/L BUN 8 L (9-20) mg/dL Creatinine 0.55 L (0.66-1.25) mg/dL Est GFR (CKD-EPI)AfAm >90 (>60 ml/min/1.73 sqM) Est GFR (CKD-EPI)NonAf >90 (>60 ml/min/1.73 sqM) Glucose 685 H* (74-99) mg/dL POC Glucose (mg/dL) >600 H (70-110) mg/dL POC Glu Talent Acquisition Relationship Manager ID Willing, Neelam Calcium 8.3 L (8.4-10.2) mg/dL Total Bilirubin 1.9 H (0.2-1.3) mg/dL AST 583 H (17-59) U/L ALT 976 H (4-49) U/L Alkaline Phosphatase 848 H (38-126) U/L Total Protein 6.7 (6.3-8.2) g/dL Albumin 4.1 (3.5-5.0) g/dL Lipase (23-300) U/L Acetone, Qual Positive (Negative) 08/15/22 08/15/22 08/15/22 Range/Units 18:37 19:10 20:21 WBC (3.8-10.6) k/uL RBC (4.30-5.90) m/uL Hgb (13.0-17.5) gm/dL Hct (39.0-53.0) % MCV (80.0-100.0) fL MCH (25.0-35.0) pg MCHC (31.0-37.0) g/dL RDW (11.5-15.5) % Plt Count (150-450) k/uL MPV Neutrophils % (Manual) % Lymphocytes % (Manual) % Monocytes % (Manual) % Eosinophils % (Manual) % Neutrophils # (Manual) (1.3-7.7) k/uL Lymphocytes # (Manual) (1.0-4.8) k/uL Monocytes # (Manual) (0-1.0) k/uL Eosinophils # (Manual) (0-0.7) k/uL Nucleated RBCs (0-0) /100 WBC Manual Slide Review Hypochromasia VBG pH 7.33 (7.31-7.41) VBG pCO2 34 L (37-51) mmHg VBG HCO3 18 L (24-28) mmol/L Sodium (137-145) mmol/L Potassium (3.5-5.1) mmol/L Chloride (98-107) mmol/L Carbon Dioxide (22-30) mmol/L Anion Gap mmol/L BUN (9-20) mg/dL Creatinine (0.66-1.25) mg/dL Est GFR (CKD-EPI)AfAm (>60 ml/min/1.73 sqM) Est GFR (CKD-EPI)NonAf (>60 ml/min/1.73 sqM) Glucose (74-99) mg/dL POC Glucose (mg/dL) 374 H (70-110) mg/dL POC Glu Talent Acquisition Relationship Manager ID Greg Michelle Calcium (8.4-10.2) mg/dL Total Bilirubin (0.2-1.3) mg/dL AST (17-59) U/L ALT (4-49) U/L Alkaline Phosphatase (38-126) U/L Total Protein (6.3-8.2) g/dL Albumin (3.5-5.0) g/dL Lipase 180 (23-300) U/L Acetone, Qual (Negative) Critical Care Time Critical Care Time: Yes Total Critical Care Time: 35 Disposition Clinical Impression: [place]-rectal abscess, Diabetic ketoacidosis Disposition: ADMITTED IP TO THIS HOSP Referrals: None,Stated [Primary Care Provider] - 1-2 days Time of Disposition: 21:03
[2022-08-15 19:19] LABS: VBG PH 7.33 (7.31-7.41)
[2022-08-15] MEDS: INSULIN REGULAR 100 UNIT in SODIUM CHLORIDE 0.9% 100 ML IV SCH (19:24)
[2022-08-15] MEDS: SODIUM CHLORIDE 0.9% 1,000 ML IV SCH (19:31)
[2022-08-15 19:40] LABS: Glucose 685 mg/dL (74-99)
[2022-08-15 19:57] LABS: Eosinophils # (M) 0.08 k/uL (0-0.7); Lymphocytes # (M) 1.66 k/uL (1.0-4.8); Neutrophils # (M) 6.06 k/uL (1.3-7.7); Neutrophils % (M) 73 %; Nucleated Red Blood Cells 0 /100 WBC (0-0); Total Cells Counted 100
[2022-08-15 20:23] LABS: Glucose,Whole Blood 374 mg/dL (70-110)
[2022-08-15] MEDS ORDERED: metroNIDAZOLE-NS PMX 500 MG in SALINE 1 100ML.BAG IVPB STA (21:03)
--- NOTE | 2022-08-15 21:38 | US ---
EXAMINATION TYPE: US gallbladder DATE OF EXAM: 08/15/2022 COMPARISON: NONE CLINICAL HISTORY: Vomiting, elevated liver enzymes. Elevated liver enzymes TECHNIQUE: Multiple sonographic images of the right upper quadrant are obtained. FINDINGS: EXAM MEASUREMENTS: Liver Length: 22.3 cm Gallbladder Wall: 0.27 cm CBD: 0.27 cm Right Kidney: 14.3 x 5.5 x 7.0 cm Pancreas: Obscured by bowel gas Liver: Enlarged, heterogeneous, no suspicious masses or cystic lesions. Gallbladder: wnl Evidence for sonographic Parekh's sign: No CBD: wnl Right Kidney: wnl IMPRESSION: Hepatocellular disease commonly relating to hepatic steatosis.
[2022-08-15 21:51] LABS: Glucose,Whole Blood 339 mg/dL (70-110)
[2022-08-15] MEDS ORDERED: Magnesium Replacement Protocol 1 EACH MISC MISCELLANE PRN (21:54)
[2022-08-15] MEDS ORDERED: Potassium Replacement Protocol 1 EACH MISC MISCELLANE PRN (21:54)
[2022-08-15 22:09] LABS: African American GFR (CKD) >90 (>60 ml/min/1.73 sqM); Blood Urea Nitrogen 7 mg/dL (9-20); Glucose 320 mg/dL (74-99); Non-African American GFR(CKD) >90 (>60 ml/min/1.73 sqM)
[2022-08-15 22:10] LABS: Glucose,Whole Blood 309 mg/dL (70-110)
[2022-08-15 22:15] LABS: Phosphorus 2.5 mg/dL (2.5-4.5)
[2022-08-15 23:05] LABS: Glucose,Whole Blood 226 mg/dL (70-110)
[2022-08-16 00:09] LABS: Glucose,Whole Blood 189 mg/dL (70-110)
[2022-08-16] MEDS: D5-0.45% NACL WITH KCL 20MEQ/L 1,000 ML IV SCH ×2 (00:21→05:59)
[2022-08-16] MEDS: SODIUM CHLORIDE 0.9% 1,000 ML IV SCH ×2 (00:29→02:50)
[2022-08-16 01:09] LABS: Glucose,Whole Blood 139 mg/dL (70-110)
[2022-08-16 02:02] LABS: African American GFR (CKD) >90 (>60 ml/min/1.73 sqM); Blood Urea Nitrogen 9 mg/dL (9-20); Glucose 124 mg/dL (74-99); Non-African American GFR(CKD) >90 (>60 ml/min/1.73 sqM)
[2022-08-16 02:03] LABS: Potassium 3.2 mmol/L (3.5-5.1)
[2022-08-16 02:08] LABS: Glucose,Whole Blood 148 mg/dL (70-110)
[2022-08-16 03:12] LABS: Glucose,Whole Blood 206 mg/dL (70-110)
[2022-08-16 03:27] LABS: Hepatitis A Antibody IgM Nonreactive (Nonreactive); Hepatitis B Core IgM Nonreactive (Nonreactive); Hepatitis B Surface Antigen Nonreactive (Nonreactive); Hepatitis C IgG Antibody Reactive (Nonreactive)
[2022-08-16 04:09] LABS: Glucose,Whole Blood 221 mg/dL (70-110)
[2022-08-16] MEDS: INSULIN REGULAR 100 UNIT in SODIUM CHLORIDE 0.9% 100 ML IV SCH (04:18)
[2022-08-16 05:07] LABS: Glucose,Whole Blood 228 mg/dL (70-110)
[2022-08-16] MEDS: metroNIDAZOLE-NS PMX 500 MG in SALINE 1 100ML.BAG IVPB SCH ×3 (05:52→21:21)
[2022-08-16 05:57] LABS: AST 532 U/L (17-59); African American GFR (CKD) >90 (>60 ml/min/1.73 sqM); Albumin 3.1 g/dL (3.5-5.0); Alkaline Phosphatase 528 U/L (38-126); Anion Gap 10 mmol/L; Blood Urea Nitrogen 8 mg/dL (9-20); Calcium 7.8 mg/dL (8.4-10.2); Carbon Dioxide 23 mmol/L (22-30); Chloride 101 mmol/L (98-107); Glucose 229 mg/dL (74-99); Non-African American GFR(CKD) >90 (>60 ml/min/1.73 sqM); Potassium 3.6 mmol/L (3.5-5.1); Sodium 134 mmol/L (137-145); Total Protein 5.6 g/dL (6.3-8.2)
[2022-08-16 06:06] LABS: Glucose,Whole Blood 229 mg/dL (70-110)
[2022-08-16 06:07] LABS: ALT 814 U/L (4-49)
[2022-08-16 06:57] LABS: Glucose,Whole Blood 237 mg/dL (70-110)
[2022-08-16 08:07] LABS: Glucose,Whole Blood 249 mg/dL (70-110)
[2022-08-16 08:48] LABS: Potassium 3.4 mmol/L (3.5-5.1)
[2022-08-16 09:04] LABS: Glucose,Whole Blood 275 mg/dL (70-110)
[2022-08-16] MEDS: INSULIN DETEMIR (LEVEMIR) 100 UNIT/ML SYR SQ SCH (09:08)
[2022-08-16] MEDS ORDERED: guaiFENesin-DM 100-10MG/5ML 10 ML CUP PO PRN (09:08)
[2022-08-16] MEDS ORDERED: POTASSIUM CHLORIDE ER 20 MEQ TAB.ER PO STA (09:09)
[2022-08-16] MEDS: ONDANSETRON 4 MG/2 ML VIAL IVP PRN (09:23)
--- NOTE | 2022-08-16 09:27 | P.HPIM ---
History of Present Illness This is a pleasant 32 this old male with past medical history of diabetes mellitus on insulin, Asthma,Diabetes CVA/TIA, Hypertension, Bipolar, Current every day smoker, IV Drug Use, Marijuana, Methamphetamine, He has history of nonadherence to therapy Patient states that she supposed to be on long acting insulin 40 units daily but he was not taking this medication for a long time and months 4 weeks has been feeling not well with abdominal pain and vomiting several times with no hematemesis, also with polyuria and for the urine but no dysuria, he has some mild vague right upper quadrant abdominal pain/discomfort and left lower quadrant with no tenderness or rebound tenderness and abdomen looks soft. 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 Contact information for Dr. Paulino and Dr. Chan from endoc[facility]ology clinics are provided for the patient (. Patient states that he is blind in his left eye 2 years see discharge instructions) On the left eye, chronic Patient admits to smoking cigarettes 1 pack per day, no alcohol, he uses methamphetamine and marijuana but no cocaine or heroin, last time was one month ago. No chest pain or dyspnea but his cough and follow-up with some phlegm. Currently his vomiting resolved and he has good appetite and he tolerates diet well. No headache or dizziness or weakness or numbness Patient states that he lost his job yesterday, he feels the first but he denies suicidal or homicidal ideation, no hallucination vitals stable and patient is afebrile CBC is unremarkable sodium 134, rest of BMP is unremarkable. Elevated liver enzymes AST 532 and ALT 843 and bilirubin is normal 1.0. Lipase normal. he has hepatitis C IgG antibodies reactive Gallbladder ultrasound: Hepatocellular disease, leg related to hepatic steatosis EKG: Normal sinus rhythm at [address]-T changes. Review of Systems Review of systems CONSTITUTIONAL: No fever, no malaise, no fatigue. HEENT: No recent visual problems or hearing problems. Denied any sore throat. CARDIOVASCULAR: No orthopnea, PND, no palpitations, no syncope. PULMONARY: No shortness of breath, , no hemoptysis. GASTROINTESTINAL: No diarrhea. Normoactive bowel sounds. NEUROLOGICAL: No headaches, no weakness, no numbness. HEMATOLOGICAL: Denies any bleeding or petechiae. GENITOURINARY: Denies any burning micturition, frequency, or urgency. MUSCULOSKELETAL/RHEUMATOLOGICAL: Denies any joint pain, swelling, or any muscle pain. ENDOCRINE: Denies any polyuria or polydipsia. Past Medical History Past Medical History: Asthma, CVA/TIA, Diabetes Mellitus, Hypertension History of Any Multi-Drug Resistant Organisms: None Reported Past Surgical History: Orthopedic Surgery Additional Past Surgical History / Comment(s): Lasik surgery; Left ankle surgery Past Anesthesia/Blood Transfusion Reactions: No Reported Reaction Past Psychological History: Bipolar Smoking Status: Current every day smoker Past Alcohol Use History: None Reported Past Drug Use History: IV Drug Use, Marijuana, Methamphetamine Medications and Allergies Home Medications Medication Instructions Recorded Confirmed Type No Known Home Medications 08/15/22 08/15/22 History Allergies Allergy/AdvReac Type Severity Reaction Status Date / Time No Known Allergies Allergy Verified 08/15/22 21:01 Physical Exam Vitals: Vital Signs Temp Pulse Pulse Resp BP BP Pulse Ox 08/16/22 04:00 98.7 F 89 16 126/80 96 08/16/22 00:12 98.6 F 80 16 127/70 96 08/15/22 22:23 98.6 F 86 18 138/81 95 08/15/22 19:15 87 16 138/68 97 08/15/22 18:03 98.1 F 89 20 146/68 98 Intake and Output 08/15/22 08/16/22 08/16/22 22:59 06:59 14:59 Intake Total 32.070 54.158 6.273 Balance 32.070 54.158 6.273 Intake: Intake, IV Titration 32.070 54.158 6.273 Amount Insulin Regular 100 unit 32.070 54.158 6.273 In Sodium Chloride 0.9% 100 ml @ 0.1 UNITS/KG/HR 11.27 mls/hr IV .[id number] [facility] Rx#:[id number] Other: Voiding Method Toilet # Voids 1 Weight 111.584 kg GENERAL: The patient is alert and oriented x3, not in any acute distress. Well developed, well nourished. HEENT: Pupils are round and equally reacting to light. EOMI. No scleral icterus. No conjunctival pallor. Normocephalic, atraumatic. No pharyngeal erythema. No thyromegaly. CARDIOVASCULAR: S1 and S2 present. No murmurs, rubs, or gallops. PULMONARY: Chest is clear to auscultation, no wheezing or crackles. ABDOMEN: Soft, nontender, nondistended, normoactive bowel sounds. No palpable organomegaly. -perineal area: No open wounds, no evidence of cellulitis, no redness swelling erythema or warmth. Normocephalic function. He has lack some healed fibrous nodules in the perineal area. MUSCULOSKELETAL: No joint swelling or deformity. EXTREMITIES: No cyanosis, clubbing, or pedal edema. NEUROLOGICAL: Gross neurological examination did not reveal any focal deficits. SKIN: No rashes. no petechiae. Results CBC & Chem 7: 08/15/22 18:37 08/16/22 04:00 Labs: Abnormal Lab Results - Last 24 Hours (Table) 08/15/22 08/15/22 08/15/22 Range/Units 18:06 18:37 18:37 MCHC 30.9 L (31.0-37.0) g/dL Plt Count 142 L (150-450) k/uL VBG pCO2 (37-51) mmHg VBG HCO3 (24-28) mmol/L Sodium 123 L (137-145) mmol/L Potassium (3.5-5.1) mmol/L Chloride 88 L (98-107) mmol/L Carbon Dioxide 13 L (22-30) mmol/L BUN 8 L (9-20) mg/dL Creatinine 0.55 L (0.66-1.25) mg/dL Glucose 685 H* (74-99) mg/dL POC Glucose (mg/dL) >600 H (70-110) mg/dL Calcium 8.3 L (8.4-10.2) mg/dL Total Bilirubin 1.9 H (0.2-1.3) mg/dL AST 583 H (17-59) U/L ALT 976 H (4-49) U/L Alkaline Phosphatase 848 H (38-126) U/L Total Protein (6.3-8.2) g/dL Albumin (3.5-5.0) g/dL Hep C IgG Ab (Nonreactive) 08/15/22 08/15/22 08/15/22 Range/Units 19:10 20:21 20:23 MCHC (31.0-37.0) g/dL Plt Count (150-450) k/uL VBG pCO2 34 L (37-51) mmHg VBG HCO3 18 L (24-28) mmol/L Sodium (137-145) mmol/L Potassium (3.5-5.1) mmol/L Chloride (98-107) mmol/L Carbon Dioxide (22-30) mmol/L BUN (9-20) mg/dL Creatinine (0.66-1.25) mg/dL Glucose (74-99) mg/dL POC Glucose (mg/dL) 374 H (70-110) mg/dL Calcium (8.4-10.2) mg/dL Total Bilirubin (0.2-1.3) mg/dL AST (17-59) U/L ALT (4-49) U/L Alkaline Phosphatase (38-126) U/L Total Protein (6.3-8.2) g/dL Albumin (3.5-5.0) g/dL Hep C IgG Ab Reactive A (Nonreactive) 08/15/22 08/15/22 08/15/22 Range/Units 21:45 21:49 22:08 MCHC (31.0-37.0) g/dL Plt Count (150-450) k/uL VBG pCO2 (37-51) mmHg VBG HCO3 (24-28) mmol/L Sodium (137-145) mmol/L Potassium (3.5-5.1) mmol/L Chloride (98-107) mmol/L Carbon Dioxide (22-30) mmol/L BUN 7 L (9-20) mg/dL Creatinine 0.41 L (0.66-1.25) mg/dL Glucose 320 H (74-99) mg/dL POC Glucose (mg/dL) 339 H 309 H (70-110) mg/dL Calcium (8.4-10.2) mg/dL Total Bilirubin (0.2-1.3) mg/dL AST (17-59) U/L ALT (4-49) U/L Alkaline Phosphatase (38-126) U/L Total Protein (6.3-8.2) g/dL Albumin (3.5-5.0) g/dL Hep C IgG Ab (Nonreactive) 08/15/22 08/16/22 08/16/22 Range/Units 23:03 00:07 01:07 MCHC (31.0-37.0) g/dL Plt Count (150-450) k/uL VBG pCO2 (37-51) mmHg VBG HCO3 (24-28) mmol/L Sodium (137-145) mmol/L Potassium (3.5-5.1) mmol/L Chloride (98-107) mmol/L Carbon Dioxide (22-30) mmol/L BUN (9-20) mg/dL Creatinine (0.66-1.25) mg/dL Glucose (74-99) mg/dL POC Glucose (mg/dL) 226 H 189 H 139 H (70-110) mg/dL Calcium (8.4-10.2) mg/dL Total Bilirubin (0.2-1.3) mg/dL AST (17-59) U/L ALT (4-49) U/L Alkaline Phosphatase (38-126) U/L Total Protein (6.3-8.2) g/dL Albumin (3.5-5.0) g/dL Hep C IgG Ab (Nonreactive) 08/16/22 08/16/22 08/16/22 Range/Units 01:17 01:17 02:06 MCHC (31.0-37.0) g/dL Plt Count (150-450) k/uL VBG pCO2 (37-51) mmHg VBG HCO3 (24-28) mmol/L Sodium 136 L (137-145) mmol/L Potassium 3.2 L (3.5-5.1) mmol/L Chloride (98-107) mmol/L Carbon Dioxide 21 L (22-30) mmol/L BUN (9-20) mg/dL Creatinine 0.47 L (0.66-1.25) mg/dL Glucose 124 H (74-99) mg/dL POC Glucose (mg/dL) 148 H (70-110) mg/dL Calcium (8.4-10.2) mg/dL Total Bilirubin (0.2-1.3) mg/dL AST (17-59) U/L ALT (4-49) U/L Alkaline Phosphatase (38-126) U/L Total Protein (6.3-8.2) g/dL Albumin (3.5-5.0) g/dL Hep C IgG Ab (Nonreactive) 08/16/22 08/16/22 08/16/22 Range/Units 03:10 04:00 04:07 MCHC (31.0-37.0) g/dL Plt Count (150-450) k/uL VBG pCO2 (37-51) mmHg VBG HCO3 (24-28) mmol/L Sodium 134 L (137-145) mmol/L Potassium (3.5-5.1) mmol/L Chloride (98-107) mmol/L Carbon Dioxide (22-30) mmol/L BUN 8 L (9-20) mg/dL Creatinine 0.43 L (0.66-1.25) mg/dL Glucose 229 H (74-99) mg/dL POC Glucose (mg/dL) 206 H 221 H (70-110) mg/dL Calcium 7.8 L (8.4-10.2) mg/dL Total Bilirubin (0.2-1.3) mg/dL AST 532 H (17-59) U/L ALT 814 H (4-49) U/L Alkaline Phosphatase 528 H (38-126) U/L Total Protein 5.6 L (6.3-8.2) g/dL Albumin 3.1 L (3.5-5.0) g/dL Hep C IgG Ab (Nonreactive) 08/16/22 08/16/22 08/16/22 Range/Units 05:05 06:04 06:54 MCHC (31.0-37.0) g/dL Plt Count (150-450) k/uL VBG pCO2 (37-51) mmHg VBG HCO3 (24-28) mmol/L Sodium (137-145) mmol/L Potassium (3.5-5.1) mmol/L Chloride (98-107) mmol/L Carbon Dioxide (22-30) mmol/L BUN (9-20) mg/dL Creatinine (0.66-1.25) mg/dL Glucose (74-99) mg/dL POC Glucose (mg/dL) 228 H 229 H 237 H (70-110) mg/dL Calcium (8.4-10.2) mg/dL Total Bilirubin (0.2-1.3) mg/dL AST (17-59) U/L ALT (4-49) U/L Alkaline Phosphatase (38-126) U/L Total Protein (6.3-8.2) g/dL Albumin (3.5-5.0) g/dL Hep C IgG Ab (Nonreactive) 08/16/22 Range/Units 08:04 MCHC (31.0-37.0) g/dL Plt Count (150-450) k/uL VBG pCO2 (37-51) mmHg VBG HCO3 (24-28) mmol/L Sodium (137-145) mmol/L Potassium (3.5-5.1) mmol/L Chloride (98-107) mmol/L Carbon Dioxide (22-30) mmol/L BUN (9-20) mg/dL Creatinine (0.66-1.25) mg/dL Glucose (74-99) mg/dL POC Glucose (mg/dL) 249 H (70-110) mg/dL Calcium (8.4-10.2) mg/dL Total Bilirubin (0.2-1.3) mg/dL AST (17-59) U/L ALT (4-49) U/L Alkaline Phosphatase (38-126) U/L Total Protein (6.3-8.2) g/dL Albumin (3.5-5.0) g/dL Hep C IgG Ab (Nonreactive) Microbiology - Last 24 Hours (Table) 08/15/22 18:37 Wound Culture - Preliminary Rectum Assessment and Plan Assessment: Diabetic ketoacidosis, present on admission, resolved Nonadherence to therapy, including insulin and antibiotic diabetes mellitus with hyperglycemia transaminitis, with hepatitis panel positive for IgG hep C antibodies hepatic steatosis history of Perirectal abscess IV drug abuse history of asthma History of CVA/TIA Hypertension History of bipolar Nicotine dependence 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 Continue same treatment. Continue with symptomatic treatment. Resume home medication. Monitor labs and vitals. DVT and GI prophylaxis. Further recommendations as per clinical course of the job elias DVT prophylaxis: Subcutaneous heparin GI Prophylaxis: Pepcid PT/OT: Pending Prognosis is guarded
[2022-08-16 09:54] LABS: Appearance,Urine Clear (Clear); Bilirubin,Urine 1+ (Negative); Blood,Urine Negative (Negative); Budding Yeast,Urine Occasional /hpf; Color,Urine Yellow; Glucose,Urine (UA) 4+ (Negative); Ketones,Urine 1+ (Negative); Leukocyte Esterase,Urine Negative (Negative); Mucus,Urine Few /hpf; Nitrite,Urine Negative (Negative); Protein,Urine 1+ (Negative); RBC,Urine <1 /hpf (0-5); Specific Gravity,Urine 1.018 (1.001-1.035); Squamous Epithelial Cell,Urine <1 /hpf (0-4); WBC,Urine 3 /hpf (0-5)
--- NOTE | 2022-08-16 10:25 | XR ---
EXAMINATION TYPE: XR chest 2V DATE OF EXAM: 08/16/2022 COMPARISON: Chest x-ray January 11, 2022 HISTORY: Cough and shortness of breath. TECHNIQUE: Frontal and lateral views of the chest are obtained. FINDINGS: There is no suspicious focal air space opacity, pleural effusion, or pneumothorax seen. T he cardiac silhouette size is stable and within normal limits. The osseous structures are intact. O verlying EKG leads are redemonstrated. IMPRESSION: No acute process. No significant change from prior.
[2022-08-16 11:50] LABS: Glucose,Whole Blood 378 mg/dL (70-110)
[2022-08-16 12:09] VITALS: BMI 30.7
[2022-08-16] MEDS: INSULIN ASPART (NovoLOG) 100 UNIT/ML VIAL SQ SCH ×3 (12:13→20:11)
[2022-08-16] MEDS ORDERED: LACTULOSE 20 GM/30 ML CUP PO ONE (13:00)
--- NOTE | 2022-08-16 13:00 | P.CONS ---
History of Present Illness - Reason for Consult Consult date: 08/16/22 Abdominal pain, elevated LFTs Requesting physician: Darian E Sheet - Chief Complaint Diabetic ketoacidosis - History of Present Illness This is a 32-year-old male with a history of insulin-dependent diabetes diagnosed approximately 4 years ago who presented to the emergency department yesterday evening with complaints of high sugars at home. On admission he was noted to have a glucose level was 685, with positive acetone. He was also noted to have elevated LFTs. He underwent ultrasound of the gallbladder that reported hepatocellular disease, likely related to hepatic steatosis. Enlarged liver, heterogeneous. No suspicious masses or cystic lesions. Gallbladder within normal limits. CBD within normal limits. Patient had acute hepatitis panel completed patient did come back with a positive hepatitis C antibody. Patient denies any previous known history of liver disease, a previous diagnosis of hepatitis C her treatment of hepatitis C. He does admit to IV drug abuse which she started over one year ago, he admits to last using about 1-1/2 months ago. He denies any previous history of alcohol abuse or current alcohol abuse. Patient was recently seen in the emergency department on 07/27/2022 for a perirectal abscess which he had an incision and drainage done in the emergency department and sent home on Bactrim and Keflex. He took his antibiotics as prescribed for 5 days. Gastroenterology was consulted for elevated LFTs and abdominal pain. Patient states he has not had a bowel movement in 3 days and feels constipated. He does have some nausea, no vomiting. Admitting Labs: WBC 8.3 hemoglobin 14.5 hematocrit 46 platelet count 142,000 sodium 123 potassium 4.2 BUN 7 creatinine 0.4 glucose 685 total bilirubin 1.9 AST 583 ALT 1976 alkaline phosphatase 848 lipase 180 Review of Systems REVIEW OF SYSTEMS: CARDIOPULMONARY: No chest pain or shortness of breath. Gastrointestinal: Burning sensation in epigastric lower abdominal pain, bloating, constipated. No bowel movement for the last 2-3 days. No nausea or vomiting. No hematemesis, coffee-ground emesis. No rectal bleeding, or melena. GENITOURINARY: No dysuria or hematuria. MUSCULOSKELETAL: Reports normal range of motion. SKIN: No rashes. No jaundice. ENDOCRINE: No chills, fevers. No excessive weight gain or loss. No polydipsia or polyuria. PSYCHIATRIC: Unremarkable. NEUROLOGY: No change in mental status. Denies dizziness, headache. ENT: Vision unremarkable. CONSTITUTIONAL: No recent weight loss. No fever, chills, night sweats. Past Medical History Past Medical History: Asthma, CVA/TIA, Diabetes Mellitus, Hypertension History of Any Multi-Drug Resistant Organisms: None Reported Past Surgical History: Orthopedic Surgery Additional Past Surgical History / Comment(s): Lasik surgery; Left ankle surgery Past Anesthesia/Blood Transfusion Reactions: No Reported Reaction Past Psychological History: Bipolar Smoking Status: Current every day smoker Past Alcohol Use History: None Reported Past Drug Use History: IV Drug Use, Marijuana, Methamphetamine Medications and Allergies Home Medications Medication Instructions Recorded Confirmed Type No Known Home Medications 08/15/22 08/15/22 History Allergies Allergy/AdvReac Type Severity Reaction Status Date / Time No Known Allergies Allergy Verified 08/15/22 21:01 Physical Exam Vitals: Vital Signs Temp Pulse Pulse Resp BP BP Pulse Ox 08/16/22 12:14 97.9 F 83 18 133/73 96 08/16/22 08:47 98.0 F 74 18 119/67 97 08/16/22 04:00 98.7 F 89 16 126/80 96 08/16/22 00:12 98.6 F 80 16 127/70 96 08/15/22 22:23 98.6 F 86 18 138/81 95 08/15/22 19:15 87 16 138/68 97 08/15/22 18:03 98.1 F 89 20 146/68 98 Intake and Output 08/15/22 08/16/22 08/16/22 22:59 06:59 14:59 Intake Total 32.070 54.158 15.458 Balance 32.070 54.158 15.458 Intake: Intake, IV Titration 32.070 54.158 15.458 Amount Insulin Regular 100 unit 32.070 54.158 15.458 In Sodium Chloride 0.9% 100 ml @ 0.1 UNITS/KG/HR 11.27 mls/hr IV .Q8H58M [facility] Rx#:[id number] Other: Voiding Method Toilet Toilet # Voids 1 Weight 111.584 kg 111.584 kg General appearance: The patient is alert, oriented, appears in no acute distress. HET: Head is normocephalic and atraumatic. Conjunctiva pink. Sclera anicteric. Neck: Supple without lymphadenopathy. Trachea midline. Heart: S1 S2. Regular rate and rhythm. Lungs: Clear to auscultation. Abdomen: Soft, right upper quadrant tenderness, hepatomegaly, nondistended with bowel sounds. No guarding or rigidity. Skin: No rashes. No jaundice. Multiple tattoos. Extremities: Normal skin color and turgor. No pedal edema. Neurological: No focal deficits. Alert and oriented x3. Results CBC & Chem 7: 08/15/22 18:37 08/16/22 08:11 Labs: Abnormal Lab Results - Last 24 Hours (Table) 08/15/22 08/15/22 08/15/22 Range/Units 18:06 18:37 18:37 MCHC 30.9 L (31.0-37.0) g/dL Plt Count 142 L (150-450) k/uL VBG pCO2 (37-51) mmHg VBG HCO3 (24-28) mmol/L Sodium 123 L (137-145) mmol/L Potassium (3.5-5.1) mmol/L Chloride 88 L (98-107) mmol/L Carbon Dioxide 13 L (22-30) mmol/L BUN 8 L (9-20) mg/dL Creatinine 0.55 L (0.66-1.25) mg/dL Glucose 685 H* (74-99) mg/dL POC Glucose (mg/dL) >600 H (70-110) mg/dL Calcium 8.3 L (8.4-10.2) mg/dL Total Bilirubin 1.9 H (0.2-1.3) mg/dL AST 583 H (17-59) U/L ALT 976 H (4-49) U/L Alkaline Phosphatase 848 H (38-126) U/L Creatine Kinase (55-170) U/L Total Protein (6.3-8.2) g/dL Albumin (3.5-5.0) g/dL Urine Protein (Negative) Urine Glucose (UA) (Negative) Urine Ketones (Negative) Urine Bilirubin (Negative) Urine Mucus (None) /hpf Urine Yeast (Budding) (None) /hpf Hep C IgG Ab (Nonreactive) 08/15/22 08/15/22 08/15/22 Range/Units 19:10 20:21 20:23 MCHC (31.0-37.0) g/dL Plt Count (150-450) k/uL VBG pCO2 34 L (37-51) mmHg VBG HCO3 18 L (24-28) mmol/L Sodium (137-145) mmol/L Potassium (3.5-5.1) mmol/L Chloride (98-107) mmol/L Carbon Dioxide (22-30) mmol/L BUN (9-20) mg/dL Creatinine (0.66-1.25) mg/dL Glucose (74-99) mg/dL POC Glucose (mg/dL) 374 H (70-110) mg/dL Calcium (8.4-10.2) mg/dL Total Bilirubin (0.2-1.3) mg/dL AST (17-59) U/L ALT (4-49) U/L Alkaline Phosphatase (38-126) U/L Creatine Kinase (55-170) U/L Total Protein (6.3-8.2) g/dL Albumin (3.5-5.0) g/dL Urine Protein (Negative) Urine Glucose (UA) (Negative) Urine Ketones (Negative) Urine Bilirubin (Negative) Urine Mucus (None) /hpf Urine Yeast (Budding) (None) /hpf Hep C IgG Ab Reactive A (Nonreactive) 08/15/22 08/15/22 08/15/22 Range/Units 21:45 21:49 22:08 MCHC (31.0-37.0) g/dL Plt Count (150-450) k/uL VBG pCO2 (37-51) mmHg VBG HCO3 (24-28) mmol/L Sodium (137-145) mmol/L Potassium (3.5-5.1) mmol/L Chloride (98-107) mmol/L Carbon Dioxide (22-30) mmol/L BUN 7 L (9-20) mg/dL Creatinine 0.41 L (0.66-1.25) mg/dL Glucose 320 H (74-99) mg/dL POC Glucose (mg/dL) 339 H 309 H (70-110) mg/dL Calcium (8.4-10.2) mg/dL Total Bilirubin (0.2-1.3) mg/dL AST (17-59) U/L ALT (4-49) U/L Alkaline Phosphatase (38-126) U/L Creatine Kinase (55-170) U/L Total Protein (6.3-8.2) g/dL Albumin (3.5-5.0) g/dL Urine Protein (Negative) Urine Glucose (UA) (Negative) Urine Ketones (Negative) Urine Bilirubin (Negative) Urine Mucus (None) /hpf Urine Yeast (Budding) (None) /hpf Hep C IgG Ab (Nonreactive) 08/15/22 08/16/22 08/16/22 Range/Units 23:03 00:07 01:07 MCHC (31.0-37.0) g/dL Plt Count (150-450) k/uL VBG pCO2 (37-51) mmHg VBG HCO3 (24-28) mmol/L Sodium (137-145) mmol/L Potassium (3.5-5.1) mmol/L Chloride (98-107) mmol/L Carbon Dioxide (22-30) mmol/L BUN (9-20) mg/dL Creatinine (0.66-1.25) mg/dL Glucose (74-99) mg/dL POC Glucose (mg/dL) 226 H 189 H 139 H (70-110) mg/dL Calcium (8.4-10.2) mg/dL Total Bilirubin (0.2-1.3) mg/dL AST (17-59) U/L ALT (4-49) U/L Alkaline Phosphatase (38-126) U/L Creatine Kinase (55-170) U/L Total Protein (6.3-8.2) g/dL Albumin (3.5-5.0) g/dL Urine Protein (Negative) Urine Glucose (UA) (Negative) Urine Ketones (Negative) Urine Bilirubin (Negative) Urine Mucus (None) /hpf Urine Yeast (Budding) (None) /hpf Hep C IgG Ab (Nonreactive) 08/16/22 08/16/22 08/16/22 Range/Units 01:17 01:17 02:06 MCHC (31.0-37.0) g/dL Plt Count (150-450) k/uL VBG pCO2 (37-51) mmHg VBG HCO3 (24-28) mmol/L Sodium 136 L (137-145) mmol/L Potassium 3.2 L (3.5-5.1) mmol/L Chloride (98-107) mmol/L Carbon Dioxide 21 L (22-30) mmol/L BUN (9-20) mg/dL Creatinine 0.47 L (0.66-1.25) mg/dL Glucose 124 H (74-99) mg/dL POC Glucose (mg/dL) 148 H (70-110) mg/dL Calcium (8.4-10.2) mg/dL Total Bilirubin (0.2-1.3) mg/dL AST (17-59) U/L ALT (4-49) U/L Alkaline Phosphatase (38-126) U/L Creatine Kinase (55-170) U/L Total Protein (6.3-8.2) g/dL Albumin (3.5-5.0) g/dL Urine Protein (Negative) Urine Glucose (UA) (Negative) Urine Ketones (Negative) Urine Bilirubin (Negative) Urine Mucus (None) /hpf Urine Yeast (Budding) (None) /hpf Hep C IgG Ab (Nonreactive) 08/16/22 08/16/22 08/16/22 Range/Units 03:10 04:00 04:07 MCHC (31.0-37.0) g/dL Plt Count (150-450) k/uL VBG pCO2 (37-51) mmHg VBG HCO3 (24-28) mmol/L Sodium 134 L (137-145) mmol/L Potassium (3.5-5.1) mmol/L Chloride (98-107) mmol/L Carbon Dioxide (22-30) mmol/L BUN 8 L (9-20) mg/dL Creatinine 0.43 L (0.66-1.25) mg/dL Glucose 229 H (74-99) mg/dL POC Glucose (mg/dL) 206 H 221 H (70-110) mg/dL Calcium 7.8 L (8.4-10.2) mg/dL Total Bilirubin (0.2-1.3) mg/dL AST 532 H (17-59) U/L ALT 814 H (4-49) U/L Alkaline Phosphatase 528 H (38-126) U/L Creatine Kinase (55-170) U/L Total Protein 5.6 L (6.3-8.2) g/dL Albumin 3.1 L (3.5-5.0) g/dL Urine Protein (Negative) Urine Glucose (UA) (Negative) Urine Ketones (Negative) Urine Bilirubin (Negative) Urine Mucus (None) /hpf Urine Yeast (Budding) (None) /hpf Hep C IgG Ab (Nonreactive) 08/16/22 08/16/22 08/16/22 Range/Units 05:05 06:04 06:54 MCHC (31.0-37.0) g/dL Plt Count (150-450) k/uL VBG pCO2 (37-51) mmHg VBG HCO3 (24-28) mmol/L Sodium (137-145) mmol/L Potassium (3.5-5.1) mmol/L Chloride (98-107) mmol/L Carbon Dioxide (22-30) mmol/L BUN (9-20) mg/dL Creatinine (0.66-1.25) mg/dL Glucose (74-99) mg/dL POC Glucose (mg/dL) 228 H 229 H 237 H (70-110) mg/dL Calcium (8.4-10.2) mg/dL Total Bilirubin (0.2-1.3) mg/dL AST (17-59) U/L ALT (4-49) U/L Alkaline Phosphatase (38-126) U/L Creatine Kinase (55-170) U/L Total Protein (6.3-8.2) g/dL Albumin (3.5-5.0) g/dL Urine Protein (Negative) Urine Glucose (UA) (Negative) Urine Ketones (Negative) Urine Bilirubin (Negative) Urine Mucus (None) /hpf Urine Yeast (Budding) (None) /hpf Hep C IgG Ab (Nonreactive) 08/16/22 08/16/22 08/16/22 Range/Units 08:04 08:11 08:11 MCHC (31.0-37.0) g/dL Plt Count (150-450) k/uL VBG pCO2 (37-51) mmHg VBG HCO3 (24-28) mmol/L Sodium 133 L (137-145) mmol/L Potassium 3.4 L (3.5-5.1) mmol/L Chloride (98-107) mmol/L Carbon Dioxide (22-30) mmol/L BUN (9-20) mg/dL Creatinine (0.66-1.25) mg/dL Glucose (74-99) mg/dL POC Glucose (mg/dL) 249 H (70-110) mg/dL Calcium (8.4-10.2) mg/dL Total Bilirubin (0.2-1.3) mg/dL AST (17-59) U/L ALT (4-49) U/L Alkaline Phosphatase (38-126) U/L Creatine Kinase 31 L (55-170) U/L Total Protein (6.3-8.2) g/dL Albumin (3.5-5.0) g/dL Urine Protein (Negative) Urine Glucose (UA) (Negative) Urine Ketones (Negative) Urine Bilirubin (Negative) Urine Mucus (None) /hpf Urine Yeast (Budding) (None) /hpf Hep C IgG Ab (Nonreactive) 08/16/22 08/16/22 08/16/22 Range/Units 09:02 09:39 11:49 MCHC (31.0-37.0) g/dL Plt Count (150-450) k/uL VBG pCO2 (37-51) mmHg VBG HCO3 (24-28) mmol/L Sodium (137-145) mmol/L Potassium (3.5-5.1) mmol/L Chloride (98-107) mmol/L Carbon Dioxide (22-30) mmol/L BUN (9-20) mg/dL Creatinine (0.66-1.25) mg/dL Glucose (74-99) mg/dL POC Glucose (mg/dL) 275 H 378 H (70-110) mg/dL Calcium (8.4-10.2) mg/dL Total Bilirubin (0.2-1.3) mg/dL AST (17-59) U/L ALT (4-49) U/L Alkaline Phosphatase (38-126) U/L Creatine Kinase (55-170) U/L Total Protein (6.3-8.2) g/dL Albumin (3.5-5.0) g/dL Urine Protein 1+ H (Negative) Urine Glucose (UA) 4+ H (Negative) Urine Ketones 1+ H (Negative) Urine Bilirubin 1+ H (Negative) Urine Mucus Few H (None) /hpf Urine Yeast (Budding) Occasional H (None) /hpf Hep C IgG Ab (Nonreactive) Microbiology - Last 24 Hours (Table) 08/15/22 18:37 Wound Culture - Preliminary Rectum Comments: Gallbladder ultrasound reports hepatocellular disease, likely relating to hepatic steatosis Assessment and Plan (1) Transaminitis Narrative/Plan: 32-year-old male with insulin insulin-dependent diabetes with elevated sugars presented to the emergency department for high sugars at home. He was known to have a glucose level of 685 on admission, diabetic ketoacidosis. He was also noted to have elevated LFTs for which gastroenterology was consulted. Patient has no previous history of known liver disease, no previous knowledge of hepatitis C. However his acute hepatitis panel to come back positive for hepatitis C antibody, he has had no prior diagnosis or treatment to his knowledge. Patient admits to IV drug abuse that began a little over one year ago with his last use aloe 1-2 months ago. He underwent ultrasound of the gallbladder that showed hepatomegaly, and fatty infiltrated liver consistent with hepatocellular disease. Likely are dealing with underlying liver disease related to chronic hepatitis C infection however patient also was recently started on antibiotics for perirectal abscess last taken almost 2 weeks ago. He was also restarted on IV antibiotics on admission including ceftriaxone and Flagyl. Patient with hepatocellular as well as cholestatic pattern, Patient may have some component of medication-induced hepatitis with underlying liver disease. Recommend avoiding hepatotoxic medications. Will order CT abdomen and pelvis further evaluation. Current Visit: Yes Status: Acute Code(s): R74.01 - ELEVATION OF LEVELS OF LIVER TRANSAMINASE LEVELS SNOMED Code(s): 473640148 (2) Hx of intravenous drug use in remission Current Visit: Yes Status: Acute Code(s): F19.91 - OTHER PSYCHOACTIVE SUBSTANCE USE, UNSPECIFIED, IN REMISSION SNOMED Code(s): 70627331270267199 (3) Hepatitis C antibody positive in blood Current Visit: Yes Status: Acute Code(s): R76.8 - OTHER SPECIFIED ABNORMAL IMMUNOLOGICAL FINDINGS IN SERUM SNOMED Code(s): 389776060 (4) Diabetic ketoacidosis Current Visit: Yes Status: Acute Code(s): E11.10 - TYPE 2 DIABETES MELLITUS WITH KETOACIDOSIS WITHOUT COMA SNOMED Code(s): 353568638 (5) Perirectal abscess Current Visit: Yes Status: Acute Code(s): K61.1 - RECTAL ABSCESS SNOMED Code(s): 55487534 Plan: 1. Continue symptomatic and supportive care 2. Continue medical management 3. Avoid hepatotoxic medications 4. Hepatitis C quantitative and genotype ordered 5. Repeat CMP in the morning 6. CT abdomen and pelvis 7. Will add dose of lactulose for constipation 8. Discussed with patient importance of IV drug abstinence in order to start treatment for hepatitis C 9. Patient will need to follow-up with gastroenterology upon discharge for treatment of hepatitis C Thank you for this consultation, we will continue to follow. Dr. Colleen Nation I agree with the dictator's note, documented as a scribe by Steph Harrington.
[2022-08-16 15:21] LABS: Glucose,Whole Blood 426 mg/dL (70-110)
[2022-08-16 16:29] LABS: Glucose,Whole Blood 333 mg/dL (70-110)
--- NOTE | 2022-08-16 18:04 | CT ---
EXAMINATION TYPE: CT abdomen pelvis w con CT DLP: 1750.7 mGycm, Automated exposure control for dose reduction was used. DATE OF EXAM: 08/16/2022 4:54 PM COMPARISON: None CLINICAL INDICATION:Male, 32 years old with history of elevated LFTS, abdominal pain; abd pain, melany rectal abscess TECHNIQUE: Axial CT of the abdomen and pelvis. Sagittal and coronal reformats were created on a [employer] workstation. Contrast used:100 mL of Isovue 300 with IV Contrast, Oral contrast used: with Oral Contrast FINDINGS: LOWER CHEST: Unremarkable ABDOMEN LIVER: No evidence of mass. There is mild periportal edema likely secondary to patient line status. GALLBLADDER AND BILE DUCTS: Nondistended gallbladder. PANCREAS: Unremarkable. SPLEEN: Unremarkable. ADRENAL GLANDS: Unremarkable. KIDNEYS AND URETERS: No evidence of hydronephrosis or renal calculus. The ureters are unremarkable. PELVIS BLADDER: Unremarkable REPRODUCTIVE: Unremarkable. ABDOMEN & PELVIS STOMACH AND BOWEL: No evidence of bowel obstruction. Appendix is normal. PERITONEUM: No evidence of pneumoperitoneum or free fluid. VASCULATURE: No evidence of aortic aneurysm. MUSCULOSKELETAL: No acute osseous abnormalities LYMPH NODES: No gross evidence for lymphadenopathy. SOFT TISSUE/ABDOMINAL WALL: Limited evaluation of the rectum given adjacent soft tissues. Fat-contain ing bilateral inguinal hernias. IMPRESSION: 1. No evidence of acute abdominal process. 2. No obvious perirectal abscess seen on CT. 3. Bilateral fat-containing inguinal hernias left greater than right.
[2022-08-16 19:58] LABS: Glucose,Whole Blood 393 mg/dL (70-110)
[2022-08-17 03:22] LABS: Glucose,Whole Blood 111 mg/dL (70-110)
[2022-08-17] MEDS: metroNIDAZOLE-NS PMX 500 MG in SALINE 1 100ML.BAG IVPB SCH ×3 (05:46→21:19)
[2022-08-17 06:06] LABS: Glucose,Whole Blood 215 mg/dL (70-110)
[2022-08-17] MEDS: INSULIN DETEMIR (LEVEMIR) 100 UNIT/ML SYR SQ SCH (06:35)
[2022-08-17] MEDS: INSULIN ASPART (NovoLOG) 100 UNIT/ML VIAL SQ SCH ×4 (06:36→20:13)
[2022-08-17] MEDS ORDERED: INSULIN DETEMIR (LEVEMIR) 100 UNIT/ML SYR SQ SCH (07:00)
[2022-08-17] MEDS: polyethylene glycoL 3350 17 GM POWD.PACK PO SCH (08:44)
[2022-08-17 11:08] LABS: Basophils % (A) 1 %; Eosinophils # (A) 0.3 k/uL (0-0.7); Eosinophils % (A) 5 %; HCT 44.2 % (39.0-53.0); HGB 14.1 gm/dL (13.0-17.5); Hypochromasia Slight; Lymphocytes # (A) 1.7 k/uL (1.0-4.8); Lymphocytes % (A) 27 %; MCH 26.7 pg (25.0-35.0); MCV 83.4 fL (80.0-100.0); Monocytes # (A) 0.5 k/uL (0-1.0); Monocytes % (A) 8 %; Neutrophils # (A) 3.5 k/uL (1.3-7.7); Neutrophils % (A) 57 %; Platelet Count 192 k/uL (150-450); RDW 13.3 % (11.5-15.5); WBC 6.1 k/uL (3.8-10.6)
--- NOTE | 2022-08-17 11:29 | P.PN ---
Subjective Progress Note Date: 08/17/22 Principal diagnosis: Elevated LFTs This is a 32-year-old male with a history of insulin-dependent diabetes diagnosed approximately 4 years ago who presented to the emergency department yesterday evening with complaints of high sugars at home. On admission he was noted to have a glucose level was 685, with positive acetone. He was also noted to have elevated LFTs. He underwent ultrasound of the gallbladder that reported hepatocellular disease, likely related to hepatic steatosis. Enlarged liver, heterogeneous. No suspicious masses or cystic lesions. Gallbladder within normal limits. CBD within normal limits. Patient had acute hepatitis panel completed patient did come back with a positive hepatitis C antibody. Patient denies any previous known history of liver disease, a previous diagnosis of hepatitis C her treatment of hepatitis C. He does admit to IV drug abuse which she started over one year ago, he admits to last using about 1-1/2 months ago. He denies any previous history of alcohol abuse or current alcohol abuse. Patient was recently seen in the emergency department on 07/27/2022 for a perirectal abscess which he had an incision and drainage done in the emergency department and sent home on Bactrim and Keflex. He took his antibiotics as pre scribed for 5 days. Gastroenterology was consulted for elevated LFTs and abdominal pain. Patient st ates he has not had a bowel movement in 3 days and feels constipated. He does have some nausea, no vomiting. Admitting Labs: WBC 8.3 hemoglobin 14.5 hematocrit 46 platelet count 142,000 sodium 123 p otassium 4.2 BUN 7 creatinine 0.4 glucose 685 total bilirubin 1.9 AST 583 ALT 1976 alkaline phosphatase 848 lipase 180 08/17/2022: Patient seen and examined today as a follow-up. Abdominal pain impr opal. Still has some tenderness in the right upper quadrant. No nausea or vomiting. CMP currently pending. Hepatitis C genotype and quantitative ordered and pending. CT of the abdomen and pelvis reports no evidence of acute abdominal process, no obvious perirectal abscess seen on CT, bilateral fat- containing inguinal hernias greater than right. Liver no evidence of mass. Mild periportal edema likely secondary to patient status. Objective - Vital Signs Vital signs: Vital Signs Temp 98.1 F 08/17/22 08:00 Pulse 84 08/17/22 08:00 Resp 14 08/17/22 08:00 BP 105/67 08/17/22 08:00 Pulse Ox 97 08/17/22 08:00 FiO2 Intake & Output 08/16/22 08/17/22 08/17/22 18:59 06:59 18:59 Intake Total 1755.458 780 358 Output Total 1000 Balance 755.458 780 358 Weight 111.584 kg Intake: Intake, IV Titration 15.458 Amount Insulin Regular 100 unit 15.458 In Sodium Chloride 0.9% 100 ml @ 0.1 UNITS/KG/HR 11.27 mls/hr IV .Q8H58M [facility] Rx#:[id number] Oral 1740 780 358 Output: Urine 1000 Other: Voiding Method Toilet Toilet # Voids 2 - Exam General appearance: The patient is alert, oriented, appears in no acute distress. HET: Head is normocephalic and atraumatic. Conjunctiva pink. Sclera anicteric. Neck: Supple without lymphadenopathy. Abdomen: Soft, hepatomegaly, mild right upper quadrant tenderness with palpation over liver, nondistended with bowel sounds. No guarding or rigidity. Extremities: Normal skin color and turgor. No pedal edema Skin: No rashes, no jaundice Neurological: No focal deficits. Alert and oriented. - Labs CBC & Chem 7: 08/17/22 07:13 08/17/22 07:13 Labs: Abnormal Lab Results - Last 24 Hours (Table) 08/16/22 08/16/22 08/16/22 Range/Units 11:49 15:19 16:28 POC Glucose (mg/dL) 378 H 426 H 333 H (70-110) mg/dL Creatine Kinase (55-170) U/L 08/16/22 08/17/22 08/17/22 Range/Units 19:57 03:20 06:03 POC Glucose (mg/dL) 393 H 111 H 215 H (70-110) mg/dL Creatine Kinase (55-170) U/L 08/17/22 Range/Units 07:13 POC Glucose (mg/dL) (70-110) mg/dL Creatine Kinase 29 L (55-170) U/L Microbiology - Last 24 Hours (Table) 08/15/22 21:30 Blood Culture - Preliminary Blood No Growth after 24 hours 08/15/22 21:45 Blood Culture - Preliminary Blood No Growth after 24 hours 08/15/22 18:37 Gram Stain - Preliminary Rectum Wound Culture - Preliminary Strep agalactiae - (group b) Assessment and Plan (1) Transaminitis Narrative/Plan: 32-year-old male with insulin insulin-dependent diabetes with elevated sugars presented to the emergency department for high sugars at home. He was known to have a glucose level of 685 on admission, diabetic ketoacidosis. He was also noted to have elevated LFTs for which gastroenterology was consulted. Patient has no previous history of known liver disease, no previous knowledge of hepatitis C. However his acute hepatitis panel to come back positive for hepat itis C antibody, he has had no prior diagnosis or treatment to his knowledge. Patient admits to IV drug abuse that began a little over one year ago with his last use aloe 1-2 months ago. He underwent ultrasound of the gallbladder that showed hepatomegaly, and fatty infiltrated liver consistent with hepatocellular disease. Likely are dealing with underlying liver disease related to chronic hepatitis C infection however patient also was recently started on antibiotics for perirectal abscess last taken almost 2 weeks ago. He was also restarted on IV antibiotics on admission including ceftriaxone and Flagyl. Patient with hepatocellular as well as cholestatic pattern, Patient may have some component of medication-induced hepatitis with underlying liver disease. Recommend avoiding hepatotoxic medications. Will order CT abdomen and pelvis further evaluation. computed tomography scan shows no evidence of liver mass, mild. Portal edema likely secondary to patient's underlying status. Gallbladder nondistended. With recent antibiotic use and current antibiotic use likely we are dealing with the medication-induced hepatitis. Will order AFP. Hepatitis C RNA/genotype pending. Current Visit: Yes Status: Acute Code(s): R74.01 - ELEVATION OF LEVELS OF LIVER TRANSAMINASE LEVELS SNOMED Code(s): 823851842 (2) Hx of intravenous drug use in remission Current Visit: Yes Status: Acute Code(s): F19.91 - OTHER PSYCHOACTIVE SUBSTANCE USE, UNSPECIFIED, IN REMISSION SNOMED Code(s): 98467683495789697 (3) Hepatitis C antibody positive in blood Current Visit: Yes Status: Acute Code(s): R76.8 - OTHER SPECIFIED ABNORMAL IMMUNOLOGICAL FINDINGS IN SERUM SNOMED Code(s): 161143359 (4) Diabetic ketoacidosis Current Visit: Yes Status: Acute Code(s): E11.10 - TYPE 2 DIABETES MELLITUS WITH KETOACIDOSIS WITHOUT COMA SNOMED Code(s): 386432136 (5) Perirectal abscess Current Visit: Yes Status: Acute Code(s): K61.1 - RECTAL ABSCESS SNOMED Code(s): 24934974 Plan: 1. Continue symptomatic and supportive care 2. Continue medical management 3. Avoid hepatotoxic medications 4. Hepatitis C quantitative and genotype ordered 5. Repeat CMP daily, AFP ordered 6. CT abdomen and pelvis ordered and reviewed 7. MiraLAX daily 8. Discussed with patient importance of IV drug abstinence in order to start treatment for hepatitis C 9. Patient will need to follow-up with gastroenterology upon discharge for treatment of hepatitis C Thank you for this consultation, we will continue to follow. Dr. Colleen Nation I agree with the dictator's note, documented as a scribe by Steph Harrington.
[2022-08-17 11:51] LABS: Glucose,Whole Blood 376 mg/dL (70-110)
[2022-08-17 12:00] LABS: African American GFR (CKD) >90 (>60 ml/min/1.73 sqM); Albumin 3.2 g/dL (3.5-5.0); Alkaline Phosphatase 559 U/L (38-126); Anion Gap 10 mmol/L; Blood Urea Nitrogen 7 mg/dL (9-20); Calcium 8.1 mg/dL (8.4-10.2); Carbon Dioxide 28 mmol/L (22-30); Chloride 96 mmol/L (98-107); Glucose 226 mg/dL (74-99); Non-African American GFR(CKD) >90 (>60 ml/min/1.73 sqM); Potassium 3.7 mmol/L (3.5-5.1); Sodium 134 mmol/L (137-145); Total Bilirubin 2.3 mg/dL (0.2-1.3); Total Protein 5.6 g/dL (6.3-8.2)
[2022-08-17 12:24] LABS: ALT 935 U/L (4-49); AST 827 U/L (17-59)
[2022-08-17 16:39] LABS: Glucose,Whole Blood 290 mg/dL (70-110)
[2022-08-17 20:02] LABS: Glucose,Whole Blood 402 mg/dL (70-110)
[2022-08-18] MEDS: metroNIDAZOLE-NS PMX 500 MG in SALINE 1 100ML.BAG IVPB SCH (05:44)
[2022-08-18 06:10] LABS: Glucose,Whole Blood 249 mg/dL (70-110)
[2022-08-18] MEDS: INSULIN ASPART (NovoLOG) 100 UNIT/ML VIAL SQ SCH ×7 (06:29→20:38)
[2022-08-18] MEDS: INSULIN DETEMIR (LEVEMIR) 100 UNIT/ML SYR SQ SCH (06:29)
[2022-08-18] MEDS: ONDANSETRON 4 MG/2 ML VIAL IVP PRN ×2 (08:35→20:39)
[2022-08-18] MEDS: polyethylene glycoL 3350 17 GM POWD.PACK PO SCH (08:35)
[2022-08-18 08:54] LABS: Basophils % (A) 0 %; Eosinophils # (A) 0.2 k/uL (0-0.7); Eosinophils % (A) 4 %; HCT 41.7 % (39.0-53.0); HGB 13.6 gm/dL (13.0-17.5); Lymphocytes # (A) 1.6 k/uL (1.0-4.8); Lymphocytes % (A) 30 %; MCH 26.9 pg (25.0-35.0); MCHC 32.6 g/dL (31.0-37.0); MCV 82.5 fL (80.0-100.0); Mean Platelet Volume 10.1; Monocytes # (A) 0.4 k/uL (0-1.0); Monocytes % (A) 8 %; Neutrophils # (A) 2.8 k/uL (1.3-7.7); Neutrophils % (A) 53 %; Platelet Count 171 k/uL (150-450); RBC 5.05 m/uL (4.30-5.90); RDW 13.6 % (11.5-15.5); WBC 5.3 k/uL (3.8-10.6)
[2022-08-18 09:08] LABS: African American GFR (CKD) >90 (>60 ml/min/1.73 sqM); Albumin 2.9 g/dL (3.5-5.0); Anion Gap 8 mmol/L; Blood Urea Nitrogen 7 mg/dL (9-20); Calcium 8.2 mg/dL (8.4-10.2); Carbon Dioxide 28 mmol/L (22-30); Chloride 97 mmol/L (98-107); Glucose 319 mg/dL (74-99); Non-African American GFR(CKD) >90 (>60 ml/min/1.73 sqM); Potassium 3.9 mmol/L (3.5-5.1); Sodium 133 mmol/L (137-145); Total Bilirubin 3.2 mg/dL (0.2-1.3); Total Protein 5.3 g/dL (6.3-8.2)
[2022-08-18 09:20] LABS: AST 708 U/L (17-59)
[2022-08-18 09:21] LABS: ALT 853 U/L (4-49); Alkaline Phosphatase 532 U/L (38-126)
--- NOTE | 2022-08-18 10:54 | P.PN ---
Subjective Progress Note Date: 08/17/22 This is a pleasant 32 this old male with past medical history of diabetes mellitus on insulin, Asthma,Diabetes CVA/TIA, Hypertension, Bipolar, Current every day smoker, IV Drug Use, Marijuana, Methamphetamine, He has history of nonadherence to therapy Patient states that she supposed to be on long acting insulin 40 units daily but he was not taking this medication for a long time and months 4 weeks has been feeling not well with abdominal pain and vomiting several times with no hematemesis, also with polyuria and for the urine but no dysuria, he has some mild vague right upper quadrant abdominal pain/discomfort and left lower quadrant with no tenderness or rebound tenderness and abdomen looks soft. Patient counseled about the importance of entrance to therapy and he is willing to take his insulin medication and he was asking to follow up with mold presser. Contact information for Dr. Paulino and Dr. Chan from endocrinology clinics are provided for the patient (. Patient states that he is blind in his left eye 2 years see discharge instructions) On the left eye, chronic Patient admits to smoking cigarettes 1 pack per day, no alcohol, he uses methamphetamine and marijuana but no cocaine or heroin, last time was one month ago. No chest pain or dyspnea but his cough and follow-up with some phlegm. Currently his vomiting resolved and he has good appetite and he tolerates diet well. No headache or dizziness or weakness or numbness Patient states that he lost his job yesterday, he feels the first but he denies suicidal or homicidal ideation, no hallucination vitals stable and patient is afebrile CBC is unremarkable sodium 134, rest of BMP is unremarkable. Elevated liver enzymes AST 532 and ALT 843 and bilirubin is normal 1.0. Lipase normal. he has hepatitis C IgG antibodies reactive Gallbladder ultrasound: Hepatocellular disease, leg related to hepatic steatosis EKG: Normal sinus rhythm at [address]-T changes. 08/17/2020 Patient is currently lying in bed. Awake alert but seems to be anxious and distressed. Patient still hyperglycemic and blood sugar went up to 300s. On Levemir and preprandial insulin will be added. Along with sliding scale for better blood sugar control. Otherwise she is having tenderness in the right upper quadrant. No nausea or vomiting. Patient is having significantly elevated liver enzymes. Patient does have acute C infection and hepatitis C viral genotype and viral load was ordered. CT of the abdominal pelvis showed no evidence of acute abdominal process. No obvious perirectal abscess seen on the CT. Bilateral fat-containing inguinal hernias greater on the right. Mild report leg edema. GI is on board. Laboratory data showed sodium 134 potassium 3.7 chloride 96 BUN 7 and creatinine 0.45 AST 27 ALT 1035 and alk phos 559. Bilirubin level is 2.3. Current medications reviewed. Objective - Vital Signs Vital signs: Vital Signs Temp 98.5 F 08/17/22 16:00 Pulse 78 08/17/22 16:00 Resp 12 08/17/22 16:00 BP 116/81 08/17/22 16:00 Pulse Ox 99 08/17/22 16:00 FiO2 Intake & Output 08/17/22 08/17/22 08/18/22 06:59 18:59 06:59 Intake Total 780 1556 Balance 780 1556 Intake: Oral 780 1556 Other: Voiding Method Toilet Toilet # Voids 2 1 - Exam PHYSICAL EXAMINATION: Patient is lying in the bed comfortably, no acute distress, awake alert and oriented.. HEENT: Normocephalic. Neck is supple. Pupils reactive. Nostrils clear. Oral cavity is moist. Neck reveals no JVD, carotid bruits, or thyromegaly. CHEST EXAMINATION: Trachea is central. Symmetrical expansion. Lung gallegos clear to auscultation and percussion. CARDIAC: Normal S1, S2 with no gallops. No murmurs ABDOMEN: Soft. Bowel sounds normal. Minimal right upper quadrant tenderness. No organomegaly. No abdominal bruits. Extremities: reveal no edema. No clubbing or cyanosis Neurologically awake, alert, oriented x3 with well-coordinated movements. No focal deficits noted Skin: No rash or skin lesions. Psychiatric: Coperative. Nonsuicidal, anxious. Musculoskeletal: No joint swelling or deformity. Normal range of motion. - Labs CBC & Chem 7: 08/18/22 08:23 08/18/22 08:23 Labs: Abnormal Lab Results - Last 24 Hours (Table) 08/17/22 08/17/22 08/17/22 Range/Units 03:20 06:03 07:13 Sodium (137-145) mmol/L Chloride (98-107) mmol/L BUN (9-20) mg/dL Creatinine (0.66-1.25) mg/dL Glucose (74-99) mg/dL POC Glucose (mg/dL) 111 H 215 H (70-110) mg/dL Calcium (8.4-10.2) mg/dL Total Bilirubin (0.2-1.3) mg/dL AST (17-59) U/L ALT (4-49) U/L Alkaline Phosphatase (38-126) U/L Creatine Kinase 29 L (55-170) U/L Total Protein (6.3-8.2) g/dL Albumin (3.5-5.0) g/dL 08/17/22 08/17/22 08/17/22 Range/Units 07:13 11:49 16:38 Sodium 134 L (137-145) mmol/L Chloride 96 L (98-107) mmol/L BUN 7 L (9-20) mg/dL Creatinine 0.45 L (0.66-1.25) mg/dL Glucose 226 H (74-99) mg/dL POC Glucose (mg/dL) 376 H 290 H (70-110) mg/dL Calcium 8.1 L (8.4-10.2) mg/dL Total Bilirubin 2.3 H (0.2-1.3) mg/dL AST 827 H (17-59) U/L ALT 935 H (4-49) U/L Alkaline Phosphatase 559 H (38-126) U/L Creatine Kinase (55-170) U/L Total Protein 5.6 L (6.3-8.2) g/dL Albumin 3.2 L (3.5-5.0) g/dL 08/17/22 Range/Units 20:00 Sodium (137-145) mmol/L Chloride (98-107) mmol/L BUN (9-20) mg/dL Creatinine (0.66-1.25) mg/dL Glucose (74-99) mg/dL POC Glucose (mg/dL) 402 H (70-110) mg/dL Calcium (8.4-10.2) mg/dL Total Bilirubin (0.2-1.3) mg/dL AST (17-59) U/L ALT (4-49) U/L Alkaline Phosphatase (38-126) U/L Creatine Kinase (55-170) U/L Total Protein (6.3-8.2) g/dL Albumin (3.5-5.0) g/dL Microbiology - Last 24 Hours (Table) 08/15/22 18:37 Gram Stain - Final Rectum Wound Culture - Final Strep agalactiae - (group b) 08/15/22 21:30 Blood Culture - Preliminary Blood No Growth after 24 hours 08/15/22 21:45 Blood Culture - Preliminary Blood No Growth after 24 hours Assessment and Plan Assessment: Acute Diabetic ketoacidosis, present on admission. Improved Nonadherence to therapy, including insulin and antibiotic diabetes mellitus with hyperglycemia Acute hepatitis infection with elevated liver enzymes and hyperbilirubinemia transaminitis, with hepatitis panel positive for IgG hep C antibodies hepatic steatosis history of Perirectal abscess. No CT evidence of abscess. 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 Due to elevated liver enzymes and hyperbilirubinemia along with acute hepatitis C infection GI was consulted. While load and genotype was ordered. immigration case worker consult Continue with symptomatic treatment. Resume home medication. Monitor labs and vitals. DVT and GI prophylaxis. Further recommendations as per clinical course of the patient DVT prophylaxis: Subcutaneous heparin GI Prophylaxis: Pepcid PT/OT: Pending Prognosis is guarded Time with Patient: Greater than 30
--- NOTE | 2022-08-18 10:59 | P.PN ---
Subjective Progress Note Date: 08/18/22 Principal diagnosis: Elevated LFTs This is a 32-year-old male with a history of insulin-dependent diabetes diagnosed approximately 4 years ago who presented to the emergency department yesterday evening with complaints of high sugars at home. On admission he was noted to have a glucose level was 685, with positive acetone. He was also noted to have elevated LFTs. He underwent ultrasound of the gallbladder that reported hepatocellular disease, likely related to hepatic steatosis. Enlarged liver, heterogeneous. No suspicious masses or cystic lesions. Gallbladder within normal limits. CBD within normal limits. Patient had acute hepatitis panel completed patient did come back with a positive hepatitis C antibody. Patient denies any previous known history of liver disease, a previous diagnosis of hepatitis C her treatment of hepatitis C. He does admit to IV drug abuse which she started over one year ago, he admits to last using about 1-1/2 months ago. He denies any previous history of alcohol abuse or current alcohol abuse. Patient was recently seen in the emergency department on 07/27/2022 for a perirectal abscess which he had an incision and drainage done in the emergency department and sent home on Bactrim and Keflex. He took his antibiotics as pre scribed for 5 days. Gastroenterology was consulted for elevated LFTs and abdominal pain. Patient st ates he has not had a bowel movement in 3 days and feels constipated. He does have some nausea, no vomiting. Admitting Labs: WBC 8.3 hemoglobin 14.5 hematocrit 46 platelet count 142,000 sodium 123 p otassium 4.2 BUN 7 creatinine 0.4 glucose 685 total bilirubin 1.9 AST 583 ALT 1976 alkaline phosphatase 848 lipase 180 08/17/2022: Patient seen and examined today as a follow-up. Abdominal pain impr opal. Still has some tenderness in the right upper quadrant. No nausea or vomiting. CMP currently pending. Hepatitis C genotype and quantitative ordered and pending. CT of the abdomen and pelvis reports no evidence of acute abdominal process, no obvious perirectal abscess seen on CT, bilateral fat- containing inguinal hernias greater than right. Liver no evidence of mass. Mild periportal edema likely secondary to patient status. 08/18/2022: Patient seen and examined today as a follow-up for elevated LFTs. Today he states he's feeling much better. Denies any abdominal pain, no nausea or vomiting. He is afebrile. Today's labs total bilirubin 3.2 AST 708 ALT a 53 alkaline phosphatase 532 Objective - Vital Signs Vital signs: Vital Signs Temp 97.9 F 08/18/22 04:00 Pulse 72 08/18/22 04:00 Resp 14 08/18/22 04:00 BP 121/68 08/18/22 04:00 Pulse Ox 95 08/18/22 04:00 FiO2 Intake & Output 08/17/22 08/18/22 08/18/22 18:59 06:59 18:59 Intake Total 1556 240 240 Balance 1556 240 240 Intake: Oral 1556 240 240 Other: Voiding Method Toilet Toilet # Voids 1 1 - Exam General appearance: The patient is alert, oriented, appears in no acute distress. HET: Head is normocephalic and atraumatic. Conjunctiva pink. Sclera anicteric. Neck: Supple without lymphadenopathy. Abdomen: Soft, hepatomegaly, nontender, nondistended with bowel sounds. No guarding or rigidity. Extremities: Normal skin color and turgor. No pedal edema Skin: No rashes, no jaundice Neurological: No focal deficits. Alert and oriented. - Labs CBC & Chem 7: 08/18/22 08:23 08/18/22 08:23 Labs: Abnormal Lab Results - Last 24 Hours (Table) 08/17/22 08/17/22 08/17/22 Range/Units 07:13 07:13 11:49 Sodium 134 L (137-145) mmol/L Chloride 96 L (98-107) mmol/L BUN 7 L (9-20) mg/dL Creatinine 0.45 L (0.66-1.25) mg/dL Glucose 226 H (74-99) mg/dL POC Glucose (mg/dL) 376 H (70-110) mg/dL Calcium 8.1 L (8.4-10.2) mg/dL Total Bilirubin 2.3 H (0.2-1.3) mg/dL AST 827 H (17-59) U/L ALT 935 H (4-49) U/L Alkaline Phosphatase 559 H (38-126) U/L Creatine Kinase 29 L (55-170) U/L Total Protein 5.6 L (6.3-8.2) g/dL Albumin 3.2 L (3.5-5.0) g/dL 08/17/22 08/17/22 08/18/22 Range/Units 16:38 20:00 06:08 Sodium (137-145) mmol/L Chloride (98-107) mmol/L BUN (9-20) mg/dL Creatinine (0.66-1.25) mg/dL Glucose (74-99) mg/dL POC Glucose (mg/dL) 290 H 402 H 249 H (70-110) mg/dL Calcium (8.4-10.2) mg/dL Total Bilirubin (0.2-1.3) mg/dL AST (17-59) U/L ALT (4-49) U/L Alkaline Phosphatase (38-126) U/L Creatine Kinase (55-170) U/L Total Protein (6.3-8.2) g/dL Albumin (3.5-5.0) g/dL Microbiology - Last 24 Hours (Table) 08/15/22 21:30 Blood Culture - Preliminary Blood No Growth after 48 hours 08/15/22 21:45 Blood Culture - Preliminary Blood No Growth after 48 hours 08/15/22 18:37 Gram Stain - Final Rectum Wound Culture - Final Strep agalactiae - (group b) Assessment and Plan (1) Transaminitis Narrative/Plan: 32-year-old male with insulin insulin-dependent diabetes with elevated sugars presented to the emergency department for high sugars at home. He was known to have a glucose level of 685 on admission, diabetic ketoacidosis. He was also noted to have elevated LFTs for which gastroenterology was consulted. Patient has no previous history of known liver disease, no previous knowledge of hepatitis C. However his acute hepatitis panel to come back positive for hepatitis C antibody, he has had no prior diagnosis or treatment to his knowledge. Patient admits to IV drug abuse that began a little over one year ago with his last use aloe 1-2 months ago. He underwent ultrasound of the gallbladder that showed hepatomegaly, and fatty infiltrated liver consistent with hepatocellular disease. Likely are dealing with underlying liver disease related to chronic hepatitis C infection however patient also was recently started on antibiotics for perirectal abscess last taken almost 2 weeks ago. He was also restarted on IV antibiotics on admission including ceftriaxone and Flagyl. Patient with hepatocellular as well as cholestatic pattern, Patient may have some component of medication-induced hepatitis with underlying liver disease. Recommend avoiding hepatotoxic medications. Will order CT abdomen and pelvis further evaluation. computed tomography scan shows no evidence of liver mass, mild. Portal edema likely secondary to patient's underlying status. Gallbladder nondistended. With recent antibiotic use and current antibiotic use likely we are dealing with the medication-induced hepatitis. Will order AFP. Hepatitis C RNA/genotype pending. Repeat labs reviewed today. LFTs continued to be elevated, T bili 3.2 however AST ALT and alkaline phosphatase are slowly trending down. Again cholestatic pattern could be related to acute medication-induced hepatitis. Patient to follow-up with gastroenterology in 1-2 weeks for trending LFTs and follow-up for hepatitis C treatment. Current Visit: Yes Status: Acute Code(s): R74.01 - ELEVATION OF LEVELS OF LIVER TRANSAMINASE LEVELS SNOMED Code(s): 587468830 (2) Hx of intravenous drug use in remission Current Visit: Yes Status: Acute Code(s): F19.91 - OTHER PSYCHOACTIVE SUBSTANCE USE, UNSPECIFIED, IN REMISSION SNOMED Code(s): 56074728630063688 (3) Hepatitis C antibody positive in blood Current Visit: Yes Status: Acute Code(s): R76.8 - OTHER SPECIFIED ABNORMAL IMMUNOLOGICAL FINDINGS IN SERUM SNOMED Code(s): 897383613 (4) Diabetic ketoacidosis Current Visit: Yes Status: Acute Code(s): E11.10 - TYPE 2 DIABETES MELLITUS WITH KETOACIDOSIS WITHOUT COMA SNOMED Code(s): 307404702 (5) Perirectal abscess Current Visit: Yes Status: Acute Code(s): K61.1 - RECTAL ABSCESS SNOMED Code(s): 18933571 Plan: 1. Continue symptomatic and supportive care 2. Continue medical management 3. Avoid hepatotoxic medications. Discussed with medical team recommendation for discontinuing ceftriaxone and replacing with another agent as needed 4. Hepatitis C quantitative and genotype ordered 5. Repeat CMP daily, AFP ordered 6. CT abdomen and pelvis ordered and reviewed 7. MiraLAX daily 8. Discussed with patient importance of IV drug abstinence in order to start treatment for hepatitis C 9. Patient will need to follow-up with gastroenterology upon discharge for treatment of hepatitis C Thank you for allowing us to participate in the care of the patient, the GI service will sign off, gastroenterology will not be available at the hospital this weekend and through next week. If further evaluation by gastroenterology is required the patient will need transfer as per the primary team's discretion. Dr. Colleen Nation I agree with the dictator's note, documented as a scribe by Steph Harrington.
[2022-08-18 12:01] LABS: Glucose,Whole Blood 254 mg/dL (70-110)
[2022-08-18 16:42] LABS: Glucose,Whole Blood 318 mg/dL (70-110)
[2022-08-18 20:00] LABS: Glucose,Whole Blood 254 mg/dL (70-110)
[2022-08-19] MEDS: INSULIN DETEMIR (LEVEMIR) 100 UNIT/ML SYR SQ SCH (09:48)
[2022-08-19] MEDS: INSULIN ASPART (NovoLOG) 100 UNIT/ML VIAL SQ SCH ×7 (09:48→20:19)
[2022-08-19] MEDS: polyethylene glycoL 3350 17 GM POWD.PACK PO SCH (09:49)
[2022-08-19 11:37] LABS: Glucose,Whole Blood 296 mg/dL (70-110)
[2022-08-19 11:55] LABS: Glucose,Whole Blood 317 mg/dL (70-110)
[2022-08-19 16:33] LABS: Glucose,Whole Blood 130 mg/dL (70-110)
[2022-08-19] MEDS: AMOXIC-POT CLAV 875-125MG 1 EACH TAB PO SCH (20:05)
[2022-08-19] MEDS: FAMOTIDINE 20 MG/2 ML VIAL IV SCH (20:05)
[2022-08-19 20:08] LABS: Glucose,Whole Blood 317 mg/dL (70-110)
[2022-08-20 06:20] LABS: Glucose,Whole Blood 304 mg/dL (70-110)
[2022-08-20] MEDS: INSULIN DETEMIR (LEVEMIR) 100 UNIT/ML SYR SQ SCH (06:27)
[2022-08-20] MEDS: INSULIN ASPART (NovoLOG) 100 UNIT/ML VIAL SQ SCH ×7 (06:27→20:07)
[2022-08-20] MEDS: polyethylene glycoL 3350 17 GM POWD.PACK PO SCH (08:44)
[2022-08-20] MEDS: AMOXIC-POT CLAV 875-125MG 1 EACH TAB PO SCH ×2 (08:44→20:12)
[2022-08-20] MEDS: FAMOTIDINE 20 MG/2 ML VIAL IV SCH ×2 (08:44→20:12)
[2022-08-20 08:47] LABS: Basophils % (A) 1 %; Eosinophils # (A) 0.2 k/uL (0-0.7); Eosinophils % (A) 3 %; HCT 43.8 % (39.0-53.0); HGB 13.9 gm/dL (13.0-17.5); Hypochromasia Slight; Lymphocytes % (A) 29 %; MCH 26.7 pg (25.0-35.0); MCHC 31.8 g/dL (31.0-37.0); MCV 83.9 fL (80.0-100.0); Mean Platelet Volume 10.7; Monocytes # (A) 0.6 k/uL (0-1.0); Monocytes % (A) 8 %; Neutrophils # (A) 3.8 k/uL (1.3-7.7); Neutrophils % (A) 55 %; Platelet Count 201 k/uL (150-450); RBC 5.22 m/uL (4.30-5.90); RDW 14.1 % (11.5-15.5); WBC 6.9 k/uL (3.8-10.6)
[2022-08-20 09:02] LABS: African American GFR (CKD) >90 (>60 ml/min/1.73 sqM); Albumin 3.1 g/dL (3.5-5.0); Alkaline Phosphatase 464 U/L (38-126); Anion Gap 9 mmol/L; Blood Urea Nitrogen 11 mg/dL (9-20); Calcium 8.3 mg/dL (8.4-10.2); Carbon Dioxide 28 mmol/L (22-30); Chloride 96 mmol/L (98-107); Glucose 308 mg/dL (74-99); Non-African American GFR(CKD) >90 (>60 ml/min/1.73 sqM); Potassium 4.3 mmol/L (3.5-5.1); Sodium 133 mmol/L (137-145); Total Protein 5.6 g/dL (6.3-8.2)
[2022-08-20 09:16] LABS: ALT 853 U/L (4-49); AST 806 U/L (17-59)
--- NOTE | 2022-08-20 10:34 | P.PN ---
Subjective Progress Note Date: 08/18/22 This is a pleasant 32 this old male with past medical history of diabetes mellitus on insulin, Asthma,Diabetes CVA/TIA, Hypertension, Bipolar, Current every day smoker, IV Drug Use, Marijuana, Methamphetamine, He has history of nonadherence to therapy Patient states that she supposed to be on long acting insulin 40 units daily but he was not taking this medication for a long time and months 4 weeks has been feeling not well with abdominal pain and vomiting several times with no hematemesis, also with polyuria and for the urine but no dysuria, he has some mild vague right upper quadrant abdominal pain/discomfort and left lower quadrant with no tenderness or rebound tenderness and abdomen looks soft. Patient counseled about the importance of entrance to therapy and he is willing to take his insulin medication and he was asking to follow up with viscose cellar charge hand. Contact information for Dr. Paulino and Dr. Chan from endocrinology clinics are provided for the patient (. Patient states that he is blind in his left eye 2 years see discharge instructions) On the left eye, chronic Patient admits to smoking cigarettes 1 pack per day, no alcohol, he uses methamphetamine and marijuana but no cocaine or heroin, last time was one month ago. No chest pain or dyspnea but his cough and follow-up with some phlegm. Currently his vomiting resolved and he has good appetite and he tolerates diet well. No headache or dizziness or weakness or numbness Patient states that he lost his job yesterday, he feels the first but he denies suicidal or homicidal ideation, no hallucination vitals stable and patient is afebrile CBC is unremarkable sodium 134, rest of BMP is unremarkable. Elevated liver enzymes AST 532 and ALT 843 and bilirubin is normal 1.0. Lipase normal. he has hepatitis C IgG antibodies reactive Gallbladder ultrasound: Hepatocellular disease, leg related to hepatic steatosis EKG: Normal sinus rhythm at [address]-T changes. 08/17/2022 Patient is currently lying in bed. Awake alert but seems to be anxious and distressed. Patient still hyperglycemic and blood sugar went up to 300s. On Levemir and preprandial insulin will be added. Along with sliding scale for better blood sugar control. Otherwise she is having tenderness in the right upper quadrant. No nausea or vomiting. Patient is having significantly elevated liver enzymes. Patient does have acute C infection and hepatitis C viral genotype and viral load was ordered. CT of the abdominal pelvis showed no evidence of acute abdominal process. No obvious perirectal abscess seen on the CT. Bilateral fat-containing inguinal hernias greater on the right. Mild report leg edema. GI is on board. Laboratory data showed sodium 134 potassium 3.7 chloride 96 BUN 7 and creatinine 0.45 AST 27 ALT 1035 and alk phos 559. Bilirubin level is 2.3. 08/18/2022 Patient is lying in the bed awake alert and oriented 3. Still hyperglycemic and also complaining of abdominal pain. No cough or sputum production. No chest pain. Patient will be continued on Levemir and aspart and dose increased to 12 units 3 times a day before meals. Liver enzymes are still elevated. Ceftriaxone has been discontinued and patient will be started on Augmentin. GI is on board. Patient has been afebrile. No chest pain. Current medications reviewed. Objective - Vital Signs Vital signs: Vital Signs Temp 97.8 F 08/18/22 20:16 Pulse 70 08/18/22 20:16 Resp 18 08/18/22 20:16 BP 123/71 08/18/22 20:16 Pulse Ox 97 08/18/22 20:16 FiO2 Intake & Output 08/18/22 08/18/22 08/19/22 06:59 18:59 06:59 Intake Total 240 1380 Balance 240 1380 Intake: Oral 240 1380 Other: Voiding Method Toilet Toilet # Voids 1 1 - Exam PHYSICAL EXAMINATION: Patient is lying in the bed comfortably, no acute distress, awake alert and oriented.. HEENT: Normocephalic. Neck is supple. Pupils reactive. Nostrils clear. Oral cavity is moist. Neck reveals no JVD, carotid bruits, or thyromegaly. CHEST EXAMINATION: Trachea is central. Symmetrical expansion. Lung gallegos clear to auscultation and percussion. CARDIAC: Normal S1, S2 with no gallops. No murmurs ABDOMEN: Soft. Bowel sounds normal. Minimal right upper quadrant tenderness. No organomegaly. No abdominal bruits. Extremities: reveal no edema. No clubbing or cyanosis Neurologically awake, alert, oriented x3 with well-coordinated movements. No focal deficits noted Skin: No rash or skin lesions. Psychiatric: Coperative. Nonsuicidal, anxious. Musculoskeletal: No joint swelling or deformity. Normal range of motion. - Labs CBC & Chem 7: 08/20/22 07:53 08/20/22 07:53 Labs: Abnormal Lab Results - Last 24 Hours (Table) 08/18/22 08/18/22 08/18/22 Range/Units 06:08 08:23 11:49 Sodium 133 L (137-145) mmol/L Chloride 97 L (98-107) mmol/L BUN 7 L (9-20) mg/dL Creatinine 0.47 L (0.66-1.25) mg/dL Glucose 319 H (74-99) mg/dL POC Glucose (mg/dL) 249 H 254 H (70-110) mg/dL Calcium 8.2 L (8.4-10.2) mg/dL Total Bilirubin 3.2 H (0.2-1.3) mg/dL AST 708 H (17-59) U/L ALT 853 H (4-49) U/L Alkaline Phosphatase 532 H (38-126) U/L Total Protein 5.3 L (6.3-8.2) g/dL Albumin 2.9 L (3.5-5.0) g/dL 08/18/22 08/18/22 Range/Units 16:27 19:59 Sodium (137-145) mmol/L Chloride (98-107) mmol/L BUN (9-20) mg/dL Creatinine (0.66-1.25) mg/dL Glucose (74-99) mg/dL POC Glucose (mg/dL) 318 H 254 H (70-110) mg/dL Calcium (8.4-10.2) mg/dL Total Bilirubin (0.2-1.3) mg/dL AST (17-59) U/L ALT (4-49) U/L Alkaline Phosphatase (38-126) U/L Total Protein (6.3-8.2) g/dL Albumin (3.5-5.0) g/dL Microbiology - Last 24 Hours (Table) 08/15/22 21:30 Blood Culture - Preliminary Blood No Growth after 48 hours 08/15/22 21:45 Blood Culture - Preliminary Blood No Growth after 48 hours 08/15/22 18:37 Gram Stain - Final Rectum Wound Culture - Final Strep agalactiae - (group b) Assessment and Plan Assessment: Acute Diabetic ketoacidosis, present on admission. Improved Nonadherence to therapy, including insulin and antibiotic diabetes mellitus with hyperglycemia Acute hepatitis C infection with elevated liver enzymes and hyperbilirubinemia transaminitis, with hepatitis panel positive for IgG hep C antibodies hepatic steatosis history of Perirectal abscess. No CT evidence of abscess. IV drug abuse history of asthma History of CVA/TIA Hypertension History of bipolar Nicotine dependence chronic blindness in left eye 2 years Plan: Discontinue insulin drip after and give home dose of Levemir 40 units continue with insulin sliding scale and preprandial insulin aspart 12 units 3 times a day before meals. A1c was ordered. Results pending. Due to elevated liver enzymes and hyperbilirubinemia along with acute hepatitis C infection GI was consulted. While load and genotype was ordered. Patient will need outpatient follow-up with GI for treatment. grain ii farmworker consult due to medication noncompliance and follow-up Continue with antibiotics for possible perirectal abscess. Continue with symptomatic treatment. DVT prophylaxis: Subcutaneous heparin GI Prophylaxis: Pepcid PT/OT: Pending Prognosis is guarded Time with Patient: Greater than 30
--- NOTE | 2022-08-20 10:38 | P.PN ---
Subjective Progress Note Date: 08/19/22 This is a pleasant 32 this old male with past medical history of diabetes mellitus on insulin, Asthma,Diabetes CVA/TIA, Hypertension, Bipolar, Current every day smoker, IV Drug Use, Marijuana, Methamphetamine, He has history of nonadherence to therapy Patient states that she supposed to be on long acting insulin 40 units daily but he was not taking this medication for a long time and months 4 weeks has been feeling not well with abdominal pain and vomiting several times with no hematemesis, also with polyuria and for the urine but no dysuria, he has some mild vague right upper quadrant abdominal pain/discomfort and left lower quadrant with no tenderness or rebound tenderness and abdomen looks soft. Patient counseled about the importance of entrance to therapy and he is willing to take his insulin medication and he was asking to follow up with superintendent distribution. Contact information for Dr. Paulino and Dr. Chan from endocrinology clinics are provided for the patient (. Patient states that he is blind in his left eye 2 years see discharge instructions) On the left eye, chronic Patient admits to smoking cigarettes 1 pack per day, no alcohol, he uses methamphetamine and marijuana but no cocaine or heroin, last time was one month ago. No chest pain or dyspnea but his cough and follow-up with some phlegm. Currently his vomiting resolved and he has good appetite and he tolerates diet well. No headache or dizziness or weakness or numbness Patient states that he lost his job yesterday, he feels the first but he denies suicidal or homicidal ideation, no hallucination vitals stable and patient is afebrile CBC is unremarkable sodium 134, rest of BMP is unremarkable. Elevated liver enzymes AST 532 and ALT 843 and bilirubin is normal 1.0. Lipase normal. he has hepatitis C IgG antibodies reactive Gallbladder ultrasound: Hepatocellular disease, leg related to hepatic steatosis EKG: Normal sinus rhythm at [address]-T changes. 08/17/2022 Patient is currently lying in bed. Awake alert but seems to be anxious and distressed. Patient still hyperglycemic and blood sugar went up to 300s. On Levemir and preprandial insulin will be added. Along with sliding scale for better blood sugar control. Otherwise she is having tenderness in the right upper quadrant. No nausea or vomiting. Patient is having significantly elevated liver enzymes. Patient does have acute C infection and hepatitis C viral genotype and viral load was ordered. CT of the abdominal pelvis showed no evidence of acute abdominal process. No obvious perirectal abscess seen on the CT. Bilateral fat-containing inguinal hernias greater on the right. Mild report leg edema. GI is on board. Laboratory data showed sodium 134 potassium 3.7 chloride 96 BUN 7 and creatinine 0.45 AST 27 ALT 1035 and alk phos 559. Bilirubin level is 2.3. 08/18/2022 Patient is lying in the bed awake alert and oriented 3. Still hyperglycemic and also complaining of abdominal pain. No cough or sputum production. No chest pain. Patient will be continued on Levemir and aspart and dose increased to 12 units 3 times a day before meals. Liver enzymes are still elevated. Ceftriaxone has been discontinued and patient will be started on Augmentin. GI is on board. Patient has been afebrile. No chest pain. 08/19/2022 Patient is still complaints of abdominal pain mainly right upper quadrant. Liver enzymes are still elevated. Pressure was also elevated but better controlled. Aspart preprandial dose increased to 15 units 3 times a day before meals. Patient will be started on antibiotics in the form of Augmentin. Afebrile. No nausea vomiting but tolerating oral diet slowly. No cough or sputum production. Follow CBC and CMP tomorrow. Current medications reviewed. Objective - Vital Signs Vital signs: Vital Signs Temp 97.8 F 08/19/22 16:00 Pulse 89 08/19/22 16:00 Resp 16 08/19/22 16:00 BP 137/87 08/19/22 16:00 Pulse Ox 99 08/19/22 16:00 FiO2 Intake & Output 08/19/22 08/19/22 08/20/22 06:59 18:59 05:59 Intake Total 718 120 Balance 718 120 Intake: Oral 718 120 Other: Voiding Method Toilet Toilet # Voids 1 2 - Exam PHYSICAL EXAMINATION: Patient is lying in the bed comfortably, no acute distress, awake alert and oriented.. HEENT: Normocephalic. Neck is supple. Pupils reactive. Nostrils clear. Oral cavity is moist. Neck reveals no JVD, carotid bruits, or thyromegaly. CHEST EXAMINATION: Trachea is central. Symmetrical expansion. Lung gallegos clear to auscultation and percussion. CARDIAC: Normal S1, S2 with no gallops. No murmurs ABDOMEN: Soft. Bowel sounds normal. Minimal right upper quadrant tenderness. No organomegaly. No abdominal bruits. Extremities: reveal no edema. No clubbing or cyanosis Neurologically awake, alert, oriented x3 with well-coordinated movements. No focal deficits noted Skin: No rash or skin lesions. Psychiatric: Coperative. Nonsuicidal, anxious. Musculoskeletal: No joint swelling or deformity. Normal range of motion. - Labs CBC & Chem 7: 08/20/22 07:53 08/20/22 07:53 Labs: Abnormal Lab Results - Last 24 Hours (Table) 08/18/22 08/19/22 08/19/22 Range/Units 19:59 06:15 11:52 POC Glucose (mg/dL) 254 H 296 H 317 H (70-110) mg/dL 08/19/22 Range/Units 16:32 POC Glucose (mg/dL) 130 H (70-110) mg/dL Microbiology - Last 24 Hours (Table) 08/15/22 21:45 Blood Culture - Preliminary Blood No Growth after 72 hours 08/15/22 21:30 Blood Culture - Preliminary Blood No Growth after 72 hours Assessment and Plan Assessment: Acute Diabetic ketoacidosis, present on admission. Improved Nonadherence to therapy, including insulin and antibiotic diabetes mellitus with hyperglycemia Acute hepatitis C infection with elevated liver enzymes and hyperbilirubinemia transaminitis, with hepatitis panel positive for IgG hep C antibodies hepatic steatosis history of Perirectal abscess. No CT evidence of abscess. 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 A1c was ordered. Results pending. Due to elevated liver enzymes and hyperbilirubinemia along with acute hepatitis C infection GI was consulted. While load and genotype was ordered. Patient will need outpatient follow-up with GI for treatment. day worker consult due to medication noncompliance and follow-up Continue with antibiotics for possible perirectal abscess. Continue with symptomatic treatment. DVT prophylaxis: Subcutaneous heparin GI Prophylaxis: Pepcid PT/OT: Pending Prognosis is guarded Time with Patient: Greater than 30
[2022-08-20 12:09] LABS: Glucose,Whole Blood 334 mg/dL (70-110)
[2022-08-20 16:30] LABS: Glucose,Whole Blood 104 mg/dL (70-110)
[2022-08-20 19:53] LABS: Glucose,Whole Blood 132 mg/dL (70-110)
[2022-08-21 06:15] LABS: Glucose,Whole Blood 225 mg/dL (70-110)
[2022-08-21] MEDS: INSULIN ASPART (NovoLOG) 100 UNIT/ML VIAL SQ SCH ×7 (06:34→21:20)
[2022-08-21] MEDS: INSULIN DETEMIR (LEVEMIR) 100 UNIT/ML SYR SQ SCH ×2 (06:34→21:20)
[2022-08-21] MEDS: FAMOTIDINE 20 MG/2 ML VIAL IV SCH (09:09)
[2022-08-21] MEDS: AMOXIC-POT CLAV 875-125MG 1 EACH TAB PO SCH ×2 (09:09→20:20)
[2022-08-21] MEDS: polyethylene glycoL 3350 17 GM POWD.PACK PO SCH (09:14)
[2022-08-21 09:22] LABS: African American GFR (CKD) >90 (>60 ml/min/1.73 sqM); Albumin 3.6 g/dL (3.5-5.0); Alkaline Phosphatase 534 U/L (38-126); Anion Gap 8 mmol/L; Blood Urea Nitrogen 14 mg/dL (9-20); Calcium 8.8 mg/dL (8.4-10.2); Carbon Dioxide 26 mmol/L (22-30); Chloride 98 mmol/L (98-107); Glucose 445 mg/dL (74-99); Non-African American GFR(CKD) >90 (>60 ml/min/1.73 sqM); Potassium 4.7 mmol/L (3.5-5.1); Sodium 132 mmol/L (137-145); Total Bilirubin 4.1 mg/dL (0.2-1.3); Total Protein 6.3 g/dL (6.3-8.2)
[2022-08-21 09:39] LABS: ALT 984 U/L (4-49); AST 881 U/L (17-59)
[2022-08-21 11:40] LABS: Glucose,Whole Blood 329 mg/dL (70-110)
[2022-08-21 15:20] LABS: HCV Qualitative Result DETECTED (Not detected); HCV Quant Log 7.15 (<1.08)
[2022-08-21 16:18] LABS: Glucose,Whole Blood 194 mg/dL (70-110)
[2022-08-21] MEDS: FAMOTIDINE 20 MG TAB PO SCH (20:20)
[2022-08-21 20:31] LABS: Glucose,Whole Blood 202 mg/dL (70-110)
[2022-08-22 07:25] LABS: Glucose,Whole Blood 409 mg/dL (70-110)
[2022-08-22] MEDS: INSULIN ASPART (NovoLOG) 100 UNIT/ML VIAL SQ SCH ×8 (07:28→21:03)
[2022-08-22] MEDS: FAMOTIDINE 20 MG TAB PO SCH ×2 (07:29→21:03)
[2022-08-22] MEDS: AMOXIC-POT CLAV 875-125MG 1 EACH TAB PO SCH ×2 (07:29→21:49)
[2022-08-22] MEDS: INSULIN DETEMIR (LEVEMIR) 100 UNIT/ML SYR SQ SCH ×2 (07:29→21:49)
[2022-08-22] MEDS: polyethylene glycoL 3350 17 GM POWD.PACK PO SCH (07:30)
[2022-08-22 10:51] LABS: Basophils # (A) 0.1 k/uL (0-0.2); Basophils % (A) 1 %; Eosinophils # (A) 0.3 k/uL (0-0.7); Eosinophils % (A) 3 %; HGB 14.3 gm/dL (13.0-17.5); Hypochromasia Slight; Lymphocytes # (A) 2.8 k/uL (1.0-4.8); Lymphocytes % (A) 31 %; MCH 26.2 pg (25.0-35.0); MCHC 31.2 g/dL (31.0-37.0); Mean Platelet Volume 10.5; Monocytes # (A) 0.8 k/uL (0-1.0); Monocytes % (A) 8 %; Neutrophils # (A) 4.9 k/uL (1.3-7.7); Neutrophils % (A) 54 %; Platelet Count 221 k/uL (150-450); RBC 5.48 m/uL (4.30-5.90); RDW 14.3 % (11.5-15.5); WBC 9.1 k/uL (3.8-10.6)
[2022-08-22 11:13] LABS: AST 745 U/L (17-59); African American GFR (CKD) >90 (>60 ml/min/1.73 sqM); Albumin 3.7 g/dL (3.5-5.0); Alkaline Phosphatase 482 U/L (38-126); Anion Gap 8 mmol/L; Blood Urea Nitrogen 15 mg/dL (9-20); Calcium 8.9 mg/dL (8.4-10.2); Carbon Dioxide 23 mmol/L (22-30); Chloride 103 mmol/L (98-107); Glucose 169 mg/dL (74-99); Non-African American GFR(CKD) >90 (>60 ml/min/1.73 sqM); Potassium 4.3 mmol/L (3.5-5.1); Sodium 134 mmol/L (137-145); Total Bilirubin 3.4 mg/dL (0.2-1.3); Total Protein 6.4 g/dL (6.3-8.2)
[2022-08-22 11:27] LABS: ALT 998 U/L (4-49)
[2022-08-22 11:43] LABS: Glucose,Whole Blood 128 mg/dL (70-110)
--- NOTE | 2022-08-22 13:45 | P.PN ---
Subjective Progress Note Date: 08/20/22 This is a pleasant 32 this old male with past medical history of diabetes mellitus on insulin, Asthma,Diabetes CVA/TIA, Hypertension, Bipolar, Current every day smoker, IV Drug Use, Marijuana, Methamphetamine, He has history of nonadherence to therapy Patient states that she supposed to be on long acting insulin 40 units daily but he was not taking this medication for a long time and months 4 weeks has been feeling not well with abdominal pain and vomiting several times with no hematemesis, also with polyuria and for the urine but no dysuria, he has some mild vague right upper quadrant abdominal pain/discomfort and left lower quadrant with no tenderness or rebound tenderness and abdomen looks soft. Patient counseled about the importance of entrance to therapy and he is willing to take his insulin medication and he was asking to follow up with bundling machine operator. Contact information for Dr. Paulino and Dr. Chan from endocrinology clinics are provided for the patient (. Patient states that he is blind in his left eye 2 years see discharge instructions) On the left eye, chronic Patient admits to smoking cigarettes 1 pack per day, no alcohol, he uses methamphetamine and marijuana but no cocaine or heroin, last time was one month ago. No chest pain or dyspnea but his cough and follow-up with some phlegm. Currently his vomiting resolved and he has good appetite and he tolerates diet well. No headache or dizziness or weakness or numbness Patient states that he lost his job yesterday, he feels the first but he denies suicidal or homicidal ideation, no hallucination vitals stable and patient is afebrile CBC is unremarkable sodium 134, rest of BMP is unremarkable. Elevated liver enzymes AST 532 and ALT 843 and bilirubin is normal 1.0. Lipase normal. he has hepatitis C IgG antibodies reactive Gallbladder ultrasound: Hepatocellular disease, leg related to hepatic steatosis EKG: Normal sinus rhythm at [address]-T changes. 08/17/2022 Patient is currently lying in bed. Awake alert but seems to be anxious and distressed. Patient still hyperglycemic and blood sugar went up to 300s. On Levemir and preprandial insulin will be added. Along with sliding scale for better blood sugar control. Otherwise she is having tenderness in the right upper quadrant. No nausea or vomiting. Patient is having significantly elevated liver enzymes. Patient does have acute C infection and hepatitis C viral genotype and viral load was ordered. CT of the abdominal pelvis showed no evidence of acute abdominal process. No obvious perirectal abscess seen on the CT. Bilateral fat-containing inguinal hernias greater on the right. Mild report leg edema. GI is on board. Laboratory data showed sodium 134 potassium 3.7 chloride 96 BUN 7 and creatinine 0.45 AST 27 ALT 1035 and alk phos 559. Bilirubin level is 2.3. 08/18/2022 Patient is lying in the bed awake alert and oriented 3. Still hyperglycemic and also complaining of abdominal pain. No cough or sputum production. No chest pain. Patient will be continued on Levemir and aspart and dose increased to 12 units 3 times a day before meals. Liver enzymes are still elevated. Ceftriaxone has been discontinued and patient will be started on Augmentin. GI is on board. Patient has been afebrile. No chest pain. 08/19/2022 Patient is still complaints of abdominal pain mainly right upper quadrant. Liver enzymes are still elevated. Pressure was also elevated but better controlled. Aspart preprandial dose increased to 15 units 3 times a day before meals. Patient will be started on antibiotics in the form of Augmentin. Afebrile. No nausea vomiting but tolerating oral diet slowly. No cough or sputum production. Follow CBC and CMP tomorrow. 08/20/2022 Patient is currently resting in bed. Awake alert and oriented 3. Abdominal pain is better. Otherwise patient's blood sugar is still elevated up to 400s. No nausea vomiting or diarrhea. Tolerating oral diet slowly. Rectal pain is also improving. Patient will be continued on Levemir and insulin sliding scale along with preprandial insulin. Dose adjustment as needed. Continue with sliding scale. Afebrile. Liver enzymes are still elevated Current medications reviewed. Objective - Vital Signs Vital signs: Vital Signs Temp 98.5 F 08/20/22 16:00 Pulse 73 08/20/22 16:00 Resp 16 08/20/22 16:00 BP 130/85 08/20/22 16:00 Pulse Ox 99 08/20/22 16:00 FiO2 Intake & Output 08/19/22 08/20/22 08/20/22 19:59 06:59 18:59 Intake Total 720 Balance 720 Intake: Oral 720 Other: Voiding Method Toilet # Voids - Exam PHYSICAL EXAMINATION: Patient is lying in the bed comfortably, no acute distress, awake alert and oriented.. HEENT: Normocephalic. Neck is supple. Pupils reactive. Nostrils clear. Oral cavity is moist. Neck reveals no JVD, carotid bruits, or thyromegaly. CHEST EXAMINATION: Trachea is central. Symmetrical expansion. Lung gallegos clear to auscultation and percussion. CARDIAC: Normal S1, S2 with no gallops. No murmurs ABDOMEN: Soft. Bowel sounds normal. Minimal right upper quadrant tenderness. No organomegaly. No abdominal bruits. Extremities: reveal no edema. No clubbing or cyanosis Neurologically awake, alert, oriented x3 with well-coordinated movements. No f ocal deficits noted Skin: No rash or skin lesions. Psychiatric: Coperative. Nonsuicidal, anxious. Musculoskeletal: No joint swelling or deformity. Normal range of motion. - Labs CBC & Chem 7: 08/22/22 10:04 08/22/22 10:04 Labs: Abnormal Lab Results - Last 24 Hours (Table) 08/19/22 08/20/22 08/20/22 Range/Units 20:04 06:02 07:53 Sodium 133 L (137-145) mmol/L Chloride 96 L (98-107) mmol/L Creatinine 0.58 L (0.66-1.25) mg/dL Glucose 308 H (74-99) mg/dL POC Glucose (mg/dL) 317 H 304 H (70-110) mg/dL Calcium 8.3 L (8.4-10.2) mg/dL Total Bilirubin 4.0 H (0.2-1.3) mg/dL AST 806 H (17-59) U/L ALT 853 H (4-49) U/L Alkaline Phosphatase 464 H (38-126) U/L Total Protein 5.6 L (6.3-8.2) g/dL Albumin 3.1 L (3.5-5.0) g/dL 08/20/22 Range/Units 12:01 Sodium (137-145) mmol/L Chloride (98-107) mmol/L Creatinine (0.66-1.25) mg/dL Glucose (74-99) mg/dL POC Glucose (mg/dL) 334 H (70-110) mg/dL Calcium (8.4-10.2) mg/dL Total Bilirubin (0.2-1.3) mg/dL AST (17-59) U/L ALT (4-49) U/L Alkaline Phosphatase (38-126) U/L Total Protein (6.3-8.2) g/dL Albumin (3.5-5.0) g/dL Microbiology - Last 24 Hours (Table) 08/15/22 21:45 Blood Culture - Preliminary Blood No Growth after 96 hours 08/15/22 21:30 Blood Culture - Preliminary Blood No Growth after 96 hours Assessment and Plan Assessment: Acute Diabetic ketoacidosis, present on admission. Improved Nonadherence to therapy, including insulin and antibiotic diabetes mellitus with hyperglycemia Acute hepatitis C infection with elevated liver enzymes and hyperbilirubinemia transaminitis, with hepatitis panel positive for IgG hep C antibodies hepatic steatosis history of Perirectal abscess. No CT evidence of abscess. 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 A1c was ordered. Results pending. Due to elevated liver enzymes and hyperbilirubinemia along with acute hepatitis C infection GI was consulted. While load and genotype was ordered. Patient will need outpatient follow-up with GI for treatment. instrument worker consult due to medication noncompliance and follow-up Continue with antibiotics for possible perirectal abscess. Continue with symptomatic treatment. DVT prophylaxis: Subcutaneous heparin GI Prophylaxis: Pepcid PT/OT: Pending Prognosis is guarded Time with Patient: Greater than 30
--- NOTE | 2022-08-22 13:47 | P.PN ---
Subjective Progress Note Date: 08/21/22 This is a pleasant 32 this old male with past medical history of diabetes mellitus on insulin, Asthma,Diabetes CVA/TIA, Hypertension, Bipolar, Current every day smoker, IV Drug Use, Marijuana, Methamphetamine, He has history of nonadherence to therapy Patient states that she supposed to be on long acting insulin 40 units daily but he was not taking this medication for a long time and months 4 weeks has been feeling not well with abdominal pain and vomiting several times with no hematemesis, also with polyuria and for the urine but no dysuria, he has some mild vague right upper quadrant abdominal pain/discomfort and left lower quadrant with no tenderness or rebound tenderness and abdomen looks soft. Patient counseled about the importance of entrance to therapy and he is willing to take his insulin medication and he was asking to follow up with local coordinator. Contact information for Dr. Paulino and Dr. Chan from endocrinology clinics are provided for the patient (. Patient states that he is blind in his left eye 2 years see discharge instructions) On the left eye, chronic Patient admits to smoking cigarettes 1 pack per day, no alcohol, he uses methamphetamine and marijuana but no cocaine or heroin, last time was one month ago. No chest pain or dyspnea but his cough and follow-up with some phlegm. Currently his vomiting resolved and he has good appetite and he tolerates diet well. No headache or dizziness or weakness or numbness Patient states that he lost his job yesterday, he feels the first but he denies suicidal or homicidal ideation, no hallucination vitals stable and patient is afebrile CBC is unremarkable sodium 134, rest of BMP is unremarkable. Elevated liver enzymes AST 532 and ALT 843 and bilirubin is normal 1.0. Lipase normal. he has hepatitis C IgG antibodies reactive Gallbladder ultrasound: Hepatocellular disease, leg related to hepatic steatosis EKG: Normal sinus rhythm at [address]-T changes. 08/17/2022 Patient is currently lying in bed. Awake alert but seems to be anxious and distressed. Patient still hyperglycemic and blood sugar went up to 300s. On Levemir and preprandial insulin will be added. Along with sliding scale for better blood sugar control. Otherwise she is having tenderness in the right upper quadrant. No nausea or vomiting. Patient is having significantly elevated liver enzymes. Patient does have acute C infection and hepatitis C viral genotype and viral load was ordered. CT of the abdominal pelvis showed no evidence of acute abdominal process. No obvious perirectal abscess seen on the CT. Bilateral fat-containing inguinal hernias greater on the right. Mild report leg edema. GI is on board. Laboratory data showed sodium 134 potassium 3.7 chloride 96 BUN 7 and creatinine 0.45 AST 27 ALT 1035 and alk phos 559. Bilirubin level is 2.3. 08/18/2022 Patient is lying in the bed awake alert and oriented 3. Still hyperglycemic and also complaining of abdominal pain. No cough or sputum production. No chest pain. Patient will be continued on Levemir and aspart and dose increased to 12 units 3 times a day before meals. Liver enzymes are still elevated. Ceftriaxone has been discontinued and patient will be started on Augmentin. GI is on board. Patient has been afebrile. No chest pain. 08/19/2022 Patient is still complaints of abdominal pain mainly right upper quadrant. Liver enzymes are still elevated. Pressure was also elevated but better controlled. Aspart preprandial dose increased to 15 units 3 times a day before meals. Patient will be started on antibiotics in the form of Augmentin. Afebrile. No nausea vomiting but tolerating oral diet slowly. No cough or sputum production. Follow CBC and CMP tomorrow. 08/20/2022 Patient is currently resting in bed. Awake alert and oriented 3. Abdominal pain is better. Otherwise patient's blood sugar is still elevated up to 400s. No nausea vomiting or diarrhea. Tolerating oral diet slowly. Rectal pain is also improving. Patient will be continued on Levemir and insulin sliding scale along with preprandial insulin. Dose adjustment as needed. Continue with sliding scale. Afebrile. Liver enzymes are still elevated. 08/21/2022 Patient is improving symptomatically. Blood sugar is 400 this morning. Levemir dose increased to twice daily and continue with preprandial insulin 15 units 3 times a day before meals. Abdominal pain improved as well. Patient did have bowel movement. No nausea or diarrhea. No cough is from production. No chest pain. Liver enzymes are elevated. Patient still complaining of right upper quadrant pain. No fever no chills. No headache or dizziness or lightheadedness. Anticipate discharge next 24 hours with better blood sugar control. Current medications reviewed. Objective - Vital Signs Vital signs: Vital Signs Temp 98.3 F 08/21/22 16:50 Pulse 72 08/21/22 16:50 Resp 16 08/21/22 16:50 BP 132/92 08/21/22 16:50 Pulse Ox 97 08/21/22 16:50 FiO2 Intake & Output 08/21/22 08/21/22 08/22/22 06:59 18:59 06:59 Intake Total 354 Balance 354 Intake: Oral 354 Other: Voiding Method Toilet Toilet # Voids 1 1 - Exam PHYSICAL EXAMINATION: Patient is lying in the bed comfortably, no acute distress, awake alert and oriented.. HEENT: Normocephalic. Neck is supple. Pupils reactive. Nostrils clear. Oral cavity is moist. Neck reveals no JVD, carotid bruits, or thyromegaly. CHEST EXAMINATION: Trachea is central. Symmetrical expansion. Lung gallegos clear to auscultation and percussion. CARDIAC: Normal S1, S2 with no gallops. No murmurs ABDOMEN: Soft. Bowel sounds normal. Minimal right upper quadrant tenderness. No organomegaly. No abdominal bruits. Extremities: reveal no edema. No clubbing or cyanosis Neurologically awake, alert, oriented x3 with well-coordinated movements. No focal deficits noted Skin: No rash or skin lesions. Psychiatric: Coperative. Nonsuicidal, anxious. Musculoskeletal: No joint swelling or deformity. Normal range of motion. - Labs CBC & Chem 7: 08/22/22 10:04 08/22/22 10:04 Labs: Abnormal Lab Results - Last 24 Hours (Table) 08/17/22 08/21/22 08/21/22 Range/Units 07:13 06:14 08:45 Sodium 132 L (137-145) mmol/L Creatinine 0.62 L (0.66-1.25) mg/dL Glucose 445 H (74-99) mg/dL POC Glucose (mg/dL) 225 H (70-110) mg/dL Total Bilirubin 4.1 H (0.2-1.3) mg/dL AST 881 H (17-59) U/L ALT 984 H (4-49) U/L Alkaline Phosphatase 534 H (38-126) U/L HCV RNA Qual (PCR) DETECTED A (Not detected) Hepatitis C RNA Quant [id number] H (<12) IU/mL HCV RNA PCR log manager copy/ml 7.15 H (<1.08) Hepatitis C Genotype 1a A 08/21/22 08/21/22 08/21/22 Range/Units 11:38 16:17 20:29 Sodium (137-145) mmol/L Creatinine (0.66-1.25) mg/dL Glucose (74-99) mg/dL POC Glucose (mg/dL) 329 H 194 H 202 H (70-110) mg/dL Total Bilirubin (0.2-1.3) mg/dL AST (17-59) U/L ALT (4-49) U/L Alkaline Phosphatase (38-126) U/L HCV RNA Qual (PCR) (Not detected) Hepatitis C RNA Quant (<12) IU/mL HCV RNA PCR log manager copy/ml (<1.08) Hepatitis C Genotype Microbiology - Last 24 Hours (Table) 08/15/22 21:45 Blood Culture - Preliminary Blood No Growth after 120 hours 08/15/22 21:30 Blood Culture - Preliminary Blood No Growth after 120 hours Assessment and Plan Assessment: Acute Diabetic ketoacidosis, present on admission. Improved Nonadherence to therapy, including insulin and antibiotic diabetes mellitus with hyperglycemia Acute hepatitis C infection with elevated liver enzymes and hyperbilirubinemia transaminitis, with hepatitis panel positive for IgG hep C antibodies hepatic steatosis history of Perirectal abscess. No CT evidence of abscess. 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 A1c was ordered. Results pending. Due to elevated liver enzymes and hyperbilirubinemia along with acute hepatitis C infection GI was consulted. While load and genotype was ordered. Patient will need outpatient follow-up with GI for treatment. housekeeping laundry worker consult due to medication noncompliance and follow-up Continue with antibiotics for possible perirectal abscess. Continue with symptomatic treatment. DVT prophylaxis: Subcutaneous heparin GI Prophylaxis: Pepcid PT/OT: Pending Prognosis is guarded Time with Patient: Greater than 30
[2022-08-22 16:31] LABS: Glucose,Whole Blood 94 mg/dL (70-110)
[2022-08-22 20:23] LABS: Glucose,Whole Blood 178 mg/dL (70-110)
--- NOTE | 2022-08-22 23:36 | P.PN ---
Subjective Progress Note Date: 08/22/22 This is a pleasant 32 this old male with past medical history of diabetes mellitus on insulin, Asthma,Diabetes CVA/TIA, Hypertension, Bipolar, Current every day smoker, IV Drug Use, Marijuana, Methamphetamine, He has history of nonadherence to therapy Patient states that she supposed to be on long acting insulin 40 units daily but he was not taking this medication for a long time and months 4 weeks has been feeling not well with abdominal pain and vomiting several times with no hematemesis, also with polyuria and for the urine but no dysuria, he has some mild vague right upper quadrant abdominal pain/discomfort and left lower quadrant with no tenderness or rebound tenderness and abdomen looks soft. Patient counseled about the importance of entrance to therapy and he is willing to take his insulin medication and he was asking to follow up with air liaison and special staff. Contact information for Dr. Paulino and Dr. Chan from endocrinology clinics are provided for the patient (. Patient states that he is blind in his left eye 2 years see discharge instructions) On the left eye, chronic Patient admits to smoking cigarettes 1 pack per day, no alcohol, he uses methamphetamine and marijuana but no cocaine or heroin, last time was one month ago. No chest pain or dyspnea but his cough and follow-up with some phlegm. Currently his vomiting resolved and he has good appetite and he tolerates diet well. No headache or dizziness or weakness or numbness Patient states that he lost his job yesterday, he feels the first but he denies suicidal or homicidal ideation, no hallucination vitals stable and patient is afebrile CBC is unremarkable sodium 134, rest of BMP is unremarkable. Elevated liver enzymes AST 532 and ALT 843 and bilirubin is normal 1.0. Lipase normal. he has hepatitis C IgG antibodies reactive Gallbladder ultrasound: Hepatocellular disease, leg related to hepatic steatosis EKG: Normal sinus rhythm at [address]-T changes. 08/17/2022 Patient is currently lying in bed. Awake alert but seems to be anxious and distressed. Patient still hyperglycemic and blood sugar went up to 300s. On Levemir and preprandial insulin will be added. Along with sliding scale for better blood sugar control. Otherwise she is having tenderness in the right upper quadrant. No nausea or vomiting. Patient is having significantly elevated liver enzymes. Patient does have acute C infection and hepatitis C viral genotype and viral load was ordered. CT of the abdominal pelvis showed no evidence of acute abdominal process. No obvious perirectal abscess seen on the CT. Bilateral fat-containing inguinal hernias greater on the right. Mild report leg edema. GI is on board. Laboratory data showed sodium 134 potassium 3.7 chloride 96 BUN 7 and creatinine 0.45 AST 27 ALT 1035 and alk phos 559. Bilirubin level is 2.3. 08/18/2022 Patient is lying in the bed awake alert and oriented 3. Still hyperglycemic and also complaining of abdominal pain. No cough or sputum production. No chest pain. Patient will be continued on Levemir and aspart and dose increased to 12 units 3 times a day before meals. Liver enzymes are still elevated. Ceftriaxone has been discontinued and patient will be started on Augmentin. GI is on board. Patient has been afebrile. No chest pain. 08/19/2022 Patient is still complaints of abdominal pain mainly right upper quadrant. Liver enzymes are still elevated. Pressure was also elevated but better controlled. Aspart preprandial dose increased to 15 units 3 times a day before meals. Patient will be started on antibiotics in the form of Augmentin. Afebrile. No nausea vomiting but tolerating oral diet slowly. No cough or sputum production. Follow CBC and CMP tomorrow. 08/20/2022 Patient is currently resting in bed. Awake alert and oriented 3. Abdominal pain is better. Otherwise patient's blood sugar is still elevated up to 400s. No nausea vomiting or diarrhea. Tolerating oral diet slowly. Rectal pain is also improving. Patient will be continued on Levemir and insulin sliding scale along with preprandial insulin. Dose adjustment as needed. Continue with sliding scale. Afebrile. Liver enzymes are still elevated. 08/21/2022 Patient is improving symptomatically. Blood sugar is 400 this morning. Levemir dose increased to twice daily and continue with preprandial insulin 15 units 3 times a day before meals. Abdominal pain improved as well. Patient did have bowel movement. No nausea or diarrhea. No cough is from production. No chest pain. Liver enzymes are elevated. Patient still complaining of right upper quadrant pain. No fever no chills. No headache or dizziness or lightheadedness. Anticipate discharge next 24 hours with better blood sugar control. 08/22/2022 Patient is currently resting in bed. Awake alert and oriented x3. Abdominal pain is much improved. No nausea vomiting or diarrhea. No cough or sputum production. Patient has been afebrile. Denied any rectal pain today. Average blood sugar is fairly controlled. Continue with insulin regimen and prescriptions were sent to pharmacy. Patient completed 7 days of antibiotic course. Patient is being discharged home today. Counseled extensively for medication compliance and follow-up with his PCP for further titration of the insulin regimen and also follow-up with GI clinic for hepatitis C treatment. Liver enzymes are still elevated and follow-up CMP in the next 3 days. Current medications reviewed. Objective - Vital Signs Vital signs: Vital Signs Temp 98 F 08/22/22 17:00 Pulse 69 08/22/22 17:00 Resp 15 08/22/22 17:00 BP 129/76 08/22/22 17:00 Pulse Ox 100 08/22/22 17:00 FiO2 Intake & Output 08/22/22 08/22/22 08/23/22 06:59 18:59 06:59 Intake Total 1080 Balance 1080 Intake: Oral 1080 Other: Voiding Method Toilet Toilet # Voids 2 2 - Exam PHYSICAL EXAMINATION: Patient is lying in the bed comfortably, no acute distress, awake alert and oriented.. HEENT: Normocephalic. Neck is supple. Pupils reactive. Nostrils clear. Oral cavity is moist. Neck reveals no JVD, carotid bruits, or thyromegaly. CHEST EXAMINATION: Trachea is central. Symmetrical expansion. Lung gallegos clear to auscultation and percussion. CARDIAC: Normal S1, S2 with no gallops. No murmurs ABDOMEN: Soft. Bowel sounds normal. Minimal right upper quadrant tenderness. No organomegaly. No abdominal bruits. Extremities: reveal no edema. No clubbing or cyanosis Neurologically awake, alert, oriented x3 with well-coordinated movements. No focal deficits noted Skin: No rash or skin lesions. Psychiatric: Coperative. Nonsuicidal, anxious. Musculoskeletal: No joint swelling or deformity. Normal range of motion. - Labs CBC & Chem 7: 08/22/22 10:04 08/22/22 10:04 Labs: Abnormal Lab Results - Last 24 Hours (Table) 08/21/22 08/22/22 08/22/22 Range/Units 20:29 07:22 10:04 Sodium 134 L (137-145) mmol/L Creatinine 0.58 L (0.66-1.25) mg/dL Glucose 169 H (74-99) mg/dL POC Glucose (mg/dL) 202 H 409 H (70-110) mg/dL Total Bilirubin 3.4 H (0.2-1.3) mg/dL AST 745 H (17-59) U/L ALT 998 H (4-49) U/L Alkaline Phosphatase 482 H (38-126) U/L 08/22/22 Range/Units 11:41 Sodium (137-145) mmol/L Creatinine (0.66-1.25) mg/dL Glucose (74-99) mg/dL POC Glucose (mg/dL) 128 H (70-110) mg/dL Total Bilirubin (0.2-1.3) mg/dL AST (17-59) U/L ALT (4-49) U/L Alkaline Phosphatase (38-126) U/L Microbiology - Last 24 Hours (Table) 08/15/22 21:30 Blood Culture - Final Blood No Growth after 144 hours 08/15/22 21:45 Blood Culture - Final Blood No Growth after 144 hours Assessment and Plan Assessment: Acute Diabetic ketoacidosis, present on admission. Improved Nonadherence to therapy, including insulin and antibiotic diabetes mellitus with hyperglycemia Acute hepatitis C infection with elevated liver enzymes and hyperbilirubinemia transaminitis, with hepatitis panel positive for IgG hep C antibodies hepatic steatosis history of Perirectal abscess. No CT evidence of abscess. 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 A1c was ordered. Results pending. Due to elevated liver enzymes and hyperbilirubinemia along with acute hepatitis C infection GI was consulted. While load and genotype was ordered. Patient will need outpatient follow-up with GI for treatment. head screen worker consult due to medication noncompliance and follow-up Continue with antibiotics for possible perirectal abscess. Continue with symptomatic treatment. DVT prophylaxis: Subcutaneous heparin GI Prophylaxis: Pepcid PT/OT: Pending Prognosis is guarded Time with Patient: Greater than 30
[2022-08-23 00:55] LABS: Glucose,Whole Blood 324 mg/dL (70-110)
[2022-08-23 06:02] LABS: Glucose,Whole Blood 138 mg/dL (70-110)
[2022-08-23] MEDS: INSULIN ASPART (NovoLOG) 100 UNIT/ML VIAL SQ SCH ×4 (06:34→11:31)
[2022-08-23] MEDS: INSULIN DETEMIR (LEVEMIR) 100 UNIT/ML SYR SQ SCH (07:35)
[2022-08-23 08:32] VITALS: BP 133/80; PULSE 75; TEMP 98.7
[2022-08-23] MEDS: polyethylene glycoL 3350 17 GM POWD.PACK PO SCH (09:26)
[2022-08-23] MEDS: FAMOTIDINE 20 MG TAB PO SCH (09:44)
[2022-08-23 10:07] VITALS: RESP 18
[2022-08-23] MEDS: AMOXIC-POT CLAV 875-125MG 1 EACH TAB PO SCH (10:20)
[2022-08-23 11:20] LABS: Glucose,Whole Blood 195 mg/dL (70-110)
[2022-08-23 11:31] LABS: African American GFR (CKD) 145.7 (60.0-200.0); Albumin 3.4 g/dL (3.8-4.9); Albumin/Globulin Ratio 1.21 (1.60-3.17); Anion Gap 7.6 mmol/L (10.00-18.00); BUN/Creat Ratio 19.29 Ratio (12.00-20.00); Blood Urea Nitrogen 13.5 mg/dL (9.0-27.0); Calcium 8.8 mg/dL (8.7-10.3); Carbon Dioxide 28.4 mmol/L (20.0-27.5); Globulin 2.8 g/dL (1.6-3.3); Non-African American GFR(CKD) 125.7 (60.0-200.0); Potassium 4.4 mmol/L (3.5-5.5); Total Bilirubin 3.5 mg/dL (0.30-1.20); Total Protein 6.2 g/dL (6.2-8.2)
== END 2022-08-23 11:50 | disposition home or self-care (01) | DRG 638 ==
LOC: EC 17:26 → 3SCARD 21:05 → 4SSUR 08-22 18:49
PROVIDERS: ADMIT Hospitalist; ATTEND Hospitalist
DX: E11.10 Type 2 diabetes mellitus with ketoacidosis without coma (principal); B17.10 Acute hepatitis C without hepatic coma; K61.1 Rectal abscess; Z20.822 Contact with and (suspected) exposure to COVID-19; K76.0 Fatty (change of) liver, not elsewhere classified; T36.96XA Underdosing of unspecified systemic antibiotic, initial encounter; F31.9 Bipolar disorder, unspecified; I10 Essential (primary) hypertension; J45.909 Unspecified asthma, uncomplicated; F17.210 Nicotine dependence, cigarettes, uncomplicated; T38.3X6A Underdosing of insulin and oral hypoglycemic [antidiabetic] drugs, initial encounter; F15.11 Other stimulant abuse, in remission; B18.2 Chronic viral hepatitis C; H54.62 Unqualified visual loss, left eye, normal vision right eye; K59.00 Constipation, unspecified; E80.6 Other disorders of bilirubin metabolism; R74.01 Elevation of levels of liver transaminase levels; Z91.128 Patient's intentional underdosing of medication regimen for other reason; Z86.73 Personal history of transient ischemic attack (TIA), and cerebral infarction without residual deficits; Z79.4 Long term (current) use of insulin
CPT/HCPCS: 36415; 71046; 74177; 76705; 80051; 80053; 80074; 81001; 82009; 82105; 82550; 82565; 82803; 82947; 83605; 83690; 84100; 84520; 85025; 87040; 87070; 87205; 87502; 87522; 87635; 87902; 93005; 96361; 96374; 96375; 99285

== ENCOUNTER 2022-08-31 20:35 | Emergency (ER) | payer OTHER ==
[2022-08-31 21:27] VITALS: BP 160/90; PULSE 130; RESP 24; TEMP 97.7
[2022-08-31] MEDS ORDERED: HALOPERIDOL LACTATE 5 MG/ML 1 ML VIAL IM STA (21:39)
[2022-08-31] MEDS ORDERED: LORazepam 1 MG TAB PO STA (21:39)
--- NOTE | 2022-08-31 21:44 | ED ---
Psych HPI - General Chief Complaint: Psychiatric Symptoms Stated Complaint: Drug issues Time Seen by Provider: 08/31/22 21:33 Source: patient, RN notes reviewed, old records reviewed Mode of arrival: ambulatory - History of Present Illness MD Complaint: suicidal ideation, feels depressed, altered mental status -: unknown Associated Psychiatric Symptoms: racing thoughts, auditory hallucinations Quality: constant, getting worse Context: recent drug abuse, not taking psychiatric medications, significant life stressor Associated Symptoms: denies other symptoms Treatments Prior to Arrival: placed on mental health hold If Self Harm: admits thoughts of self harm - Related Data Previous Rx's Medication Instructions Recorded INSULIN ASPART (NovoLOG) [NovoLOG 10 unit SQ AC-TID #1 each 08/22/22 (formulary)] Insulin Detemir (Levemir) [Levemir] 40 unit SQ BID 30 Days #5 units 08/22/22 Allergies Allergy/AdvReac Type Severity Reaction Status Date / Time No Known Allergies Allergy Verified 08/31/22 21:23 Review of Systems ROS Statement: Those systems with pertinent positive or pertinent negative responses have been documented in the HPI. ROS Other: All systems not noted in ROS Statement are negative. Past Medical History Past Medical History: Asthma, CVA/TIA, Diabetes Mellitus, Hypertension History of Any Multi-Drug Resistant Organisms: None Reported Past Surgical History: Orthopedic Surgery Additional Past Surgical History / Comment(s): Lasik surgery; Left ankle surgery Past Anesthesia/Blood Transfusion Reactions: No Reported Reaction Past Psychological History: Bipolar Smoking Status: Current every day smoker Past Alcohol Use History: None Reported Past Drug Use History: IV Drug Use, Marijuana, Methamphetamine General Exam Limitations: no limitations General appearance: alert, in no apparent distress Head exam: Present: atraumatic, normocephalic, normal inspection Eye exam: Present: normal appearance, PERRL, EOMI. Absent: scleral icterus, conjunctival injection, periorbital swelling ENT exam: Present: normal exam, mucous membranes moist Neck exam: Present: normal inspection. Absent: tenderness, meningismus, lymphadenopathy Respiratory exam: Present: normal lung sounds bilaterally. Absent: respiratory distress, wheezes, rales, rhonchi, stridor Cardiovascular Exam: Present: regular rate, normal rhythm, normal heart sounds. Absent: systolic murmur, diastolic murmur, rubs, gallop, clicks GI/Abdominal exam: Present: soft, normal bowel sounds. Absent: distended, tenderness, guarding, rebound, rigid Extremities exam: Present: normal inspection, full ROM, normal capillary refill. Absent: tenderness, pedal edema, joint swelling, calf tenderness Back exam: Present: normal inspection Neurological exam: Present: alert, oriented X3, CN II-XII intact Psychiatric exam: Present: normal affect, normal mood Skin exam: Present: warm, dry, intact, normal color. Absent: rash Course Vital Signs 08/31/22 21:23 Temperature 97.7 F Pulse Rate 130 H Respiratory 24 Rate Blood Pressure 160/90 O2 Sat by Pulse 97 Oximetry Disposition Clinical Impression: Drug-induced psychotic disorder Disposition: HOME SELF-CARE Condition: Fair Instructions (If sedation given, give patient instructions): Generalized Anxiety Disorder (ED) Is patient prescribed a controlled substance at d/c from ED?: No Referrals: None,Stated [Primary Care Provider] - 1-2 days Time of Disposition: 07:00
== END 2022-09-01 07:03 | disposition home or self-care (01) ==
LOC: EC 20:35 → SUPCPDRO 20:35 → EC 09-01 07:03
DX: F19.959 Other psychoactive substance use, unspecified with psychoactive substance-induced psychotic disorder, unspecified (principal); J45.909 Unspecified asthma, uncomplicated; E11.9 Type 2 diabetes mellitus without complications; I10 Essential (primary) hypertension; G45.9 Transient cerebral ischemic attack, unspecified; F31.9 Bipolar disorder, unspecified; F17.200 Nicotine dependence, unspecified, uncomplicated; F12.90 Cannabis use, unspecified, uncomplicated; F15.21 Other stimulant dependence, in remission; Z79.899 Other long term (current) drug therapy
CPT/HCPCS: 82075; 99285; 96372; J1630

== ENCOUNTER 2023-02-01 13:25 | Emergency (ER) | payer OTHER ==
[2023-02-01 13:30] VITALS: TEMP 97.9
[2023-02-01] MEDS ORDERED: MORPHINE SULFATE 4 MG/ML SYRINGE IV STA (14:23)
--- NOTE | 2023-02-01 14:29 | ED ---
Skin/Abscess/FB HPI - General Source: patient, RN notes reviewed, old records reviewed Mode of arrival: ambulatory Limitations: no limitations - History of Present Illness MD complaint: abscess/boil (dental #2) Severity scale (1-10): 6 Quality: constant Consistency: constant Improves with: none Associated symptoms: other Treatments Prior to Arrival: antibiotic (Clindamycin) <Abdullahi Robert - Last Filed: 02/01/23 16:19> <Zak Rees - Last Filed: 02/01/23 23:47> - General Chief complaint: Skin/Abscess/Foreign Body Stated complaint: abcess R cheek Time Seen by Provider: 02/01/23 13:55 - History of Present Illness Initial comments: This is a nontoxic-appearing 32-year-old male who presents to the emergency room with complaints of 2 days of right upper dental pain. Seen his primary care doctor yesterday and placed on clindamycin woke up this morning with right-sided facial swelling. Primary care doctor is trying E CT with contrast however having problems with his insurance. Patient states pain is constant. Denies any fevers. Is scheduled to see a dentist on February 20. History of asthma, diabetes, hypertension (Abdullahi Robert) - Related Data Home Medications Medication Instructions Recorded Confirmed Atomoxetine HCl [Strattera] 80 mg PO BID 02/01/23 02/01/23 Clopidogrel [Plavix] 75 mg PO DAILY 02/01/23 02/01/23 Dulaglutide [Trulicity] 0.75 mg SQ DIRECTED 02/01/23 02/01/23 Empagliflozin [Jardiance] 25 mg PO DAILY 02/01/23 02/01/23 Gabapentin [Neurontin] 800 mg PO TID 02/01/23 02/01/23 Ibuprofen [Motrin] 600 mg PO Q8HR PRN 02/01/23 02/01/23 Insulin Aspart [NovoLOG Flexpen] 26 units SQ AC-TID 02/01/23 02/01/23 Insulin Aspart [NovoLOG Flexpen] See Protocol SQ AC-TID 02/01/23 02/01/23 Insulin Detemir [Levemir Flexpen] 40 units SQ BID 02/01/23 02/01/23 Metoprolol Tartrate [Lopressor] 25 mg PO BID-W/MEALS 02/01/23 02/01/23 clindamycin HCL [Cleocin] 300 mg PO TID 02/01/23 02/01/23 cloNIDine HCL [Catapres] 0.3 mg PO Q4H PRN 02/01/23 02/01/23 Previous Rx's Medication Instructions Recorded Amoxic-Pot Clav 875-125Mg 1 tab PO Q12HR #20 tablet 02/01/23 [Augmentin 875-125] Allergies Allergy/AdvReac Type Severity Reaction Status Date / Time No Known Allergies Allergy Verified 02/01/23 14:08 Review of Systems ROS Other: All systems not noted in ROS Statement are negative. <Abdullahi Robert - Last Filed: 02/01/23 16:19> ROS Other: All systems not noted in ROS Statement are negative. <Zak Rees - Last Filed: 02/01/23 23:47> ROS Statement: Those systems with pertinent positive or pertinent negative responses have been documented in the HPI. Past Medical History Past Medical History: Asthma, CVA/TIA, Diabetes Mellitus, Hypertension History of Any Multi-Drug Resistant Organisms: None Reported Past Surgical History: Orthopedic Surgery Additional Past Surgical History / Comment(s): Lasik surgery; Left ankle surgery Past Anesthesia/Blood Transfusion Reactions: No Reported Reaction Past Psychological History: Bipolar Smoking Status: Current every day smoker Past Alcohol Use History: None Reported Past Drug Use History: IV Drug Use, Marijuana, Methamphetamine <Abdullahi Robert - Last Filed: 02/01/23 16:19> General Exam Limitations: no limitations General appearance: alert, in no apparent distress Head exam: Present: atraumatic Eye exam: Present: normal appearance. Absent: scleral icterus, conjunctival injection, periorbital swelling, periorbital tenderness ENT exam: Present: mucous membranes moist Expanded Mouth exam: Present: tongue normal, tongue elevation. Absent: drooling, trismus, muffled voice Teeth exam: Present: dental caries, dental tenderness # (2) Throat exam: negative: tonsillar erythema, tonsillomegaly, tonsillar exudate, R peritonsillar mass, L peritonsillar mass Neck exam: Present: full ROM. Absent: tenderness, meningismus Respiratory exam: Absent: respiratory distress, accessory muscle use Cardiovascular Exam: Present: regular rate Extremities exam: Present: normal capillary refill Neurological exam: Present: alert, oriented X3 Psychiatric exam: Present: normal affect, normal mood Skin exam: Present: warm, dry, normal color. Absent: cyanosis, diaphoretic, petechiae, pallor <Abdullahi Robert - Last Filed: 02/01/23 16:19> General appearance: alert, in no apparent distress Head exam: Present: atraumatic, normocephalic, normal inspection Eye exam: Present: normal appearance, PERRL, EOMI. Absent: scleral icterus, conjunctival injection, periorbital swelling ENT exam: Present: normal exam, mucous membranes moist Neck exam: Present: normal inspection. Absent: tenderness, meningismus, lymphadenopathy Respiratory exam: Present: normal lung sounds bilaterally. Absent: respiratory distress, wheezes, rales, rhonchi, stridor Cardiovascular Exam: Present: regular rate, normal rhythm, normal heart sounds. Absent: systolic murmur, diastolic murmur, rubs, gallop, clicks GI/Abdominal exam: Present: soft, normal bowel sounds. Absent: distended, tenderness, guarding, rebound, rigid Extremities exam: Present: normal inspection, full ROM, normal capillary refill. Absent: tenderness, pedal edema, joint swelling, calf tenderness Back exam: Present: normal inspection Neurological exam: Present: alert, oriented X3, CN II-XII intact Psychiatric exam: Present: normal affect, normal mood Skin exam: Present: warm, dry, intact, normal color. Absent: rash <Zak Rees - Last Filed: 02/01/23 23:47> Course <Zak Rees - Last Filed: 02/01/23 23:47> Vital Signs 02/01/23 02/01/23 02/01/23 13:28 13:43 15:03 Temperature 97.9 F Pulse Rate 96 85 68 Respiratory 20 20 16 Rate Blood Pressure 159/112 168/108 160/108 O2 Sat by Pulse 96 96 98 Oximetry 02/01/23 18:28 Temperature Pulse Rate 86 Respiratory 16 Rate Blood Pressure 140/86 O2 Sat by Pulse 98 Oximetry - Reevaluation(s) Reevaluation #1: 02/01/23 23:47 Medical record is reviewed (Zak Rees) Reevaluation #2: 02/01/23 23:47 Patient informed results and questions answered (Zak Rees) Reevaluation #3: 02/01/23 23:47 patient symptoms improved (Zak Rees) Reevaluation #4: 02/01/23 23:47 Was pt. sent in by a medical professional or institution? @ -no Did you speak to anyone other than the patient for history? @ -no Did you review nursing and triage notes? @ -agree Were old charts reviewed? @ -no Differential Diagnosis? @ -prior EKG interpreted by me (3pts min.)? @ -no X-rays interpreted by me (1pt min.)? @ -no CT interpreted by me (1pt min.)? @ -no U/S interpreted by me (1pt. min.)? @ -no What testing was considered but not performed? (CT, X-rays, U/S, labs)? Why? @ -no What meds were considered but not given? Why? @ -no Did you discuss the management of the patient with other professionals? @ -no Did you reconcile home meds? @ -no Was smoking cessation discussed for >3mins.? @ -no Was critical care preformed (if so, how long)? @ -no Were there social determinants of health that impacted care today? How? (Homelessness, low income, unemployed, alcoholism, drug addiction, transpo rtation, low edu. Level, literacy, decrease access to med. care, [place] [facility], rehab)? @ -no Was there de-escalation of care discussed even if they declined? (Discuss DNR or withdrawal of care, Hospice)? @ -no What co-morbidities impacted this encounter? (DM, HTN, Smoking, COPD, CAD, Cancer, CVA, Hep., AIDS, mental health diagnosis, sleep apnea, morbid obesity)? @ -no Was patient admitted / discharged? @ -dc Undiagnosed new problem with uncertain prognosis? @ -no Drug Therapy requiring intensive monitoring for toxicity (Heparin, Nitro, Insulin, Cardizem)? @ -no Were any procedures done? @ -no Diagnosis/symptom? @ -dental abscess cellulitis Acute, or Chronic, or Acute on Chronic? @ -no Uncomplicated (without systemic symptoms) or Complicated (systemic symptoms)? @ -no Side effects of treatment? @ -no Exacerbation, Progression, or Severe Exacerbation] @ -no Poses a threat to life or bodily function? @ -no (Zak Rees) Medical Decision Making - Lab Data Result diagrams: 02/01/23 15:02 02/01/23 15:02 <Abdullahi Robert - Last Filed: 02/01/23 16:19> - Lab Data Result diagrams: 02/01/23 15:02 02/01/23 15:02 <Zak Rees - Last Filed: 02/01/23 23:47> - Medical Decision Making Labs and CT pending. Case turned over to Dr. Rees for disposition (Abdullahi Robert) 32 male DF for evaluation patient presents today for acute diverticulitis on antibiotics will switch antibiotics patient will continue antibiotics [id number] swelling is improved here in the ER patient can be discharged (Zak Rees) - Lab Data Lab Results 02/01/23 02/01/23 Range/Units 15:02 15:02 WBC 11.0 H (3.8-10.6) k/uL RBC 5.66 (4.30-5.90) m/uL Hgb 15.3 (13.0-17.5) gm/dL Hct 46.6 (39.0-53.0) % MCV 82.2 (80.0-100.0) fL MCH 27.0 (25.0-35.0) pg MCHC 32.9 (31.0-37.0) g/dL RDW 12.9 (11.5-15.5) % Plt Count 237 (150-450) k/uL MPV 9.0 Neutrophils % 67 % Lymphocytes % 23 % Monocytes % 6 % Eosinophils % 2 % Basophils % 0 % Neutrophils # 7.4 (1.3-7.7) k/uL Lymphocytes # 2.5 (1.0-4.8) k/uL Monocytes # 0.7 (0-1.0) k/uL Eosinophils # 0.2 (0-0.7) k/uL Basophils # 0.0 (0-0.2) k/uL Sodium 137 (137-145) mmol/L Potassium 5.6 H (3.5-5.1) mmol/L Chloride 101 (98-107) mmol/L Carbon Dioxide 30 (22-30) mmol/L Anion Gap 6 mmol/L BUN 14 (9-20) mg/dL Creatinine 0.65 L (0.66-1.25) mg/dL Est GFR (CKD-EPI)AfAm >90 (>60 ml/min/1.73 sqM) Est GFR (CKD-EPI)NonAf >90 (>60 ml/min/1.73 sqM) Glucose 361 H (74-99) mg/dL Calcium 8.8 (8.4-10.2) mg/dL Total Bilirubin 0.3 (0.2-1.3) mg/dL AST 22 (17-59) U/L ALT 23 (4-49) U/L Alkaline Phosphatase 126 (38-126) U/L Total Protein 6.8 (6.3-8.2) g/dL Albumin 3.9 (3.5-5.0) g/dL Disposition <Abdullahi Robert - Last Filed: 02/01/23 16:19> Is patient prescribed a controlled substance at d/c from ED?: No <Zak Rees - Last Filed: 02/01/23 23:47> Clinical Impression: Dental abscess, Cellulitis Disposition: HOME SELF-CARE Condition: Good Instructions (If sedation given, give patient instructions): Dental Abscess (ED) Prescriptions: Amoxic-Pot Clav 875-125Mg [Augmentin 875-125] 1 tab PO Q12HR #20 tablet Referrals: Bal De La Garza MD [Primary Care Provider] - 1-2 days Zak Gutierrez DDS [STAFF PHYSICIAN] - 1-2 days
[2023-02-01 15:03] VITALS: RESP 16
[2023-02-01 15:19] LABS: Basophils % (A) 0 %; Eosinophils # (A) 0.2 k/uL (0-0.7); Eosinophils % (A) 2 %; HCT 46.6 % (39.0-53.0); HGB 15.3 gm/dL (13.0-17.5); Lymphocytes # (A) 2.5 k/uL (1.0-4.8); Lymphocytes % (A) 23 %; MCHC 32.9 g/dL (31.0-37.0); MCV 82.2 fL (80.0-100.0); Monocytes # (A) 0.7 k/uL (0-1.0); Monocytes % (A) 6 %; Neutrophils # (A) 7.4 k/uL (1.3-7.7); Neutrophils % (A) 67 %; Platelet Count 237 k/uL (150-450); RBC 5.66 m/uL (4.30-5.90); RDW 12.9 % (11.5-15.5)
[2023-02-01 15:29] LABS: ALT 23 U/L (4-49); AST 22 U/L (17-59); African American GFR (CKD) >90 (>60 ml/min/1.73 sqM); Albumin 3.9 g/dL (3.5-5.0); Alkaline Phosphatase 126 U/L (38-126); Anion Gap 6 mmol/L; Blood Urea Nitrogen 14 mg/dL (9-20); Calcium 8.8 mg/dL (8.4-10.2); Carbon Dioxide 30 mmol/L (22-30); Chloride 101 mmol/L (98-107); Glucose 361 mg/dL (74-99); Non-African American GFR(CKD) >90 (>60 ml/min/1.73 sqM); Potassium 5.6 mmol/L (3.5-5.1); Sodium 137 mmol/L (137-145); Total Bilirubin 0.3 mg/dL (0.2-1.3); Total Protein 6.8 g/dL (6.3-8.2)
[2023-02-01] MEDS ORDERED: DEXAMETHASONE SOD PHOSPHATE 10 MG/ML 1 ML VIAL IVP STA (15:36)
[2023-02-01] MEDS ORDERED: KETOROLAC 15 MG/ML 1 ML VIAL IVP STA (16:15)
[2023-02-01] MEDS ORDERED: AMPICILLIN-SULBACTAM 3 GM in SODIUM CHLORIDE 0.9% 100 ML IVPB STA (16:16)
[2023-02-01] MEDS ORDERED: AMOXIC-POT CLAV 875-125MG 1 EACH TAB PO STA (16:16)
[2023-02-01] MEDS ORDERED: ACETAMINOPHEN TAB 500 MG TAB PO STA (16:19)
--- NOTE | 2023-02-01 16:20 | CT ---
EXAMINATION TYPE: CT facial bones w con CT DLP: 942.6 mGycm, Automated exposure control for dose reduction was used. DATE OF EXAM: 02/01/2023 4:09 PM COMPARISON: 09/15/2020 CLINICAL INDICATION:Male, 32 years old with history of right maxillary abscess, right sided facial pa in and swelling, no injury TECHNIQUE: Multiple unenhanced axial CT images were obtained of the facial bones soft tissue and bone windows. Coronal, axial and sagittal reformatted images were also provided in soft tissue and bone windows and submitted for interpretation. FINDINGS: Fat stranding changes are seen within the right cheek extending towards the inferior orbit. There is no discrete fluid collection. The globes and orbits are intact with the intraconal and extr a conal fat preserved. Periodontal disease is noted in the superior maxillary alveolar ridge with mul tiple periapical lucencies present with cavities and tooth defects noted. There is no evidence of fr acture, subluxation, dislocation. The temporal-mandibular joints appear symmetric. The visualized por tion of the paranasal sinuses appear clear. IMPRESSION: Soft tissue/phlegmonous change within the right face no discrete organizing fluid collection at this time. Consider follow-up scanning after medical management.
[2023-02-01] MEDS ORDERED: IBUPROFEN 600 MG STARTER PACK 4 TAB BTL PO STA (17:58)
[2023-02-01 18:29] VITALS: BP 140/86; PULSE 86
== END 2023-02-01 18:29 | disposition home or self-care (01) ==
LOC: EC 13:25
DX: K04.7 Periapical abscess without sinus (principal); L03.90 Cellulitis, unspecified; I10 Essential (primary) hypertension; E11.9 Type 2 diabetes mellitus without complications; J45.909 Unspecified asthma, uncomplicated; F31.9 Bipolar disorder, unspecified; F17.200 Nicotine dependence, unspecified, uncomplicated; F12.90 Cannabis use, unspecified, uncomplicated; Z79.02 Long term (current) use of antithrombotics/antiplatelets; Z79.1 Long term (current) use of non-steroidal anti-inflammatories (NSAID); Z79.4 Long term (current) use of insulin; Z79.84 Long term (current) use of oral hypoglycemic drugs; Z79.899 Other long term (current) drug therapy
CPT/HCPCS: 36415; 80053; 85025; 70487; 99283; 96365; 96375 ×2; J1100; J0295; J1885; Q9967

== ENCOUNTER 2023-03-15 17:03 | Observation (INO) | payer OTHER ==
[2023-03-15 17:09] LABS: Glucose,Whole Blood >600 mg/dL (70-110)
[2023-03-15 17:36] LABS: Appearance,Urine Clear (Clear); Bilirubin,Urine Negative (Negative); Blood,Urine Negative (Negative); Color,Urine Colorless; Glucose,Urine (UA) 4+ (Negative); Ketones,Urine Negative (Negative); Leukocyte Esterase,Urine Negative (Negative); Nitrite,Urine Negative (Negative); PH, Urine 6.5 (5.0-8.0); Protein,Urine Negative (Negative); Specific Gravity,Urine 1.025 (1.001-1.035); Urobilinogen,Urine <2.0 mg/dL (<2.0)
[2023-03-15] MEDS ORDERED: SODIUM CHLORIDE 0.9% 500 ML 500 ML IV STA (18:32)
[2023-03-15] MEDS ORDERED: SODIUM CHLORIDE 0.9% 1,000 ML IV STA ×3 (18:32→20:31)
--- NOTE | 2023-03-15 18:33 | ED ---
Recheck HPI - General Chief Complaint: Recheck/Abnormal Lab/Rx Stated Complaint: SOB Time Seen by Provider: 03/15/23 18:18 Source: patient, RN notes reviewed, old records reviewed Mode of arrival: ambulatory Limitations: no limitations - History of Present Illness Initial Comments: This is a 32-year-old male to the emergency department today. Patient presents today for evaluation regards to elevated blood sugar shortness of breath cough cough and coughing up blood sometimes. Mild weakness some body aches and pains. No other significant complaints. Patient's concerned he is in DKA. Patient states he difficult IV start history of IV drug abuse MD Complaint: abnormal lab (Elevated blood sugar), other (Weakness cough sh ortness of breath) -: days(s) Returns Today for: persistent/worsening pain related to initial visit Symptoms Since Prior Visit: worsening pain Context: planned re-check Associated Symptoms: none Treatments Prior to Arrival: other (0) - Related Data Home Medications Medication Instructions Recorded Confirmed Gabapentin [Neurontin] 800 mg PO TID 02/01/23 03/16/23 Insulin Aspart [NovoLOG Flexpen] 40 units SQ AC-TID 02/01/23 03/16/23 Insulin Detemir [Levemir Flexpen] 80 units SQ BID 02/01/23 03/16/23 Albuterol Inhaler [Ventolin Hfa 2 puff INHALATION RT-QID PRN 03/16/23 03/16/23 Inhaler] Atorvastatin Calcium [Lipitor] 40 mg PO DAILY 03/16/23 03/16/23 Chlorpheniramine Maleate 4 mg PO Q4H PRN 03/16/23 03/16/23 [Chlor-Trimeton] Cholecalciferol (Vitamin D3) 1,250 mcg PO Q7DAYS 03/16/23 03/16/23 [Vitamin D3] DULoxetine HCL [Cymbalta] 60 mg PO DAILY 03/16/23 03/16/23 Pregabalin [Lyrica] 150 mg PO BID PRN 03/16/23 03/16/23 lisinopriL 40 mg PO DAILY 03/16/23 03/16/23 Previous Rx's Medication Instructions Recorded Ipratropium-Albuterol Nebulize 3 ml INHALATION RT-TID PRN each 03/18/23 [Duoneb 0.5 mg-3 mg/3 ml Soln] Allergies Allergy/AdvReac Type Severity Reaction Status Date / Time No Known Allergies Allergy Verified 03/15/23 17:07 Review of Systems ROS Statement: Those systems with pertinent positive or pertinent negative responses have been documented in the HPI. ROS Other: All systems not noted in ROS Statement are negative. Past Medical History Past Medical History: Asthma, COPD, CVA/TIA, Diabetes Mellitus, Hypertension History of Any Multi-Drug Resistant Organisms: None Reported Past Surgical History: Orthopedic Surgery Additional Past Surgical History / Comment(s): Lasik surgery; Left ankle surgery Past Anesthesia/Blood Transfusion Reactions: No Reported Reaction Past Psychological History: Bipolar Smoking Status: Current every day smoker Past Alcohol Use History: None Reported Past Drug Use History: IV Drug Use, Marijuana, Methamphetamine General Exam Limitations: no limitations General appearance: alert, in no apparent distress, anxious Head exam: Present: atraumatic, normocephalic, normal inspection Eye exam: Present: normal appearance, PERRL, EOMI. Absent: scleral icterus, conjunctival injection, periorbital swelling ENT exam: Present: normal exam, mucous membranes moist Neck exam: Present: normal inspection. Absent: tenderness, meningismus, lymphadenopathy Respiratory exam: Present: normal lung sounds bilaterally. Absent: respiratory distress, wheezes, rales, rhonchi, stridor Cardiovascular Exam: Present: regular rate, normal rhythm, normal heart sounds. Absent: systolic murmur, diastolic murmur, rubs, gallop, clicks GI/Abdominal exam: Present: soft, normal bowel sounds. Absent: distended, tenderness, guarding, rebound, rigid Extremities exam: Present: normal inspection, full ROM, normal capillary refill. Absent: tenderness, pedal edema, joint swelling, calf tenderness Back exam: Present: normal inspection Neurological exam: Present: alert, oriented X3, CN II-XII intact Psychiatric exam: Present: normal affect, normal mood Skin exam: Present: warm, dry, intact, normal color. Absent: rash Course Vital Signs 03/15/23 03/15/23 03/15/23 17:04 18:49 21:03 Temperature 98.0 F Pulse Rate 93 91 75 Respiratory 20 18 18 Rate Blood Pressure 172/124 139/83 183/118 O2 Sat by Pulse 97 98 100 Oximetry 03/15/23 03/15/23 22:01 23:00 Temperature 98.4 F Pulse Rate 80 78 Respiratory 18 18 Rate Blood Pressure 138/78 153/101 O2 Sat by Pulse 98 97 Oximetry - Reevaluation(s) Reevaluation #1: 03/15/23 20:08 Medical records reviewed Reevaluation #2: 03/15/23 20:08 Patient has no change in symptoms here in the ER Reevaluation #3: 03/15/23 20:08 Patient informed of results and questions answered Reevaluation #4: 03/15/23 20:08 Was pt. sent in by a medical professional or institution? @ -no Did you speak to anyone other than the patient for history? @ -no Did you review nursing and triage notes? @ -agree Were old charts reviewed? @ -no Differential Diagnosis? @ -prior EKG interpreted by me (3pts min.)? @ -yes X-rays interpreted by me (1pt min.)? @ -yes CT interpreted by me (1pt min.)? @ -no U/S interpreted by me (1pt. min.)? @ -no What testing was considered but not performed? (CT, X-rays, U/S, labs)? Why? @ -no What meds were considered but not given? Why? @ -no Did you discuss the management of the patient with other professionals? @ -no Did you reconcile home meds? @ -no Was smoking cessation discussed for >3mins.? @ -no Was critical care preformed (if so, how long)? @ -no Were there social determinants of health that impacted care today? How? (Homelessness, low income, unemployed, alcoholism, drug addiction, transportation, low edu. Level, literacy, decrease access to med. care, penitentiary, rehab)? @ -no Was there de-escalation of care discussed even if they declined? (Discuss DNR or withdrawal of care, Hospice)? @ -no What co-morbidities impacted this encounter? (DM, HTN, Smoking, COPD, CAD, Cancer, CVA, Hep., AIDS, mental health diagnosis, sleep apnea, morbid obesity)? @ -none Was patient admitted / discharged? @ -32 male to the ED pints of uncontrolled blood sugars as of late feeling weak lightheaded dehydrated thirsty, some shortness of breath cough as well. No recent traumas no fevers no nausea vomiting currently and no diarrhea Discharged Undiagnosed new problem with uncertain prognosis? @ -no Drug Therapy requiring intensive monitoring for toxicity (Heparin, Nitro, Insulin, Cardizem)? @ -no Were any procedures done? @ -no Diagnosis/symptom? @ -Hyperglycemia, weakness, COPD exacerbation Acute, or Chronic, or Acute on Chronic? @ -no Uncomplicated (without systemic symptoms) or Complicated (systemic symptoms)? @ -complicated Side effects of treatment? @ -no Exacerbation, Progression, or Severe Exacerbation] @ -no Poses a threat to life or bodily function? @ -Yes is in DKA could lead to Reevaluation #5: 03/15/23 20:08 Differential Weakness: Hypoglycemia, shock, sepsis, hyponatremia, anemia, infection, MO, ETOH, adverse medicine reaction, overdose, stroke, this is not meant to be an all-inclusive list. - Consultations Consultation #1: Spoke with Dr. De La Garza for admission he is agreeable Medical Decision Making - Medical Decision Making 32 male to the ER for hyperglycemia, cough, sob, patient still with cough weakness and dehydration, patient will be admitted for supportive care BS control - Lab Data Result diagrams: 03/16/23 07:44 03/16/23 07:44 Lab Results 03/15/23 03/15/23 03/15/23 Range/Units 17:05 17:07 19:01 WBC 10.2 (3.8-10.6) k/uL RBC 5.64 (4.30-5.90) m/uL Hgb 15.3 (13.0-17.5) gm/dL Hct 46.9 (39.0-53.0) % MCV 83.2 (80.0-100.0) fL MCH 27.2 (25.0-35.0) pg MCHC 32.7 (31.0-37.0) g/dL RDW 12.3 (11.5-15.5) % Plt Count 208 (150-450) k/uL MPV 9.9 Neutrophils % 67 % Lymphocytes % 23 % Monocytes % 5 % Eosinophils % 2 % Basophils % 0 % Neutrophils # 6.8 (1.3-7.7) k/uL Lymphocytes # 2.3 (1.0-4.8) k/uL Monocytes # 0.6 (0-1.0) k/uL Eosinophils # 0.2 (0-0.7) k/uL Basophils # 0.0 (0-0.2) k/uL Sodium (137-145) mmol/L Potassium (3.5-5.1) mmol/L Chloride (98-107) mmol/L Carbon Dioxide (22-30) mmol/L Anion Gap mmol/L BUN (9-20) mg/dL Creatinine (0.66-1.25) mg/dL Est GFR (CKD-EPI)AfAm (>60 ml/min/1.73 sqM) Est GFR (CKD-EPI)NonAf (>60 ml/min/1.73 sqM) Glucose (74-99) mg/dL POC Glucose (mg/dL) >600 H (70-110) mg/dL POC Glu Animal Shelter Worker ID Haylie Dobbs Lactic Ac Sepsis Rflx Plasma Lactic Acid Vin (0.7-2.0) mmol/L Calcium (8.4-10.2) mg/dL Phosphorus (2.5-4.5) mg/dL Magnesium (1.6-2.3) mg/dL Total Bilirubin (0.2-1.3) mg/dL AST (17-59) U/L ALT (4-49) U/L Alkaline Phosphatase (38-126) U/L Total Protein (6.3-8.2) g/dL Albumin (3.5-5.0) g/dL Urine Color Colorless Urine Appearance Clear (Clear) Urine pH 6.5 (5.0-8.0) Ur Specific [place] 1.025 (1.001-1.035) Urine Protein Negative (Negative) Urine Glucose (UA) 4+ H (Negative) Urine Ketones Negative (Negative) Urine Blood Negative (Negative) Urine Nitrite Negative (Negative) Urine Bilirubin Negative (Negative) Urine Urobilinogen <2.0 (<2.0) mg/dL Ur Leukocyte Esterase Negative (Negative) Acetone, Qual (Negative) 03/15/23 03/15/23 03/15/23 Range/Units 19:01 19:01 19:01 WBC (3.8-10.6) k/uL RBC (4.30-5.90) m/uL Hgb (13.0-17.5) gm/dL Hct (39.0-53.0) % MCV (80.0-100.0) fL MCH (25.0-35.0) pg MCHC (31.0-37.0) g/dL RDW (11.5-15.5) % Plt Count (150-450) k/uL MPV Neutrophils % % Lymphocytes % % Monocytes % % Eosinophils % % Basophils % % Neutrophils # (1.3-7.7) k/uL Lymphocytes # (1.0-4.8) k/uL Monocytes # (0-1.0) k/uL Eosinophils # (0-0.7) k/uL Basophils # (0-0.2) k/uL Sodium 133 L (137-145) mmol/L Potassium 4.5 (3.5-5.1) mmol/L Chloride 94 L (98-107) mmol/L Carbon Dioxide 27 (22-30) mmol/L Anion Gap 12 mmol/L BUN 10 (9-20) mg/dL Creatinine 0.69 (0.66-1.25) mg/dL Est GFR (CKD-EPI)AfAm >90 (>60 ml/min/1.73 sqM) Est GFR (CKD-EPI)NonAf >90 (>60 ml/min/1.73 sqM) Glucose 566 H* (74-99) mg/dL POC Glucose (mg/dL) (70-110) mg/dL POC Glu Animal Shelter Worker ID Lactic Ac Sepsis Rflx Plasma Lactic Acid Vin 4.0 H* (0.7-2.0) mmol/L Calcium 8.8 (8.4-10.2) mg/dL Phosphorus 3.7 (2.5-4.5) mg/dL Magnesium 1.9 (1.6-2.3) mg/dL Total Bilirubin 0.3 (0.2-1.3) mg/dL AST 23 (17-59) U/L ALT 25 (4-49) U/L Alkaline Phosphatase 149 H (38-126) U/L Total Protein 7.1 (6.3-8.2) g/dL Albumin 4.2 (3.5-5.0) g/dL Urine Color Light Yellow Urine Appearance Clear (Clear) Urine pH 6.5 (5.0-8.0) Ur Specific [place] 1.028 (1.001-1.035) Urine Protein Negative (Negative) Urine Glucose (UA) 4+ H (Negative) Urine Ketones Negative (Negative) Urine Blood Negative (Negative) Urine Nitrite Negative (Negative) Urine Bilirubin Negative (Negative) Urine Urobilinogen <2.0 (<2.0) mg/dL Ur Leukocyte Esterase Negative (Negative) Acetone, Qual Negative (Negative) 03/15/23 Range/Units 20:16 WBC (3.8-10.6) k/uL RBC (4.30-5.90) m/uL Hgb (13.0-17.5) gm/dL Hct (39.0-53.0) % MCV (80.0-100.0) fL MCH (25.0-35.0) pg MCHC (31.0-37.0) g/dL RDW (11.5-15.5) % Plt Count (150-450) k/uL MPV Neutrophils % % Lymphocytes % % Monocytes % % Eosinophils % % Basophils % % Neutrophils # (1.3-7.7) k/uL Lymphocytes # (1.0-4.8) k/uL Monocytes # (0-1.0) k/uL Eosinophils # (0-0.7) k/uL Basophils # (0-0.2) k/uL Sodium (137-145) mmol/L Potassium (3.5-5.1) mmol/L Chloride (98-107) mmol/L Carbon Dioxide (22-30) mmol/L Anion Gap mmol/L BUN (9-20) mg/dL Creatinine (0.66-1.25) mg/dL Est GFR (CKD-EPI)AfAm (>60 ml/min/1.73 sqM) Est GFR (CKD-EPI)NonAf (>60 ml/min/1.73 sqM) Glucose (74-99) mg/dL POC Glucose (mg/dL) (70-110) mg/dL POC Glu Animal Shelter Worker ID Lactic Ac Sepsis Rflx Y Plasma Lactic Acid Vin (0.7-2.0) mmol/L Calcium (8.4-10.2) mg/dL Phosphorus (2.5-4.5) mg/dL Magnesium (1.6-2.3) mg/dL Total Bilirubin (0.2-1.3) mg/dL AST (17-59) U/L ALT (4-49) U/L Alkaline Phosphatase (38-126) U/L Total Protein (6.3-8.2) g/dL Albumin (3.5-5.0) g/dL Urine Color Urine Appearance (Clear) Urine pH (5.0-8.0) Ur Specific [place] (1.001-1.035) Urine Protein (Negative) Urine Glucose (UA) (Negative) Urine Ketones (Negative) Urine Blood (Negative) Urine Nitrite (Negative) Urine Bilirubin (Negative) Urine Urobilinogen (<2.0) mg/dL Ur Leukocyte Esterase (Negative) Acetone, Qual (Negative) - EKG Data -: EKG Interpreted by Me (EKG is sinus 85 MA 158 QRS 98 58 QRS 78 QTc 476) - Radiology Data Radiology results: report reviewed (Chest x-rays negative for acute disease), image reviewed Critical Care Time Critical Care Time: Yes Total Critical Care Time: 31 Disposition Clinical Impression: Hyperglycemia, COPD exacerbation, Lactic acidosis, Hx of intravenous drug use in remission Disposition: ADMITTED IP TO THIS [facility] Condition: Good Is patient prescribed a controlled substance at d/c from ED?: No Time of Disposition: 20:45
--- NOTE | 2023-03-15 19:49 | XR ---
EXAMINATION TYPE: XR chest 2V DATE OF EXAM: 03/15/2023 7:45 PM COMPARISON: Chest radiographs from 08/16/2022 TECHNIQUE: XR chest 2V Frontal and lateral views of the chest. CLINICAL INDICATION:Male, 32 years old with history of [place]; FINDINGS: Lungs/Pleura: There is no evidence of pleural effusion, focal consolidation, or pneumothorax. Pulmonary vascularity: Unremarkable. Heart/mediastinum: Cardiomediastinal silhouette is unremarkable. Musculoskeletal: No acute osseous pathology. IMPRESSION: No acute cardiopulmonary disease/process.
[2023-03-15 20:01] LABS: Basophils % (A) 0 %; Eosinophils # (A) 0.2 k/uL (0-0.7); Eosinophils % (A) 2 %; HCT 46.9 % (39.0-53.0); HGB 15.3 gm/dL (13.0-17.5); Lymphocytes # (A) 2.3 k/uL (1.0-4.8); Lymphocytes % (A) 23 %; MCH 27.2 pg (25.0-35.0); MCHC 32.7 g/dL (31.0-37.0); MCV 83.2 fL (80.0-100.0); Mean Platelet Volume 9.9; Monocytes # (A) 0.6 k/uL (0-1.0); Monocytes % (A) 5 %; Neutrophils # (A) 6.8 k/uL (1.3-7.7); Neutrophils % (A) 67 %; Platelet Count 208 k/uL (150-450); RBC 5.64 m/uL (4.30-5.90); RDW 12.3 % (11.5-15.5); WBC 10.2 k/uL (3.8-10.6)
[2023-03-15 20:17] LABS: ALT 25 U/L (4-49); AST 23 U/L (17-59); African American GFR (CKD) >90 (>60 ml/min/1.73 sqM); Albumin 4.2 g/dL (3.5-5.0); Alkaline Phosphatase 149 U/L (38-126); Anion Gap 12 mmol/L; Blood Urea Nitrogen 10 mg/dL (9-20); Calcium 8.8 mg/dL (8.4-10.2); Carbon Dioxide 27 mmol/L (22-30); Chloride 94 mmol/L (98-107); Magnesium 1.9 mg/dL (1.6-2.3); Non-African American GFR(CKD) >90 (>60 ml/min/1.73 sqM); Phosphorus 3.7 mg/dL (2.5-4.5); Potassium 4.5 mmol/L (3.5-5.1); Sodium 133 mmol/L (137-145); Total Bilirubin 0.3 mg/dL (0.2-1.3); Total Protein 7.1 g/dL (6.3-8.2)
[2023-03-15 20:23] LABS: Appearance,Urine Clear (Clear); Bilirubin,Urine Negative (Negative); Blood,Urine Negative (Negative); Color,Urine Light Yellow; Glucose,Urine (UA) 4+ (Negative); Ketones,Urine Negative (Negative); Leukocyte Esterase,Urine Negative (Negative); Nitrite,Urine Negative (Negative); PH, Urine 6.5 (5.0-8.0); Protein,Urine Negative (Negative); Specific Gravity,Urine 1.028 (1.001-1.035); Urobilinogen,Urine <2.0 mg/dL (<2.0)
[2023-03-15 20:28] LABS: Glucose 566 mg/dL (74-99)
[2023-03-15] MEDS ORDERED: INSULIN REGULAR 100 UNIT/ML VIAL (IV) IV ONE (20:44)
[2023-03-15] MEDS ORDERED: IPRATROPIUM-ALBUTEROL 3 ML NEB INHALATION PRN (20:45)
[2023-03-15] MEDS ORDERED: MORPHINE SULFATE 4 MG/ML SYRINGE IV PRN (20:45)
[2023-03-15] MEDS ORDERED: ONDANSETRON 4 MG/2 ML VIAL IVP PRN (20:45)
[2023-03-15] MEDS ORDERED: NALOXONE 0.4 MG/ML 1 ML VIAL IV PRN (20:45)
[2023-03-15] MEDS: SODIUM CHLORIDE 0.9% 1,000 ML IV SCH (21:02)
[2023-03-15 22:00] LABS: Glucose,Whole Blood 288 mg/dL (70-110)
[2023-03-15 23:28] LABS: Glucose,Whole Blood 314 mg/dL (70-110)
[2023-03-15] MEDS ORDERED: DEXTROSE 50% SYRINGE 50 ML IVP PRN ×4 (23:56→23:59)
[2023-03-15] MEDS ORDERED: INSULIN ASPART (NovoLOG) 100 UNIT/ML VIAL SQ SCH (23:59)
[2023-03-16] MEDS: INSULIN ASPART (NovoLOG) 100 UNIT/ML VIAL SQ SCH ×7 (00:22→20:48)
[2023-03-16] MEDS ORDERED: PREGABALIN 100 MG CAP PO STA (00:45)
[2023-03-16] MEDS: SODIUM CHLORIDE 0.9% 1,000 ML IV SCH ×3 (01:23→20:48)
[2023-03-16] MEDS: KETOROLAC 15 MG/ML 1 ML VIAL IVP PRN (02:26)
[2023-03-16 06:01] LABS: Glucose,Whole Blood 362 mg/dL (70-110)
[2023-03-16 08:04] LABS: Basophils % (A) 0 %; Eosinophils # (A) 0.2 k/uL (0-0.7); Eosinophils % (A) 3 %; HCT 43.1 % (39.0-53.0); HGB 13.7 gm/dL (13.0-17.5); Lymphocytes # (A) 2.4 k/uL (1.0-4.8); Lymphocytes % (A) 36 %; MCH 26.2 pg (25.0-35.0); MCHC 31.8 g/dL (31.0-37.0); MCV 82.5 fL (80.0-100.0); Mean Platelet Volume 9.4; Monocytes # (A) 0.4 k/uL (0-1.0); Monocytes % (A) 6 %; Neutrophils # (A) 3.3 k/uL (1.3-7.7); Neutrophils % (A) 51 %; Platelet Count 187 k/uL (150-450); RBC 5.23 m/uL (4.30-5.90); RDW 12.5 % (11.5-15.5); WBC 6.6 k/uL (3.8-10.6)
[2023-03-16 08:26] LABS: ALT 21 U/L (4-49); AST 19 U/L (17-59); African American GFR (CKD) >90 (>60 ml/min/1.73 sqM); Albumin 3.2 g/dL (3.5-5.0); Alkaline Phosphatase 115 U/L (38-126); Anion Gap 6 mmol/L; Blood Urea Nitrogen 11 mg/dL (9-20); Calcium 7.8 mg/dL (8.4-10.2); Carbon Dioxide 25 mmol/L (22-30); Chloride 104 mmol/L (98-107); Glucose 328 mg/dL (74-99); Magnesium 1.8 mg/dL (1.6-2.3); Non-African American GFR(CKD) >90 (>60 ml/min/1.73 sqM); Phosphorus 2.8 mg/dL (2.5-4.5); Sodium 135 mmol/L (137-145); Total Bilirubin 0.3 mg/dL (0.2-1.3); Total Protein 5.9 g/dL (6.3-8.2)
[2023-03-16] MEDS ORDERED: NON FORMULARY DRUG (Albuterol Inhaler 90 MCG Puff) INHALATION PRN (11:41)
[2023-03-16 11:52] LABS: Glucose,Whole Blood 310 mg/dL (70-110)
[2023-03-16 14:48] VITALS: BMI 38.7
[2023-03-16 16:30] LABS: Glucose,Whole Blood 103 mg/dL (70-110)
[2023-03-16] MEDS: GABAPENTIN 400 MG CAP PO SCH ×2 (16:55→20:49)
[2023-03-16 20:30] LABS: Glucose,Whole Blood 260 mg/dL (70-110)
[2023-03-16] MEDS: INSULIN DETEMIR (LEVEMIR) 100 UNIT/ML SYR SQ SCH (20:48)
[2023-03-17 06:05] LABS: Glucose,Whole Blood 287 mg/dL (70-110)
[2023-03-17] MEDS: INSULIN DETEMIR (LEVEMIR) 100 UNIT/ML SYR SQ SCH ×2 (06:33→20:22)
[2023-03-17] MEDS: INSULIN ASPART (NovoLOG) 100 UNIT/ML VIAL SQ SCH ×7 (06:34→20:24)
[2023-03-17] MEDS: KETOROLAC 15 MG/ML 1 ML VIAL IVP PRN ×3 (09:01→22:39)
[2023-03-17] MEDS: lisinopriL 20 MG TAB PO SCH (09:01)
[2023-03-17] MEDS: GABAPENTIN 400 MG CAP PO SCH ×3 (09:01→20:22)
[2023-03-17] MEDS: DULoxetine HCL 60 MG CAPSULE.DR PO SCH (09:01)
[2023-03-17] MEDS: ATORVASTATIN 40 MG TAB PO SCH (09:01)
[2023-03-17 12:18] LABS: Glucose,Whole Blood 69 mg/dL (70-110)
[2023-03-17 12:32] LABS: Glucose,Whole Blood 113 mg/dL (70-110)
[2023-03-17 16:45] LABS: Glucose,Whole Blood 147 mg/dL (70-110)
[2023-03-17 20:09] LABS: Glucose,Whole Blood 165 mg/dL (70-110)
[2023-03-18 08:11] LABS: Glucose,Whole Blood 247 mg/dL (70-110)
[2023-03-18] MEDS: INSULIN DETEMIR (LEVEMIR) 100 UNIT/ML SYR SQ SCH (08:30)
[2023-03-18] MEDS: INSULIN ASPART (NovoLOG) 100 UNIT/ML VIAL SQ SCH ×4 (08:30→12:23)
[2023-03-18] MEDS: DULoxetine HCL 60 MG CAPSULE.DR PO SCH (08:31)
[2023-03-18] MEDS: lisinopriL 20 MG TAB PO SCH (08:31)
[2023-03-18] MEDS: GABAPENTIN 400 MG CAP PO SCH (08:31)
[2023-03-18] MEDS: ATORVASTATIN 40 MG TAB PO SCH (08:31)
[2023-03-18] MEDS: KETOROLAC 15 MG/ML 1 ML VIAL IVP PRN (08:53)
[2023-03-18 09:01] VITALS: BP 126/76; PULSE 67; RESP 17; TEMP 97.7
[2023-03-18 11:28] LABS: Glucose,Whole Blood 66 mg/dL (70-110)
[2023-03-18 11:47] LABS: Glucose,Whole Blood 103 mg/dL (70-110)
--- NOTE | 2023-03-18 12:46 | P.CN ---
Psychiatric Consult - . Consult date: 03/18/23 Consult:: 03/18/23 12:35 This is the psychiatric evaluation on Tam Ocampo who is a 32-year-old male and is currently hospitalized with the hypoglycemia and see you be Psychiatric consultation was requested with his history of depression Patient reports that he's been started on Cymbalta 60 mg daily for about a month He says that he has a long history of methamphetamine use disorder for over 9 years and that resulted in losing his recently as well as his 2 children under age 10 He states that the children are now with his ex- and may be taken away from her also because of her own problems with substances He states that he pretty much lost all his property and his family although he has other support system He denies that he is suicidal or homicidal and that he would never do anything to harm himself However he states that he does not feel the excitement that he had when he was using the meth However he states that he wants to stay clean and that he is now processing 6 month von of sobriety He stated that he is currently living in a sober living place and has friends that he can relate with He says that he stay away from people will also using drugs He says that 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 . Speech: Patient's speech is fluent and nonpressured. Mood/Affect: Patient reports his mood is fine appears to be calm and relaxed and smiling however he states that usually feel somewhat down is alone Suicidality/Homicidality: Patient denies having any homicidal ideation intent or plan. Denies any suicidal ideations intent or plan Perceptions: Patient denies any visual hallucinations and denies any auditory hallucinations Though content/process: There is no evidence of any delusional thought content and thought process is linear and goal-directed. Memory and concentration: AOX3, grossly intact for the purposes of this session. 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 Interpersonal family issues Summary and treatment plan This is a young male who has a significant history of methamphetamine use disorder along with other drugs Patient has been able to be abstinent for about 6 months and still appears to be going through some long-term effects for post-substance use effects especially with the stimulant Patient was educated regarding the long-term affects of stimulant abuse and that the [employer] system takes more than 12-16 months with further is actually a turnaround in the neurotransmitters that exhibit more normal status Patient is also given realistic expectations regarding antidepressants numbness of the being a 'happy pill ' Patient is strongly encouraged to continue in the outpatient counseling and therapy as well as to maintain his sobriety and other interests and to minimize any exposure to previous group of friends substance users and any other environmental cues that the trigger the relapse Patient otherwise appears to be appropriate for outpatient follow-up and treatment Patient's Cymbalta meantime we'll also be increased to 60 mg twice a day Thank you much for kind referral and pressured further contact further questions Jesus Wadsworth M.D. 03/18/2023
--- NOTE | 2023-03-21 00:16 | PN ---
PROGRESS NOTE DATE OF SERVICE: 03/16/2023 CHIEF COMPLAINT: DKA. HISTORY OF PRESENT ILLNESS: This gentleman is doing better. He is awake and alert. Blood sugars are improving. He has no complaints. He is not having any shortness of breath, abdominal pain, nausea, vomiting, etc. PHYSICAL EXAMINATION: CHEST: Clear. CARDIAC: Demonstrates sinus rhythm. No murmurs. ABDOMEN: Soft, nontender, and protuberant. IMPRESSION: 1. Diabetic ketoacidosis. 2. Diabetes. 3. Depression. PLAN: Continue with IV fluids and management of his blood sugar. We will also request psych consult during his admission. MMODL / IJN: [id number] /
--- NOTE | 2023-03-21 01:31 | HP ---
HISTORY AND PHYSICAL CHIEF COMPLAINT: Uncontrolled diabetes. HISTORY OF PRESENT ILLNESS: This gentleman presented to the emergency room with uncontrolled diabetes, and elevated blood sugar in the neighborhood of 600. When questioned, he states he has not been taking any of his medications. He does not really give a good reason why. He is depressed and he was asked if he was trying to kill himself or hurt himself and he did not respond. REVIEW OF SYSTEMS: He has had no neurologic problems, chest pain, shortness of breath, murmurs, orthopnea, PND, abdominal pain, nausea, vomiting, hematemesis, melena, hematochezia, jaundice, hepatitis, dysuria, frequency, urgency, arthralgias, etc. Past medical history, family history, personal and social histories reveal he is normally on gabapentin, Cymbalta, atorvastatin, metoprolol, hydrochlorothiazide, Levemir and Jardiance as well as valacyclovir, vitamin D, NovoLog, and chlorpheniramine. He does smoke. PHYSICAL EXAMINATION: GENERAL: He is overweight. Face is flushed. He appeared to be in no acute distress. VITAL SIGNS: Blood pressure is 158/88 with a pulse of 104, respirations 16. He is afebrile. HEAD, EARS, EYES, NOSE, MOUTH AND THROAT: Normal. CHEST: Clear. CARDIAC: Demonstrates tachycardia. ABDOMEN: Protuberant, soft and nontender. EXTREMITIES: Normal. NEUROLOGIC: He is intact. ASSESSMENT: He is admitted to the hospital with diagnosis of: 1. Diabetic ketoacidosis (intentional). 2. Insulin-dependent diabetes mellitus. 3. Obesity. 4. Depression. PLAN: 1. Bed rest. 2. IV fluids. 3. Controlled blood sugars. 4. Psych consult. MMODL / IJN: [id number] /
== END 2023-03-18 13:33 | disposition home or self-care (01) ==
LOC: EC 17:03 → 3SCARD 20:45 → 5NMEDONC 03-17 22:21
PROVIDERS: ADMIT Family Medicine; ATTEND Family Medicine
DX: E11.10 Type 2 diabetes mellitus with ketoacidosis without coma (principal); E86.0 Dehydration; F43.21 Adjustment disorder with depressed mood; F31.9 Bipolar disorder, unspecified; F15.91 Other stimulant use, unspecified, in remission; I10 Essential (primary) hypertension; J44.1 Chronic obstructive pulmonary disease with (acute) exacerbation; F17.200 Nicotine dependence, unspecified, uncomplicated; E66.9 Obesity, unspecified; Z68.39 Body mass index [BMI] 39.0-39.9, adult; Z91.148 Patient's other noncompliance with medication regimen for other reason; Z79.02 Long term (current) use of antithrombotics/antiplatelets; Z79.85 Long-term (current) use of injectable non-insulin antidiabetic drugs; Z79.84 Long term (current) use of oral hypoglycemic drugs; Z79.4 Long term (current) use of insulin; Z79.899 Other long term (current) drug therapy; Z86.73 Personal history of transient ischemic attack (TIA), and cerebral infarction without residual deficits; Z87.898 Personal history of other specified conditions; Z63.8 Other specified problems related to primary support group
CPT/HCPCS: 96376 ×2; 96361 ×3; 96374; 99285; 36415; 80053 ×2; 82009; 83605; 83735 ×2; 84100 ×2; 85025 ×2; 81003; 83036; 71046; G0378 ×5; J1885 ×3

== ENCOUNTER 2023-08-18 23:27 | Emergency (ER) | payer OTHER ==
[2023-08-18] MEDS ORDERED: SODIUM CHLORIDE 0.9% 1,000 ML IV STA (23:50)
[2023-08-18] MEDS ORDERED: KETOROLAC 15 MG/ML 1 ML VIAL IVP STA (23:50)
[2023-08-18 23:55] VITALS: PULSE 109; RESP 18; TEMP 98
[2023-08-19 00:23] LABS: Appearance,Urine Clear (Clear); Basophils % (A) 0 %; Bilirubin,Urine Negative (Negative); Blood,Urine Negative (Negative); Color,Urine Colorless; Eosinophils # (A) 0.2 k/uL (0-0.7); Eosinophils % (A) 1 %; Glucose,Urine (UA) 4+ (Negative); HCT 44.5 % (39.0-53.0); HGB 14.9 gm/dL (13.0-17.5); Ketones,Urine 1+ (Negative); Leukocyte Esterase,Urine Negative (Negative); Lymphocytes # (A) 1.5 k/uL (1.0-4.8); Lymphocytes % (A) 12 %; MCH 26.7 pg (25.0-35.0); MCHC 33.4 g/dL (31.0-37.0); MCV 79.8 fL (80.0-100.0); Mean Platelet Volume 9.6; Monocytes # (A) 0.6 k/uL (0-1.0); Monocytes % (A) 4 %; Neutrophils # (A) 10.6 k/uL (1.3-7.7); Neutrophils % (A) 82 %; Nitrite,Urine Negative (Negative); Platelet Count 183 k/uL (150-450); Protein,Urine Negative (Negative); RBC 5.57 m/uL (4.30-5.90); RDW 12.2 % (11.5-15.5); Specific Gravity,Urine 1.036 (1.001-1.035); Urobilinogen,Urine <2.0 mg/dL (<2.0); WBC 12.9 k/uL (3.8-10.6)
[2023-08-19 00:37] LABS: ALT 23 U/L (4-49); African American GFR (CKD) >90 (>60 ml/min/1.73 sqM); Albumin 3.9 g/dL (3.5-5.0); Anion Gap 11 mmol/L; Blood Urea Nitrogen 13 mg/dL (9-20); Calcium 8.8 mg/dL (8.4-10.2); Carbon Dioxide 21 mmol/L (22-30); Chloride 97 mmol/L (98-107); Glucose 499 mg/dL (74-99); Non-African American GFR(CKD) >90 (>60 ml/min/1.73 sqM); Sodium 129 mmol/L (137-145); Total Bilirubin 0.8 mg/dL (0.2-1.3); Total Protein 6.9 g/dL (6.3-8.2)
[2023-08-19 00:42] LABS: AST 27 U/L (17-59); Alkaline Phosphatase 176 U/L (38-126); Potassium 4.7 mmol/L (3.5-5.1)
[2023-08-19] MEDS ORDERED: ACETAMINOPHEN TAB 500 MG TAB PO STA (01:14)
[2023-08-19] MEDS ORDERED: INSULIN REGULAR 100 UNIT/ML VIAL (IM/SQ) SQ ONE ×3 (01:15→02:00)
[2023-08-19] MEDS ORDERED: SODIUM CHLORIDE 0.9% 2,000 ML IV STA (01:15)
[2023-08-19 02:01] LABS: Glucose,Whole Blood 331 mg/dL (70-110)
--- NOTE | 2023-08-19 03:00 | CT ---
EXAM: CT Neck With Intravenous Contrast CLINICAL HISTORY: ITS.REASON CT Reason: r/o large right upper dental abscess TECHNIQUE: Axial computed tomography images of the neck with intravenous contrast. CTDI is 16.4 mGy and DLP is 659.9 mGy-cm. This CT exam was performed using one or more of the following dose reduction techniques: automated exposure control, adjustment of the mA and/or kV according to patient size, and/or use of iterative reconstruction technique. COMPARISON: No relevant prior studies available. FINDINGS: Oropharynx: Unremarkable. No significant tonsillar enlargement. No peritonsillar abscess. Hypopharynx: Unremarkable. Larynx: Unremarkable. Normal epiglottis. Trachea: Unremarkable. Retropharyngeal space: Unremarkable. Submandibular/parotid glands: Unremarkable. Glands are normal in size. Thyroid: Unremarkable. No enlarged or calcified nodules. Bones/joints: Extensive dental caries with numerous teeth demonstrating periapical lucencies concerning for periapical abscesses. No acute fracture. Soft tissues: There is a periosteal abscess over the right maxilla measuring 19.9 x 16.4 x 15.5 with extension to the nasal labral fold and extensive inflammation of the surrounding subcutaneous tissues. Vasculature: No acute findings. Lymph nodes: Prominent cervical lymph nodes. Prominent mediastinal and hilar left nodes. Lung apices: Bronchitis which may be of infectious or inflammatory etiologies. IMPRESSION: Extensive dental caries with periapical lucencies concerning for periapical abscesses with periosteal abscess overlying the right frontal maxilla measuring 19.9 x 16.5 x 15.5 mm extending to the right nasal labral fold with extensive inflammation of the surrounding subcutaneous tissues. Prominent cervical lymph nodes. <MYCVCSECTION> Communications: 08/19/23 03:28 Verify Receipt Verified receipt with Dr. Rees on 08/19 03:27 (-05:00)
[2023-08-19] MEDS ORDERED: AMPICILLIN-SULBACTAM 3 GM in SODIUM CHLORIDE 0.9% 100 ML IVPB STA (03:14)
[2023-08-19] MEDS ORDERED: DEXAMETHASONE SOD PHOSPHATE 10 MG/ML 1 ML VIAL IVP STA (03:14)
--- NOTE | 2023-08-19 03:15 | ED ---
ENT HPI - General Chief complaint: Dental/Oral Stated complaint: Dental pain Time Seen by Provider: 08/18/23 23:43 Source: patient Mode of arrival: ambulatory Limitations: no limitations - History of Present Illness Initial comments: A 33-year-old male with a past medical history significant for prior meth abuse presents to the ED with a chief complaint of dental problem. Patient states that he knows he needs to get all of his teeth removed however today onset of right-sided facial swelling and pain. Denies fever. No chest pain or shortness of breath. No other complaints. - Related Data Home Medications Medication Instructions Recorded Confirmed Gabapentin [Neurontin] 800 mg PO TID 02/01/23 03/16/23 Insulin Aspart [NovoLOG Flexpen] 40 units SQ AC-TID 02/01/23 03/16/23 Insulin Detemir [Levemir Flexpen] 80 units SQ BID 02/01/23 03/16/23 Albuterol Inhaler [Ventolin Hfa 2 puff INHALATION RT-QID PRN 03/16/23 03/16/23 Inhaler] Atorvastatin Calcium [Lipitor] 40 mg PO DAILY 03/16/23 03/16/23 Chlorpheniramine Maleate 4 mg PO Q4H PRN 03/16/23 03/16/23 [Chlor-Trimeton] Cholecalciferol (Vitamin D3) 1,250 mcg PO Q7DAYS 03/16/23 03/16/23 [Vitamin D3] DULoxetine HCL [Cymbalta] 60 mg PO DAILY 03/16/23 03/16/23 Pregabalin [Lyrica] 150 mg PO BID PRN 03/16/23 03/16/23 lisinopriL 40 mg PO DAILY 03/16/23 03/16/23 Previous Rx's Medication Instructions Recorded Ipratropium-Albuterol Nebulize 3 ml INHALATION RT-TID PRN each 03/18/23 [Duoneb 0.5 mg-3 mg/3 ml Soln] Amoxic-Pot Clav 875-125Mg 1 tab PO Q12HR 7 Days #14 tab 08/19/23 [Augmentin 875-125] Ketorolac [Toradol] 10 mg PO Q8HR #15 tab 08/19/23 Allergies Allergy/AdvReac Type Severity Reaction Status Date / Time No Known Allergies Allergy Verified 08/18/23 23:39 Review of Systems ROS Statement: Those systems with pertinent positive or pertinent negative responses have been documented in the HPI. ROS Other: All systems not noted in ROS Statement are negative. Past Medical History Past Medical History: Asthma, COPD, CVA/TIA, Diabetes Mellitus, Hypertension History of Any Multi-Drug Resistant Organisms: None Reported Past Surgical History: Orthopedic Surgery Additional Past Surgical History / Comment(s): Lasik surgery; Left ankle surgery Past Anesthesia/Blood Transfusion Reactions: No Reported Reaction Past Psychological History: Bipolar Smoking Status: Current every day smoker Past Alcohol Use History: None Reported Past Drug Use History: IV Drug Use, Marijuana, Methamphetamine General Exam Limitations: no limitations General appearance: alert, in no apparent distress ENT exam: Present: other (Warmth, erythema, edema and tenderness palpation over the right cheek. No significant oropharyngeal swelling. Able to tolerate secretions. No stridor.) Respiratory exam: Present: normal lung sounds bilaterally GI/Abdominal exam: Present: soft Neurological exam: Present: alert, oriented X3 Skin exam: Present: warm, dry Course Vital Signs 08/18/23 23:37 Temperature 98 F Pulse Rate 109 H Respiratory 18 Rate Blood Pressure 189/124 O2 Sat by Pulse 98 Oximetry Medical Decision Making - Medical Decision Making Was pt. sent in by a medical professional or institution (, PA, PAIN MANAGEMENT SPECIALIST, urgent care, hospital, or fpc...) When possible be specific @ -No Did you speak to anyone other than the patient for history (EMS, parent, family, police, friend...)? What history was obtained from this source @ -No Did you review nursing and triage notes (agree or disagree)? Why? @ -I reviewed and agree with nursing and triage notes Were old charts reviewed (outside hosp., previous admission, EMS record, old EKG, old radiological studies, urgent care reports/EKG's, fpc records)? Report findings @ -No old charts were reviewed Differential Diagnosis (chest pain, altered mental status, abdominal pain women, abdominal pain men, vaginal bleeding, weakness, fever, dyspnea, syncope, headache, dizziness, GI bleed, back pain, seizure, CVA, palpatations, mental health, musculoskeletal)? @ -Hermilo angina, ANUG, periapical abscess EKG interpreted by me (3pts min.). @ -As above X-rays interpreted by me (1pt min.). @ -None done CT interpreted by me (1pt min.). @ -CT interpreted by me showing extensive dental caries with periapical lucencies concerning for periapical abscesses with periosteal abscess overlying the right frontal maxilla measuring 19.9 x 16.5 x 15.5 mm extending to the right nasolabial fold with extensive formation of the surroundings cutaneous tissues. U/S interpreted by me (1pt. min.). @ -None done What testing was considered but not performed or refused? (CT, X-rays, U/S, labs)? Why? @ -None What meds were considered but not given or refused? Why? @ -None Did you discuss the management of the patient with other professionals (professionals i.e. , PA, PAIN MANAGEMENT SPECIALIST, lab, RT, psych nurse, social insurance analyst, turfgrass technician, teacher, special forces warrant officer, casework manager)? Give summary @ -No Was smoking cessation discussed for >3mins.? @ -No Was critical care preformed (if so, how long)? @ -No Were there social determinants of health that impacted care today? How? (Homelessness, low income, unemployed, alcoholism, drug addiction, transportation, low edu. Level, literacy, decrease access to med. care, correction, rehab)? @ -No Was there de-escalation of care discussed even if they declined (Discuss DNR or withdrawal of care, Hospice)? DNR status @ -No What co-morbidities impacted this encounter? (DM, HTN, Smoking, COPD, CAD, Cancer, CVA, ARF, Chemo, Hep., AIDS, mental health diagnosis, sleep apnea, morbid obesity)? @ -None Was patient admitted / discharged? Hospital course, mention meds given and route, prescriptions, significant lab abnormalities, going to OR and other pertinent info. @ -Discharge 33-year-old male with a past medical history significant for type 1 diabetes and prior meth abuse presents to the ED with acute onset of dental pain. CT soft tissues did show periapical abscesses with periosteal abscess overlying the right frontal maxilla. At this time, vital signs stable and afebrile. Laboratory studies do show an elevation of white blood cell count consistent with infection however remainder laboratory studies otherwise unremarkable other than an elevated glucose which is consistent with his history of diabetes. Patient reports not taking his insulin as he came here instead. This improved in the ED with insulin IV fluids. Patient provided Decadron and dose of Unasyn here. Discharged home with Augmentin and referral to see OMFS. Discussed strict return precautions with patient who verbalizes agreement. Undiagnosed new problem with uncertain prognosis? @ -No Drug Therapy requiring intensive monitoring for toxicity (Heparin, Nitro, Insulin, Cardizem)? @ -No Were any procedures done? @ -No Diagnosis/symptom? @ -Periosteal abscess Acute, or Chronic, or Acute on Chronic? @ -Acute Uncomplicated (without systemic symptoms) or Complicated (systemic symptoms)? @ -Uncomplicated Side effects of treatment? @ -No Exacerbation, Progression, or Severe Exacerbation? @ -No Poses a threat to life or bodily function? How? (Chest pain, [place], [place], pneumonia, PE, COPD, DKA, ARF, appy, cholecystitis, CVA, Diverticulitis, Homicidal, Suicidal, threat to staff... and all critical care pts) @ -No - Lab Data Result diagrams: 08/19/23 00:11 08/19/23 00:11 Lab Results 08/19/23 08/19/23 08/19/23 Range/Units 00:11 00:11 00:11 WBC 12.9 H (3.8-10.6) k/uL RBC 5.57 (4.30-5.90) m/uL Hgb 14.9 (13.0-17.5) gm/dL Hct 44.5 (39.0-53.0) % MCV 79.8 L (80.0-100.0) fL MCH 26.7 (25.0-35.0) pg MCHC 33.4 (31.0-37.0) g/dL RDW 12.2 (11.5-15.5) % Plt Count 183 (150-450) k/uL MPV 9.6 Neutrophils % 82 % Lymphocytes % 12 % Monocytes % 4 % Eosinophils % 1 % Basophils % 0 % Neutrophils # 10.6 H (1.3-7.7) k/uL Lymphocytes # 1.5 (1.0-4.8) k/uL Monocytes # 0.6 (0-1.0) k/uL Eosinophils # 0.2 (0-0.7) k/uL Basophils # 0.0 (0-0.2) k/uL Sodium 129 L (137-145) mmol/L Potassium 4.7 (3.5-5.1) mmol/L Chloride 97 L (98-107) mmol/L Carbon Dioxide 21 L (22-30) mmol/L Anion Gap 11 mmol/L BUN 13 (9-20) mg/dL Creatinine 0.52 L (0.66-1.25) mg/dL Est GFR (CKD-EPI)AfAm >90 (>60 ml/min/1.73 sqM) Est GFR (CKD-EPI)NonAf >90 (>60 ml/min/1.73 sqM) Glucose 499 H (74-99) mg/dL POC Glucose (mg/dL) (70-110) mg/dL POC Glu Cash Management Coordinator ID Calcium 8.8 (8.4-10.2) mg/dL Total Bilirubin 0.8 (0.2-1.3) mg/dL AST 27 (17-59) U/L ALT 23 (4-49) U/L Alkaline Phosphatase 176 H (38-126) U/L Total Protein 6.9 (6.3-8.2) g/dL Albumin 3.9 (3.5-5.0) g/dL Urine Color Colorless Urine Appearance Clear (Clear) Urine pH 6.0 (5.0-8.0) Ur Specific Tina 1.036 H (1.001-1.035) Urine Protein Negative (Negative) Urine Glucose (UA) 4+ H (Negative) Urine Ketones 1+ H (Negative) Urine Blood Negative (Negative) Urine Nitrite Negative (Negative) Urine Bilirubin Negative (Negative) Urine Urobilinogen <2.0 (<2.0) mg/dL Ur Leukocyte Esterase Negative (Negative) 08/19/23 Range/Units 01:54 EST WBC (3.8-10.6) k/uL RBC (4.30-5.90) m/uL Hgb (13.0-17.5) gm/dL Hct (39.0-53.0) % MCV (80.0-100.0) fL MCH (25.0-35.0) pg MCHC (31.0-37.0) g/dL RDW (11.5-15.5) % Plt Count (150-450) k/uL MPV Neutrophils % % Lymphocytes % % Monocytes % % Eosinophils % % Basophils % % Neutrophils # (1.3-7.7) k/uL Lymphocytes # (1.0-4.8) k/uL Monocytes # (0-1.0) k/uL Eosinophils # (0-0.7) k/uL Basophils # (0-0.2) k/uL Sodium (137-145) mmol/L Potassium (3.5-5.1) mmol/L Chloride (98-107) mmol/L Carbon Dioxide (22-30) mmol/L Anion Gap mmol/L BUN (9-20) mg/dL Creatinine (0.66-1.25) mg/dL Est GFR (CKD-EPI)AfAm (>60 ml/min/1.73 sqM) Est GFR (CKD-EPI)NonAf (>60 ml/min/1.73 sqM) Glucose (74-99) mg/dL POC Glucose (mg/dL) 331 H (70-110) mg/dL POC Glu Cash Management Coordinator ID Calcium (8.4-10.2) mg/dL Total Bilirubin (0.2-1.3) mg/dL AST (17-59) U/L ALT (4-49) U/L Alkaline Phosphatase (38-126) U/L Total Protein (6.3-8.2) g/dL Albumin (3.5-5.0) g/dL Urine Color Urine Appearance (Clear) Urine pH (5.0-8.0) Ur Specific Tina (1.001-1.035) Urine Protein (Negative) Urine Glucose (UA) (Negative) Urine Ketones (Negative) Urine Blood (Negative) Urine Nitrite (Negative) Urine Bilirubin (Negative) Urine Urobilinogen (<2.0) mg/dL Ur Leukocyte Esterase (Negative) Disposition Clinical Impression: Periapical abscess Disposition: HOME SELF-CARE Condition: Good Additional Instructions: Please return to the Emergency Department if symptoms worsen or any other concerns. These follow-up with OMFS. Prescriptions: Ketorolac [Toradol] 10 mg PO Q8HR #15 tab Is patient prescribed a controlled substance at d/c from ED?: No Referrals: Bal De La Garza MD [Primary Care Provider] - 1-2 days Zak Gutierrez DDS [STAFF PHYSICIAN] - 1-2 days
[2023-08-19] MEDS ORDERED: IBUPROFEN 600 MG STARTER PACK 4 TAB BTL PO STA (03:21)
[2023-08-19 04:25] VITALS: BP 148/82
== END 2023-08-19 04:16 | disposition home or self-care (01) ==
LOC: EC 23:27
DX: K04.7 Periapical abscess without sinus (principal); K02.9 Dental caries, unspecified; E10.9 Type 1 diabetes mellitus without complications; I10 Essential (primary) hypertension; J44.89 Other specified chronic obstructive pulmonary disease; F31.9 Bipolar disorder, unspecified; F17.200 Nicotine dependence, unspecified, uncomplicated; F12.90 Cannabis use, unspecified, uncomplicated; F15.90 Other stimulant use, unspecified, uncomplicated; Z79.899 Other long term (current) drug therapy; Z86.73 Personal history of transient ischemic attack (TIA), and cerebral infarction without residual deficits
CPT/HCPCS: 36415; 80053; 85025; 81003; 70491; 99284; 96365; 96375 ×2; 96361 ×3; J1100; J0295; J1885; Q9967

== ENCOUNTER 2023-12-21 13:46 | Inpatient (IN) | payer OTHER ==
[2023-12-21] MEDS: ZIPRASIDONE 20 MG VIAL IM STA (14:04)
[2023-12-21] MEDS: LORazepam 2 MG/ML INJ IM STA (14:04)
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
[2023-12-21 14:35] LABS: ALT 28 U/L (4-49); AST 27 U/L (17-59); African American GFR (CKD) >90 (>60 ml/min/1.73 sqM); Albumin 4.1 g/dL (3.5-5.0); Alkaline Phosphatase 122 U/L (38-126); Anion Gap 17 mmol/L; Blood Urea Nitrogen 8 mg/dL (9-20); Calcium 8.9 mg/dL (8.4-10.2); Carbon Dioxide 18 mmol/L (22-30); Chloride 98 mmol/L (98-107); Magnesium 1.5 mg/dL (1.6-2.3); Non-African American GFR(CKD) >90 (>60 ml/min/1.73 sqM); Potassium 3.5 mmol/L (3.5-5.1); Sodium 133 mmol/L (137-145); Total Bilirubin 0.7 mg/dL (0.2-1.3); Total Protein 6.6 g/dL (6.3-8.2)
[2023-12-21 14:37] LABS: Basophils % (A) 0 %; Eosinophils # (A) 0.1 k/uL (0-0.7); Eosinophils % (A) 1 %; HCT 43.5 % (39.0-53.0); Lymphocytes # (A) 2.1 k/uL (1.0-4.8); Lymphocytes % (A) 30 %; MCHC 32.3 g/dL (31.0-37.0); MCV 83.6 fL (80.0-100.0); Mean Platelet Volume 9.9; Monocytes # (A) 0.4 k/uL (0-1.0); Monocytes % (A) 6 %; Neutrophils # (A) 4.3 k/uL (1.3-7.7); Neutrophils % (A) 61 %; Platelet Count 197 k/uL (150-450); RBC 5.21 m/uL (4.30-5.90); RDW 12.8 % (11.5-15.5); WBC 7.1 k/uL (3.8-10.6)
[2023-12-21 14:38] LABS: Glucose 576 mg/dL (74-99)
[2023-12-21] MEDS: SODIUM CHLORIDE 0.9% 1,000 ML IV STA (15:48)
[2023-12-21] MEDS: HALOPERIDOL LACTATE 5 MG/ML 1 ML VIAL IM STA (15:48)
[2023-12-21 16:16] LABS: Glucose,Whole Blood 378 mg/dL (70-110)
[2023-12-21] MEDS ORDERED: Potassium Replacement Protocol 1 EACH MISC MISCELLANE PRN (16:24)
[2023-12-21] MEDS ORDERED: DEXTROSE 50% SYRINGE 50 ML IVP PRN (16:24)
[2023-12-21] MEDS ORDERED: Magnesium Replacement Protocol 1 EACH MISC MISCELLANE PRN (16:24)
[2023-12-21] MEDS: SODIUM CHLORIDE 0.9% 1,000 ML IV SCH ×2 (16:48→21:00)
[2023-12-21] MEDS: INSULIN REGULAR BOLUS (FROM DRIP BAG) IV ONE (16:51)
[2023-12-21] MEDS: INSULIN REGULAR 100 UNIT in SODIUM CHLORIDE 0.9% 100 ML IV SCH (16:52)
[2023-12-21] MEDS ORDERED: NALOXONE 0.4 MG/ML 1 ML VIAL IV PRN (17:06)
[2023-12-21 17:31] LABS: Glucose,Whole Blood 217 mg/dL (70-110)
[2023-12-21 18:21] LABS: Glucose,Whole Blood 83 mg/dL (70-110)
[2023-12-21] MEDS: DEXTROSE 50% SYRINGE 50 ML IVP PRN (18:30)
[2023-12-21] MEDS: D5-0.45% NACL WITH KCL 20MEQ/L 1,000 ML IV SCH (18:41)
[2023-12-21] MEDS ORDERED: HALOPERIDOL LACTATE 5 MG/ML 1 ML VIAL IVP PRN (19:05)
[2023-12-21 19:17] LABS: Glucose,Whole Blood 88 mg/dL (70-110)
[2023-12-21 19:59] LABS: Glucose,Whole Blood 106 mg/dL (70-110)
[2023-12-21 21:01] LABS: Amphetamine Screen,Urine Detected (NotDetected); Barbiturate Screen,Urine Not Detected (NotDetected); Benzodiazepines Screen,Urine Not Detected (NotDetected); Cocaine Screen,Urine Not Detected (NotDetected); Methadone Screen, Urine Not Detected (NotDetected); Opiate Screen,Urine Not Detected (NotDetected); Oxycodone Screen, Urine Not Detected (NotDetected); Phencyclidine Screen,Urine Not Detected (NotDetected); Tricyclic Antidepressant,Urine Not Detected (NotDetected); Urn Cannabinoid Scrn Detected (NotDetected)
[2023-12-21] MEDS: SODIUM CHLORIDE 0.9% 2,000 ML IV ONE (21:02)
[2023-12-21 21:28] LABS: African American GFR (CKD) >90 (>60 ml/min/1.73 sqM); Alcohol <10 mg/dL; Anion Gap 10 mmol/L; Blood Urea Nitrogen 9 mg/dL (9-20); Carbon Dioxide 25 mmol/L (22-30); Chloride 105 mmol/L (98-107); Glucose 107 mg/dL (74-99); Non-African American GFR(CKD) >90 (>60 ml/min/1.73 sqM); Potassium 4.3 mmol/L (3.5-5.1); Sodium 140 mmol/L (137-145)
[2023-12-21 21:28] LABS: Glucose,Whole Blood 105 mg/dL (70-110)
[2023-12-21] MEDS: INSULIN ASPART (NovoLOG) 100 UNIT/ML VIAL SQ SCH (22:10)
[2023-12-21 22:14] LABS: Glucose,Whole Blood 128 mg/dL (70-110)
[2023-12-21] MEDS: MAGNESIUM SULFATE-D5W PMX 1 GM in DEXTROSE/WATER 1 100ML.BAG IVPB SCH (22:22)
[2023-12-21 22:56] LABS: Glucose,Whole Blood 151 mg/dL (70-110)
[2023-12-21] MEDS: INSULIN DETEMIR (LEVEMIR) 100 UNIT/ML SYR SQ SCH (22:57)
[2023-12-22 00:14] LABS: Glucose,Whole Blood 194 mg/dL (70-110)
--- NOTE | 2023-12-22 01:17 | CT ---
EXAMINATION TYPE: CT brain wo con CT DLP: 1212.4 mGycm, Automated exposure control for dose reduction was used. DATE OF EXAM: 12/21/2023 8:41 PM COMPARISON: CT head 12/07/2022. CLINICAL INDICATION:Male, 33 years old with history of acute encephalopathy, acute encephalopathy, AM S. TECHNIQUE: Brain: Axial CT images of the brain were obtained with coronal and sagittal reformats created and rev iewed. Contrast used: None. Oral contrast used: None. FINDINGS: Extra-axial spaces: No abnormal extra-axial fluid collections. Ventricular system: Within normal limits. Cerebral parenchyma: No increased attenuation to suggest acute intraparenchymal hemorrhage. The gra y-white matter interface appears maintained. No significant atrophy. White matter unremarkable by C T. Cerebellum: No acute abnormality. Mass effect: No evidence of mass effect or midline shift. Intracranial vasculature: Unremarkable. No evidence of hyperdense vessel sign. Soft tissues: No acute or concerning abnormality. Visualized orbits: Orbital contents appear grossly intact. Calvarium/osseous structures: No evidence of calvarial fracture. Paranasal sinuses and mastoid air cells: Clear. MRI is more sensitive for detecting acute processes such as infarct, and may be considered if clinica lly warranted. IMPRESSION: No acute intracranial CT abnormality.
[2023-12-22 02:42] LABS: Glucose,Whole Blood 189 mg/dL (70-110)
[2023-12-22 06:34] LABS: Glucose,Whole Blood 199 mg/dL (70-110)
[2023-12-22 07:21] LABS: Basophils % (A) 0 %; Eosinophils # (A) 0.1 k/uL (0-0.7); Eosinophils % (A) 2 %; HCT 35.7 % (39.0-53.0); HGB 11.6 gm/dL (13.0-17.5); Lymphocytes # (A) 1.5 k/uL (1.0-4.8); Lymphocytes % (A) 19 %; MCH 27.2 pg (25.0-35.0); MCHC 32.5 g/dL (31.0-37.0); MCV 83.8 fL (80.0-100.0); Mean Platelet Volume 9.7; Monocytes # (A) 0.4 k/uL (0-1.0); Monocytes % (A) 5 %; Neutrophils # (A) 5.9 k/uL (1.3-7.7); Neutrophils % (A) 73 %; Platelet Count 165 k/uL (150-450); RBC 4.26 m/uL (4.30-5.90); WBC 8.1 k/uL (3.8-10.6)
[2023-12-22] MEDS: DEXMEDETOMIDINE/0.9% NACL(PMX) 400 MCG in EMPTY BAG 1 BAG IV SCH (07:35)
[2023-12-22 07:42] LABS: ALT 18 U/L (4-49); AST 23 U/L (17-59); African American GFR (CKD) >90 (>60 ml/min/1.73 sqM); Albumin 2.2 g/dL (3.5-5.0); Alkaline Phosphatase 72 U/L (38-126); Anion Gap 5 mmol/L; Blood Urea Nitrogen 8 mg/dL (9-20); Calcium 6.5 mg/dL (8.4-10.2); Carbon Dioxide 19 mmol/L (22-30); Chloride 113 mmol/L (98-107); Glucose 176 mg/dL (74-99); Magnesium 1.4 mg/dL (1.6-2.3); Non-African American GFR(CKD) >90 (>60 ml/min/1.73 sqM); Phosphorus 2.8 mg/dL (2.5-4.5); Potassium 3.1 mmol/L (3.5-5.1); Sodium 137 mmol/L (137-145); Total Bilirubin 0.3 mg/dL (0.2-1.3); Total Protein 4.3 g/dL (6.3-8.2)
[2023-12-22 08:27] LABS: Glucose,Whole Blood 215 mg/dL (70-110)
[2023-12-22] MEDS: PANTOPRAZOLE 40 MG/10 ML VIAL IV SCH (08:34)
[2023-12-22] MEDS: MAGNESIUM SULFATE-D5W PMX 1 GM in DEXTROSE/WATER 1 100ML.BAG IVPB SCH (09:01)
[2023-12-22] MEDS: POTASSIUM CHLORIDE ER 20 MEQ TAB.ER PO SCH ×2 (09:01→16:40)
[2023-12-22] MEDS: INSULIN DETEMIR (LEVEMIR) 100 UNIT/ML SYR SQ SCH ×2 (09:02→19:55)
[2023-12-22] MEDS: SODIUM CHLORIDE 0.9% 1,000 ML IV SCH (09:02)
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
[2023-12-22 11:06] LABS: Glucose,Whole Blood 183 mg/dL (70-110)
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
[2023-12-22] MEDS: INSULIN ASPART (NovoLOG) 100 UNIT/ML VIAL SQ SCH (12:07)
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
[2023-12-22] MEDS: hydrALAZINE HCL 25 MG TAB PO SCH (12:23)
[2023-12-22] MEDS: LORazepam 2 MG/ML INJ IV PRN (12:23)
[2023-12-22 13:19] VITALS: BMI 43.0
[2023-12-22 16:41] LABS: Glucose,Whole Blood 169 mg/dL (70-110)
[2023-12-22] MEDS: GABAPENTIN 300 MG CAP PO SCH (16:41)
[2023-12-22] MEDS: MAGNESIUM SULFATE-D5W PMX 1 GM in DEXTROSE/WATER 1 100ML.BAG IVPB ONE (16:41)
[2023-12-22 19:53] LABS: Glucose,Whole Blood 208 mg/dL (70-110)
[2023-12-22] MEDS: HEPARIN SODIUM,PORCINE 5,000 UNIT/ML 1 ML VIAL SQ SCH (19:53)
[2023-12-22] MEDS: OLANZapine 5 MG TAB PO SCH (19:55)
[2023-12-22 22:11] LABS: Glucose,Whole Blood 124 mg/dL (70-110)
[2023-12-23 00:25] LABS: Magnesium 1.9 mg/dL (1.6-2.3); Potassium 3.8 mmol/L (3.5-5.1)
[2023-12-23] MEDS ORDERED: Magnesium Replacement Protocol 1 EACH MISC MISCELLANE PRN (01:23)
[2023-12-23] MEDS: MAGNESIUM SULFATE-D5W PMX 1 GM in DEXTROSE/WATER 1 100ML.BAG IVPB ONE (01:23)
[2023-12-23] MEDS: POTASSIUM CHLORIDE ER 20 MEQ TAB.ER PO SCH (01:33)
[2023-12-23 05:24] LABS: Basophils % (A) 0 %; Eosinophils # (A) 0.2 k/uL (0-0.7); Eosinophils % (A) 2 %; HCT 37.3 % (39.0-53.0); HGB 12.3 gm/dL (13.0-17.5); Lymphocytes # (A) 2.6 k/uL (1.0-4.8); Lymphocytes % (A) 34 %; MCH 27.7 pg (25.0-35.0); MCHC 32.9 g/dL (31.0-37.0); MCV 84.2 fL (80.0-100.0); Mean Platelet Volume 10.1; Monocytes # (A) 0.4 k/uL (0-1.0); Monocytes % (A) 5 %; Neutrophils # (A) 4.2 k/uL (1.3-7.7); Neutrophils % (A) 56 %; Platelet Count 175 k/uL (150-450); RBC 4.44 m/uL (4.30-5.90); WBC 7.4 k/uL (3.8-10.6)
[2023-12-23 05:44] LABS: African American GFR (CKD) >90 (>60 ml/min/1.73 sqM); Anion Gap 4 mmol/L; Blood Urea Nitrogen 7 mg/dL (9-20); Calcium 7.8 mg/dL (8.4-10.2); Carbon Dioxide 25 mmol/L (22-30); Chloride 107 mmol/L (98-107); Glucose 251 mg/dL (74-99); Magnesium 2.1 mg/dL (1.6-2.3); Non-African American GFR(CKD) >90 (>60 ml/min/1.73 sqM); Sodium 136 mmol/L (137-145)
[2023-12-23 07:05] LABS: Glucose,Whole Blood 278 mg/dL (70-110)
[2023-12-23] MEDS: PANTOPRAZOLE 40 MG TABLET PO SCH (07:08)
[2023-12-23] MEDS: ATORVASTATIN 40 MG TAB PO SCH (08:48)
[2023-12-23 11:25] LABS: Glucose,Whole Blood 223 mg/dL (70-110)
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
[2023-12-23 17:16] LABS: Glucose,Whole Blood 119 mg/dL (70-110)
[2023-12-23] MEDS: INSULIN ASPART (NovoLOG) 100 UNIT/ML VIAL SQ SCH ×2 (17:52→20:51)
[2023-12-23 20:05] LABS: Glucose,Whole Blood 162 mg/dL (70-110)
[2023-12-23] MEDS: POTASSIUM CHLORIDE 10 MEQ in WATER FOR INJECTION 1 100ML.BAG IVPB SCH (20:51)
[2023-12-24 07:38] LABS: Glucose,Whole Blood 227 mg/dL (70-110)
[2023-12-24 11:51] LABS: Glucose,Whole Blood 164 mg/dL (70-110)
[2023-12-24 17:18] LABS: Glucose,Whole Blood 230 mg/dL (70-110)
[2023-12-24 20:25] LABS: Glucose,Whole Blood 258 mg/dL (70-110)
[2023-12-25 07:11] LABS: Glucose,Whole Blood 400 mg/dL (70-110)
[2023-12-25 08:09] VITALS: RESP 18
[2023-12-25 11:38] LABS: Glucose,Whole Blood 126 mg/dL (70-110)
[2023-12-25 12:57] VITALS: BP 165/89; PULSE 90; TEMP 98.3
[2023-12-25 17:23] LABS: Glucose,Whole Blood 146 mg/dL (70-110)
--- NOTE | 2023-12-25 23:16 | PN ---
PROGRESS NOTE DATE OF SERVICE: 12/24/2023 CHIEF COMPLAINT: Diabetic ketoacidosis and methamphetamine overdose. HISTORY OF PRESENT ILLNESS: This gentleman is doing a little bit better. Blood sugars are still high. He is fully awake and alert. He denies chest pain or shortness of breath. PHYSICAL EXAMINATION: CHEST: Clear. CARDIAC: Normal. ABDOMEN: Soft, nontender and protuberant. IMPRESSION: 1. DKA. 2. Noncompliant patient. 3. Uncontrolled type 2 diabetes mellitus. 4. Methamphetamine addiction. 5. Obesity. PLAN: Continue efforts to manage his blood sugars before he is discharged. MMODL / IJN: [id number] /
--- NOTE | 2023-12-25 23:25 | PN ---
PROGRESS NOTE DATE OF SERVICE: 12/25/2023 CHIEF COMPLAINT: Uncontrolled diabetes and methamphetamine addiction. HISTORY OF PRESENT ILLNESS: This gentleman is doing fairly well. His blood sugars are still fluctuating quite widely and are not under control. PHYSICAL EXAMINATION: GENERAL: He is awake and alert. VITAL SIGNS: Normal. CHEST: Clear. CARDIAC: Normal. ABDOMEN: Protuberant, soft and nontender. IMPRESSION: 1. DKA. 2. Uncontrolled type 1 diabetes mellitus. 3. Methamphetamine addiction. PLAN: Hold discharge for today and work on bringing his blood sugars under better control. He may sign out AMA. MMODL / IJN: [id number] /
--- NOTE | 2023-12-27 03:04 | DS ---
DISCHARGE SUMMARY CHIEF COMPLAINT: Methamphetamine overdose and DKA. HISTORY OF PRESENT ILLNESS AND PHYSICAL EXAM: The details of this young man's history and physical can be found in the initial workup. LABORATORY STUDIES: While he was in the hospital, he had laboratory studies, details of which can be found in the laboratory section of his chart. COURSE IN THE HOSPITAL: After admission, he was placed on bedrest, started on intravenous fluids, and management of his DKA. Blood sugars are coming down, but not well controlled when he signed himself out against medical advice on the . FINAL DIAGNOSIS: 1. Methamphetamine overdose. 2. Methamphetamine addiction. 3. Noncompliant patient. 4. Uncontrolled diabetes mellitus and hypertension. 5. DKA. OPERATIONS: None. CONSULTATION: None. He is improved. CRISTIN / DORCAS: [id number] /
== END 2023-12-25 17:35 | disposition left against medical advice (07) | DRG 420 ==
LOC: EC 13:46 → 2SICU 17:06 → 5NMEDONC 12-23 15:13
PROVIDERS: ADMIT Family Medicine; ATTEND Family Medicine
DX: E10.10 Type 1 diabetes mellitus with ketoacidosis without coma (principal); T43.651A Poisoning by methamphetamines accidental (unintentional), initial encounter; F09 Unspecified mental disorder due to known physiological condition; F15.259 Other stimulant dependence with stimulant-induced psychotic disorder, unspecified; F12.159 Cannabis abuse with psychotic disorder, unspecified; E86.0 Dehydration; E66.9 Obesity, unspecified; E86.1 Hypovolemia; Z71.6 Tobacco abuse counseling; F17.210 Nicotine dependence, cigarettes, uncomplicated; F31.9 Bipolar disorder, unspecified; G93.41 Metabolic encephalopathy; G92.8 Other toxic encephalopathy; I10 Essential (primary) hypertension; R45.1 Restlessness and agitation; Z65.3 Problems related to other legal circumstances; R45.6 Violent behavior; F11.11 Opioid abuse, in remission; Z71.3 Dietary counseling and surveillance; Z68.41 Body mass index [BMI] 40.0-44.9, adult; Z86.19 Personal history of other infectious and parasitic diseases; F43.29 Adjustment disorder with other symptoms; Z79.4 Long term (current) use of insulin; Z79.84 Long term (current) use of oral hypoglycemic drugs; Z79.899 Other long term (current) drug therapy; Z91.199 Patient's noncompliance with other medical treatment and regimen due to unspecified reason
CPT/HCPCS: 36415; 70450; 80048; 80051; 80053; 80306; 80320; 82009; 82565; 82947; 83036; 83735; 84100; 84132; 84520; 85025; 96361; 96365; 96375; 99291

== ENCOUNTER 2023-12-30 10:14 | Observation (INO) | payer OTHER ==
[2023-12-30 10:35] LABS: Glucose,Whole Blood 522 mg/dL (70-110)
--- NOTE | 2023-12-30 10:39 | ED ---
General Adult HPI - General Chief complaint: Overdose Stated complaint: Overdoe on Meth Time Seen by Provider: 12/30/23 10:20 Source: patient, RN notes reviewed, old records reviewed Mode of arrival: ambulatory Limitations: no limitations - History of Present Illness Initial comments: This is a 33-year-old male who presents to the emergency department stating that he thinks he took too much meth today. Patient states he is just not good at this time he is way too agitated and states that he hopes this does not cause him to have a heart attack. Patient is altered mentally cannot articulate the reason he is here or what is exactly going on. Patient is really scared. Patient states he said yesterday he was not to do any more drugs but today he did methamphetamine. Patient states he is a diabetic but has not checked his sugar and recently was here for DKA. Patient denies any other drug use. Patient Nuys chest pain difficulty breathing or shortness of breath but patient has abdominal pain patient Nuys nausea vomiting diarrhea. - Related Data Home Medications Medication Instructions Recorded Confirmed Insulin Aspart [NovoLOG Flexpen] 10 units SQ AC-TID 02/01/23 12/30/23 Insulin Detemir [Levemir Flexpen] 40 units SQ DAILY 02/01/23 12/30/23 Atorvastatin Calcium [Lipitor] 40 mg PO DAILY 03/16/23 12/30/23 Empagliflozin [Jardiance] 10 mg PO DAILY 12/21/23 12/30/23 Ibuprofen [Motrin] 800 mg PO QID PRN 12/21/23 12/30/23 Pregabalin [Lyrica] 200 mg PO BID 12/21/23 12/30/23 hydrALAZINE HCL [Apresoline] 25 mg PO TID 12/21/23 12/30/23 Allergies Allergy/AdvReac Type Severity Reaction Status Date / Time No Known Allergies Allergy Verified 12/30/23 12:27 Review of Systems ROS Statement: Those systems with pertinent positive or pertinent negative responses have been documented in the HPI. ROS Other: All systems not noted in ROS Statement are negative. Past Medical History Past Medical History: Asthma, COPD, CVA/TIA, Diabetes Mellitus, Hypertension History of Any Multi-Drug Resistant Organisms: None Reported Past Surgical History: Orthopedic Surgery Additional Past Surgical History / Comment(s): Lasik surgery; Left ankle surgery Past Anesthesia/Blood Transfusion Reactions: No Reported Reaction Past Psychological History: Bipolar Smoking Status: Current every day smoker Past Alcohol Use History: None Reported Past Drug Use History: IV Drug Use, Marijuana, Methamphetamine General Exam - General Exam Comments Initial Comments: GENERAL: Patient is well-developed and well-nourished. Patient is nontoxic and well- hydrated and is in mild distress. ENT: Neck is soft and supple. No significant lymphadenopathy is noted. Oropharynx is clear. Moist mucous membranes. Neck has full range of motion without eliciting any pain. EYES: The sclera were anicteric and conjunctiva were pink and moist. Extraocular movements were intact and pupils were equal round and reactive to light. Eyelids were unremarkable. PULMONARY: Unlabored respirations. Good breath sounds bilaterally. No audible rales rhonchi or wheezing was noted. CARDIOVASCULAR: Patient is tachycardic at about 130 beats a minute ABDOMEN: Soft and nontender with normal bowel sounds. No palpable organomegaly was noted. There is no palpable pulsatile mass. SKIN: Skin is clear with no lesions or rashes and otherwise unremarkable. NEUROLOGIC: Patient is alert and oriented x3. Cranial nerves II through XII are grossly intact. Motor and sensory are also intact. Normal speech, volume and content. Symmetrical smile. MUSCULOSKELETAL: Normal extremities with adequate strength and full range of motion. No lower extremity swelling or edema. No calf tenderness. LYMPHATICS: No significant lymphadenopathy is noted PSYCHIATRIC: Patient is very agitated and anxious. Patient is having a difficult time explaining what he wants because he is so high. Limitations: no limitations Course Vital Signs 12/30/23 12/30/23 12/30/23 10:17 11:54 14:12 Temperature 98 F Pulse Rate 126 H 128 H 125 H Respiratory 18 18 18 Rate Blood Pressure 220/121 161/106 166/121 O2 Sat by Pulse 100 96 96 Oximetry Medical Decision Making - Medical Decision Making EKG is interpreted by myself read EKG shows a sinus tachycardia at 131 bpm parables 136 QRS is 100 QT interval 347 QTc is 424. Patient's EKG shows no ST segment elevation or depression. Was pt. sent in by a medical professional or institution (, PA, FACILITIES ENGINEERING MANAGER, urgent care, hospital, or senior care...) When possible be specific @ -No Did you speak to anyone other than the patient for history (EMS, parent, family, police, friend...)? What history was obtained from this source @ -No Did you review nursing and triage notes (agree or disagree)? Why? @ -I reviewed and agree with nursing and triage notes Were old charts reviewed (outside hosp., previous admission, EMS record, old EKG, old radiological studies, urgent care reports/EKG's, senior care records)? Report findings @ -I reviewed prior chart and prior lab work on this patient Differential Diagnosis (chest pain, altered mental status, abdominal pain women, abdominal pain men, vaginal bleeding, weakness, fever, dyspnea, syncope, head ache, dizziness, GI bleed, back pain, seizure, CVA, palpatations, mental health, musculoskeletal)? @ -Differential Altered Mental Status: Hypoglycemia, DKA, hypercapnia, ETOH, overdose, CO poisoning, trauma, myxedema coma, HTN encephalopathy, infection, encephalitis, psychosis, intercranial hemorrhage, hepatic encephalopathy, meningitis, CVA, this is not meant to be an all-inclusive list EKG interpreted by me (3pts min.). @ -As above X-rays interpreted by me (1pt min.). @ -None done CT interpreted by me (1pt min.). @ -None done U/S interpreted by me (1pt. min.). @ -None done What testing was considered but not performed or refused? (CT, X-rays, U/S, labs)? Why? @ -None What meds were considered but not given or refused? Why? @ -None Did you discuss the management of the patient with other professionals (professionals i.e. , PA, FACILITIES ENGINEERING MANAGER, lab, RT, psych nurse, psychiatric social worker, senior cyber security analyst, teacher, chief digital officer, insurance case manager)? Give summary @ -I spoke with Dr. Hsu and he agreed to admit the patient admit the patient wrote admitting orders Was smoking cessation discussed for >3mins.? @ -No Was critical care preformed (if so, how long)? @ -No Were there social determinants of health that impacted care today? How? (Homelessness, low income, unemployed, alcoholism, drug addiction, transport ation, low edu. Level, literacy, decrease access to med. care, custodial, rehab)? @ -No Was there de-escalation of care discussed even if they declined (Discuss DNR or withdrawal of care, Hospice)? DNR status @ -No What co-morbidities impacted this encounter? (DM, HTN, Smoking, COPD, CAD, Cancer, CVA, ARF, Chemo, Hep., AIDS, mental health diagnosis, sleep apnea, morbid obesity)? @ -None Was patient admitted / discharged? Hospital course, mention meds given and route, prescriptions, significant lab abnormalities, going to OR and other pertinent info. @ -Patient remained agitated and could not articulate any of his feelings and very altered. Patient was given multiple doses of Ativan which did help settle him down but he was not at his baseline so I spoke with Dr. Hsu and he agreed to admit the patient Undiagnosed new problem with uncertain prognosis? @ -No Drug Therapy requiring intensive monitoring for toxicity (Heparin, Nitro, Insulin, Cardizem)? @ -No Were any procedures done? @ -No Diagnosis/symptom? @ -Methamphetamine abuse Acute, or Chronic, or Acute on Chronic? @ -Acute Uncomplicated (without systemic symptoms) or Complicated (systemic symptoms)? @ -Complicated Side effects of treatment? @ -No Exacerbation, Progression, or Severe Exacerbation? @ -No Poses a threat to life or bodily function? How? (Chest pain, USA, MA, pneumonia, PE, COPD, DKA, ARF, appy, cholecystitis, CVA, Diverticulitis, Homicidal, Suicidal, threat to staff... and all critical care pts) @ -No - Lab Data Result diagrams: 12/30/23 10:35 12/30/23 10:35 Lab Results 12/30/23 12/30/23 12/30/23 Range/Units 10:29 10:30 10:35 WBC 13.2 H (3.8-10.6) k/uL RBC 5.64 (4.30-5.90) m/uL Hgb 15.3 D (13.0-17.5) gm/dL Hct 46.1 (39.0-53.0) % MCV 81.8 (80.0-100.0) fL MCH 27.1 (25.0-35.0) pg MCHC 33.2 (31.0-37.0) g/dL RDW 12.8 (11.5-15.5) % Plt Count 356 D (150-450) k/uL MPV 9.7 Neutrophils % 62 % Lymphocytes % 25 % Monocytes % 7 % Eosinophils % 3 % Basophils % 1 % Neutrophils # 8.1 H (1.3-7.7) k/uL Lymphocytes # 3.3 (1.0-4.8) k/uL Monocytes # 1.0 (0-1.0) k/uL Eosinophils # 0.3 (0-0.7) k/uL Basophils # 0.1 (0-0.2) k/uL PT (10.0-12.5) sec INR (<1.2) APTT (22.0-30.0) sec Sodium (137-145) mmol/L Potassium (3.5-5.1) mmol/L Chloride (98-107) mmol/L Carbon Dioxide (22-30) mmol/L Anion Gap mmol/L BUN (9-20) mg/dL Creatinine (0.66-1.25) mg/dL Est GFR (CKD-EPI)AfAm (>60 ml/min/1.73 sqM) Est GFR (CKD-EPI)NonAf (>60 ml/min/1.73 sqM) Glucose (74-99) mg/dL POC Glucose (mg/dL) 522 H (70-110) mg/dL POC Glu Tools Administrator ID Trent, Jayesh Calcium (8.4-10.2) mg/dL Magnesium (1.6-2.3) mg/dL Total Bilirubin (0.2-1.3) mg/dL AST (17-59) U/L ALT (4-49) U/L Alkaline Phosphatase (38-126) U/L Troponin I (0.000-0.034) ng/mL Total Protein (6.3-8.2) g/dL Albumin (3.5-5.0) g/dL Urine Opiates Screen Not Detected (NotDetected) Ur Oxycodone Screen Not Detected (NotDetected) Urine Methadone Screen Not Detected (NotDetected) Ur Barbiturates Screen Not Detected (NotDetected) U Tricyclic Antidepress Not Detected (NotDetected) Ur Phencyclidine Scrn Not Detected (NotDetected) Ur Amphetamines Screen Detected H (NotDetected) U Methamphetamines Scrn Detected H (NotDetected) U Benzodiazepines Scrn Detected H (NotDetected) Urine Cocaine Screen Not Detected (NotDetected) U Marijuana (THC) Screen Detected H (NotDetected) Acetone, Qual (Negative) 12/30/23 12/30/23 12/30/23 Range/Units 10:35 10:35 10:35 WBC (3.8-10.6) k/uL RBC (4.30-5.90) m/uL Hgb (13.0-17.5) gm/dL Hct (39.0-53.0) % MCV (80.0-100.0) fL MCH (25.0-35.0) pg MCHC (31.0-37.0) g/dL RDW (11.5-15.5) % Plt Count (150-450) k/uL MPV Neutrophils % % Lymphocytes % % Monocytes % % Eosinophils % % Basophils % % Neutrophils # (1.3-7.7) k/uL Lymphocytes # (1.0-4.8) k/uL Monocytes # (0-1.0) k/uL Eosinophils # (0-0.7) k/uL Basophils # (0-0.2) k/uL PT 10.1 (10.0-12.5) sec INR 0.9 (<1.2) APTT 22.1 (22.0-30.0) sec Sodium 134 L (137-145) mmol/L Potassium 4.2 (3.5-5.1) mmol/L Chloride 98 (98-107) mmol/L Carbon Dioxide 23 (22-30) mmol/L Anion Gap 13 mmol/L BUN 5 L (9-20) mg/dL Creatinine 0.58 L (0.66-1.25) mg/dL Est GFR (CKD-EPI)AfAm >90 (>60 ml/min/1.73 sqM) Est GFR (CKD-EPI)NonAf >90 (>60 ml/min/1.73 sqM) Glucose 478 H (74-99) mg/dL POC Glucose (mg/dL) (70-110) mg/dL POC Glu Tools Administrator ID Calcium 9.5 (8.4-10.2) mg/dL Magnesium 1.7 (1.6-2.3) mg/dL Total Bilirubin 1.0 (0.2-1.3) mg/dL AST 34 (17-59) U/L ALT 35 (4-49) U/L Alkaline Phosphatase 152 H (38-126) U/L Troponin I <0.012 (0.000-0.034) ng/mL Total Protein 7.6 (6.3-8.2) g/dL Albumin 4.5 (3.5-5.0) g/dL Urine Opiates Screen (NotDetected) Ur Oxycodone Screen (NotDetected) Urine Methadone Screen (NotDetected) Ur Barbiturates Screen (NotDetected) U Tricyclic Antidepress (NotDetected) Ur Phencyclidine Scrn (NotDetected) Ur Amphetamines Screen (NotDetected) U Methamphetamines Scrn (NotDetected) U Benzodiazepines Scrn (NotDetected) Urine Cocaine Screen (NotDetected) U Marijuana (THC) Screen (NotDetected) Acetone, Qual (Negative) 12/30/23 12/30/23 Range/Units 10:41 11:52 WBC (3.8-10.6) k/uL RBC (4.30-5.90) m/uL Hgb (13.0-17.5) gm/dL Hct (39.0-53.0) % MCV (80.0-100.0) fL MCH (25.0-35.0) pg MCHC (31.0-37.0) g/dL RDW (11.5-15.5) % Plt Count (150-450) k/uL MPV Neutrophils % % Lymphocytes % % Monocytes % % Eosinophils % % Basophils % % Neutrophils # (1.3-7.7) k/uL Lymphocytes # (1.0-4.8) k/uL Monocytes # (0-1.0) k/uL Eosinophils # (0-0.7) k/uL Basophils # (0-0.2) k/uL PT (10.0-12.5) sec INR (<1.2) APTT (22.0-30.0) sec Sodium (137-145) mmol/L Potassium (3.5-5.1) mmol/L Chloride (98-107) mmol/L Carbon Dioxide (22-30) mmol/L Anion Gap mmol/L BUN (9-20) mg/dL Creatinine (0.66-1.25) mg/dL Est GFR (CKD-EPI)AfAm (>60 ml/min/1.73 sqM) Est GFR (CKD-EPI)NonAf (>60 ml/min/1.73 sqM) Glucose (74-99) mg/dL POC Glucose (mg/dL) 199 H (70-110) mg/dL POC Glu Tools Administrator ID Lizz Sanchez Calcium (8.4-10.2) mg/dL Magnesium (1.6-2.3) mg/dL Total Bilirubin (0.2-1.3) mg/dL AST (17-59) U/L ALT (4-49) U/L Alkaline Phosphatase (38-126) U/L Troponin I (0.000-0.034) ng/mL Total Protein (6.3-8.2) g/dL Albumin (3.5-5.0) g/dL Urine Opiates Screen (NotDetected) Ur Oxycodone Screen (NotDetected) Urine Methadone Screen (NotDetected) Ur Barbiturates Screen (NotDetected) U Tricyclic Antidepress (NotDetected) Ur Phencyclidine Scrn (NotDetected) Ur Amphetamines Screen (NotDetected) U Methamphetamines Scrn (NotDetected) U Benzodiazepines Scrn (NotDetected) Urine Cocaine Screen (NotDetected) U Marijuana (THC) Screen (NotDetected) Acetone, Qual Negative (Negative) Disposition Clinical Impression: Methamphetamine abuse, Altered mental status Disposition: ADMITTED IP TO THIS [facility] Referrals: Bal De La Garza MD [Primary Care Provider] - 1-2 days Time of Disposition: 15:23
[2023-12-30] MEDS: SODIUM CHLORIDE 0.9% 1,000 ML IV STA (10:41)
[2023-12-30] MEDS: LORazepam 2 MG/ML INJ IV STA ×4 (10:41→16:19)
[2023-12-30] MEDS: INSULIN REGULAR 100 UNIT/ML VIAL (IV) IV ONE (10:50)
--- NOTE | 2023-12-30 11:02 | XR ---
EXAMINATION TYPE: XR chest 2V DATE OF EXAM: 12/30/2023 10:59 AM CLINICAL INDICATION:Male, 33 years old with history of Chest Pain; [facility] COMPARISON: Chest radiographs from 03/15/2023. TECHNIQUE: XR chest 2V Frontal and lateral views of the chest. FINDINGS: Lungs/Pleura: There is no evidence of pleural effusion, focal consolidation, or pneumothorax. Pulmonary vascularity: Unremarkable. Heart/mediastinum: Cardiomediastinal silhouette is unremarkable. Musculoskeletal: No acute osseous pathology. IMPRESSION: No acute cardiopulmonary disease/process.
[2023-12-30 11:05] LABS: Basophils # (A) 0.1 k/uL (0-0.2); Basophils % (A) 1 %; Eosinophils # (A) 0.3 k/uL (0-0.7); Eosinophils % (A) 3 %; HCT 46.1 % (39.0-53.0); Lymphocytes # (A) 3.3 k/uL (1.0-4.8); Lymphocytes % (A) 25 %; MCH 27.1 pg (25.0-35.0); MCHC 33.2 g/dL (31.0-37.0); MCV 81.8 fL (80.0-100.0); Mean Platelet Volume 9.7; Monocytes % (A) 7 %; Neutrophils # (A) 8.1 k/uL (1.3-7.7); Neutrophils % (A) 62 %; RBC 5.64 m/uL (4.30-5.90); RDW 12.8 % (11.5-15.5); WBC 13.2 k/uL (3.8-10.6)
[2023-12-30 11:17] LABS: ALT 35 U/L (4-49); AST 34 U/L (17-59); African American GFR (CKD) >90 (>60 ml/min/1.73 sqM); Albumin 4.5 g/dL (3.5-5.0); Alkaline Phosphatase 152 U/L (38-126); Anion Gap 13 mmol/L; Blood Urea Nitrogen 5 mg/dL (9-20); Calcium 9.5 mg/dL (8.4-10.2); Carbon Dioxide 23 mmol/L (22-30); Chloride 98 mmol/L (98-107); Glucose 478 mg/dL (74-99); Magnesium 1.7 mg/dL (1.6-2.3); Non-African American GFR(CKD) >90 (>60 ml/min/1.73 sqM); Potassium 4.2 mmol/L (3.5-5.1); Sodium 134 mmol/L (137-145); Total Protein 7.6 g/dL (6.3-8.2)
[2023-12-30 11:25] LABS: HGB 15.3 gm/dL (13.0-17.5); Platelet Count 356 k/uL (150-450)
[2023-12-30 11:54] LABS: Glucose,Whole Blood 199 mg/dL (70-110)
[2023-12-30 12:00] LABS: INR 0.9 (<1.2); Partial Thromboplastin Time 22.1 sec (22.0-30.0); Prothrombin Time 10.1 sec (10.0-12.5)
[2023-12-30] MEDS: SODIUM CHLORIDE 0.9% 1,000 ML IV ONE ×2 (12:07→16:02)
[2023-12-30 15:08] LABS: Amphetamine Screen,Urine Detected (NotDetected); Benzodiazepines Screen,Urine Detected (NotDetected); Cocaine Screen,Urine Not Detected (NotDetected); Opiate Screen,Urine Not Detected (NotDetected); Phencyclidine Screen,Urine Not Detected (NotDetected); Urn Cannabinoid Scrn Detected (NotDetected)
[2023-12-30 15:09] LABS: Barbiturate Screen,Urine Not Detected (NotDetected); Methadone Screen, Urine Not Detected (NotDetected); Oxycodone Screen, Urine Not Detected (NotDetected); Tricyclic Antidepressant,Urine Not Detected (NotDetected)
[2023-12-30] MEDS: ZIPRASIDONE 20 MG VIAL IM STA (16:18)
[2023-12-30] MEDS: LORazepam 2 MG/ML INJ IV PRN (20:50)
[2023-12-30 20:59] VITALS: RESP 20
--- NOTE | 2023-12-30 23:34 | HP ---
HISTORY AND PHYSICAL CHIEF COMPLAINT: Mental status changes and drug overdose. HISTORY OF PRESENT ILLNESS: This gentleman was discharged the other day after coming in being treated for diabetic ketoacidosis and methamphetamine overdose. He comes back into the emergency room today once again with mental status changes and incoherence with a positive drug screen. REVIEW OF SYSTEMS: Not obtainable. Past medical history, family history, personal and social histories are presumed to be unchanged and unobtainable otherwise. He is a diabetic, will not take care of himself and blood sugars are always out of control. He is a meth addict as well. PHYSICAL EXAMINATION: VITAL SIGNS: Unremarkable. GENERAL: He is lethargic. HEAD, EARS, EYES, NOSE, MOUTH AND THROAT: Essentially normal. CHEST: Breath sounds are heard bilaterally. CARDIAC: Normal. ABDOMEN: Protuberant, soft and nontender. IMPRESSION: 1. Mental status changes. 2. Methamphetamine overdose. 3. Methamphetamine headache. 4. Noncompliant patient. 5. Uncontrolled insulin-dependent diabetes mellitus. PLAN: 1. Bedrest. 2. IV fluids. 3. Detox. 4. Manage blood sugars. MMODL / IJN: [id number] /
[2023-12-31 05:26] VITALS: BP 144/95; PULSE 110; TEMP 97
--- NOTE | 2024-01-01 06:10 | DS ---
DISCHARGE SUMMARY CHIEF COMPLAINT: Mental status changes and drug overdose. HISTORY OF PRESENT ILLNESS AND PHYSICAL EXAM: Details of this man's history and physical can be found in the initial workup. LABORATORY STUDIES: While he was in the hospital, he had laboratory studies, details of which can be found in the laboratory section of his chart. COURSE IN THE HOSPITAL: After admission, he was placed on bedrest and started on intravenous fluids and was to be admitted. Early in the morning, he signed out against medical advice. FINAL DIAGNOSES: 1. Drug use and overdose. 2. Methamphetamine addict. 3. Noncompliant patient. 4. Uncontrolled insulin-dependent diabetes mellitus. OPERATIONS: None. CONSULTATION: None. He is not improved. He signed out AMA. MMODL / IJN: [id number] /
== END 2023-12-31 07:05 | disposition left against medical advice (07) ==
LOC: EC 10:14 → 5NMEDONC 15:24 → 3SCARD 15:50
PROVIDERS: ADMIT Family Medicine; ATTEND Family Medicine
DX: T43.651A Poisoning by methamphetamines accidental (unintentional), initial encounter (principal); R41.82 Altered mental status, unspecified; F15.20 Other stimulant dependence, uncomplicated; E11.65 Type 2 diabetes mellitus with hyperglycemia; J44.9 Chronic obstructive pulmonary disease, unspecified; I10 Essential (primary) hypertension; F31.9 Bipolar disorder, unspecified; F17.200 Nicotine dependence, unspecified, uncomplicated; Z86.73 Personal history of transient ischemic attack (TIA), and cerebral infarction without residual deficits; Z91.199 Patient's noncompliance with other medical treatment and regimen due to unspecified reason; Z79.4 Long term (current) use of insulin; Z79.899 Other long term (current) drug therapy; Z79.84 Long term (current) use of oral hypoglycemic drugs; Z53.29 Procedure and treatment not carried out because of patient's decision for other reasons
CPT/HCPCS: 96376; 96361; 96372; 96374; 99285; 36415; 93005; 80053; 82009; 83735; 84484; 85025; 85610; 85730; 80306; 71046; G0378 ×2; J2060; J3486

== ENCOUNTER 2024-04-06 02:22 | Emergency (ER) | payer OTHER ==
[2024-04-06 02:30] LABS: Glucose,Whole Blood 390 mg/dL (70-110)
[2024-04-06] MEDS ORDERED: SODIUM CHLORIDE 0.9% 1,000 ML IV STA ×2 (02:53→04:30)
--- NOTE | 2024-04-06 02:54 | ED ---
Recheck HPI - General Chief Complaint: Recheck/Abnormal Lab/Rx Stated Complaint: Blood sugar Time Seen by Provider: 04/06/24 02:53 Source: patient, RN notes reviewed, old records reviewed Mode of arrival: ambulatory Limitations: no limitations - History of Present Illness Initial Comments: This is a 33-year-old male who is well-known to this emergency room today. Patient is present today for evaluation regards to elevated blood sugars. Severely and significant elevated blood sugars here in the ER patient admits noncompliance of his blood sugar and diabetic control. Patient has symptoms of increased thirst and increased urination and has not been feeling well MD Complaint: abnormal lab (Glycemia) -: days(s) Returns Today for: Called Because of Abnormal Lab/Test Symptoms Since Prior Visit: no new symptoms Context: called for abnormal lab result Associated Symptoms: none - Related Data Home Medications Medication Instructions Recorded Confirmed Atorvastatin Calcium [Lipitor] 40 mg PO DAILY 03/16/23 12/30/23 Empagliflozin [Jardiance] 10 mg PO DAILY 12/21/23 12/30/23 Ibuprofen [Motrin] 800 mg PO QID PRN 12/21/23 12/30/23 Pregabalin [Lyrica] 200 mg PO BID 12/21/23 12/30/23 hydrALAZINE HCL [Apresoline] 25 mg PO TID 12/21/23 12/30/23 Previous Rx's Medication Instructions Recorded Insulin Aspart [NovoLOG Flexpen] 10 units SQ AC-TID #1 each 04/06/24 Insulin Detemir [Levemir Flexpen] 40 units SQ DAILY #1 each 04/06/24 Allergies Allergy/AdvReac Type Severity Reaction Status Date / Time No Known Allergies Allergy Verified 04/06/24 02:32 Review of Systems ROS Statement: Those systems with pertinent positive or pertinent negative responses have been documented in the HPI. ROS Other: All systems not noted in ROS Statement are negative. Past Medical History Past Medical History: Asthma, COPD, CVA/TIA, Diabetes Mellitus, Hypertension History of Any Multi-Drug Resistant Organisms: None Reported Past Surgical History: Orthopedic Surgery Additional Past Surgical History / Comment(s): Lasik surgery; Left ankle surgery Past Anesthesia/Blood Transfusion Reactions: No Reported Reaction Past Psychological History: Bipolar Smoking Status: Current every day smoker Past Alcohol Use History: None Reported Past Drug Use History: IV Drug Use, Marijuana, Methamphetamine General Exam Limitations: no limitations General appearance: alert, in no apparent distress Head exam: Present: atraumatic, normocephalic, normal inspection Eye exam: Present: normal appearance, PERRL, EOMI. Absent: scleral icterus, conjunctival injection, periorbital swelling ENT exam: Present: normal exam, mucous membranes moist Neck exam: Present: normal inspection. Absent: tenderness, meningismus, lymphadenopathy Respiratory exam: Present: normal lung sounds bilaterally. Absent: respiratory distress, wheezes, rales, rhonchi, stridor Cardiovascular Exam: Present: regular rate, normal rhythm, normal heart sounds. Absent: systolic murmur, diastolic murmur, rubs, gallop, clicks GI/Abdominal exam: Present: soft, normal bowel sounds. Absent: distended, tenderness, guarding, rebound, rigid Extremities exam: Present: normal inspection, full ROM, normal capillary refill. Absent: tenderness, pedal edema, joint swelling, calf tenderness Back exam: Present: normal inspection Neurological exam: Present: alert, oriented X3, CN II-XII intact Psychiatric exam: Present: normal affect, normal mood Skin exam: Present: warm, dry, intact, normal color. Absent: rash Course Vital Signs 04/06/24 04/06/24 04/06/24 02:30 02:32 04:32 Temperature 97.9 F 98.7 F Pulse Rate 124 H 109 H 114 H Respiratory 20 20 20 Rate Blood Pressure 142/92 173/99 176/98 O2 Sat by Pulse 100 99 99 Oximetry 04/06/24 06:09 Temperature Pulse Rate 84 Respiratory 18 Rate Blood Pressure 168/92 O2 Sat by Pulse 96 Oximetry - Reevaluation(s) Reevaluation #1: medical records reviewed Reevaluation #2: Informed of results and questions answered Reevaluation #3: Patient informed of results questions answered Reevaluation #4: Was pt. sent in by a medical professional or institution (, PA, [employer], urgent care, hospital, or jail...) When possible be specific @ -no Did you speak to anyone other than the patient for history (EMS, parent, family, police, friend...)? What history was obtained from this source @ -no Did you review nursing and triage notes (agree or disagree)? Why? @ -agree Are old charts reviewed (outside hosp., previous admission, EMS record, old EKG, old radiological studies, urgent care reports/EKG's, jail records)? Report findings @ -yes Differential Diagnosis (chest pain, altered mental status, abdominal pain women, abdominal pain men, vaginal bleeding, weakness, fever, dyspnea, syncope, headache, dizziness, GI bleed, back pain, seizure, CVA, palpatations, mental health, musculoskeletal)? @ -prior EKG interpreted by me (3pts min.). @ -no X-rays interpreted by me (1pt min.). @ -no CT interpreted by me (1pt min.). @ -no U/S interpreted by me (1pt. min.). @ -no What testing was considered but not performed or refused? (CT, X-rays, U/S, labs)? Why? @ -none What meds were considered but not given or refused? Why? @ -none Did you discuss the management of the patient with other professionals (professionals i.e. , PA, [employer], lab, RT, psych nurse, social work associate, bus transportation manager, teacher, special officer automat, lead case manager)? Give summary @ -no Was smoking cessation discussed for >3mins.? @ -no Was critical care preformed (if so, how long)? @ -no Were there social determinants of health that impacted care today? How? (Homelessness, low income, unemployed, alcoholism, drug addiction, transportation, low edu. Level, literacy, decrease access to med. care, [facility], rehab)? @ -none Was there de-escalation of care discussed even if they declined (Discuss DNR or withdrawal of care, Hospice)? DNR status @ -no What co-morbidities impacted this encounter? (DM, HTN, Smoking, COPD, CAD, Ca ncer, CVA, ARF, Chemo, Hep., AIDS, mental health diagnosis, sleep apnea, morbid obesity)? @ -none Was patient admitted / discharged? Hospital course, mention meds given and route, prescriptions, significant lab abnormalities, going to OR and other pertinent info. @ - 33 male to ER for evaluation of abnormal lab findings, hyperglycemia. Symptoms are improved here in the ER patient has no other acute complaints and can be discharged home, patient admits to noncompliance Admitted Undiagnosed new problem with uncertain prognosis? @ -no Drug Therapy requiring intensive monitoring for toxicity (Heparin, Nitro, Insulin, Cardizem)? @ -no Were any procedures done? @ -no Diagnosis/symptom? @ -Hyperglycemia Acute, or Chronic, or Acute on Chronic? @ -Acute Uncomplicated (without systemic symptoms) or Complicated (systemic symptoms)? @ -Complicated Side effects of treatment? @ -no Exacerbation, Progression, or Severe Exacerbation? @ -exacerbation Poses a threat to life or bodily function? How? (Chest pain, [place], [place], pneumonia, PE, COPD, DKA, ARF, appy, cholecystitis, CVA, Diverticulitis, Homicidal, Suicidal, threat to staff... and all critical care pts) @ -yes uncontrolled diabetes Medical Decision Making - Medical Decision Making 33 male to ER for evaluation of abnormal lab findings, hyperglycemia. Symptoms are improved here in the ER patient has no other acute complaints and can be discharged home, patient admits to noncompliance - Lab Data Result diagrams: 04/06/24 03:18 04/06/24 03:18 Lab Results 04/06/24 04/06/24 04/06/24 Range/Units 02:28 02:36 03:18 WBC 12.4 H (3.8-10.6) k/uL RBC 6.29 H (4.30-5.90) m/uL Hgb 16.5 (13.0-17.5) gm/dL Hct 52.4 (39.0-53.0) % MCV 83.3 (80.0-100.0) fL MCH 26.2 (25.0-35.0) pg MCHC 31.4 (31.0-37.0) g/dL RDW 12.6 (11.5-15.5) % Plt Count 307 (150-450) k/uL MPV 9.0 Neutrophils % 71 % Lymphocytes % 20 % Monocytes % 6 % Eosinophils % 1 % Basophils % 1 % Neutrophils # 8.9 H (1.3-7.7) k/uL Lymphocytes # 2.5 (1.0-4.8) k/uL Monocytes # 0.7 (0-1.0) k/uL Eosinophils # 0.1 (0-0.7) k/uL Basophils # 0.1 (0-0.2) k/uL Sodium (137-145) mmol/L Potassium (3.5-5.1) mmol/L Chloride (98-107) mmol/L Carbon Dioxide (22-30) mmol/L Anion Gap mmol/L BUN (9-20) mg/dL Creatinine (0.66-1.25) mg/dL Est GFR (CKD-EPI)AfAm (>60 ml/min/1.73 sqM) Est GFR (CKD-EPI)NonAf (>60 ml/min/1.73 sqM) Glucose (74-99) mg/dL POC Glucose (mg/dL) 390 H (70-110) mg/dL POC Glu Product Support Manager Armin Quiñones Calcium (8.4-10.2) mg/dL Phosphorus (2.5-4.5) mg/dL Magnesium (1.6-2.3) mg/dL Total Bilirubin (0.2-1.3) mg/dL AST (17-59) U/L ALT (4-49) U/L Alkaline Phosphatase (38-126) U/L Total Protein (6.3-8.2) g/dL Albumin (3.5-5.0) g/dL Urine Color Yellow Urine Appearance Cloudy (Clear) Urine pH 6.0 (5.0-8.0) Ur Specific [place] 1.032 (1.001-1.035) Urine Protein 2+ H (Negative) Urine Glucose (UA) 1+ H (Negative) Urine Ketones 1+ H (Negative) Urine Blood Trace H (Negative) Urine Nitrite Negative (Negative) Urine Bilirubin 1+ H (Negative) Urine Urobilinogen 2.0 (<2.0) mg/dL Ur Leukocyte Esterase Negative (Negative) Urine RBC 2 (0-5) /hpf Urine WBC 3 (0-5) /hpf Ur Squamous Epith Cells 1 (0-4) /hpf Amorphous Sediment Rare H (None) /hpf Urine Bacteria Rare H (None) /hpf Hyaline Casts 215 H (0-2) /lpf Urine Mucus Moderate H (None) /hpf Acetone, Qual (Negative) 04/06/24 04/06/24 Range/Units 03:18 05:58 WBC (3.8-10.6) k/uL RBC (4.30-5.90) m/uL Hgb (13.0-17.5) gm/dL Hct (39.0-53.0) % MCV (80.0-100.0) fL MCH (25.0-35.0) pg MCHC (31.0-37.0) g/dL RDW (11.5-15.5) % Plt Count (150-450) k/uL MPV Neutrophils % % Lymphocytes % % Monocytes % % Eosinophils % % Basophils % % Neutrophils # (1.3-7.7) k/uL Lymphocytes # (1.0-4.8) k/uL Monocytes # (0-1.0) k/uL Eosinophils # (0-0.7) k/uL Basophils # (0-0.2) k/uL Sodium 136 L (137-145) mmol/L Potassium 4.5 (3.5-5.1) mmol/L Chloride 101 (98-107) mmol/L Carbon Dioxide 22 (22-30) mmol/L Anion Gap 13 mmol/L BUN 18 (9-20) mg/dL Creatinine 1.40 H (0.66-1.25) mg/dL Est GFR (CKD-EPI)AfAm 77 (>60 ml/min/1.73 sqM) Est GFR (CKD-EPI)NonAf 66 (>60 ml/min/1.73 sqM) Glucose 326 H (74-99) mg/dL POC Glucose (mg/dL) 231 H (70-110) mg/dL POC Glu Product Support Manager ALEXI Lolis Baker Calcium 9.8 (8.4-10.2) mg/dL Phosphorus 4.7 H (2.5-4.5) mg/dL Magnesium 1.7 (1.6-2.3) mg/dL Total Bilirubin 1.0 (0.2-1.3) mg/dL AST 39 (17-59) U/L ALT 27 (4-49) U/L Alkaline Phosphatase 106 (38-126) U/L Total Protein 8.4 H (6.3-8.2) g/dL Albumin 5.1 H (3.5-5.0) g/dL Urine Color Urine Appearance (Clear) Urine pH (5.0-8.0) Ur Specific [place] (1.001-1.035) Urine Protein (Negative) Urine Glucose (UA) (Negative) Urine Ketones (Negative) Urine Blood (Negative) Urine Nitrite (Negative) Urine Bilirubin (Negative) Urine Urobilinogen (<2.0) mg/dL Ur Leukocyte Esterase (Negative) Urine RBC (0-5) /hpf Urine WBC (0-5) /hpf Ur Squamous Epith Cells (0-4) /hpf Amorphous Sediment (None) /hpf Urine Bacteria (None) /hpf Hyaline Casts (0-2) /lpf Urine Mucus (None) /hpf Acetone, Qual Positive (Negative) Disposition Clinical Impression: Hyperglycemia Disposition: HOME SELF-CARE Condition: Fair Instructions (If sedation given, give patient instructions): Diabetic Hyperglycemia (ED) Prescriptions: Insulin Detemir [Levemir Flexpen] 40 units SQ DAILY #1 each Insulin Aspart [NovoLOG Flexpen] 10 units SQ AC-TID #1 each Is patient prescribed a controlled substance at d/c from ED?: No Referrals: Bal De La Garza MD [Primary Care Provider] - 1-2 days
[2024-04-06 03:17] LABS: Amorphous Sediment,Urine Rare /hpf; Appearance,Urine Cloudy (Clear); Bacteria,Urine Rare /hpf; Bilirubin,Urine 1+ (Negative); Blood,Urine Trace (Negative); Color,Urine Yellow; Glucose,Urine (UA) 1+ (Negative); Hyaline Casts,Urine 215 /lpf (0-2); Ketones,Urine 1+ (Negative); Leukocyte Esterase,Urine Negative (Negative); Mucus,Urine Moderate /hpf; Nitrite,Urine Negative (Negative); Protein,Urine 2+ (Negative); RBC,Urine 2 /hpf (0-5); Specific Gravity,Urine 1.032 (1.001-1.035); Squamous Epithelial Cell,Urine 1 /hpf (0-4); WBC,Urine 3 /hpf (0-5)
[2024-04-06 03:36] LABS: ALT 27 U/L (4-49); AST 39 U/L (17-59); African American GFR (CKD) 77 (>60 ml/min/1.73 sqM); Albumin 5.1 g/dL (3.5-5.0); Alkaline Phosphatase 106 U/L (38-126); Anion Gap 13 mmol/L; Blood Urea Nitrogen 18 mg/dL (9-20); Calcium 9.8 mg/dL (8.4-10.2); Carbon Dioxide 22 mmol/L (22-30); Chloride 101 mmol/L (98-107); Glucose 326 mg/dL (74-99); Magnesium 1.7 mg/dL (1.6-2.3); Non-African American GFR(CKD) 66 (>60 ml/min/1.73 sqM); Phosphorus 4.7 mg/dL (2.5-4.5); Potassium 4.5 mmol/L (3.5-5.1); Sodium 136 mmol/L (137-145); Total Protein 8.4 g/dL (6.3-8.2)
[2024-04-06 04:12] LABS: Basophils # (A) 0.1 k/uL (0-0.2); Basophils % (A) 1 %; Eosinophils # (A) 0.1 k/uL (0-0.7); Eosinophils % (A) 1 %; HCT 52.4 % (39.0-53.0); HGB 16.5 gm/dL (13.0-17.5); Lymphocytes # (A) 2.5 k/uL (1.0-4.8); Lymphocytes % (A) 20 %; MCH 26.2 pg (25.0-35.0); MCHC 31.4 g/dL (31.0-37.0); MCV 83.3 fL (80.0-100.0); Monocytes # (A) 0.7 k/uL (0-1.0); Monocytes % (A) 6 %; Neutrophils # (A) 8.9 k/uL (1.3-7.7); Neutrophils % (A) 71 %; Platelet Count 307 k/uL (150-450); RBC 6.29 m/uL (4.30-5.90); RDW 12.6 % (11.5-15.5); WBC 12.4 k/uL (3.8-10.6)
[2024-04-06] MEDS ORDERED: SODIUM CHLORIDE 0.9% 500 ML 500 ML IV STA (04:30)
[2024-04-06 05:38] VITALS: TEMP 98.7
[2024-04-06 06:12] VITALS: BP 168/92; PULSE 84; RESP 18
[2024-04-06 06:12] LABS: Glucose,Whole Blood 231 mg/dL (70-110)
== END 2024-04-06 06:12 | disposition home or self-care (01) ==
LOC: EC 02:22
DX: E11.65 Type 2 diabetes mellitus with hyperglycemia (principal); F17.200 Nicotine dependence, unspecified, uncomplicated; Z79.84 Long term (current) use of oral hypoglycemic drugs; Z79.899 Other long term (current) drug therapy
CPT/HCPCS: 36415; 80053; 81001; 82009; 83735; 84100; 85025; 99283

== ENCOUNTER 2024-12-10 15:29 | Emergency (ER) | payer OTHER ==
[2024-12-10] MEDS ORDERED: IPRATROPIUM-ALBUTEROL 3 ML NEB INHALATION STA (16:09)
--- NOTE | 2024-12-10 16:17 | ED ---
General Adult HPI - General Chief complaint: Shortness of Breath Stated complaint: cough Time Seen by Provider: 12/10/24 15:56 Source: patient Mode of arrival: ambulatory Limitations: no limitations - History of Present Illness Initial comments: Dictation was produced using [employer] dictation software. please excuse any grammatical, word or spelling errors. Chief Complaint: 34-year-old male with allegedly history of COPD presents to the emergency department for reported COPD exacerbation History of Present Illness: 34-year-old male with history of illicit drug use disorder presents emergency department with alleged COPD exacerbation. Patient states that he has history of COPD despite not being formally diagnosed. States that he wakes up in the morning feels a little short of breath. Thinks it is his COPD acting up. Denies any fever. does report a mild nonproductive cough. No obvious sick contact The ROS documented in this emergency department record has been reviewed and confirmed by me. Those systems with pertinent positive or negative responses have been documented in the HPI. All other systems are other negative and/or noncontributory. - Related Data Home Medications Medication Instructions Recorded Confirmed Atorvastatin Calcium [Lipitor] 40 mg PO DAILY 03/16/23 12/30/23 Empagliflozin [Jardiance] 10 mg PO DAILY 12/21/23 12/30/23 Ibuprofen [Motrin] 800 mg PO QID PRN 12/21/23 12/30/23 Pregabalin [Lyrica] 200 mg PO BID 12/21/23 12/30/23 hydrALAZINE HCL [Apresoline] 25 mg PO TID 12/21/23 12/30/23 Previous Rx's Medication Instructions Recorded Insulin Aspart [NovoLOG Flexpen] 10 units SQ AC-TID #1 each 04/06/24 Insulin Detemir [Levemir Flexpen] 40 units SQ DAILY #1 each 04/06/24 Azithromycin [Zithromax Z Pack] 1 tab PO DIRECTED #6 tab 12/10/24 Allergies Allergy/AdvReac Type Severity Reaction Status Date / Time No Known Allergies Allergy Verified 12/10/24 15:53 Review of Systems ROS Statement: Those systems with pertinent positive or pertinent negative responses have been documented in the HPI. ROS Other: All systems not noted in ROS Statement are negative. Past Medical History Past Medical History: Asthma, COPD, CVA/TIA, Diabetes Mellitus, Hypertension History of Any Multi-Drug Resistant Organisms: None Reported Past Surgical History: Orthopedic Surgery Additional Past Surgical History / Comment(s): Lasik surgery; Left ankle surgery Past Anesthesia/Blood Transfusion Reactions: No Reported Reaction Past Psychological History: Bipolar Smoking Status: Current every day smoker Past Alcohol Use History: None Reported Past Drug Use History: IV Drug Use, Marijuana, Methamphetamine General Exam - General Exam Comments Initial Comments: PHYSICAL EXAM: General Impression: Alert and oriented x3, not in acute distress HEENT: Normocephalic atraumatic, extra-ocular movements intact, pupils equal and reactive to light bilaterally, mucous membranes moist. Cardiovascular: Heart regular rate and rhythm Chest: Able to complete full sentences, no retractions, no tachypnea Abdomen: abdomen soft, non-tender, non-distended, no organomegaly Musculoskeletal: Pulses present and equal in all extremities, no peripheral edema Motor: no focal deficits noted Neurological: CN II-XII grossly intact, no focal motor or sensory deficits noted Skin: Intact with no visualized rashes Psych: Normal affect and mood Limitations: no limitations Course Vital Signs 12/10/24 15:47 Temperature 98.4 F Pulse Rate 80 Respiratory 20 Rate Blood Pressure 151/106 O2 Sat by Pulse 98 Oximetry Medical Decision Making - Medical Decision Making Was pt. sent in by a medical professional or institution (, PA, LABEL PRESS OPERATOR, urgent care, hospital, or fdc...) When possible be specific @ -No Did you speak to anyone other than the patient for history (EMS, parent, family, police, friend...)? What history was obtained from this source @ -No Did you review nursing and triage notes (agree or disagree)? Why? @ -I reviewed and agree with nursing and triage notes Were old charts reviewed (outside hosp., previous admission, EMS record, old EKG, old radiological studies, urgent care reports/EKG's, fdc records)? Report findings @ -No old charts were reviewed Differential Diagnosis (chest pain, altered mental status, abdominal pain women, abdominal pain men, vaginal bleeding, musculoskeletal, weakness, fever, dyspnea, syncope, headache, dizziness, GI bleed, back pain, seizure, CVA, palpatations, mental health)? @ -Differential Dyspnea: Coronary syndrome, arrhythmia, tamponade, asthma, COPD, pulmonary embolism, pneumonia, pneumothorax, pulmonary effusion, anaphylaxis, diabetic ketoacidosis, flailed chest, pulmonary contusion, diaphragmatic rupture, anemia, neuromuscular, this is not meant to be an all-inclusive list. EKG interpreted by me (3pts min.). @ -None done X-rays interpreted by me (1pt min.). @ -Chest x-ray shows patchy posterior right lower lung acute infiltrate CT interpreted by me (1pt min.). @ -None done U/S interpreted by me (1pt. min.). @ -None done What testing was considered but not performed or refused? (CT, X-rays, U/S, labs)? Why? @ -None What meds were considered but not given or refused? Why? @ -None Was smoking cessation discussed for >3mins.? @ -No Were there social determinants of health that impacted care today? How? (Homelessness, low income, unemployed, alcoholism, drug addiction, transportation, low edu. Level, literacy, decrease access to med. care, group home, rehab)? @ -No Was there de-escalation of care discussed even if they declined (Discuss DNR or withdrawal of care, Hospice)? DNR status @ -No What co-morbidities impacted this encounter? (DM, HTN, Smoking, COPD, CAD, Cancer, CVA, ARF, Chemo, Hep., AIDS, mental health diagnosis, sleep apnea, morbid obesity)? @ -Self-reported COPD Was patient admitted / discharged? Hospital course, mention meds given and route, prescriptions, significant lab abnormalities, going to OR and other pertinent info. @ -. 34-year-old male presents emergency department chief complaint of dyspnea. States that he has a nonproductive cough. Vital signs upon arrival are within acceptable limits. Viral testing negative. Chest x-ray shows acute infiltrate. Patient given prescription for Z-Krystian and discharge. Vies follow-up with primary care doctor Did you discuss the management of the patient with other professionals (professionals i.e. , PA, LABEL PRESS OPERATOR, lab, RT, psych nurse, social work professor, chip mixing machine operator, teacher, guest services officer, employment evaluator/case manager)? Give summary @ -No Was critical care preformed (if so, how long)? @ -No Undiagnosed new problem with uncertain prognosis? @ -No Drug Therapy requiring intensive monitoring for toxicity (Heparin, Nitro, Insulin, Cardizem)? @ -No Were any procedures done? @ -No Diagnosis/symptom? Acute, or Chronic, or Acute on Chronic? Uncomplicated (without systemic symptoms) or Complicated (systemic symptoms)? @ -Commune acquired bacterial pneumonia Side effects of treatment? @ -No Exacerbation, Progression, or Severe Exacerbation? @ -No Poses a threat to life or bodily function? How? (Chest pain, [place], [place], pneumonia, PE, COPD, DKA, ARF, appy, cholecystitis, CVA, Diverticulitis, Homicidal, Suicidal, threat to staff... and all critical care pts) @ -No - Lab Data Lab Results 12/10/24 Range/Units 16:29 Influenza Type A (PCR) Not Detected (Not Detectd) Influenza Type B (PCR) Not Detected (Not Detectd) RSV (PCR) Not Detected (Not Detectd) SARS-CoV-2 (PCR) Not Detected (Not Detectd) Disposition Clinical Impression: Pneumonia Disposition: HOME SELF-CARE Condition: Fair Instructions (If sedation given, give patient instructions): Community Acquired Pneumonia (ED) Prescriptions: Azithromycin [Zithromax Z Pack] 1 tab PO DIRECTED #6 tab Is patient prescribed a controlled substance at d/c from ED?: No Referrals: Bal De La Garza MD [Primary Care Provider] - 1-2 days Time of Disposition: 17:16
--- NOTE | 2024-12-10 16:53 | XR ---
EXAMINATION TYPE: XR chest 2V DATE OF EXAM: 12/10/2024 4:47 PM COMPARISON: Prior chest x-ray December 30, 2023 CLINICAL INDICATION: Male, 34 years old with history of dyspnea, TECHNIQUE: Frontal and lateral views of the chest are obtained. FINDINGS: There is new patchy opacity posterior lower lung on lateral view less well-seen on frontal view likely right lower lung. No pleural effusion or pneumothorax seen bilaterally. The cardiac silh ouette size is within normal limits. The osseous structures are intact. IMPRESSION: Patchy posterior right lower lung acute infiltrate and/or atelectasis. [facility], , 12/10/2024 4:50 PM
[2024-12-10 17:08] LABS: Influenza A Not Detected (Not Detectd); Influenza B Not Detected (Not Detectd); RSV Not Detected (Not Detectd)
[2024-12-10 17:58] VITALS: BP 139/102; PULSE 68; RESP 19; TEMP 98
== END 2024-12-10 18:11 | disposition home or self-care (01) ==
LOC: EC 15:29
DX: J15.9 Unspecified bacterial pneumonia (principal); J44.89 Other specified chronic obstructive pulmonary disease; F17.200 Nicotine dependence, unspecified, uncomplicated; Z86.73 Personal history of transient ischemic attack (TIA), and cerebral infarction without residual deficits
CPT/HCPCS: 71046; 87636; 99285

== ENCOUNTER 2024-12-27 11:55 | Emergency (ER) | payer OTHER ==
[2024-12-27 12:26] VITALS: TEMP 97.9
--- NOTE | 2024-12-27 12:37 | ED ---
URI HPI - General Chief Complaint: Upper Respiratory Infection Stated Complaint: SOB vomiting Time Seen by Provider: 12/27/24 12:35 Source: patient, RN notes reviewed Mode of arrival: ambulatory Limitations: no limitations - History of Present Illness Initial Comments: 34-year-old male with history of COPD and tobacco abuse presenting to emergency department with flulike symptoms over the past 24 hours. Patient states that daughter was recently diagnosed with influenza A. He has been experiencing a productive cough, body aches, nausea and vomiting in addition to fevers and chills. States that he has been using his albuterol rescue inhaler with minimal relief. - Related Data Home Medications Medication Instructions Recorded Confirmed Atorvastatin Calcium [Lipitor] 40 mg PO DAILY 03/16/23 12/30/23 Empagliflozin [Jardiance] 10 mg PO DAILY 12/21/23 12/30/23 Ibuprofen [Motrin] 800 mg PO QID PRN 12/21/23 12/30/23 Pregabalin [Lyrica] 200 mg PO BID 12/21/23 12/30/23 hydrALAZINE HCL [Apresoline] 25 mg PO TID 12/21/23 12/30/23 Previous Rx's Medication Instructions Recorded Insulin Aspart [NovoLOG Flexpen] 10 units SQ AC-TID #1 each 04/06/24 Insulin Detemir [Levemir Flexpen] 40 units SQ DAILY #1 each 04/06/24 Azithromycin [Zithromax Z Pack] 1 tab PO DIRECTED #6 tab 12/10/24 Allergies Allergy/AdvReac Type Severity Reaction Status Date / Time No Known Allergies Allergy Verified 12/10/24 15:53 Review of Systems ROS Statement: Those systems with pertinent positive or pertinent negative responses have been documented in the HPI. ROS Other: All systems not noted in ROS Statement are negative. Past Medical History Past Medical History: Asthma, COPD, CVA/TIA, Diabetes Mellitus, Hypertension History of Any Multi-Drug Resistant Organisms: None Reported Past Surgical History: Orthopedic Surgery Additional Past Surgical History / Comment(s): Lasik surgery; Left ankle surgery Past Anesthesia/Blood Transfusion Reactions: No Reported Reaction Past Psychological History: Bipolar Smoking Status: Current every day smoker Past Alcohol Use History: None Reported Past Drug Use History: IV Drug Use, Marijuana, Methamphetamine General Exam Limitations: no limitations General appearance: alert, in no apparent distress Neck exam: Present: normal inspection. Absent: tenderness, meningismus, lymphadenopathy Respiratory exam: Present: wheezes. Absent: normal lung sounds bilaterally, respiratory distress, rales, rhonchi, stridor Cardiovascular Exam: Present: regular rate, normal rhythm, normal heart sounds. Absent: systolic murmur, diastolic murmur, rubs, gallop, clicks GI/Abdominal exam: Present: soft, normal bowel sounds. Absent: distended, tenderness, guarding, rebound, rigid Extremities exam: Present: normal inspection, full ROM, normal capillary refill. Absent: tenderness, pedal edema, joint swelling, calf tenderness Course Vital Signs 12/27/24 12/27/24 12/27/24 12:24 13:13 13:56 Temperature 97.9 F Pulse Rate 100 88 Respiratory 20 18 Rate Blood Pressure 180/120 O2 Sat by Pulse 99 Oximetry 12/27/24 12/27/24 14:04 14:15 Temperature 97.9 F Pulse Rate 85 85 Respiratory 18 Rate Blood Pressure 165/82 O2 Sat by Pulse 97 Oximetry Medical Decision Making - Medical Decision Making Was pt. sent in by a medical professional or institution (, PA, COMBATANT DIVER QUALIFIED, urgent care, hospital, or half-way...) When possible be specific @ -No Did you speak to anyone other than the patient for history (EMS, parent, family, police, friend...)? What history was obtained from this source @ -No Did you review nursing and triage notes (agree or disagree)? Why? @ -I reviewed and agree with nursing and triage notes Were old charts reviewed (outside hosp., previous admission, EMS record, old EKG, old radiological studies, urgent care reports/EKG's, half-way records)? Report findings @ -No old charts were reviewed Differential Diagnosis (chest pain, altered mental status, abdominal pain women, abdominal pain men, vaginal bleeding, weakness, fever, dyspnea, syncope, headache, dizziness, GI bleed, back pain, seizure, CVA, palpatations, mental health, musculoskeletal)? @ -COVID 19, RSV, influenza, pneumonia, acute bronchitis, URI, this list is not all inclusive EKG interpreted by me (3pts min.). @ -None X-rays interpreted by me (1pt min.). @ -Chest x-ray no acute cardiopulmonary process or disease CT interpreted by me (1pt min.). @ -None done U/S interpreted by me (1pt. min.). @ -None done What testing was considered but not performed or refused? (CT, X-rays, U/S, labs)? Why? @ -None What meds were considered but not given or refused? Why? @ -None Did you discuss the management of the patient with other professionals (professionals i.e. Dr., PA, COMBATANT DIVER QUALIFIED, lab, RT, psych nurse, health social work professor, post doctoral fellow, teacher, naval gunfire liaison officer, child support case officer)? Give summary @ -No Was smoking cessation discussed for >3mins.? @ -No Was critical care preformed (if so, how long)? @ -No Were there social determinants of health that impacted care today? How? (Homelessness, low income, unemployed, alcoholism, drug addiction, transportation, low edu. Level, literacy, decrease access to med. care, usp, rehab)? @ -No Was there de-escalation of care discussed even if they declined (Discuss DNR or withdrawal of care, Hospice)? DNR status @ -No What co-morbidities impacted this encounter? (DM, HTN, Smoking, COPD, CAD, Cancer, CVA, ARF, Chemo, Hep., AIDS, mental health diagnosis, sleep apnea, morbid obesity)? @ -None Was patient admitted / discharged? Hospital course, mention meds given and route, prescriptions, significant lab abnormalities, going to OR and other perti nent info. @ -Discharge. 34-year-old male presents emergency room with URI symptoms. Vitals are stable on arrival. Physical exam remararkable for mild expiratory wheezing. With concern for COPD and wheezing is provided with dose of Solu- Medrol and provided with a DuoNeb breathing treatment. Viral swab negative, chest x-ray unremarkable. Patient's however has tested positive for independence a and patient has been experiencing similar symptoms living in the same household therefore patient's viral swab likely false negative most likely does have influenza A. supportive treatment discussed at bedside. case discussed with Dr. Kelsey Undiagnosed new problem with uncertain prognosis? @ -No Drug Therapy requiring intensive monitoring for toxicity (Heparin, Nitro, Insulin, Cardizem)? @ -No Were any procedures done? @ -No Diagnosis/symptom? @ -influenza A Acute, or Chronic, or Acute on Chronic? @ -acute Uncomplicated (without systemic symptoms) or Complicated (systemic symptoms)? @ -uncomplicated Side effects of treatment? @ -No Exacerbation, Progression, or Severe Exacerbation? @ -No Poses a threat to life or bodily function? How? (Chest pain, [place], [place], pneumonia, PE, COPD, DKA, ARF, appy, cholecystitis, CVA, Diverticulitis, Homicidal, Suicidal, threat to staff... and all critical care pts) @ -No - Lab Data Lab Results 12/27/24 Range/Units 12:44 Influenza Type A (PCR) Not Detected (Not Detectd) Influenza Type B (PCR) Not Detected (Not Detectd) RSV (PCR) Not Detected (Not Detectd) SARS-CoV-2 (PCR) Not Detected (Not Detectd) Disposition Clinical Impression: Influenza A Disposition: HOME SELF-CARE Condition: Good Instructions (If sedation given, give patient instructions): Influenza (ED) Additional Instructions: Please return to the Emergency Department if symptoms worsen or any other concerns. Is patient prescribed a controlled substance at d/c from ED?: No Referrals: Bal De La Garza MD [Primary Care Provider] - 1-2 days Time of Disposition: 13:39
--- NOTE | 2024-12-27 12:53 | XR ---
EXAMINATION TYPE: XR chest 2V DATE OF EXAM: 12/27/2024 12:46 PM COMPARISON: Chest radiographs from 12/10/2024 TECHNIQUE: XR chest 2V Frontal and lateral views of the chest. CLINICAL INDICATION:Male, 34 years old with history of cough, [place]; FINDINGS: Lungs/Pleura: There is no evidence of pleural effusion, focal consolidation, or pneumothorax. Pulmonary vascularity: Unremarkable. Heart/mediastinum: Cardiomediastinal silhouette is unremarkable. Musculoskeletal: No acute osseous pathology. IMPRESSION: No acute cardiopulmonary disease/process. [facility], , 12/27/2024 12:50 PM
[2024-12-27] MEDS: methylPREDNISolone SOD SUCCI 125 MG/2 ML VIAL IM ONE (13:06)
[2024-12-27 13:16] VITALS: RESP 18
[2024-12-27 13:28] LABS: Influenza A Not Detected (Not Detectd); Influenza B Not Detected (Not Detectd); RSV Not Detected (Not Detectd)
[2024-12-27] MEDS: IPRATROPIUM-ALBUTEROL 3 ML NEB INHALATION STA (13:56)
[2024-12-27 14:05] VITALS: PULSE 85
[2024-12-27 14:16] VITALS: BP 165/82
== END 2024-12-27 14:15 | disposition home or self-care (01) ==
LOC: EC 11:55
DX: J10.1 Influenza due to other identified influenza virus with other respiratory manifestations (principal); J44.9 Chronic obstructive pulmonary disease, unspecified; F17.200 Nicotine dependence, unspecified, uncomplicated
CPT/HCPCS: 94640; 87636; 71046; 99285; 96372; J2919

== ENCOUNTER 2025-01-24 19:28 | Emergency (ER) | payer OTHER ==
[2025-01-24 19:36] VITALS: RESP 18
--- NOTE | 2025-01-24 19:54 | ED ---
ENT HPI - General Chief complaint: Dental/Oral Stated complaint: tooth pain Time Seen by Provider: 01/24/25 19:40 Source: patient Mode of arrival: ambulatory Limitations: no limitations - History of Present Illness Initial comments: 34-year-old male presents emergency department with complaint of dental pain. Patient states that he has been having worsening dental pain of the right sided lower and upper teeth. He is attempted to make an appointment with a dentist however been having difficulties finding a local dentist that accepts his health insurance. He denies fevers, chills, difficulty breathing. Denies recent antibiotic use. - Related Data Home Medications Medication Instructions Recorded Confirmed Atorvastatin Calcium [Lipitor] 40 mg PO DAILY 03/16/23 12/30/23 Empagliflozin [Jardiance] 10 mg PO DAILY 12/21/23 12/30/23 Ibuprofen [Motrin] 800 mg PO QID PRN 12/21/23 12/30/23 Pregabalin [Lyrica] 200 mg PO BID 12/21/23 12/30/23 hydrALAZINE HCL [Apresoline] 25 mg PO TID 12/21/23 12/30/23 Previous Rx's Medication Instructions Recorded Insulin Aspart [NovoLOG Flexpen] 10 units SQ AC-TID #1 each 04/06/24 Insulin Detemir [Levemir Flexpen] 40 units SQ DAILY #1 each 04/06/24 Azithromycin [Zithromax Z Pack] 1 tab PO DIRECTED #6 tab 12/10/24 Amoxic-Pot Clav 875-125Mg 1 tab PO Q12HR #20 tab 01/24/25 [Augmentin 875-125] Allergies Allergy/AdvReac Type Severity Reaction Status Date / Time No Known Allergies Allergy Verified 01/24/25 19:36 Review of Systems ROS Statement: Those systems with pertinent positive or pertinent negative responses have been documented in the HPI. ROS Other: All systems not noted in ROS Statement are negative. Past Medical History Past Medical History: Asthma, COPD, CVA/TIA, Diabetes Mellitus, Hypertension History of Any Multi-Drug Resistant Organisms: None Reported Past Surgical History: Orthopedic Surgery Additional Past Surgical History / Comment(s): Lasik surgery; Left ankle surgery Past Anesthesia/Blood Transfusion Reactions: No Reported Reaction Past Psychological History: Bipolar Smoking Status: Current every day smoker Past Alcohol Use History: None Reported Past Drug Use History: IV Drug Use, Marijuana, Methamphetamine General Exam Limitations: no limitations General appearance: alert, in no apparent distress Eye exam: Present: normal appearance, PERRL, EOMI. Absent: scleral icterus, conjunctival injection, periorbital swelling Expanded Teeth exam: Present: dental caries, fractured tooth #, dental tenderness #. Absent: normal inspection Neck exam: Present: normal inspection. Absent: tenderness, meningismus, lymphadenopathy Respiratory exam: Present: normal lung sounds bilaterally. Absent: respiratory distress, wheezes, rales, rhonchi, stridor Cardiovascular Exam: Present: regular rate, normal rhythm, normal heart sounds. Absent: systolic murmur, diastolic murmur, rubs, gallop, clicks GI/Abdominal exam: Present: soft, normal bowel sounds. Absent: distended, tenderness, guarding, rebound, rigid Extremities exam: Present: normal inspection, full ROM, normal capillary refill. Absent: tenderness, pedal edema, joint swelling, calf tenderness Back exam: Present: normal inspection Course Vital Signs 01/24/25 19:30 Temperature 98.1 F Pulse Rate 95 Respiratory 18 Rate Blood Pressure 158/103 O2 Sat by Pulse 98 Oximetry Medical Decision Making - Medical Decision Making Was pt. sent in by a medical professional or institution (, PA, SHEET METAL LAYOUT MECHANIC, urgent care, hospital, or alf...) When possible be specific @ -No Did you speak to anyone other than the patient for history (EMS, parent, family, police, friend...)? What history was obtained from this source @ -No Did you review nursing and triage notes (agree or disagree)? Why? @ -I reviewed and agree with nursing and triage notes Were old charts reviewed (outside hosp., previous admission, EMS record, old EKG, old radiological studies, urgent care reports/EKG's, alf records)? Report findings @ -No old charts were reviewed Differential Diagnosis (chest pain, altered mental status, abdominal pain women, abdominal pain men, vaginal bleeding, weakness, fever, dyspnea, syncope, headache, dizziness, GI bleed, back pain, seizure, CVA, palpatations, mental health, musculoskeletal)? @ -Dental abscess, dental caries, pulpitis, this list is not all inclusive EKG interpreted by me (3pts min.). @ -None X-rays interpreted by me (1pt min.). @ -None done CT interpreted by me (1pt min.). @ -None done U/S interpreted by me (1pt. min.). @ -None done What testing was considered but not performed or refused? (CT, X-rays, U/S, labs)? Why? @ -None What meds were considered but not given or refused? Why? @ -None Did you discuss the management of the patient with other professionals ( professionals i.e. DrMariela, PA, SHEET METAL LAYOUT MECHANIC, lab, RT, psych nurse, perinatal social worker, industrial safety and health specialist, teacher, fire control officer, manager case management)? Give summary @ -No Was smoking cessation discussed for >3mins.? @ -No Was critical care preformed (if so, how long)? @ -No Were there social determinants of health that impacted care today? How? (Homelessness, low income, unemployed, alcoholism, drug addiction, transportation, low edu. Level, literacy, decrease access to med. care, longterm, rehab)? @ -No Was there de-escalation of care discussed even if they declined (Discuss DNR or withdrawal of care, Hospice)? DNR status @ -No What co-morbidities impacted this encounter? (DM, HTN, Smoking, COPD, CAD, Cancer, CVA, ARF, Chemo, Hep., AIDS, mental health diagnosis, sleep apnea, morbid obesity)? @ -None Was patient admitted / discharged? Hospital course, mention meds given and route, prescriptions, significant lab abnormalities, going to OR and other pertinent info. @ -Discharge. 34-year-old male presents emergency room with dental pain. Patient has extremely poor dentition on exam with multiple fractured teeth and dental caries. There is a noted dental abscess of the lower gumline on the right. Offered to complete incision and drainage of the abscess however patient has declined. He is provided with Tylenol for pain relief in addition to Augmentin. Recommend close follow-up with dentist. Return parameters discu ssed. Case discussed with Dr. Kelsey Undiagnosed new problem with uncertain prognosis? @ -No Drug Therapy requiring intensive monitoring for toxicity (Heparin, Nitro, Insulin, Cardizem)? @ -No Were any procedures done? @ -No Diagnosis/symptom? @ -dental abscess, dental pain Acute, or Chronic, or Acute on Chronic? @ -acute Uncomplicated (without systemic symptoms) or Complicated (systemic symptoms)? @ -uncomplicated Side effects of treatment? @ -No Exacerbation, Progression, or Severe Exacerbation? @ -No Poses a threat to life or bodily function? How? (Chest pain, [place], [place], pneumonia, PE, COPD, DKA, ARF, appy, cholecystitis, CVA, Diverticulitis, Homicidal, Suicidal, threat to staff... and all critical care pts) @ -No Disposition Clinical Impression: Dental abscess Disposition: HOME SELF-CARE Condition: Stable Instructions (If sedation given, give patient instructions): Dental Abscess (ED) Additional Instructions: Please return to the Emergency Department if symptoms worsen or any other concerns. Prescriptions: Amoxic-Pot Clav 875-125Mg [Augmentin 875-125] 1 tab PO Q12HR #20 tab Is patient prescribed a controlled substance at d/c from ED?: No Referrals: Bal De La Garza MD [Primary Care Provider] - 1-2 days Time of Disposition: 19:53
[2025-01-24] MEDS: ACETAMINOPHEN TAB 500 MG TAB PO STA (20:19)
[2025-01-24] MEDS: AMOXIC-POT CLAV 875-125MG 1 EACH TAB PO STA (20:20)
[2025-01-24 20:27] VITALS: BP 143/87; PULSE 85; TEMP 98.9
== END 2025-01-24 20:29 | disposition home or self-care (01) ==
LOC: EC 19:28
DX: K04.7 Periapical abscess without sinus (principal); F17.290 Nicotine dependence, other tobacco product, uncomplicated
CPT/HCPCS: 99283

== ENCOUNTER 2025-02-11 09:08 | Emergency (ER) | payer OTHER ==
[2025-02-11 09:14] LABS: Glucose,Whole Blood 318 mg/dL (70-110)
--- NOTE | 2025-02-11 09:38 | ED ---
General Adult HPI - General Chief complaint: Abdominal Pain Stated complaint: Vomiting Time Seen by Provider: 02/11/25 09:15 Source: patient, RN notes reviewed Mode of arrival: ambulatory Limitations: no limitations - History of Present Illness Initial comments: Patient is a 34-year-old male present to the emergency department with concerns for vomiting and abdominal discomfort. Symptoms have been present for close to a week. Patient has vomited at least twice daily, more today. Patient has had some constipation. Patient has diffuse abdominal discomfort. No fever. Patient does have history of DKA with somewhat similar symptoms previously. - Related Data Home Medications Medication Instructions Recorded Confirmed Ibuprofen [Motrin] 800 mg PO QID PRN 12/21/23 02/11/25 Atorvastatin [Lipitor] 80 mg PO HS 02/11/25 02/11/25 Insulin Glargine,Hum.rec.anlog 60 units SQ DAILY 02/11/25 02/11/25 [Lantus Solostar Pen] Insulin Lispro [humaLOG Kwikpen] 10 unit SQ AC-TID 02/11/25 02/11/25 Sildenafil Citrate 100 mg PO DAILY PRN 02/11/25 02/11/25 cloNIDine HCL [Catapres] 0.1 mg PO HS 02/11/25 02/11/25 cloNIDine HCL [Catapres] 0.2 mg PO DAILY 02/11/25 02/11/25 Allergies Allergy/AdvReac Type Severity Reaction Status Date / Time No Known Allergies Allergy Verified 02/11/25 10:37 Review of Systems ROS Statement: Those systems with pertinent positive or pertinent negative responses have been documented in the HPI. ROS Other: All systems not noted in ROS Statement are negative. Constitutional: Denies: fever Eyes: Denies: eye pain ENT: Denies: ear pain Respiratory: Denies: cough, dyspnea Cardiovascular: Denies: chest pain Gastrointestinal: Reports: as per HPI, abdominal pain, nausea, vomiting Musculoskeletal: Denies: back pain Past Medical History Past Medical History: Asthma, COPD, CVA/TIA, Diabetes Mellitus, Hypertension History of Any Multi-Drug Resistant Organisms: None Reported Past Surgical History: Orthopedic Surgery Additional Past Surgical History / Comment(s): Lasik surgery; Left ankle surgery Past Anesthesia/Blood Transfusion Reactions: No Reported Reaction Past Psychological History: Bipolar Smoking Status: Current every day smoker Past Alcohol Use History: None Reported Past Drug Use History: IV Drug Use, Marijuana, Methamphetamine General Exam Limitations: no limitations General appearance: alert, in no apparent distress Head exam: Present: normocephalic Eye exam: Present: normal appearance Neck exam: Present: normal inspection Respiratory exam: Present: normal lung sounds bilaterally Cardiovascular Exam: Present: regular rate, normal rhythm GI/Abdominal exam: Present: soft, tenderness (Moderate diffuse tenderness), normal bowel sounds. Absent: distended, guarding, rebound, rigid, pulsatile mass Extremities exam: Present: normal inspection. Absent: pedal edema, calf tenderness Neurological exam: Present: alert Psychiatric exam: Present: normal affect, normal mood Skin exam: Present: normal color Course Vital Signs 02/11/25 02/11/25 02/11/25 09:09 10:16 11:04 Temperature 97.6 F Pulse Rate 88 67 Respiratory 18 22 Rate Blood Pressure 154/113 163/124 158/103 O2 Sat by Pulse 97 99 98 Oximetry Medical Decision Making - Medical Decision Making Was pt. sent in by a medical professional or institution (, PA, HEEL SHAVER, urgent care, hospital, or senior care...) When possible be specific @ -No Did you speak to anyone other than the patient for history (EMS, parent, family, police, friend...)? What history was obtained from this source @ -No Did you review nursing and triage notes (agree or disagree)? Why? @ -I reviewed and agree with nursing and triage notes Were old charts reviewed (outside hosp., previous admission, EMS record, old EKG, old radiological studies, urgent care reports/EKG's, senior care records)? Report findings @ -No old charts were reviewed Differential Diagnosis (chest pain, altered mental status, abdominal pain women, abdominal pain men, vaginal bleeding, weakness, fever, dyspnea, syncope, headache, dizziness, GI bleed, back pain, seizure, CVA, palpatations, mental health, musculoskeletal)? @ -Differential Abdominal Pain Men: Appendicitis, cholecystitis, diverticulosis, ischemic bowel, pancreatitis, hepatitis, UTI, gastroenteritis, AAA, incarcerated hernia, bowel obstruction, constipation, inflammatory bowel, hepatitis, peptic ulcer disease, splenic infarction, perforated viscus, testicular torsion, this is not meant to be an all-inclusive list EKG interpreted by me (3pts min.). @ -As above X-rays interpreted by me (1pt min.). @ -None done CT interpreted by me (1pt min.). @ -CT scan without acute abnormality, hernia U/S interpreted by me (1pt. min.). @ -None done What testing was considered but not performed or refused? (CT, X-rays, U/S, labs)? Why? @ -None What meds were considered but not given or refused? Why? @ -None Did you discuss the management of the patient with other professionals (professionals i.e. , PA, HEEL SHAVER, lab, RT, psych nurse, social worker clinical, web development consultant, teacher, revenue officer, case investigator)? Give summary @ -No Was smoking cessation discussed for >3mins.? @ -No Was critical care preformed (if so, how long)? @ -No Were there social determinants of health that impacted care today? How? (Homelessness, low income, unemployed, alcoholism, drug addiction, transportation, low edu. Level, literacy, decrease access to med. care, long-term, rehab)? @ -No Was there de-escalation of care discussed even if they declined (Discuss DNR or withdrawal of care, Hospice)? DNR status @ -No What co-morbidities impacted this encounter? (DM, HTN, Smoking, COPD, CAD, Cancer, CVA, ARF, Chemo, Hep., AIDS, mental health diagnosis, sleep apnea, morbid obesity)? @ -None Was patient admitted / discharged? Hospital course, mention meds given and route, prescriptions, significant lab abnormalities, going to OR and other pertinent info. @ -Patient reevaluated and does feel much better. Patient states he does not drink much alcohol. Elevation of lipase secondary likely from vomiting. Patient reevaluated and updated. Patient be discharged with follow-up with primary care physician Undiagnosed new problem with uncertain prognosis? @ -No Drug Therapy requiring intensive monitoring for toxicity (Heparin, Nitro, Insulin, Cardizem)? @ -No Were any procedures done? @ -No Diagnosis/symptom? @ -Abdominal pain, vomiting Acute, or Chronic, or Acute on Chronic? @ -Acute, acute Uncomplicated (without systemic symptoms) or Complicated (systemic symptoms)? @ -Default Side effects of treatment? @ -No Exacerbation, Progression, or Severe Exacerbation? @ -No Poses a threat to life or bodily function? How? (Chest pain, USA, CT, pneumonia, PE, COPD, DKA, ARF, appy, cholecystitis, CVA, Diverticulitis, Homicidal, Suicid al, threat to staff... and all critical care pts) @ -No - Lab Data Result diagrams: 02/11/25 09:56 02/11/25 09:56 Lab Results 02/11/25 02/11/25 02/11/25 Range/Units 09:13 09:56 09:56 WBC 9.79 (4.50-10.00) 10*3/uL RBC 5.61 H (4.40-5.60) 10*6/uL Hgb 14.9 (13.0-17.0) g/dL Hct 44.7 (39.6-50.0) % MCV 79.7 L (80.0-97.0) fL MCH 26.6 L (27.0-32.0) pg MCHC 33.3 (32.0-37.0) g/dL Plt Count 265 (140-440) 10*3/uL MPV 11.8 (9.5-12.2) fL Immature Gran % (Auto) 0.5 % Neutrophils % 70.8 % Lymphocytes % 19.3 % Monocytes % 7.3 % Eosinophils % 1.7 % Basophils % 0.4 % Immature Gran # 0.05 H (0.00-0.04) 10*3/uL Neutrophils # 6.93 (1.80-7.70) 10*3/uL Lymphocytes # 1.89 (0.90-5.00) 10*3/uL Monocytes # 0.71 (0.20-1.00) 10*3/uL Eosinophils # 0.17 (0.04-0.35) 10*3/uL Basophils # 0.04 (0.00-0.10) 10*3/uL PT 10.1 (10.0-12.5) sec INR 0.9 (<1.2) APTT 24.3 (22.0-30.0) sec Sodium (137-145) mmol/L Potassium (3.5-5.1) mmol/L Chloride (98-107) mmol/L Carbon Dioxide (22-30) mmol/L Anion Gap mmol/L BUN (9-20) mg/dL Creatinine (0.66-1.25) mg/dL Est GFR (CKD-EPI)AfAm (>60 ml/min/1.73 sqM) Est GFR (CKD-EPI)NonAf (>60 ml/min/1.73 sqM) Glucose (74-99) mg/dL POC Glucose (mg/dL) 318 H (70-110) mg/dL POC Glu [employer] Architect ID Rinku Stallings Calcium (8.4-10.2) mg/dL Total Bilirubin (0.2-1.3) mg/dL AST (17-59) U/L ALT (4-49) U/L Alkaline Phosphatase (38-126) U/L Total Protein (6.3-8.2) g/dL Albumin (3.5-5.0) g/dL Amylase (30-110) U/L Lipase (23-300) U/L Acetone, Qual (Negative) 02/11/25 02/11/25 Range/Units 09:56 11:51 WBC (4.50-10.00) 10*3/uL RBC (4.40-5.60) 10*6/uL Hgb (13.0-17.0) g/dL Hct (39.6-50.0) % MCV (80.0-97.0) fL MCH (27.0-32.0) pg MCHC (32.0-37.0) g/dL Plt Count (140-440) 10*3/uL MPV (9.5-12.2) fL Immature Gran % (Auto) % Neutrophils % % Lymphocytes % % Monocytes % % Eosinophils % % Basophils % % Immature Gran # (0.00-0.04) 10*3/uL Neutrophils # (1.80-7.70) 10*3/uL Lymphocytes # (0.90-5.00) 10*3/uL Monocytes # (0.20-1.00) 10*3/uL Eosinophils # (0.04-0.35) 10*3/uL Basophils # (0.00-0.10) 10*3/uL PT (10.0-12.5) sec INR (<1.2) APTT (22.0-30.0) sec Sodium 138 (137-145) mmol/L Potassium 4.9 (3.5-5.1) mmol/L Chloride 100 (98-107) mmol/L Carbon Dioxide 26 (22-30) mmol/L Anion Gap 12 mmol/L BUN 11 (9-20) mg/dL Creatinine 0.66 (0.66-1.25) mg/dL Est GFR (CKD-EPI)AfAm >90 (>60 ml/min/1.73 sqM) Est GFR (CKD-EPI)NonAf >90 (>60 ml/min/1.73 sqM) Glucose 322 H (74-99) mg/dL POC Glucose (mg/dL) 307 H (70-110) mg/dL POC Glu [employer] Architect ID Khris Zamudio Calcium 9.3 (8.4-10.2) mg/dL Total Bilirubin 0.6 (0.2-1.3) mg/dL AST 27 (17-59) U/L ALT 21 (4-49) U/L Alkaline Phosphatase 79 (38-126) U/L Total Protein 7.3 (6.3-8.2) g/dL Albumin 4.5 (3.5-5.0) g/dL Amylase 90 (30-110) U/L Lipase 845 H (23-300) U/L Acetone, Qual Negative (Negative) Disposition Clinical Impression: Abdominal pain, Vomiting Disposition: HOME SELF-CARE Condition: Stable Instructions (If sedation given, give patient instructions): Abdominal Pain (ED) Additional Instructions: Please do follow-up with your primary care physician in the next day or 2 for recheck. Return for increased pain, uncontrolled vomiting, fever, worsening or changing symptoms or other concerns. Have your primary care physician recheck labs, specifically lipase. Is patient prescribed a controlled substance at d/c from ED?: No Referrals: Bal De La Garza MD [Primary Care Provider] - 1-2 days Time of Disposition: 11:57
[2025-02-11] MEDS: SODIUM CHLORIDE 0.9% 1,000 ML IV ONE (10:01)
[2025-02-11] MEDS: ONDANSETRON 4 MG/2 ML VIAL IVP STA (10:03)
[2025-02-11] MEDS: FAMOTIDINE 20 MG/2 ML VIAL IV STA (10:06)
[2025-02-11 10:09] LABS: Basophils # (A) 0.04 10*3/uL (0.00-0.10); Basophils % (A) 0.4 %; Eosinophils # (A) 0.17 10*3/uL (0.04-0.35); Eosinophils % (A) 1.7 %; HCT 44.7 % (39.6-50.0); HGB 14.9 g/dL (13.0-17.0); Lymphocytes # (A) 1.89 10*3/uL (0.90-5.00); Lymphocytes % (A) 19.3 %; MCH 26.6 pg (27.0-32.0); MCHC 33.3 g/dL (32.0-37.0); MCV 79.7 fL (80.0-97.0); Mean Platelet Volume 11.8 fL (9.5-12.2); Monocytes # (A) 0.71 10*3/uL (0.20-1.00); Monocytes % (A) 7.3 %; Neutrophils # (A) 6.93 10*3/uL (1.80-7.70); Neutrophils % (A) 70.8 %; Platelet Count 265 10*3/uL (140-440); RBC 5.61 10*6/uL (4.40-5.60); RDW 12.3 % (11.5-14.5); WBC 9.79 10*3/uL (4.50-10.00)
[2025-02-11] MEDS: DICYCLOMINE 10 MG/ML 2 ML AMP IM STA (10:10)
[2025-02-11 10:19] LABS: INR 0.9 (<1.2); Partial Thromboplastin Time 24.3 sec (22.0-30.0); Prothrombin Time 10.1 sec (10.0-12.5)
[2025-02-11 10:23] LABS: ALT 21 U/L (4-49); African American GFR (CKD) >90 (>60 ml/min/1.73 sqM); Albumin 4.5 g/dL (3.5-5.0); Amylase 90 U/L (30-110); Anion Gap 12 mmol/L; Blood Urea Nitrogen 11 mg/dL (9-20); Calcium 9.3 mg/dL (8.4-10.2); Carbon Dioxide 26 mmol/L (22-30); Chloride 100 mmol/L (98-107); Glucose 322 mg/dL (74-99); Lipase 845 U/L (23-300); Non-African American GFR(CKD) >90 (>60 ml/min/1.73 sqM); Sodium 138 mmol/L (137-145); Total Bilirubin 0.6 mg/dL (0.2-1.3); Total Protein 7.3 g/dL (6.3-8.2)
[2025-02-11 10:33] LABS: AST 27 U/L (17-59); Potassium 4.9 mmol/L (3.5-5.1)
[2025-02-11 10:34] LABS: Alkaline Phosphatase 79 U/L (38-126)
[2025-02-11] MEDS: cloNIDine HCL 0.1 MG TAB PO STA (11:05)
--- NOTE | 2025-02-11 11:23 | CT ---
EXAMINATION TYPE: CT abdomen pelvis w con DATE OF EXAM: 02/11/2025 10:59 AM COMPARISON: 08/16/2022 CLINICAL INDICATION: Male, 34 years old with history of abdominal pain; ABDOMINAL PAIN WITH VOMITING TECHNIQUE: CT of the abdomen and pelvis after IV contrast. Delayed images through the kidneys and gerri dder and coronal/sagittal reconstructions performed. Contrast used:100 ml mL of Isovue 300 with IV Co ntrast, (none if empty) Oral contrast used: without Oral Contrast (none if empty) CT DLP: 2319.4 mGycm, Automated exposure control for dose reduction was used. FINDINGS: LOWER CHEST: Unremarkable ABDOMEN LIVER: Enlarged measuring 21.1 cm. No focal lesion seen. GALLBLADDER AND BILE DUCTS: Unremarkable. PANCREAS: Unremarkable. SPLEEN: Unremarkable. ADRENAL GLANDS: Unremarkable. KIDNEYS AND URETERS: No evidence of hydronephrosis or renal calculus. The ureters are unremarkable. PELVIS BLADDER: No evidence for wall thickening or mass given limitations of exam. REPRODUCTIVE: Unremarkable. ABDOMEN & PELVIS STOMACH AND BOWEL: Small hiatal hernia. No evidence of bowel obstruction. Scattered [id number] stool. No pericolonic inflammatory change. PERITONEUM/RETROPERITONEUM: No evidence of pneumoperitoneum or free fluid. VASCULATURE: No evidence of aortic aneurysm. MUSCULOSKELETAL: No acute osseous abnormalities LYMPH NODES: No gross evidence for lymphadenopathy. SOFT TISSUE/ABDOMINAL WALL: A small to moderate-sized direct fat-containing left inguinal hernia has developed in the interval measuring 6.2 cm craniocaudal and 4.3 cm wide. IMPRESSION: 1. Small hiatal hernia. 2. Similar hepatomegaly at 21.1 cm. 3. Interval development of a small to moderate-sized direct left inguinal hernia containing fat (6.2 x 4.3 cm). [facility], , 02/11/2025 11:21 AM
[2025-02-11 11:53] LABS: Glucose,Whole Blood 307 mg/dL (70-110)
[2025-02-11] MEDS: INSULIN REGULAR 100 UNIT/ML VIAL (IM/SQ) SQ ONE (12:02)
[2025-02-11 12:08] VITALS: BP 164/116; PULSE 74; RESP 18; TEMP 97.9
== END 2025-02-11 12:05 | disposition home or self-care (01) ==
LOC: EC 09:08
DX: R10.84 Generalized abdominal pain (principal); R11.10 Vomiting, unspecified; F17.200 Nicotine dependence, unspecified, uncomplicated; Z86.73 Personal history of transient ischemic attack (TIA), and cerebral infarction without residual deficits
CPT/HCPCS: 36415; 80053; 82150; 82009; 83690; 85025; 85610; 85730; 74177; 99284; 96374; 96375; 96361; 96372; J0500; J2405; Q9967; J1308

== ENCOUNTER 2025-05-11 04:55 | Emergency (ER) | payer OTHER ==
[2025-05-11 05:01] VITALS: TEMP 97.9
[2025-05-11 05:02] LABS: Glucose,Whole Blood 266 mg/dL (70-110)
[2025-05-11 06:25] LABS: Basophils # (A) 0.04 10*3/uL (0.00-0.10); Basophils % (A) 0.2 %; Eosinophils # (A) 0.09 10*3/uL (0.04-0.35); Eosinophils % (A) 0.5 %; HCT 45.3 % (39.6-50.0); HGB 15.5 g/dL (13.0-17.0); Lymphocytes # (A) 0.73 10*3/uL (0.90-5.00); Lymphocytes % (A) 4.1 %; MCH 26.9 pg (27.0-32.0); MCHC 34.2 g/dL (32.0-37.0); MCV 78.6 fL (80.0-97.0); Monocytes # (A) 1.01 10*3/uL (0.20-1.00); Monocytes % (A) 5.6 %; Neutrophils # (A) 16.01 10*3/uL (1.80-7.70); Neutrophils % (A) 88.9 %; Platelet Count 228 10*3/uL (140-440); RBC 5.76 10*6/uL (4.40-5.60); RDW 12.7 % (11.5-14.5); WBC 18.01 10*3/uL (4.50-10.00)
[2025-05-11 06:37] LABS: VBG HCO3 25.0 mmol/L (24-28); VBG PCO2 34.0 mmHg (37-51); VBG PH 7.47 (7.31-7.41)
--- NOTE | 2025-05-11 06:41 | ED ---
General Adult HPI <Carlito Kelsey - Last Filed: 05/11/25 09:32> - General Source: patient Mode of arrival: wheelchair Limitations: no limitations <Makeda Biswas - Last Filed: 05/15/25 16:34> - General Chief complaint: Abdominal Pain Stated complaint: NV Time Seen by Provider: 05/11/25 05:01 - History of Present Illness Initial comments: Patient is a 35 y/o gentleman hx type 1 DM presenting for abdominal pain, nausea, vomiting and diarrhea x 1 day. He states he has had sugars as high as 500 at home but has been controlling them with home insulin. States today sugar was in the 200s. Denies fevers, endorses chills. No prior abdominal surgeries. Abdominal pain is described as sharp and left lower quadrant. It does not rate to radiate to his testicles or around to his back. Stool is nonbloody and nonmelanotic. Denies dysuria or heamturia. (Makeda Biswas) - Related Data Home Medications Medication Instructions Recorded Confirmed Ibuprofen [Motrin] 800 mg PO QID PRN 12/21/23 02/11/25 Atorvastatin [Lipitor] 80 mg PO HS 02/11/25 02/11/25 Insulin Glargine,Hum.rec.anlog 60 units SQ DAILY 02/11/25 02/11/25 [Lantus Solostar Pen] Insulin Lispro [humaLOG Kwikpen] 10 unit SQ AC-TID 02/11/25 02/11/25 Sildenafil Citrate 100 mg PO DAILY PRN 02/11/25 02/11/25 cloNIDine HCL [Catapres] 0.1 mg PO HS 02/11/25 02/11/25 cloNIDine HCL [Catapres] 0.2 mg PO DAILY 02/11/25 02/11/25 Allergies Allergy/AdvReac Type Severity Reaction Status Date / Time No Known Allergies Allergy Verified 05/11/25 04:57 Review of Systems ROS Other: All systems not noted in ROS Statement are negative. <Carlito Kelsey - Last Filed: 05/11/25 09:32> ROS Other: All systems not noted in ROS Statement are negative. <Makeda Biswas - Last Filed: 05/15/25 16:34> ROS Statement: Those systems with pertinent positive or pertinent negative responses have been documented in the HPI. Past Medical History Past Medical History: Asthma, COPD, CVA/TIA, Diabetes Mellitus, Hypertension History of Any Multi-Drug Resistant Organisms: None Reported Past Surgical History: Orthopedic Surgery Additional Past Surgical History / Comment(s): Lasik surgery; Left ankle surgery Past Anesthesia/Blood Transfusion Reactions: No Reported Reaction Past Psychological History: Bipolar Smoking Status: Current every day smoker Past Alcohol Use History: None Reported Past Drug Use History: IV Drug Use, Marijuana, Methamphetamine <Makeda Biswas - Last Filed: 05/15/25 16:34> General Exam Limitations: no limitations <Makeda Biswas - Last Filed: 05/15/25 16:34> - General Exam Comments Initial Comments: PE: CONSTITUTIONAL: No apparent distress, uncomfortable appearing SKIN: Warm, dry, no jaundice, hives or petechiae EYES: Pupils are equally round, extraocular movements intact without nystagmus, clear conjunctiva, non-icteric sclera HENT: Normocephalic, atraumatic, moist mucus membranes, oropharynx clear without exudates NECK: , Full range of motion, normal appearance PULMONARY: Clear to auscultation without wheezes, rhonchi, or rales, normal excursion, no accessory muscle use and no stridor CARDIOVASCULAR: Regular rate, rhythm, normal S1 and S2. No appreciated murmurs, rubs or gallops. Strong radial pulses with intact distal perfusion. GASTROINTESTINAL: Soft, active bowel sounds throughout, nontender, non- distended, no palpable masses, no rebound or guarding. No hepatosplenomegaly, - CVA TTP MUSCULOSKELETAL: Extremities have no gross deformity, no edema, redness, or swelling. NEUROLOGIC:_a/o x 3, GCS 15, normal mentation and speech. Moves all extremities x 4 without motor or sensory deficit PSYCHIATRIC:_normal mood and affect, thought process is clear and linear (Makeda Biswas) Course Vital Signs 05/11/25 05/11/25 04:57 06:55 Temperature 97.9 F Pulse Rate 94 89 Respiratory 20 18 Rate Blood Pressure 157/111 169/98 O2 Sat by Pulse 99 98 Oximetry Medical Decision Making - Lab Data Result diagrams: 05/11/25 06:17 05/11/25 06:17 <Carlito Kelsey - Last Filed: 05/11/25 09:32> - Lab Data Result diagrams: 05/11/25 06:17 05/11/25 06:17 <Makeda Biswas - Last Filed: 05/15/25 16:34> - Medical Decision Making Patient care signed out to me by previous shift physician, Dr. Biswas. Briefly, patient is a 35-year-old diabetic male presents emergency department for hyperglycemia vomiting. Vitals reviewed found to be unremarkable. Labs reviewed unremarkable. Plan at signout is follow-up with pending CT. CT imaging is unremarkable. Patient reevaluated at bedside 9:30 AM found to be stable to condition. Patient no acute distress and denies any symptoms. Patient agreeable for discharge told to follow-up with primary care doctor. (Carlito Kelsey) Was pt. sent in by a medical professional or institution (, PA, PIN MACHINE TENDER, urgent care, hospital, or prison...) When possible be specific @ -No Did you speak to anyone other than the patient for history (EMS, parent, family, police, friend...)? What history was obtained from this source @ -No Did you review nursing and triage notes (agree or disagree)? Why? @ -I reviewed nursing and triage notes Differential Diagnosis (chest pain, altered mental status, abdominal pain women, abdominal pain men, vaginal bleeding, weakness, fever, dyspnea, syncope, headache, dizziness, GI bleed, back pain, seizure, CVA, palpatations, mental health, musculoskeletal)? @ -Differential Abdominal Pain Men: Appendicitis, cholecystitis, diverticulosis, ischemic bowel, pancreatitis, hepatitis, UTI, gastroenteritis, AAA, incarcerated hernia, bowel obstruction, constipation, inflammatory bowel, peptic ulcer disease, splenic infarction, perforated viscus, testicular torsion, this is not meant to be an all-inclusive list EKG interpreted by me (3pts min.). @ -As above X-rays interpreted by me (1pt min.). @ -None done CT interpreted by me (1pt min.). @ -pending at time of sign out U/S interpreted by me (1pt. min.). @ -None done What testing was considered but not performed or refused? (CT, X-rays, U/S, labs)? Why? @ -None What meds were considered but not given or refused? Why? @ -None Did you discuss the management of the patient with other professionals (professionals i.e. Dr., PA, PIN MACHINE TENDER, lab, RT, psych nurse, social service worker, milking worker, teacher, forest fire officer, nurse outreach case manager)? Give summary @ -No Was smoking cessation discussed for >3mins.? @ -No Was critical care preformed (if so, how long)? @ -No Were there social determinants of health that impacted care today? How? (Homelessness, low income, unemployed, alcoholism, drug addiction, transportation, low edu. Level, literacy, decrease access to med. care, prison, rehab)? @ -No Was there de-escalation of care discussed even if they declined (Discuss DNR or withdrawal of care, Hospice)? @ -No What co-morbidities impacted this encounter? (DM, HTN, Smoking, COPD, CAD, Cancer, CVA, ARF, Chemo, Hep., AIDS, mental health diagnosis, sleep apnea, morbid obesity)? @ -DM Was patient admitted / discharged? Hospital course, mention meds given and route, prescriptions, significant lab abnormalities, going to OR and other pertinent info. Signed out to oncoming physician pending imaging and completion of labs- Patient is a pleasant 35-year-old man presenting today for abdominal pain, nausea, vomiting and diarrhea as well as hyperglycemia. Patient is over well-appearing on assessment. He does not appear to be in any acute distress. Exam soft and overall nontender. Blood sugar on arrival 266. Plan for comprehensive labs, acetone, VBG, urinalysis CT abdomen pelvis. Ordered IV fluids and pain control. Pt signed out to Dr. Farrell pending completion of labs and imaging (Makeda Biswas) - Lab Data Lab Results 05/11/25 05/11/25 05/11/25 Range/Units 05:01 06:17 06:17 WBC 18.01 H (4.50-10.00) 10*3/uL RBC 5.76 H (4.40-5.60) 10*6/uL Hgb 15.5 (13.0-17.0) g/dL Hct 45.3 (39.6-50.0) % MCV 78.6 L (80.0-97.0) fL MCH 26.9 L (27.0-32.0) pg MCHC 34.2 (32.0-37.0) g/dL Plt Count 228 (140-440) 10*3/uL MPV 11.3 (9.5-12.2) fL Immature Gran % (Auto) 0.7 % Neutrophils % 88.9 % Lymphocytes % 4.1 % Monocytes % 5.6 % Eosinophils % 0.5 % Basophils % 0.2 % Immature Gran # 0.13 H (0.00-0.04) 10*3/uL Neutrophils # 16.01 H (1.80-7.70) 10*3/uL Lymphocytes # 0.73 L (0.90-5.00) 10*3/uL Monocytes # 1.01 H (0.20-1.00) 10*3/uL Eosinophils # 0.09 (0.04-0.35) 10*3/uL Basophils # 0.04 (0.00-0.10) 10*3/uL APTT 21.5 L (22.0-30.0) sec VBG pH (7.31-7.41) VBG pCO2 (37-51) mmHg VBG HCO3 (24-28) mmol/L Sodium (137-145) mmol/L Potassium (3.5-5.1) mmol/L Chloride (98-107) mmol/L Carbon Dioxide (22-30) mmol/L Anion Gap mmol/L BUN (9-20) mg/dL Creatinine (0.66-1.25) mg/dL Est GFR (CKD-EPI)AfAm (>60 ml/min/1.73 sqM) Est GFR (CKD-EPI)NonAf (>60 ml/min/1.73 sqM) Glucose (74-99) mg/dL POC Glucose (mg/dL) 266 H (70-110) mg/dL POC Glu Unemployment Inspector ID CARLISLE SCIAND Calcium (8.4-10.2) mg/dL Phosphorus (2.5-4.5) mg/dL Total Bilirubin (0.2-1.3) mg/dL AST (17-59) U/L ALT (4-49) U/L Alkaline Phosphatase (38-126) U/L Total Protein (6.3-8.2) g/dL Albumin (3.5-5.0) g/dL Amylase (30-110) U/L Lipase (23-300) U/L Urine Color Urine Appearance (Clear) Urine pH (5.0-8.0) Ur Specific [place] (1.001-1.035) Urine Protein (Negative) Urine Glucose (UA) (Negative) Urine Ketones (Negative) Urine Blood (Negative) Urine Nitrite (Negative) Urine Bilirubin (Negative) Urine Urobilinogen (<2.0) mg/dL Ur Leukocyte Esterase (Negative) Acetone, Qual (Negative) 05/11/25 05/11/25 05/11/25 Range/Units 06:17 06:17 08:12 WBC (4.50-10.00) 10*3/uL RBC (4.40-5.60) 10*6/uL Hgb (13.0-17.0) g/dL Hct (39.6-50.0) % MCV (80.0-97.0) fL MCH (27.0-32.0) pg MCHC (32.0-37.0) g/dL Plt Count (140-440) 10*3/uL MPV (9.5-12.2) fL Immature Gran % (Auto) % Neutrophils % % Lymphocytes % % Monocytes % % Eosinophils % % Basophils % % Immature Gran # (0.00-0.04) 10*3/uL Neutrophils # (1.80-7.70) 10*3/uL Lymphocytes # (0.90-5.00) 10*3/uL Monocytes # (0.20-1.00) 10*3/uL Eosinophils # (0.04-0.35) 10*3/uL Basophils # (0.00-0.10) 10*3/uL APTT (22.0-30.0) sec VBG pH 7.47 H (7.31-7.41) VBG pCO2 34 L (37-51) mmHg VBG HCO3 25 (24-28) mmol/L Sodium 136 L (137-145) mmol/L Potassium 4.9 (3.5-5.1) mmol/L Chloride 104 (98-107) mmol/L Carbon Dioxide 23 (22-30) mmol/L Anion Gap 9 mmol/L BUN 16 (9-20) mg/dL Creatinine 0.64 L (0.66-1.25) mg/dL Est GFR (CKD-EPI)AfAm >90 (>60 ml/min/1.73 sqM) Est GFR (CKD-EPI)NonAf >90 (>60 ml/min/1.73 sqM) Glucose 284 H (74-99) mg/dL POC Glucose (mg/dL) (70-110) mg/dL POC Glu Unemployment Inspector ID Calcium 9.0 (8.4-10.2) mg/dL Phosphorus 2.3 L (2.5-4.5) mg/dL Total Bilirubin 1.1 (0.2-1.3) mg/dL AST 28 (17-59) U/L ALT 20 (4-49) U/L Alkaline Phosphatase 98 (38-126) U/L Total Protein 7.4 (6.3-8.2) g/dL Albumin 4.5 (3.5-5.0) g/dL Amylase 71 (30-110) U/L Lipase 322 H (23-300) U/L Urine Color Colorless Urine Appearance Clear (Clear) Urine pH 7.5 (5.0-8.0) Ur Specific [place] 1.050 H (1.001-1.035) Urine Protein Negative (Negative) Urine Glucose (UA) 4+ H (Negative) Urine Ketones 1+ H (Negative) Urine Blood Negative (Negative) Urine Nitrite Negative (Negative) Urine Bilirubin Negative (Negative) Urine Urobilinogen <2.0 (<2.0) mg/dL Ur Leukocyte Esterase Negative (Negative) Acetone, Qual Negative (Negative) Disposition Is patient prescribed a controlled substance at d/c from ED?: No Time of Disposition: 09:32 <Carlito Kelsey - Last Filed: 05/11/25 09:32> <Makeda Biswas - Last Filed: 05/15/25 16:34> Clinical Impression: Nausea & vomiting Disposition: HOME SELF-CARE Condition: Fair Instructions (If sedation given, give patient instructions): Acute Nausea and Vomiting (ED) Referrals: Bal De La Garza MD [Primary Care Provider] - 1-2 days
[2025-05-11] MEDS: ONDANSETRON 4 MG/2 ML VIAL IVP STA (06:47)
[2025-05-11 06:48] LABS: ALT 20 U/L (4-49); AST 28 U/L (17-59); African American GFR (CKD) >90 (>60 ml/min/1.73 sqM); Albumin 4.5 g/dL (3.5-5.0); Alkaline Phosphatase 98 U/L (38-126); Amylase 71 U/L (30-110); Anion Gap 9 mmol/L; Blood Urea Nitrogen 16 mg/dL (9-20); Calcium 9.0 mg/dL (8.4-10.2); Carbon Dioxide 23 mmol/L (22-30); Chloride 104 mmol/L (98-107); Glucose 284 mg/dL (74-99); Lipase 322 U/L (23-300); Non-African American GFR(CKD) >90 (>60 ml/min/1.73 sqM); Sodium 136 mmol/L (137-145); Total Protein 7.4 g/dL (6.3-8.2)
[2025-05-11] MEDS: MORPHINE SULFATE 4 MG/ML SYRINGE IVP STA (06:48)
[2025-05-11 06:53] LABS: Potassium 4.9 mmol/L (3.5-5.1)
[2025-05-11] MEDS: SODIUM CHLORIDE 0.9% 1,000 ML IV SCH (06:53)
[2025-05-11 06:58] VITALS: BP 169/98; PULSE 89; RESP 18
--- NOTE | 2025-05-11 07:42 | CT ---
EXAMINATION TYPE: CT abdomen pelvis w con CT DLP: 1777.3 mGycm, Automated exposure control for dose reduction was used. DATE OF EXAM: 05/11/2025 7:30 AM COMPARISON: CT abdomen pelvis 02/11/2025 CLINICAL INDICATION:Male, 35 years old with history of LLQ pain vomiting, diarrhea; LLQ abdominal samuel n, vomiting. hx of T1 Diabetic TECHNIQUE: Standard CT of the abdomen and pelvis following the administration of 100 cc of Isovue 3 00 IV contrast material. Coronal and sagittal reformats were performed. FINDINGS: LOWER CHEST: Unremarkable ABDOMEN LIVER: Enlarged measuring 22.7 cm in CC dimension. No focal lesion. GALLBLADDER AND BILE DUCTS: Unremarkable. PANCREAS: Unremarkable. SPLEEN: Mildly enlarged measuring 14.1 cm in AP dimension. ADRENAL GLANDS: Unremarkable. KIDNEYS AND URETERS: No evidence of hydronephrosis or renal calculus. The kidneys enhance symmetrica lly. Contrast is demonstrated within both collecting systems and proximal ureters on the delayed phas e. PELVIS BLADDER: Incompletely distended but grossly unremarkable. REPRODUCTIVE: Unremarkable. ABDOMEN & PELVIS STOMACH AND BOWEL: Stomach and duodenum are unremarkable. The appendix is within normal limits. No fo keo bowel wall thickening or stranding inflammatory changes. No evidence of bowel obstruction. PERITONEUM: No evidence of pneumoperitoneum or free fluid. VASCULATURE: No evidence of aortic aneurysm. MUSCULOSKELETAL: No acute osseous abnormalities LYMPH NODES: No evidence for lymphadenopathy. SOFT TISSUE/ABDOMINAL WALL: Small fat filled bilateral direct inguinal hernias. The left inguinal her laine is decreased in size from prior exam. IMPRESSION: 1. No CT evidence for acute abdominal/pelvic process. 2. Hepatosplenomegaly. [facility], , 05/11/2025 7:40 AM
[2025-05-11 08:17] LABS: Bilirubin,Urine Negative (Negative); Blood,Urine Negative (Negative); Color,Urine Colorless; Glucose,Urine (UA) 4+ (Negative); Ketones,Urine 1+ (Negative); Leukocyte Esterase,Urine Negative (Negative); Nitrite,Urine Negative (Negative); PH, Urine 7.5 (5.0-8.0); Protein,Urine Negative (Negative); Urobilinogen,Urine <2.0 mg/dL (<2.0)
[2025-05-11 09:00] LABS: Specific Gravity,Urine 1.050 (1.001-1.035)
== END 2025-05-11 10:19 | disposition home or self-care (01) ==
LOC: EC 04:55
CPT/HCPCS: 36415; 74177; 80053; 81003; 82009; 82150; 82803; 83690; 84100; 85025; 85730; 93005; 96361; 96374; 99284